=== PATIENT | female | born 1965 | race Caucasian/White ===

== ENCOUNTER 2017-05-31 20:49 | Emergency (ER) | payer MEDICARE, MEDICAID ==
[~2017-05-31] VITALS: Ht 167.6 cm; Wt 99.8 kg
[~2017-05-31 20:49] MED LIST: PNT40TEC PO
[2017-05-31] MEDS ORDERED: DIAZ10TA PO (21:03)
[2017-05-31] MEDS ORDERED: OXYC-202 PO (21:03)
[2017-05-31] MEDS ORDERED: LISI10TA2 PO (21:03)
--- NOTE | 2017-05-31 21:14 | ED Upper Extremity ---
General Chief Complaint: Upper Extremity Stated Complaint: R HAND FINGERS LAC Nursing Triage Note: ABRASION TO RIGHT 5TH FINGER Nursing Sepsis Screen: No Definite Risk Source: patient Exam Limitations: no limitations History of Present Illness Time seen by provider: 21:14 Initial Comments 51-year-old female patient presents to the emergency department complaints and abrasion to the right fifth finger. Patient states she had a dog chain wrapped around her hand. States the dog lunged causing the injury. States she does not know when her last tetanus shot was. Onset: just prior to arrival Pain/Injury Location: right 5th finger Method of Injury: other (see history of present illness) Modifying Factors: Worse With Other (worse with palpation) Allergies and Home Medications Allergies Coded Allergies: adhesive (Unverified Allergy, 10/28/13) ibuprofen (Verified Allergy, 10/28/13) Home Medications Diazepam 10 Mg Tablet, 10 MG PO, (Reported) Lisinopril 10 Mg Tablet, 10 MG PO DAILY, (Reported) Oxycodone HCl/Acetaminophen 1 Each Tablet, 1 EACH PO, (Reported) Pantoprazole Sodium 40 Mg Tablet.dr, 40 MG PO DAILY, #30 Prescribed by: MAGALI STANTON on 10/29/13 1336 Constitutional: no symptoms reported Musculoskeletal: see HPI, joint pain (mild right fifth finger pain with movement), joint swelling (right fifth finger) Skin: see HPI, change in color (bruising right fifth finger) Psychiatric/Neurological: Denies Numbness, Denies Paresthesia, Denies Tingling , Denies Weakness All Other Systems Reviewed Negative Unless Noted: Yes (Negative excepted noted.) Past Djhdbhs-Bxpivc-Wjudqs Hx Patient Social History Alcohol Use: Denies Use Recreational Drug Use: No Smoking Status: Never a Smoker 2nd Hand Smoke Exposure: No Recent Foreign Travel: No Contact w/Someone Who Travel: No Recent Infectious Disease Expo: No Recent Hopitalizations: No Immunizations Up To Date Tetanus Booster (TDap): More than 5yrs Date of Pneumonia Vaccine: Oct 17, 2011 Seasonal Allergies Seasonal Allergies: No Surgeries HX Surgeries: Yes (breast lumpectomy) Surgeries: Gallbladder, Hysterectomy, Lumpectomy, Tubal Ligation Respiratory Hx Respiratory Disorders: Yes Respiratory Disorders: COPD Cardiovascular Hx Cardiac Disorders: Yes Cardiac Disorders: Hypertension Neurological Hx Neurological Disorders: No Reproductive System : No Hx Reproductive Disorders: Yes (CERVICAL/UTERINE CANCER-HYSTERECTOMY, BREAST CANCER-LUMPECTOMY) Sexually Transmitted Disease: No CONCRETE FINISHER APPRENTICE History: Hysterectomy, Tubal Ligation Genitourinary Hx Genitourinary Disorders: No Gastrointestinal Hx Gastrointestinal Disorders: No Musculoskeletal Hx Musculoskeletal Disorders: No Endocrine Hx Endocrine Disorders: Yes ("PRE DIABETIC") Endocrine Disorders: Diabetes, Non-Insulin dep HEENT HX ENT Disorders: No Cancer Hx Cancer: Yes Cancer: Breast, Cervical, Uterine Psychosocial Hx Psychiatric Problems: Yes Behavioral Health Disorders: Anxiety, PTSD, Bipolar, Depression Integumentary HX Skin/Integumentary Disorder: No Blood Transfusions Hx Blood Disorders: No Reviewed Nursing Assessment Reviewed/Agree w Nursing PMH: Yes Family Medical History Significant Family History: Heart Disease, Hypertension, Stroke, Vascular Disease Family Medial History: Cancer Chest pain Congenital heart disease Congestive heart failure Family history: Arthritis Family history: Cardiovascular disease Family history: Diabetes mellitus Family history: Gastrointestinal disease Family history: Hypertension Heart disease History of - anemia History of - respiratory disease Myocardial infarction Stroke Visual impairment No Family History of: Abdominal aortic aneurysm Pima's disease Alcoholism Aphasia Cancer of colon Cataract Cystic fibrosis Dementia Dysphagia Family history: Allergy Family history: Alzheimer's disease Family history: Asthma Family history: Breast disease Family history: Coronary thrombosis Family history: Glaucoma Family history: Osteoporosis Family history: Thyroid disorder Headache Hearing loss Hereditary disease History of drug abuse Human immunodeficiency virus (HIV) seropositivity Hypercholesterolemia Infertile Kidney disease Malignant neoplasm of lung Parkinson's disease Prostate cancer Psychotic disorder Seizure disorder Tuberculosis Physical Exam Vital Signs Vital Sign - Last 12Hours 05/31/17 21:03 Temp 97.1 Pulse 113 Resp 18 B/P (MAP) 136/86 Pulse Ox 99 O2 Delivery Room Air Capillary Refill : Less Than 3 Seconds General Appearance: WD/WN, no apparent distress Cardiovascular: normal peripheral pulses Elbow/Forearm: normal inspection, non-tender, no evidence of injury, normal ROM , Right Wrist: Yes normal inspection, Yes non-tender, Yes no evidence of injury, Yes normal ROM Hand: Right, abrasions (abrasion of the right fifth finger overlying the posterior PIP joint.), ecchymosis (right fifth finger), limited ROM (a slight reduction in range of motion of the fifth finger secondary to swelling), soft tissue tenderness, swelling (mild swelling of the right fifth finger) Neurologic/Tendon: normal sensation, normal motor functions, normal tendon functions, responds to pain, no evidence tendon injury Neurologic/Psychiatric: no motor/sensory deficits, alert, normal mood/affect, oriented x 3 Skin: normal color, warm/dry, other (abrasion of the right fifth finger overlying the posterior PIP joint.) Progress/Results/Core Measures Results/Orders My Orders Orders - ANNABELLE MCCALLUM Tdap (Boostrix) Im (05/31/17 21:19) Vital Signs/I&O Vital Sign - Last 12Hours 05/31/17 21:03 Temp 97.1 Pulse 113 Resp 18 B/P (MAP) 136/86 Pulse Ox 99 O2 Delivery Room Air Blood Pressure Mean: 103 Departure Impression Impression: Primary Impression: Abrasion of finger, right Qualified Codes: S60.419A - Abrasion of unspecified finger, initial encounter Disposition: HOME, SELF-CARE Condition: Improved Departure-Patient Inst. Decision time for Depature: 21:24 Referrals: NO,LOCAL PHYSICIAN (PCP/Family) Primary Care Physician Patient Instructions: Skin Abrasions (DC) Add. Discharge Instructions: All discharge instructions reviewed with patient and/or family. Voiced understanding. Continue usual home medications. Elevate the right hand on pillows. Ice pack as needed. Follow-up with your family practitioner for recheck if needed. Return to the emergency department for worsened symptoms or any other concerns. ANNABELLE MCCALLUM May 31, 2017 21:14
[2017-05-31] MEDS ORDERED: TETANUS,DIPTH,PERTUSS P/F (BOOSTRIX) 0.5 ML VIAL IM STA (21:19)
[2017-05-31 21:53] VITALS: BP 132/81
== END 2017-05-31 21:53 | disposition home or self-care (01) ==
LOC: EDUNIT# 20:49 → ER 20:51
DX: Z04.3 Encounter for examination and observation following other accident (principal)
CPT/HCPCS: 90471; 90715; 99284

== ENCOUNTER 2019-01-30 13:09 | Emergency (ER) | payer MEDICARE, MEDICAID ==
[~2019-01-30] VITALS: Ht 165.1 cm; Wt 107.0 kg
[~2019-01-30 13:09] MED LIST changes: +DIAZ10TA PO; +LISI10TA2 PO; +OXYC1TAB12 PO
[2019-01-30] MEDS ORDERED: AMOX-358 PO (13:32)
--- NOTE | 2019-01-30 13:32 | ED EENT ---
History of Present Illness General Chief Complaint: Ear Problems Stated Complaint: RIGHT EAR PAIN Nursing Triage Note: Pt c/o bad cold for 4 days. Pt reports severe R sided ear pain began this morning. Pt reports blowing nose and then felt a pop in ear. 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 Pt afebrile. Source: patient Exam Limitations: no limitations History of Present Illness Date Seen by Provider: Jan 30, 2019 Time Seen by Provider: 13:31 Allergies and Home Medications Allergies Coded Allergies: adhesive (Unverified Allergy, 10/28/13) ibuprofen (Verified Allergy, 10/28/13) Home Medications Lisinopril 10 Mg Tablet, 10 MG PO DAILY, (Reported) Pantoprazole Sodium 40 Mg Tablet.dr, 40 MG PO DAILY Prescribed by: MAGALI STANTON on 10/29/13 1336 Past Fuspgkw-Kgdaon-Mpumwe Hx Patient Social History Alcohol Use: Occasionally Uses Recreational Drug Use: No 2nd Hand Smoke Exposure: No Recent Foreign Travel: No Contact w/Someone Who Travel: No Recent Infectious Disease Expo: No Recent Hopitalizations: No Physical Abuse: No Sexual Abuse: No Mistreated: No Immunizations Up To Date Tetanus Booster (TDap): More than 5yrs Date of Pneumonia Vaccine: Oct 17, 2011 Seasonal Allergies Seasonal Allergies: No Past Medical History Surgeries: Yes (PDA,) Gallbladder, Hysterectomy, Lumpectomy, Tubal Ligation Respiratory: Yes COPD Cardiac: Yes Hypertension Neurological: No Reproductive Disorders: Yes (CERVICAL/UTERINE CANCER-HYSTERECTOMY, BREAST CANCER-LUMPECTOMY) SUPERVISOR SPECIAL EDUCATION History: Hysterectomy, Tubal Ligation Sexually Transmitted Disease: No Genitourinary: No Gastrointestinal: No Musculoskeletal: No Endocrine: Yes Diabetes, Non-Insulin dep HEENT: No Cancer: Yes Breast, Cervical, Uterine Psychosocial: Yes Anxiety, PTSD, Bipolar, Depression Integumentary: No Blood Disorders: No Family Medical History Cancer Chest pain Congenital heart disease Congestive heart failure Family history: Arthritis Family history: Cardiovascular disease Family history: Diabetes mellitus Family history: Gastrointestinal disease Family history: Hypertension Heart disease History of - anemia History of - respiratory disease Myocardial infarction Stroke Visual impairment No Family History of: Abdominal aortic aneurysm Wirt's disease Alcoholism Aphasia Cancer of colon Cataract Cystic fibrosis Dementia Dysphagia Family history: Allergy Family history: Alzheimer's disease Family history: Asthma Family history: Breast disease Family history: Coronary thrombosis Family history: Glaucoma Family history: Osteoporosis Family history: Thyroid disorder Headache Hearing loss Hereditary disease History of drug abuse Human immunodeficiency virus (HIV) seropositivity Hypercholesterolemia Infertile Kidney disease Malignant neoplasm of lung Parkinson's disease Prostate cancer Psychotic disorder Seizure disorder Tuberculosis Heart Disease, Hypertension, Stroke, Vascular Disease Physical Exam Vital Signs Vital Signs - First Documented 01/30/19 13:13 Temp 97.4 Pulse 107 Resp 22 B/P (MAP) 171/99 (123) Pulse Ox 96 O2 Delivery Room Air Height, Weight, BMI Height: 5'5.00" Weight: 236lbs. 0.0oz. 107.988958uq; 35.51 BMI Method:Stated Progress/Results/Core Measures Results/Orders Vital Signs/I&O 01/30/19 13:13 Temp 97.4 Pulse 107 Resp 22 B/P (MAP) 171/99 (123) Pulse Ox 96 O2 Delivery Room Air Blood Pressure Mean: 123 Departure Impression Primary Impression: Otitis media Qualified Codes: H66.001 - Acute suppurative otitis media without spontaneous rupture of ear drum, right ear Disposition: 01 HOME, SELF-CARE Condition: Stable/Unchanged Departure-Patient Inst. Decision time for Depature: 13:31 Referrals: NO,LOCAL PHYSICIAN (PCP/Family) Primary Care Physician Patient Instructions: Ear Infections (Otitis Media) (DC) Add. Discharge Instructions: Take medications as directed. You may use ibuprofen and Tylenol as directed by the bottle for pain relief. Follow-up with her primary care provider within 1 week for recheck. Return back to the emergency room for worsening symptoms or concerns as needed. All discharge instructions reviewed with patient and/or family. Voiced understanding. Scripts Amoxicillin/Potassium Clav (Augmentin 875-125 Tablet) 1 Each Tablet 1 EACH PO BID for 10 Days, #20 TAB Prov: DARCI BANDA 01/30/19 DARCI BANAD Jan 30, 2019 13:32
[2019-01-30 13:42] VITALS: BP 171/99
--- OUTSIDE RECORDS SUMMARY | 2019-01-30 13:54 | XMS REPORT | Clinical Summary ---
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 Active famotidine (PEPCID) 20 MG Take 20 mg by 0 tablet mouth 2 (two) times daily. Active albuterol (PROAIR Inhale 2 1 each 3 RESPICLICK) 108 (90 Base) puffs into 8 MCG/ACT the lungs inhalerIndications: COPD every 6 (six) with asthma (HCC) hours as needed for Shortness of Breath. Active diazePAM (VALIUM) 10 MG Take 1 tablet 60 tablet 0 tabletIndications: Neck (10 mg total) 8 pain of over 3 months by mouth duration, Chronic pain of every 6 (six) both shoulders, Anxiety hours as needed for Anxiety. Do not exceed a daily dose of 40 mg Active QUEtiapine (SEROQUEL) 50 Take 1 tablet 30 tablet 0 MG tablet (50 mg total) 8 by mouth at bedtime. Active esomeprazole (NEXIUM) 40 Take 1 30 capsule 0 MG capsule capsule (40 8 mg total) by mouth every morning before breakfast. Active Problems Problem Noted Date COPD with asthma 02/10/2018 Anxiety 02/10/2018 Chronic pain of both shoulders 02/10/2018 Family History Medical History Relation Name Comments No Known Problems Brother Hypertension Brother PTSD Brother Stroke Brother No Known Problems Daughter Heart attack Father Heart disease Father Stroke Father Cancer Maternal Aunt Jocelin Cervical cancer Maternal Aunt Jocelin Cancer Maternal Aunt Katharine Cancer Maternal Aunt Savannah Stroke Maternal Aunt Savannah Uterine cancer Maternal Aunt Savannah Cancer Maternal Grandfather Aneurysm Maternal Grandmother Cancer Maternal Grandmother Stomach cancer Maternal Grandmother Aneurysm Maternal Uncle Aneurysm Maternal Uncle Diabetes Mother Emphysema Mother Heart failure Mother Kidney disease Mother Obesity Mother Diabetes Paternal Grandfather Heart attack Paternal Grandmother Drug abuse Sister 1/2 Arthritis Sister full Diabetes Sister full No Known Problems Son Relation Name Status Comments Brother Alive Brother Alive Daughter Alive Father Alive Maternal Aunt Jocelin Maternal Aunt Katharine Maternal Aunt Savannah Maternal Grandfather Maternal Grandmother Maternal Uncle Maternal Uncle Mother (Age 68) Paternal Grandfather Paternal Grandmother Sister 1/2 Alive Sister full Alive Son Alive Social History Date Tobacco Use Types Packs/Day Years Used Quit: 02/10/2009 Former Smoker Cigarettes 3 25 Smokeless Tobacco: Never Used Alcohol Use Drinks/Week oz/Week Comments No Sex Assigned at Date Recorded Not on file Industry Job Start Date Occupation Not on file Not on file Not on file Travel End Travel History Travel Start No recent travel history available. Last Filed Vital Signs Time Taken Vital Sign Reading 02/10/2018 1:44 PM CDT Blood Pressure 128/84 02/10/2018 1:44 PM CDT Pulse 108 02/10/2018 1:44 PM CDT Temperature 36.2 C (97.1 F) 02/10/2018 1:44 PM CDT Respiratory Rate 22 - Oxygen Saturation - - Inhaled Oxygen - Concentration 02/10/2018 1:44 PM CDT Weight 95.3 kg (210 lb) 02/10/2018 1:44 PM CDT Height 166.4 cm (5' 5.5") 02/10/2018 1:44 PM CDT Body Mass Index 34.41 Plan of Treatment Health Maintenance Due Date Last Done Comments Annual Wellness Visit 1965 Hepatitis C Screening 1964 DTaP,Tdap,and Td Vaccines 1983 (1 - Tdap) CERVICAL CANCER SCREENING 1985 Breast Cancer 2014 Screening-Mammogram Colon Cancer Screening 2014 Zoster Recombinant 2014 Vaccine (RZV,Shingrix) (1 of 2 - [facility] 2 Dose Standard) Influenza Vaccine (Season 06/17/2019 10/29/2013 Ended) Results Not on filefrom Last 3 Months Insurance Type Payer Benefit Subscriber ID Effective Phone Address Plan / Dates Group Medicare MEDICARE MEDICARE xxxxxxxxxx 2017-P [phone] [address] [place] [address] MEDICAID MEDICAID xxxxxxxx 2018- [phone] [id number] [place] [employer] [place] [address] Advance Directives Patient has advance care planning documents on file. For more information, please contact: [facility] [address] [address]
--- OUTSIDE RECORDS SUMMARY | 2019-01-30 13:54 | XMS REPORT | Continuity of Care Document ---
Author Organization Unknown Address Unknown Allergies Active Description Code Type Severity Reaction Onset Reported/Identified Relationship to Patient Clinical Status Yes NO NAME AVAILABLE 39159 DRUG N/ A N/A Yes adhesive [id number] Drug Allergy Unknown N/A 10/28/2013 Yes ibuprofen [id number] Drug Allergy Unknown N/A 10/28/2013 Yes adhesive Drug Allergy N/A N/A 02/21/2014 Yes ibuprofen Drug Allergy N/A N/A 02/21/2014 Yes IBUPROFEN 82922 DRUG INGREDI Low Rash 02/08/2018 02/08/2018 Yes BUPRENORPHINE 86788 DRUG INGREDI Low Rash 02/10/2018 02/10/2018 Medications There is no data. Problems Date Dx Coded Attending Type Code Diagnosis Diagnosed By 10/29/2013 BRYCE BEARDEN MD Ot 300.00 ANXIETY STATE NOS 10/29/2013 BRYCE BEARDEN MD Ot 401.9 HYPERTENSION NOS 10/29/2013 BRYCE BEARDEN MD Ot 786.50 CHEST PAIN NOS 10/29/2013 BRYCE BEARDEN MD Ot V17.3 FAM HX-ISCHEM HEART DIS 10/29/2013 BRYCE BEARDEN MD Ot V58.69 OTH MED,LT,CURRENT USE 02/21/2014 RASHI BELLO APRN 296.62 MO BIPOLAR I MIXED MODERATE 02/21/2014 RASHI BELLO APRN 300.23 AN SOCIAL PHOBIA 02/21/2014 RASHI BELLO APRN 309.81 AN PTSD 02/21/2014 RASHI BELLO APRN 296.62 MO BIPOLAR I MIXED MODERATE 02/21/2014 RASHI BELLO APRN 300.23 AN SOCIAL PHOBIA 02/21/2014 RASHI BELLO APRN 309.81 AN PTSD 02/21/2014 RASHI BELLO APRN 296.62 MO BIPOLAR I MIXED MODERATE 02/21/2014 RASHI BELLO APRN 300.23 AN SOCIAL PHOBIA 02/21/2014 RASHI BELLO APRN 309.81 AN PTSD 02/21/2014 RASHI BELLO APRN 296.62 MO BIPOLAR I MIXED MODERATE 02/21/2014 RASHI BELLO APRN 300.23 AN SOCIAL PHOBIA 02/21/2014 RASHI BELLO APRN 309.81 AN PTSD 05/02/2014 RASHI BELLO APRN V58.69 MEDICATION HIGH RISK 05/02/2014 RASHI BELLO APRN V58.69 MEDICATION HIGH RISK 05/31/2017 ANNABELLE MATIAS Ot E11.9 TYPE 2 DIABETES MELLITUS WITHOUT COMPLIC 05/31/2017 ANNABELLE MATIAS Ot F31.9 BIPOLAR DISORDER, UNSPECIFIED 05/31/2017 ANNABELLE MATIAS Ot F41.9 ANXIETY DISORDER, UNSPECIFIED 05/31/2017 ANNABELLE MATIAS Ot F43.10 POST-TRAUMATIC STRESS DISORDER, UNSPECIF 05/31/2017 ANNABELLE MATIAS Ot I10 ESSENTIAL (PRIMARY) HYPERTENSION 05/31/2017 ANNABELLE MATIAS Ot J44.9 CHRONIC OBSTRUCTIVE PULMONARY DISEASE, U 05/31/2017 ANNABELLE MATIAS Ot S60.416A ABRASION OF RIGHT LITTLE FINGER, INITIAL 05/31/2017 ANNABELLE MATIAS Ot W18.31XA FALL ON SAME LEVEL DUE TO STEPPING ON AN 05/31/2017 ANNABELLE MATIAS Ot Z82.49 FAMILY HX OF ISCHEM HEART DIS AND OTH DI 05/31/2017 ANNABELLE MATIAS Ot Z85.3 PERSONAL HISTORY OF MALIGNANT NEOPLASM O 05/31/2017 ANNABELLE MATIAS Ot Z85.42 PERSONAL HISTORY OF MALIGNANT NEOPLASM O 05/31/2017 ANNABELLE MATIAS Ot Z90.710 ACQUIRED ABSENCE OF BOTH CERVIX AND UTER 05/31/2017 ANNABELLE MATIAS Ot Z98.51 TUBAL LIGATION STATUS Procedures Code Description [place] [address] ROUTINE VENIPUNCTURE 05/02/2014 82956 LIVER PANEL (LFT) 05/02/2014 70633 CBC 05/02/20143578070 GFR CALC (RESULT ONLY) 05/02/2014 54266 CMP 05/02/2014 02829 LITHIUM 05/02/2014 70909 T4 FREE 05/02/2014 85114 NO CHARGE 05/22/2014 Results There is no data. Encounters ACCT No. Visit Date/Time Discharge Status Pt. Type Provider Facility Loc./Unit Complaint [id number] 05/07/2014 13:35:00 05/07/2014 23:59:59 CLS Outpatient RASHI BELLO APRN [id number] 05/02/2014 08:57:00 05/02/2014 23:59:59 CLS Outpatient RASHI BELLO APRN [id number] 02/21/2014 10:05:00 02/21/2014 23:59:59 CLS Outpatient RASHI BELLO APRN [id number] 02/21/2014 10:05:00 02/21/2014 23:59:59 CLS Outpatient RASHI BELLO APRN [id number] 01/30/2019 13:10:00 01/30/2019 13:40:00 DIS Emergency DARCI BANDA [facility] ER RIGHT EAR PAIN [id number] 05/31/2017 20:51:00 05/31/2017 21:53:00 DIS Emergency ANNABELLE MATIAS [facility] ER R HAND FINGERS LAC [id number] 10/28/2013 18:25:00 10/29/2013 14:00:00 DIS Outpatient BRYCE BEARDEN MD [facility] CATH CHEST PAIN [id number] 02/10/2018 13:37:26 02/10/2018 23:59:59 CLS Outpatient JEROMY ROMO [facility] OSKAL [id number] 02/08/2018 16:18:30 02/08/2018 23:59:59 CLS Outpatient [facility] [id number]
== END 2019-01-30 13:40 | disposition home or self-care (01) ==
LOC: EDUNIT# 13:09 → ER 13:10
DX: H66.91 Otitis media, unspecified, right ear (principal); J44.9 Chronic obstructive pulmonary disease, unspecified; I10 Essential (primary) hypertension; E11.9 Type 2 diabetes mellitus without complications; F41.9 Anxiety disorder, unspecified; F31.9 Bipolar disorder, unspecified; F43.10 Post-traumatic stress disorder, unspecified; Z85.42 Personal history of malignant neoplasm of other parts of uterus; Z85.41 Personal history of malignant neoplasm of cervix uteri; Z85.3 Personal history of malignant neoplasm of breast; Z82.49 Family history of ischemic heart disease and other diseases of the circulatory system; Z91.048 Other nonmedicinal substance allergy status; Z88.6 Allergy status to analgesic agent; Z98.51 Tubal ligation status; Z90.710 Acquired absence of both cervix and uterus
CPT/HCPCS: 99282

== ENCOUNTER 2019-07-04 17:51 | Emergency (ER) | payer MEDICAID, MEDICARE ==
[~2019-07-04] VITALS: Ht 167 cm; Wt 100.0 kg
[~2019-07-04 17:51] MED LIST changes: +AMOX-358 PO
[2019-07-04] MEDS ORDERED: fentaNYL INJECTION 100 MCG/2 ML AMP IVP ONE (18:15)
--- NOTE | 2019-07-04 18:23 | ED Dyspnea ---
General Chief Complaint: Respiratory Problems Stated Complaint: PAIN IN BACK OF RIBS Nursing Triage Note: ARRIVED VIA AMB TO TRIAGE WITH COMPLAINTS OF INCREASED SOA AND PAIN IN LEFT LOWER LUNG. THINKS SHE HAS PNEUMONIA. Source of Information: Patient Exam Limitations: No Limitations History of Present Illness Date Seen by Provider: Jul 04, 2019 Time Seen by Provider: 18:18 Initial Comments Patient comes in with chief complaint of shortness of breath. Onset of 5 days ago. Reports left sided posterior chest pain. Denies cough or fever. Reports chills. Denies recent previous injury. Aggravated by activity. Severity: Moderate Activities at Onset: Activity Allergies and Home Medications Allergies Coded Allergies: adhesive (Unverified Allergy, 10/28/13) ibuprofen (Verified Allergy, 10/28/13) Home Medications Amoxicillin/Potassium Clav 1 Each Tablet, 1 EACH PO BID Prescribed by: DARCI BANDA on 01/30/19 133 Hydrocodone Bit/Acetaminophen 1 Tab Tab, 1 EACH PO Q4-6HR PRN for PAIN-MODERATE Prescribed by: NATALIO CARO on 07/04/191952 Lisinopril 10 Mg Tablet, 10 MG PO DAILY, (Reported) Pantoprazole Sodium 40 Mg Tablet.dr, 40 MG PO DAILY Prescribed by: MAGALI STANTON on 10/29/13 1336 Patient Home Medication List Home Medication List Reviewed: Yes Review of Systems Review of Systems Constitutional: chills EENTM: no symptoms reported Respiratory: No cough; short of breath Cardiovascular: no symptoms reported Gastrointestinal: no symptoms reported Genitourinary: no symptoms reported Musculoskeletal: no symptoms reported Skin: no symptoms reported Psychiatric/Neurological: No Symptoms Reported Endocrine: No Symptoms Reported Hematologic/Lymphatic: No Symptoms Reported Past Mypgctt-Hoywbi-Xdmtio Hx Patient Social History Alcohol Use: Denies Use Recreational Drug Use: No Smoking Status: Former Smoker Former Smoker, Quit: Oct 17, 2008 2nd Hand Smoke Exposure: No Recent Foreign Travel: No Contact w/Someone Who Travel: No Recent Infectious Disease Expo: No Recent Hopitalizations: No Immunizations Up To Date Tetanus Booster (TDap): More than 5yrs Date of Pneumonia Vaccine: Oct 17, 2011 Seasonal Allergies Seasonal Allergies: No Past Medical History Surgeries: Yes (PDA,) Gallbladder, Hysterectomy, Lumpectomy, Tubal Ligation Respiratory: Yes COPD, Emphysema Cardiac: Yes Hypertension Neurological: No Reproductive Disorders: Yes (CERVICAL/UTERINE CANCER-HYSTERECTOMY, BREAST CANCER-LUMPECTOMY) QUANTITATIVE EQUITY HEAD History: Hysterectomy, Tubal Ligation Sexually Transmitted Disease: No Genitourinary: No Gastrointestinal: No Musculoskeletal: No Endocrine: Yes Diabetes, Non-Insulin dep HEENT: No Cancer: Yes Breast, Cervical, Uterine Psychosocial: Yes Anxiety, PTSD, Bipolar, Depression Integumentary: No Blood Disorders: No Family Medical History Cancer Chest pain Congenital heart disease Congestive heart failure Family history: Arthritis Family history: Cardiovascular disease Family history: Diabetes mellitus Family history: Gastrointestinal disease Family history: Hypertension Heart disease History of - anemia History of - respiratory disease Myocardial infarction Stroke Visual impairment No Family History of: Abdominal aortic aneurysm [place]'s disease Alcoholism Aphasia Cancer of colon Cataract Cystic fibrosis Dementia Dysphagia Family history: Allergy Family history: Alzheimer's disease Family history: Asthma Family history: Breast disease Family history: Coronary thrombosis Family history: Glaucoma Family history: Osteoporosis Family history: Thyroid disorder Headache Hearing loss Hereditary disease History of drug abuse Human immunodeficiency virus (HIV) seropositivity Hypercholesterolemia Infertile Kidney disease Malignant neoplasm of lung Parkinson's disease Prostate cancer Psychotic disorder Seizure disorder Tuberculosis Heart Disease, Hypertension, Stroke, Vascular Disease Physical Exam Vital Signs Vital Signs - First Documented 07/04/19 17:55 Temp 37.0 Pulse 101 Resp 20 B/P (MAP) 166/108 (127) Pulse Ox 98 O2 Delivery Room Air Capillary Refill : Less Than 3 Seconds Height, Weight, BMI Height: 5'5.00" Weight: 236lbs. 0.0oz. 107.182416mj; 35.00 BMI Method:Stated General Appearance: No Apparent Distress HEENT: PERRL/EOMI Neck: Normal Inspection Respiratory: No Accessory Muscle Use, Decreased Breath Sounds Cardiovascular: Regular Rate, Rhythm, No Edema, Normal Peripheral Pulses Extremity: Normal Capillary Refill, Normal Inspection Neurologic/Psychiatric: Alert, Oriented x3, Normal Mood/Affect Skin: Normal Color, Warm/Dry Progress/Results/Core Measures Results/Orders Lab Results Laboratory Tests Test 07/04/19 18:51 Range/Units White Blood Count 6.0 4.3-11.0 10^3/uL Red Blood Count 4.81 4.35-5.85 10^6/uL Hemoglobin 14.9 11.5-16.0 G/DL Hematocrit 44 35-52 % Mean Corpuscular Volume 92 80-99 FL Mean Corpuscular Hemoglobin 31 25-34 PG Mean Corpuscular Hemoglobin Concent 34 32-36 G/DL Red Cell Distribution Width 12.4 10.0-14.5 % Platelet Count 209 130-400 10^3/uL Mean Platelet Volume 10.0 7.4-10.4 FL Neutrophils (%) (Auto) 59 42-75 % Lymphocytes (%) (Auto) 26 12-44 % Monocytes (%) (Auto) 11 0-12 % Eosinophils (%) (Auto) 4 0-10 % Basophils (%) (Auto) 1 0-10 % Neutrophils # (Auto) 3.6 1.8-7.8 X 10^3 Lymphocytes # (Auto) 1.6 1.0-4.0 X 10^3 Monocytes # (Auto) 0.6 0.0-1.0 X 10^3 Eosinophils # (Auto) 0.2 0.0-0.3 10^3/uL Basophils # (Auto) 0.1 0.0-0.1 10^3/uL Neutrophils % (Manual) 59 % Lymphocytes % (Manual) 32 % Monocytes % (Manual) 8 % Eosinophils % (Manual) 1 % Blood Morphology Comment NORMAL D-Dimer 0.41 0.00-0.49 UG/ML Sodium Level 139 135-145 MMOL/L Potassium Level 3.8 3.6-5.0 MMOL/L Chloride Level 106 98-107 MMOL/L Carbon Dioxide Level 26 21-32 MMOL/L Anion Gap 7 5-14 MMOL/L Blood Urea Nitrogen 12 7-18 MG/DL Creatinine 0.75 0.60-1.30 MG/DL Estimat Glomerular Filtration Rate > 60 BUN/Creatinine Ratio 16 Glucose Level 130 H 70-105 MG/DL Calcium Level 9.7 8.5-10.1 MG/DL Troponin I < 0.028 <0.028 NG/ML B-Type Natriuretic Peptide < 10.0 <100.0 PG/ML My Orders Orders - NATALIO CARO APRN Fibrin Degradation Products (07/04/19 18:12) Cbc And Manual Diff (07/04/19 18:12) Basic Metabolic Panel (07/04/19 18:12) Troponin I (07/04/19 18:12) Ekg Tracing (07/04/19 18:12) BNP (07/04/19 18:12) Fentanyl Injection (Sublimaze Injection (9/18/19 18:15) Iv Heplock-Insert (Order) (07/04/19 18:16) Chest Pa/Lat (2 View) (07/04/19 19:28) Medications Given in ED Current Medications Medications Dose Ordered Sig/Diane Route Start Time Stop Time Status Last Admin Dose Admin Fentanyl Citrate 50 mcg ONCE ONCE IVP 07/04/19 18:15 07/04/19 18:17 DC 07/04/19 19:06 50 MCG Vital Signs/I&O 07/04/19 17:55 Temp 37.0 Pulse 101 Resp 20 B/P (MAP) 166/108 (127) Pulse Ox 98 O2 Delivery Room Air Blood Pressure Mean: 127 Departure Impression Primary Impression: Chest wall pain Disposition: HOME, SELF-CARE Condition: Stable Departure-Patient Inst. Decision time for Depature: 19:52 Referrals: NO,LOCAL PHYSICIAN (PCP/Family) Primary Care Physician Patient Instructions: NO INSTRUCTIONS GIVEN Add. Discharge Instructions: 1. Follow-up with your doctor next week 2. Return to ER for any concerns 3. All discharge instructions reviewed with patient and/or family. Voiced understanding. Scripts Prednisone (Prednisone) 20 Mg Tab 40 MG PO DAILY, #8 TAB 0 Refills Prov: NATALIO CARO APRN 07/04/19 Hydrocodone Bit/Acetaminophen (Hydrocodone/Acetaminophen 5/325mg Tablet) 1 Tab Tab 1 EACH PO Q4-6HR PRN for PAIN-MODERATE MDD 10 for 3 Days, #10 TAB Prov: NATALIO CARO APRN 07/04/19 NATALIO CARO APRN Jul 04, 2019 18:23
[2019-07-04 18:57] LABS: BASOPHILS # (AUTO) 0.1 10^3/uL (0.0-0.1); BASOPHILS % (AUTO) 1 % (0-10); EOSINOPHILS # (AUTO) 0.2 10^3/uL (0.0-0.3); EOSINOPHILS % (AUTO) 4 % (0-10); HEMATOCRIT 44 % (35-52); HEMOGLOBIN 14.9 G/DL (11.5-16.0); LYMPHOCYTES # (AUTO) 1.6 X 10^3 (1.0-4.0); LYMPHOCYTES % (AUTO) 26 % (12-44); MEAN CORPUSCULAR HEMOGLOBIN 31 PG (25-34); MEAN CORPUSCULAR HGB CONC 34 G/DL (32-36); MEAN CORPUSCULAR VOLUME 92 FL (80-99); MONOCYTES # (AUTO) 0.6 X 10^3 (0.0-1.0); MONOCYTES % (AUTO) 11 % (0-12); NEUTROPHILS # (AUTO) 3.6 X 10^3 (1.8-7.8); NEUTROPHILS % (AUTO) 59 % (42-75); PLATELET COUNT 209 10^3/uL (130-400); RED CELL DISTRIBUTION WIDTH 12.4 % (10.0-14.5)
[2019-07-04 19:10] LABS: BUN/CREATININE RATIO 16; CALCIUM 9.7 MG/DL (8.5-10.1); CARBON DIOXIDE 26 MMOL/L (21-32); CHLORIDE 106 MMOL/L (98-107); CREATININE SERUM 0.75 MG/DL (0.60-1.30); GFR ESTIMATED > 60; GLUCOSE 130 MG/DL (70-105); POTASSIUM 3.8 MMOL/L (3.6-5.0); SODIUM 139 MMOL/L (135-145)
[2019-07-04 19:32] LABS: EOSINOPHILS % (MANUAL) 1 %; LYMPHOCYTES % (MANUAL) 32 %; MONOCYTES % (MANUAL) 8 %; NEUTROPHILS % (MANUAL) 59 %
[2019-07-04 19:33] LABS: RBC MORPH NORMAL
--- NOTE | 2019-07-04 19:50 | Diagnostic Imaging Report ---
INDICATION: Chest pain and dyspnea PA and lateral views of the chest are obtained with comparison made to the study of 10/28/2013. There is air trapping, bilaterally. Prominent interstitial markings are seen bilaterally. There is no evidence of pneumothorax or consolidation. There is no evidence of pleural fluid. IMPRESSION: Findings are compatible with emphysema and probable COPD. Otherwise, there is no acute abnormality in the chest detected. Dictated by: Dictated on workstation # [id number]
[2019-07-04] MEDS ORDERED: ACHD5005 PO (19:53)
[2019-07-04] MEDS ORDERED: PRD20T PO (19:54)
[2019-07-04] MEDS ORDERED: RX-HYDROCODONE/APAP 5/325 MG #4 TAB PK PO PRN (20:00)
[2019-07-04] MEDS ORDERED: DEXAMETHASONE 10 MG/ML (DECADRON) 1 ML VIAL IV ONE (20:00)
[2019-07-04 20:18] VITALS: BP 141/66
== END 2019-07-04 20:18 | disposition home or self-care (01) ==
LOC: EDUNIT# 17:51 → ER 17:53
DX: R07.89 Other chest pain (principal); J43.9 Emphysema, unspecified; I10 Essential (primary) hypertension; E11.9 Type 2 diabetes mellitus without complications; F41.9 Anxiety disorder, unspecified; F43.10 Post-traumatic stress disorder, unspecified; F31.9 Bipolar disorder, unspecified; Z85.42 Personal history of malignant neoplasm of other parts of uterus; Z85.3 Personal history of malignant neoplasm of breast; Z88.8 Allergy status to other drugs, medicaments and biological substances; Z88.6 Allergy status to analgesic agent; Z87.891 Personal history of nicotine dependence; Z90.710 Acquired absence of both cervix and uterus; Z98.51 Tubal ligation status; Z82.49 Family history of ischemic heart disease and other diseases of the circulatory system
CPT/HCPCS: 36415; 71046; 80048; 83880; 84484; 85007; 85027; 85379; 93005; 96374; 96375

== ENCOUNTER → 2019-10-31 | Outpatient (CLI) | payer MEDICARE ==
[~2019-10-31] VITALS: Ht 170 cm; Wt 103.0 kg
[~2019-10-31] MED LIST changes: +ACHD5005 PO; +CATHETER FLUSH 10 ML SYR IV PRN; +PRD20T PO; +REGADENOSON 0.4 MG/5 ML SYR (LEXISCAN) IV ONE
[2019-10-31 13:08] VITALS: BP 129/70
[2019-10-31 13:18] VITALS: BP 198/73
--- NOTE | 2019-10-31 19:52 | STRESS TEST ---
DATE OF SERVICE: 10/31/2019 EXERCISE MYOVIEW STRESS TEST REPORT REFERRING PHYSICIAN: No local physician. Baseline heart rate is 80, baseline blood pressure 129/70. Baseline EKG is sinus rhythm with no ischemic changes. In summary, the patient was injected with 10.59 mCi of technetium-99 Myoview and the resting images were obtained. Then, the patient started exercising with a baseline heart rate, blood pressure and EKG mentioned above. The patient was able to exercise for 3 minutes on standard Zay protocol. With peak exercise level, the patient was injected with 30.9 mCi of technetium-99 Myoview. Blood pressure was 198/73. During recovery, heart rate and blood pressure returned to baseline. EKG returned to baseline. The resting and stress images were reviewed and compared in the short axis, horizontal long axis, and vertical long axis views. Review of the images showed breast attenuation affecting the quality of the images with no significant ischemia or infarction on SPECT images. SSS is 1, SDS 1, TID value 1.07. On the gated images, the left ventricle appeared to be in normal size with normal contractility. Calculated ejection fraction 76%. CONCLUSION: 1. Poor exercise tolerance for a total of 3 minutes on standard Zay protocol, total of 4.6 METS achieving 89% of maximum expected heart rate. 2. Hypertensive response to exercise, returned to baseline during recovery with peak blood pressure 198/77. 3. Minimal nondiagnostic EKG changes with exercise returned to baseline during recovery. 4. Breast attenuation with no significant ischemia or infarction on SPECT images. 5. Normal left ventricular size with normal contractility. Calculated ejection fraction 76%. Job ID: [id number] DocumentID: [id number] Dictated Date: 10/31/2019 15:59:32 Instrument Tech Date: 10/31/2019 19:51:09 Dictated By: BRYCE BEARDEN MD
== END ==
LOC: CARD 10:36
PROVIDERS: ATTEND Internal Medicine Cardiovascular Disease
DX: I25.10 Atherosclerotic heart disease of native coronary artery without angina pectoris (principal); I10 Essential (primary) hypertension
CPT/HCPCS: 78452; 93017; 93306

== ENCOUNTER → 2021-02-24 | Outpatient (CLI) | payer BC, MEDICAID ==
[~2021-02-24] VITALS: Ht 167.6 cm; Wt 93.8 kg
[~2021-02-24] MED LIST changes: +ASPI-999 PO; +ATOR40TA70 PO; -CATHETER FLUSH 10 ML SYR IV PRN; +FLUT1BLS3 IH; +GBPN600T PO; +HYDR-700 PO; +INSU100I10 SQ; +INSU100I23 SQ; -LISI10TA2 PO; +LISI10TA25 PO; +LURA80TA3 PO; +METF-397 PO; +MIRT30TA6 PO; +MTP25TSR PO; +OMEP40CA27 PO; -REGADENOSON 0.4 MG/5 ML SYR (LEXISCAN) IV ONE
== END | disposition home or self-care (01) ==
LOC: PREOP 06:14
PROVIDERS: ATTEND Surgery
DX: Z01.818 Encounter for other preprocedural examination (principal)

== ENCOUNTER 2021-03-03 13:12 | Day surgery (SDC) | payer MEDICARE ==
[~2021-03-03] VITALS: Ht 167.6 cm; Wt 93.8 kg
[2021-03-03] MEDS ORDERED: LACTATED RINGERS 1,000 ML IV ONE (13:16)
[2021-03-03] MEDS ORDERED: LACTATED RINGERS 1,000 ML IV STA (13:20)
[2021-03-03 13:38] VITALS: BP 125/85
--- NOTE | 2021-03-03 13:59 | Progress Note-Pre Operative ---
Pre-Operative Progress Note H&P Reviewed The H&P was reviewed, patient examined and no changes noted. Date Seen by Provider: March 03, 2021 Time Seen by Provider: 13:59 Date H&P Reviewed: March 03, 2021 Time H&P Reviewed: 13:59 Pre-Operative Diagnosis: rectal bleeding SURENDRA ZHANG DO March 03, 2021 13:59
[2021-03-03] MEDS ORDERED: PROPOFOL INJECTION 50 ML IV ONE ×2 (15:28→16:01)
[2021-03-03] MEDS ORDERED: MIDAZOLAM 2 MG/2 ML (VERSED) VIAL ONE (15:28)
[2021-03-03 16:25] VITALS: BP 104/55
--- NOTE | 2021-03-03 16:31 | Anesthesia-General Post-Op ---
MAC Patient Condition Mental Status/LOC: Same as Preop Cardiovascular: Satisfactory Nausea/Vomiting: Absent Respiratory: Satisfactory Pain: Controlled Complications: Absent Post Op Complications Complications None Follow Up Care/Instructions Patient Instructions None needed. Anesthesiology Discharge Order Discharge Order Patient is doing well, no complaints, stable vital signs, no apparent adverse anesthesia problems. No complications reported per nursing. NELLIE ADRIAN CRNA March 03, 2021 16:31
[2021-03-03] MEDS ORDERED: ALBE200T14 PO (16:32)
--- NOTE | 2021-03-03 16:34 | Discharge Inst-Simple/Standard ---
Discharge Inst-Standard Discharge Medications New, Converted or Re-Newed RX: Transmitted to Pharmacy Patient Instructions/Follow Up Plan of Care/Instructions/FU: Follow up Dr. Mckay 2 weeks. You have a prescription called in to [facility] for Diltiazem cream to be placed inside anus 3 times per day for two weeks. You have a prescription for parasite worms called into your preferred pharmacy ( [facility] ). Activity as Tolerated: Yes Discharge Diet: Regular Diet SURENDRA MCKAY DO March 03, 2021 16:34
--- NOTE | 2021-03-03 16:38 | Progress Note-Post Operative ---
Post-Operative Progess Note Surgeon (s)/Rail Car Painter/Sandblaster (s) Surgeon SURENDRA ZHANG DO Rail Car Painter/Sandblaster: na Pre-Operative Diagnosis rectal bleeding Post-Operative Diagnosis anal fissure, pinworms Procedure & Operative Findings Date of Procedure 03/03/21 Procedure Performed/Findings colonoscopy Anesthesia Type per elastic yarn twister helper Estimated Blood Loss Estimated blood loss (mL): none Specimens/Packing Specimens Removed stool for ova and parasites SURENDRA ZHANG DO March 03, 2021 16:38
[2021-03-03 16:40] VITALS: BP 120/62
[2021-03-03 17:01] VITALS: BP 120/62
--- NOTE | 2021-03-03 21:57 | OPERATIVE REPORT ---
DATE OF SERVICE: 03/03/2021 PREOPERATIVE DIAGNOSIS: Rectal bleeding. POSTOPERATIVE DIAGNOSES: 1. Anal fissure. 2. Pinworms. PROCEDURE: Colonoscopy. SURGEON: Surendra Mckay DO ANESTHESIA: Per RATE INSERTER. ESTIMATED BLOOD LOSS: None. COMPLICATIONS: None. SPECIMENS: Stool for ova and parasites. INDICATIONS: The patient is a 55-year-old female with rectal bleeding. She understands risks and benefits of procedure and wished to proceed with procedure. Consent was signed in the chart. DESCRIPTION OF PROCEDURE: The patient was taken to the endoscopy suite, placed in left lateral recumbent position. Timeout was performed. Digital rectal exam was performed noting a posterior anal fissure. No palpable polyps, masses or ulcerations. Scope was inserted in the rectum, advanced all the way to cecum with minimal difficulty. Prep was adequate with irrigation and suction. In the cecum, multiple small worms that appeared to be pinworms present. This was suctioned for specimen for ova and parasite. Scope was then slowly retracted back. No polyps, masses or ulcerations within the cecum, ascending, transverse, descending and sigmoid colon. Once in the rectum, scope was attempted to be retroflexed, but was unable to. Therefore, multiple insertions and retractions made noting no other pathology. Scope was then slowly retracted until completely removed. The patient tolerated procedure well without any complications. She was taken to recovery room in stable condition. RECOMMENDATIONS: The patient will be given albendazole 400 mg once and repeat 14 days later, take on empty stomach. The patient also prescribed diltiazem cream to be placed into the anus three times per day. The patient will follow up in the office to see how she is doing and will need repeat colonoscopy in 10 years unless family history of colon cancer, which would then be 5 years, any issues before that be seen at that time. Job ID: [id number] DocumentID: [id number] Dictated Date: 03/03/2021 16:40:39 Senior Statistical Programmer Date: 03/03/2021 21:56:29 Dictated By: SURENDRA MCKAY DO [facility] HOSPITALMagdy
== END 2021-03-03 17:04 | disposition home or self-care (01) ==
LOC: ENDO 13:12
PROVIDERS: ATTEND Surgery
DX: K60.2 Anal fissure, unspecified (principal); B80 Enterobiasis; K92.1 Melena; K62.89 Other specified diseases of anus and rectum; I10 Essential (primary) hypertension; J43.9 Emphysema, unspecified; E11.9 Type 2 diabetes mellitus without complications; Z90.49 Acquired absence of other specified parts of digestive tract; Z98.51 Tubal ligation status; Z87.891 Personal history of nicotine dependence; Z79.4 Long term (current) use of insulin; Z79.82 Long term (current) use of aspirin; Z79.899 Other long term (current) drug therapy
CPT/HCPCS: 82947; 87328; 87329

== ENCOUNTER 2021-04-10 20:39 | Emergency (ER) | payer MEDICARE, MEDICAID ==
[~2021-04-10] VITALS: Ht 167.7 cm; Wt 86.2 kg
[~2021-04-10 20:39] MED LIST changes: +ALBE200T14 PO; +MIRT-69 PO; -MIRT30TA6 PO; -OMEP40CA27 PO; +OMEP40CA6 PO
[2021-04-10] MEDS ORDERED: cefTRIAXone 1,000 MG VIAL IM ONE (21:00)
[2021-04-10] MEDS ORDERED: LIDOCAINE 1% INJ 20 ML 20 ML VIAL INJ ONE (21:00)
--- NOTE | 2021-04-10 21:33 | ED Upper Extremity ---
General Chief Complaint: Laceration Stated Complaint: L HAND LAC Source: patient Exam Limitations: no limitations History of Present Illness Date Seen by Provider: Apr 10, 2021 Time Seen by Provider: 21:29 Initial Comments stabbed self unintentionally in palm of left hand with steak knife while trying to scrape brownies out of a jimenez. Tetanus not up to date. Onset: just prior to arrival Severity: moderate Pain/Injury Location: left hand Method of Injury: fell Modifying Factors: Worse With Movement Allergies and Home Medications Allergies Coded Allergies: adhesive (Unverified Allergy, Unknown, 10/31/19) ibuprofen (Verified Allergy, Unknown, 10/31/19) Home Medications Albendazole 200 Mg Tablet, 400 MG PO WEEK Take 400 mg on empty stomach and then repeat 14 days later. Prescribed by: SURENDRA ZHANG on 03/03/21 1632 Aspirin 81 Mg Tab.chew, 81 MG PO DAILY, (Reported) Atorvastatin Calcium 40 Mg Tablet, 40 MG PO HS, (Reported) Fluticasone/Umeclidin/Vilanter 1 Each Blst.w.dev, 1 EACH IH DAILY, (Reported) Gabapentin 600 Mg Tablet, 600 MG PO UD, (Reported) Hydroxyzine HCl 25 Mg Tablet, 25 MG PO BID, (Reported) Insulin Glargine,Hum.rec.anlog 100 Unit/1 Ml Insuln.pen, 20 UNIT SQ DAILY, (Reported) Insulin Lispro 100 Unit/1 Ml Insuln.pen, 10 UNIT SQ TID, (Reported) Lisinopril 10 Mg Tablet, 10 MG PO DAILY, (Reported) Lurasidone HCl 80 Mg Tablet, 80 MG PO HS, (Reported) Metformin HCl 500 Mg Tablet, 500 MG PO DAILY, (Reported) Metoprolol Succinate 25 Mg Tab.er.24h, 25 MG PO DAILY, (Reported) Mirtazapine 30 Mg Tablet, 30 MG PO HS, (Reported) Omeprazole 40 Mg Capsule.dr, 40 MG PO DAILY, (Reported) Patient Home Medication List Home Medication List Reviewed: Yes Review of Systems Constitutional: see HPI EENTM: see HPI Respiratory: no symptoms reported Cardiovascular: no symptoms reported Genitourinary: no symptoms reported Musculoskeletal: see HPI Skin: no symptoms reported Psychiatric/Neurological: No Symptoms Reported Past Ssrsvnm-Edhhzk-Mkopei Hx Patient Social History Alcohol Beverage of Choice: Wine Former Smoker, Quit: February 26, 2009 2nd Hand Smoke Exposure: No Recent Hopitalizations: No Immunizations Up To Date Tetanus Booster (TDap): More than 5yrs Date of Pneumonia Vaccine: Oct 17, 2011 Seasonal Allergies Seasonal Allergies: No Past Medical History Surgeries: Yes Gallbladder, Hysterectomy, Lumpectomy, Tubal Ligation Respiratory: Yes COPD, Emphysema Cardiac: Yes Hypertension Neurological: No Reproductive Disorders: Yes (CERVICAL/UTERINE CANCER-HYSTERECTOMY, BREAST CANCER-LUMPECTOMY) RECREATION WORKER History: Hysterectomy, Tubal Ligation Sexually Transmitted Disease: No Genitourinary: No Gastrointestinal: No Musculoskeletal: No Endocrine: Yes Diabetes, Non-Insulin dep HEENT: No Cancer: Yes Breast, Cervical, Uterine Psychosocial: Yes Anxiety, PTSD, Bipolar, Depression Integumentary: No Blood Disorders: No Family Medical History Cancer Chest pain Congenital heart disease Congestive heart failure Family history: Arthritis Family history: Cardiovascular disease Family history: Diabetes mellitus Family history: Gastrointestinal disease Family history: Hypertension Heart disease History of - anemia History of - respiratory disease Myocardial infarction Stroke Visual impairment No Family History of: Abdominal aortic aneurysm [place]'s disease Alcoholism Aphasia Cancer of colon Cataract Cystic fibrosis Dementia Dysphagia Family history: Allergy Family history: Alzheimer's disease Family history: Asthma Family history: Breast disease Family history: Coronary thrombosis Family history: Glaucoma Family history: Osteoporosis Family history: Thyroid disorder Headache Hearing loss Hereditary disease History of drug abuse Human immunodeficiency virus (HIV) seropositivity Hypercholesterolemia Infertile Kidney disease Malignant neoplasm of lung Parkinson's disease Prostate cancer Psychotic disorder Seizure disorder Tuberculosis Heart Disease, Hypertension, Stroke, Vascular Disease Physical Exam Vital Signs Vital Signs - First Documented 04/10/21 20:40 Temp 36.2 Pulse 107 Resp 20 Pulse Ox 100 O2 Delivery Room Air Capillary Refill : Height, Weight, BMI Height: 5'5.00" Weight: 236lbs. 0.0oz. 107.510473ea; 33.39 BMI Method:Stated General Appearance: WD/WN, no apparent distress, other (Very anxious) Neck: non-tender, full range of motion Respiratory: no respiratory distress, no accessory muscle use Shoulder: normal inspection, non-tender Elbow/Forearm: normal inspection, non-tender Wrist: Yes normal inspection, Yes non-tender Hand: laceration (there are subcutaneous tissues bulging from within the laceration which is 2cm long and gaping by 1cm. The thenar eminence is taught. ) Neurologic/Tendon: other (reduced sensation and movement over the palmar surface of the thumb. brisk capillary refill. Normal sensation to pad of tips of all other fingers. ) Neurologic/Psychiatric: alert, normal mood/affect, oriented x 3 Skin: normal color, warm/dry Procedures/Interventions Wound Location: Upper Extremities Wound Length (cm): 2 Wound's Depth, Shape: into muscle, linear Wound Explored: clean Irrigated w/ Saline (ccs): 200 (200ml saline+chlorhexidine) Anesthesia: 1% Lidocaine Volume Anesthetic (ccs): 5 Suture: Ethlion Suture Size: 4-0 Number of Sutures: 5 Layer Closure?: 1 Number Deep Layer Sutures: 0 Progress/Results/Core Measures Results/Orders Lab Results Laboratory Tests Test 04/10/21 21:03 Range/Units Glucometer 292 H 70-110 MG/DL My Orders Orders - NATALIO CARO APRN Rx-Hydrocodone/Apap 5-325 Mg (Rx-Vicodin (04/10/21 21:00) Ceftriaxone (Rocephin) (04/10/21 21:00) Lidocaine 1% Inj 20 Ml (Xylocaine 1% Inj (04/10/21 21:00) Medications Given in ED Current Medications Medications Dose Ordered Sig/Diane Route Start Time Stop Time Status Last Admin Dose Admin Acetaminophen/ Hydrocodone Bitart 1 ea Q4H PRN PO 04/10/21 21:00 04/10/21 21:17 1 EA Ceftriaxone Sodium 1,000 mg ONCE ONCE IM 04/10/21 21:00 04/10/21 21:01 DC 04/10/21 21:17 1,000 MG Lidocaine HCl 2.1 ml ONCE ONCE INJ 04/10/21 21:00 04/10/21 21:01 DC 04/10/21 21:17 2.1 ML Vital Signs/I&O 04/10/21 20:40 Temp 36.2 Pulse 107 Resp 20 B/P (MAP) Pulse Ox 100 O2 Delivery Room Air Departure Impression Primary Impression: Puncture wound of hand Disposition: HOME, SELF-CARE Condition: Stable Departure-Patient Inst. Decision time for Depature: 21:51 Referrals: AMANDA LY MD (PCP/Family) Primary Care Physician Patient Instructions: Laceration Repair With Stitches (DC), Wound Care Add. Discharge Instructions: 1. Change the dressing daily. Return to ER for any redness, cold fingers, increasing pain or other concerns. Keep the hand elevated as much as possible. Take the antibiotics as directed. Return to Er on Tuesday for wound check if possible. Return to ER other grissom in 10 days for stitch removal. You can shower letting water run over this but do not soak it in water until stitches are out. All discharge instructions reviewed with patient and/or family. Voiced understanding. Scripts Cephalexin (Cephalexin) 500 Mg Tablet 500 MG PO TID, #15 TAB Prov: NATALIO CARO APRN 04/10/21 Hydrocodone/Acetaminophen (Hydrocodone-Acetamin 5-325 mg) 1 Each Tablet 1 TAB PO Q4H PRN for PAIN-MODERATE (5-7), #10 TAB Prov: NATALIO CARO APRN 04/10/21 NATALIO CARO APRN Apr 10, 2021 21:33
[2021-04-10] MEDS ORDERED: CEPH500T PO (21:54)
[2021-04-10] MEDS ORDERED: ACHD5005 PO (21:54)
[2021-04-10 22:05] VITALS: BP 159/87
== END 2021-04-10 22:05 | disposition home or self-care (01) ==
LOC: EDUNIT# 20:39 → ER 20:40
DX: S61.432A Puncture wound without foreign body of left hand, initial encounter (principal); F32.9 Major depressive disorder, single episode, unspecified; E11.9 Type 2 diabetes mellitus without complications; I10 Essential (primary) hypertension; F41.9 Anxiety disorder, unspecified; J44.9 Chronic obstructive pulmonary disease, unspecified; Z87.891 Personal history of nicotine dependence; Z79.82 Long term (current) use of aspirin; Z79.84 Long term (current) use of oral hypoglycemic drugs; Z79.899 Other long term (current) drug therapy; W26.0XXA Contact with knife, initial encounter
CPT/HCPCS: 12031; 82947

== ENCOUNTER 2021-05-28 17:11 | Inpatient (IN) | payer MEDICARE, MEDICAID ==
[~2021-05-28] VITALS: Ht 167 cm; Wt 130.4 kg
[~2021-05-28 17:11] MED LIST changes: -ALBE200T14 PO; +ALBE200T2 PO; +CEPH500T PO
[2021-05-28] MEDS ORDERED: RT-ALBUTEROL/IPRATROPIUM 3 ML (DUONEB) VIAL INH ONE (17:30)
[2021-05-28] MEDS ORDERED: predniSONE 20 MG TAB PO ONE (17:30)
[2021-05-28] MEDS ORDERED: AZITHROMYCIN 250 MG TAB (ZITHROMAX) PO ONE (17:30)
[2021-05-28] MEDS ORDERED: guaiFENesin (MUCINEX) 600 MG TAB PO ONE (17:30)
[2021-05-28] MEDS ORDERED: ALBUTEROL/IPRATROP (COMBIVENT RESPIMAT) 4 GM INHALER IH STA (17:47)
--- NOTE | 2021-05-28 17:52 | Diagnostic Imaging Report ---
INDICATION: Cough. COMPARISON: 07/04/2019. EXAMINATION: Single view chest. FINDINGS: Air trapping and COPD are present. There is chronic scarring in the left upper lobe. There are, however, new mid to lower lung infiltrates, bilaterally, reflecting a change from prior consistent with nonspecific infiltrates. IMPRESSION: New mid to lower lung bilateral infiltrates superimposed upon chronic COPD and left upper lobe scarring. No failure pattern or pleural fluid evident. Dictated by: Dictated on workstation # [id number]
--- NOTE | 2021-05-28 18:02 | ED Cough/URI ---
General Chief Complaint: Respiratory Problems Stated Complaint: COUGH Source: patient, EMS Exam Limitations: no limitations (LES HUIZAR MD) History of Present Illness Date Seen by Provider: May 28, 2021 Time Seen by Provider: 18:15 Initial Comments 55-year-old female with past medical history of diabetes and per her COPD coming in due to 1 week of nonproductive cough. She states she is unable to stop coughing. Mild shortness of breath associated with this but no chest pain. She states she is not vaccinated for Covid, multiple family members are sick at this time, nobody has been tested. She has associated fever and body aches. No nausea, vomiting, diarrhea, local weakness or numbness, or any other concerns. (LES HUIZAR MD) Allergies and Home Medications Allergies Coded Allergies: adhesive (Unverified Allergy, Unknown, 10/31/19) ibuprofen (Verified Allergy, Unknown, 10/31/19) Home Medications Albendazole 200 Mg Tablet, 400 MG PO WEEK Take 400 mg on empty stomach and then repeat 14 days later. Prescribed by: SURENDRA ZHANG on 03/03/21 1632 Aspirin 81 Mg Tab.chew, 81 MG PO DAILY, (Reported) Atorvastatin Calcium 40 Mg Tablet, 40 MG PO HS, (Reported) Azithromycin 250 Mg Tablet, 250 MG PO DAILY Prescribed by: LES HUIZAR on 05/28/21 180 Cephalexin 500 Mg Tablet, 500 MG PO TID Prescribed by: NATALIO CARO on 04/10/212153 Fluticasone/Umeclidin/Vilanter 1 Each Blst.w.dev, 1 EACH IH DAILY, (Reported) Gabapentin 600 Mg Tablet, 600 MG PO UD, (Reported) Hydrocodone/Acetaminophen 1 Each Tablet, 1 TAB PO Q4H PRN for PAIN-MODERATE (5- 7) Prescribed by: NATALIO CARO on 04/10/212153 Hydroxyzine HCl 25 Mg Tablet, 25 MG PO BID, (Reported) Insulin Glargine,Hum.rec.anlog 100 Unit/1 Ml Insuln.pen, 20 UNIT SQ DAILY, (Reported) Insulin Lispro 100 Unit/1 Ml Insuln.pen, 10 UNIT SQ TID, (Reported) Lisinopril 10 Mg Tablet, 10 MG PO DAILY, (Reported) Lurasidone HCl 80 Mg Tablet, 80 MG PO HS, (Reported) Last Action: Converted Metformin HCl 500 Mg Tablet, 500 MG PO DAILY, (Reported) Metoprolol Succinate 25 Mg Tab.er.24h, 25 MG PO DAILY, (Reported) Mirtazapine 30 Mg Tablet, 30 MG PO HS, (Reported) Omeprazole 40 Mg Capsule.dr, 40 MG PO DAILY, (Reported) Prednisone 20 Mg Tab, 40 MG PO DAILY Prescribed by: LES HUIZAR on 05/28/21 5323 Patient Home Medication List Home Medication List Reviewed: Yes (LES HUIZAR MD) Review of Systems Review of Systems Constitutional: chills, fever EENTM: No blurred vision Respiratory: cough, short of breath Cardiovascular: No chest pain Gastrointestinal: No abdominal pain, No diarrhea, No nausea, No vomiting Genitourinary: No dysuria Musculoskeletal: No back pain Skin: No rash Psychiatric/Neurological: Denies Anxiety Hematologic/Lymphatic: No Symptoms Reported Immunological/Allergic: no symptoms reported (LES HUIZAR MD) All Other Systems Reviewed Negative Unless Noted: Yes (LES HUIZAR MD) Past Dsxfsaa-Yggkev-Pbabyo Hx Patient Social History Tobacco Use?: No (LES HUIZAR MD) Immunizations Up To Date Tetanus Booster (TDap): More than 5yrs (LES HUIZAR MD) Seasonal Allergies Seasonal Allergies: No (LES HUIZAR MD) Past Medical History Surgeries: Yes Gallbladder, Hysterectomy, Lumpectomy, Tubal Ligation Respiratory: Yes COPD, Emphysema Cardiac: Yes Hypertension Neurological: No Reproductive Disorders: Yes (CERVICAL/UTERINE CANCER-HYSTERECTOMY, BREAST CANCER-LUMPECTOMY) DRAFTER ASSISTANT History: Hysterectomy, Tubal Ligation Sexually Transmitted Disease: No Genitourinary: No Gastrointestinal: No Musculoskeletal: No Endocrine: Yes Diabetes, Non-Insulin dep HEENT: No Cancer: Yes Breast, Cervical, Uterine Psychosocial: Yes Anxiety, PTSD, Bipolar, Depression Integumentary: No Blood Disorders: No (LES HUIZAR MD) Family Medical History Cancer Chest pain Congenital heart disease Congestive heart failure Family history: Arthritis Family history: Cardiovascular disease Family history: Diabetes mellitus Family history: Gastrointestinal disease Family history: Hypertension Heart disease History of - anemia History of - respiratory disease Myocardial infarction Stroke Visual impairment No Family History of: Abdominal aortic aneurysm Baraga's disease Alcoholism Aphasia Cancer of colon Cataract Cystic fibrosis Dementia Dysphagia Family history: Allergy Family history: Alzheimer's disease Family history: Asthma Family history: Breast disease Family history: Coronary thrombosis Family history: Glaucoma Family history: Osteoporosis Family history: Thyroid disorder Headache Hearing loss Hereditary disease History of drug abuse Human immunodeficiency virus (HIV) seropositivity Hypercholesterolemia Infertile Kidney disease Malignant neoplasm of lung Parkinson's disease Prostate cancer Psychotic disorder Seizure disorder Tuberculosis Heart Disease, Hypertension, Stroke, Vascular Disease (LES HUIZAR MD) Physical Exam Vital Signs - First Documented 05/28/21 17:30 Temp 37.9 Pulse 102 Resp 22 B/P (MAP) 122/69 (86) Pulse Ox 88 O2 Delivery Room Air (LEXIS ORO DO) Capillary Refill : (LES HUIZAR MD) Height: 5'5.00" Weight: 236lbs. 0.0oz. 107.655772lv; 30.00 BMI Method:Stated General Appearance: WD/WN, no apparent distress HEENT: PERRL/EOMI, normal ENT inspection, pharynx normal Neck: non-tender, full range of motion, supple, normal inspection Respiratory: chest non-tender, no respiratory distress, no accessory muscle use, crackles, other (Constant dry cough) Cardiovascular: regular rate, rhythm, no edema, no murmur Gastrointestinal: normal bowel sounds, non tender, soft; No distended, No guarding, No rebound Extremities: normal range of motion, non-tender, normal inspection, no pedal edema, no calf tenderness Neurologic/Psychiatric: no motor/sensory deficits, alert, normal mood/affect Skin: normal color, warm/dry Lymphatic: no adenopathy (LES HUIZAR MD) Focused Exam Lactate Level 05/28/21 19:22: Lactic Acid Level 1.29 (LEXIS ORO DO) Lactic Acid Level Laboratory Tests Test 05/28/21 19:22 Lactic Acid Level 1.29 MMOL/L (0.50-2.00) (LEXIS ORO DO) Procedures/Interventions Suture Size: 4-0 (LES HUIZAR MD) Progress/Results/Core Measures Suspected Sepsis SIRS Temperature: Pulse: Respiratory Rate: Laboratory Tests 05/28/21 17:55: White Blood Count 3.0L Blood Pressure / Mean: 05/28/21 19:22: Lactic Acid Level 1.29 Laboratory Tests 05/28/21 17:55: Creatinine 0.95, Platelet Count 130, Total Bilirubin 0.5 (LES HUIZAR MD) Results/Orders Lab Results Laboratory Tests Test 05/28/21 17:55 05/28/21 19:22 05/28/21 20:00 Range/Units White Blood Count 3.0 L 4.3-11.0 10^3/uL Red Blood Count 4.67 3.80-5.11 10^6/uL Hemoglobin 14.1 11.5-16.0 g/dL Hematocrit 42 35-52 % Mean Corpuscular Volume 90 80-99 fL Mean Corpuscular Hemoglobin 30 25-34 pg Mean Corpuscular Hemoglobin Concent 34 32-36 g/dL Red Cell Distribution Width 12.0 10.0-14.5 % Platelet Count 130 130-400 10^3/uL Mean Platelet Volume 10.4 9.0-12.2 fL Immature Granulocyte % (Auto) 0 % Neutrophils (%) (Auto) 73 42-75 % Lymphocytes (%) (Auto) 21 12-44 % Monocytes (%) (Auto) 5 0-12 % Eosinophils (%) (Auto) 0 0-10 % Basophils (%) (Auto) 0 0-10 % Neutrophils # (Auto) 2.2 1.8-7.8 10^3/uL Lymphocytes # (Auto) 0.6 L 1.0-4.0 10^3/uL Monocytes # (Auto) 0.2 0.0-1.0 10^3/uL Eosinophils # (Auto) 0.0 0.0-0.3 10^3/uL Basophils # (Auto) 0.0 0.0-0.1 10^3/uL Immature Granulocyte # (Auto) 0.0 0.0-0.1 10^3/uL Sodium Level 136 135-145 MMOL/L Potassium Level 4.1 3.6-5.0 MMOL/L Chloride Level 96 L 98-107 MMOL/L Carbon Dioxide Level 27 21-32 MMOL/L Anion Gap 13 5-14 MMOL/L Blood Urea Nitrogen 12 7-18 MG/DL Creatinine 0.95 0.60-1.30 MG/DL Estimat Glomerular Filtration Rate 61 BUN/Creatinine Ratio 13 Glucose Level 277 H 70-105 MG/DL Calcium Level 8.6 8.5-10.1 MG/DL Corrected Calcium 8.9 8.5-10.1 MG/DL Total Bilirubin 0.5 0.1-1.0 MG/DL Aspartate Amino Transf (AST/SGOT) 120 H 5-34 U/L Alanine Aminotransferase (ALT/SGPT) 79 H 0-55 U/L Alkaline Phosphatase 100 40-136 U/L Total Protein 6.8 6.4-8.2 GM/DL Albumin 3.6 3.2-4.5 GM/DL Procalcitonin 0.13 H <0.10 NG/ML Influenza Type A (RT-PCR) Not Detected Not Detecte Influenza Type B (RT-PCR) Not Detected Not Detecte SARS-CoV-2 RNA (RT-PCR) Detected H Not Detecte Lactic Acid Level 1.29 0.50-2.00 MMOL/L Blood Gas Puncture Site LEFT RAD Blood Gas Patient Temperature 100.8 Arterial Blood pH 7.40 7.37-7.43 Arterial Blood Partial Pressure CO2 42 35-45 MMHG Arterial Blood Partial Pressure O2 74 L 79-93 MMHG Arterial Blood HCO3 25 23-27 MMOL/L Arterial Blood Total CO2 26.3 21.0-31.0 MMOL/L Arterial Blood Oxygen Saturation 95 94-100 % Arterial Blood Base Excess 1.0 -2.5-2.5 MMOL/L Tom Test YES-POS Blood Gas Ventilator Setting NO Blood Gas Inspired Oxygen 4L (LEXIS ORO DO) My Orders Orders - PREETHILEXIS Stephania CONTRERAS Ct Angio Chest W (05/28/21 19:00) Lactic Acid Analyzer (05/28/21 19:00) Blood Culture (05/28/21 19:00) Fibrin Degradation Products (05/28/21 19:21) Protime With Inr (05/28/21 19:21) Partial Thromboplastin Time (05/28/21 19:21) Iohexol Injection (Omnipaque 350 Mg/Ml 1 (05/28/21 20:15) Received Contrast (Hold Metformin- Contr (05/28/21 20:15) Ns (Ivpb) (Sodium Chloride 0.9% Ivpb Bag (05/28/21 20:15) (LEXIS ORO DO) Medications Given in ED Current Medications Medications Dose Ordered Sig/Diane Route Start Time Stop Time Status Last Admin Dose Admin Albuterol Sulfate 2 PUFFS Q6H PRN IH 05/28/21 18:30 05/28/21 19:28 8.5 GM Azithromycin 500 mg ONCE ONCE PO 05/28/21 17:30 05/28/21 17:31 DC 05/28/21 18:02 500 MG Guaifenesin 600 mg ONCE ONCE PO 05/28/21 17:30 05/28/21 17:31 DC 05/28/21 19:26 600 MG Iohexol 100 ml ONCE ONCE IV 05/28/21 20:15 05/28/21 20:16 DC 05/28/21 20:09 82 ML Prednisone 40 mg ONCE ONCE PO 05/28/21 17:30 05/28/21 17:31 DC 05/28/21 18:02 40 MG Sodium Chloride 100 ml ONCE ONCE IV 05/28/21 20:15 05/28/21 20:16 DC 05/28/21 20:09 80 ML (LEXIS ORO DO) Vital Signs/I&O 05/28/21 17:30 Temp 37.9 Pulse 102 Resp 22 B/P (MAP) 122/69 (86) Pulse Ox 88 O2 Delivery Room Air (LEXIS ORO DO) Vital Signs/I&O Capillary Refill : (LES HUIZAR MD) Progress Note : Progress Note 55-year-old female with above history coming in due to new cough of the past week. ABCs were intact and vitals were stable on presentation. Physical exam significant for constant coughing and some crackles at the bases of her lungs. Given her history of COPD with the new cough, she was given azithromycin and prednisone for potential COPD exacerbation. She was also given a Combivent inhaler as she states she is out of her inhaler. Basic labs including Covid ordered chest x-ray ordered. Her oxygen saturation goes between 92% to 94% and never has been dipped below that. If she has COPD then this would actually be a good range. (LES HUIZAR MD) Progress Note : Progress Note 1899--ASSUMED CARE FROM DR. HUIZAR, PT IS ON O2 AT 4L/NC AND O2 SATS 94-96%. RESPIRATIONS EVEN AND UNLABORED. ADDITIONAL LAB AND CT CHEST ANGIOGRAM ORDERED. NO DETERIORATION IN PT'S CONDITION DURING ER STAY (LEXIS ORO DO) Diagnostic Imaging Comments CXR--PER RADIOLOGIST REPORT AT 1900 IMPRESSION: New mid to lower lung bilateral infiltrates superimposed upon chronic COPD and left upper lobe scarring. No failure pattern or pleural fluid evident. CT CHEST ANGIOGRAM--PER RADIOLOGIST REPORT AT 2014 IMPRESSION: Patchy infiltrates are present suspicious for atypical pneumonia, Covid is a likely consideration. There is no evidence of pulmonary emboli or aortic dissection or aneurysm. There are underlying emphysematous changes. There is fatty infiltration of the liver. Reviewed: Reviewed by Me (LEXIS ORO DO) Departure Communication (Admissions) 2014--SPOKE WITH DR. AVILA, HOSPITALIST FOR [facility], ACCEPTS PT FOR ADMIT. ORDERS NOTED. (LEXIS OOR DO) Impression Primary Impression: Pneumonia due to COVID-19 virus Additional Impressions: COPD (chronic obstructive pulmonary disease) Qualified Codes: J44.9 - Chronic obstructive pulmonary disease, unspecified Acute respiratory failure due to COVID-19 Disposition: ADMITTED INPATIENT Condition: Stable Admissions Decision to Admit Reason: Admit from ER (General) Decision to Admit/Date: May 28, 2021 Time/Decision to Admit Time: 20:15 (LEXIS ORO DO) Departure-Patient Inst. Referrals: AMANDA LY MD (PCP/Family) Primary Care Physician LES HUIZAR MD May 28, 2021 18:02 LEXIS ORO DO May 28, 2021 19:21
[2021-05-28 18:05] LABS: BASOPHILS % (AUTO) 0 % (0-10); EOSINOPHILS % (AUTO) 0 % (0-10); HEMATOCRIT 42 % (35-52); HEMOGLOBIN 14.1 g/dL (11.5-16.0); LYMPHOCYTES # (AUTO) 0.6 10^3/uL (1.0-4.0); LYMPHOCYTES % (AUTO) 21 % (12-44); MEAN CORPUSCULAR HEMOGLOBIN 30 pg (25-34); MEAN CORPUSCULAR HGB CONC 34 g/dL (32-36); MEAN CORPUSCULAR VOLUME 90 fL (80-99); MEAN PLATELET VOLUME 10.4 fL (9.0-12.2); MONOCYTES # (AUTO) 0.2 10^3/uL (0.0-1.0); MONOCYTES % (AUTO) 5 % (0-12); NEUTROPHILS # (AUTO) 2.2 10^3/uL (1.8-7.8); NEUTROPHILS % (AUTO) 73 % (42-75); PLATELET COUNT 130 10^3/uL (130-400)
[2021-05-28] MEDS ORDERED: AZIT250T12 PO (18:09)
[2021-05-28] MEDS ORDERED: PRD20T PO (18:09)
[2021-05-28 18:20] LABS: ALBUMIN 3.6 GM/DL (3.2-4.5); POTASSIUM 4.1 MMOL/L (3.6-5.0)
[2021-05-28 18:21] LABS: CALCIUM 8.6 MG/DL (8.5-10.1)
[2021-05-28 18:22] LABS: TOTAL PROTEIN 6.8 GM/DL (6.4-8.2)
[2021-05-28 18:24] LABS: BILIRUBIN,TOTAL 0.5 MG/DL (0.1-1.0)
[2021-05-28 18:26] LABS: CREATININE SERUM 0.95 MG/DL (0.60-1.30)
[2021-05-28] MEDS ORDERED: RT-ALBUTEROL HFA 8.5 GM INHALER IH PRN (18:30)
[2021-05-28] MEDS ORDERED: UMECLIDINIUM BROMIDE (INCRUSE ELLIPTA) 7'S IH SCH ×2 (18:30)
--- NOTE | 2021-05-28 20:14 | Diagnostic Imaging Report ---
INDICATION: Cough and congestion and fever. TECHNIQUE: Multiple contiguous axial images were obtained through the chest after uneventful bolus administration of intravenous contrast. 3D reconstructed CTA MIP acquisitions were also performed. Auto Exposure Controls were utilized during the CT exam to meet ALARA standards for radiation dose reduction. COMPARISON: There is no prior CTA for comparison. FINDINGS: The thoracic aorta shows no evidence of aneurysm or dissection. Great vessel origins are patent with normal variant with the left vertebral arising directly from the arch. The pulmonary parenchymal vessels show no filling defects to suggest pulmonary emboli. There is no pleural or pericardial fluid. Visualized portions of the upper abdomen show fatty infiltration of the liver. The patient has had prior cholecystectomy. Lung parenchymal windows demonstrate patchy groundglass infiltrates in the lung bases and mid lung davis, suspicious for atypical pneumonia, Covid pneumonia is a strong consideration. There are underlying emphysematous changes. IMPRESSION: Patchy infiltrates are present suspicious for atypical pneumonia, Covid is a likely consideration. There is no evidence of pulmonary emboli or aortic dissection or aneurysm. There are underlying emphysematous changes. There is fatty infiltration of the liver. Dictated by: Dictated on workstation # [id number]
[2021-05-28] MEDS ORDERED: NS 100 ML (IVPB) BAG IV ONE (20:15)
[2021-05-28] MEDS ORDERED: IOHEXOL 350 MG/ML 100 ML (OMNIPAQUE 350) VIAL IV ONE (20:15)
[2021-05-28] MEDS ORDERED: HOLD METFORMIN - RECEIVED CONTRAST 20 ML VIAL IV SCH (20:15)
[2021-05-28] MEDS ORDERED: CEFEPIME INJECTION 1,000 MG in WATER (STERILE) FOR INJECTION 10 ML IV ONE (20:30)
[2021-05-28 20:44] LABS: ABG OXYGEN SATURATION 95 % (94-100); ABG PCO2 42 MMHG (35-45); ABG PO2 74 MMHG (79-93); ABG TCO2 26.3 MMOL/L (21.0-31.0); ALLENS TEST YES-POS; INSPIRED O2 4L; PATIENT TEMP 100.8; VENTILATOR NO
[2021-05-28] MEDS ORDERED: ACETAMINOPHEN 500 MG TAB (TYLENOL) PO ONE (20:45)
[2021-05-28 20:50] LABS: FIBRIN DEGRADATION PRODUCTS 0.7 UG/ML (0.00-0.49)
[2021-05-28] MEDS ORDERED: ONDANSETRON 4 MG/2 ML (SDV) Z0FRAN IVP PRN (21:15)
[2021-05-28] MEDS ORDERED: diphenhydrAMINE 25 MG TAB (BENADRYL) PO PRN (21:15)
[2021-05-28] MEDS ORDERED: MELATONIN 3 MG TABLET PO PRN (21:15)
[2021-05-28] MEDS ORDERED: CALCIUM CARBONATE 500 MG (TUMS) TAB.CHEW PO PRN (21:15)
[2021-05-28] MEDS ORDERED: DOCUSATE SODIUM 100 MG (COLACE) CAP PO PRN (21:15)
[2021-05-28] MEDS ORDERED: 1/2 NS IV SOLUTION 1,000 ML IV ONE (21:41)
[2021-05-28] MEDS: ENOXAPARIN 40 MG/0.4 ML (LOVENOX) SYR SC SCH (23:13)
[2021-05-28] MEDS: ALPRAZolam 0.25 MG (XANAX) TAB PO PRN (23:13)
[2021-05-28] MEDS: 1/2 NS IV SOLUTION 1,000 ML IV SCH (23:15)
[2021-05-28 23:20] VITALS: BP 122/69
[2021-05-28 23:30] VITALS: BP 95/65
[2021-05-29] MEDS ORDERED: RT-ALBUTEROL HFA 8.5 GM INHALER IH PRN
[2021-05-29] MEDS: CEFEPIME 1,000 MG/SWFI 10 ML IV PUSH IV SCH ×8 (02:07→20:31)
[2021-05-29] MEDS: RT-ALBUTEROL HFA 8.5 GM INHALER IH SCH ×6 (03:12→23:19)
[2021-05-29 03:36] VITALS: BP 102/67
[2021-05-29] MEDS: 1/2 NS IV SOLUTION 1,000 ML IV SCH (05:57)
[2021-05-29] MEDS ORDERED: inSUlin ASPART (NovoLOG) 1 UNIT/0.01 ML (CHARGE PER UNIT) SC SCH (06:00)
[2021-05-29 07:27] LABS: EOSINOPHILS % (AUTO) 0 % (0-10); MONOCYTES # (AUTO) 0.2 10^3/uL (0.0-1.0)
[2021-05-29 07:29] LABS: BASOPHILS % (AUTO) 0 % (0-10); HEMATOCRIT 39 % (35-52); HEMOGLOBIN 12.9 g/dL (11.5-16.0); LYMPHOCYTES # (AUTO) 0.5 10^3/uL (1.0-4.0); LYMPHOCYTES % (AUTO) 17 % (12-44); MEAN CORPUSCULAR HEMOGLOBIN 30 pg (25-34); MEAN CORPUSCULAR HGB CONC 33 g/dL (32-36); MEAN CORPUSCULAR VOLUME 92 fL (80-99); MEAN PLATELET VOLUME 10.3 fL (9.0-12.2); MONOCYTES % (AUTO) 9 % (0-12); NEUTROPHILS # (AUTO) 1.9 10^3/uL (1.8-7.8); NEUTROPHILS % (AUTO) 73 % (42-75); PLATELET COUNT 117 10^3/uL (130-400); WHITE BLOOD COUNT 2.6 10^3/uL (4.3-11.0)
[2021-05-29 07:41] LABS: ALBUMIN 3.3 GM/DL (3.2-4.5); POTASSIUM 4.4 MMOL/L (3.6-5.0)
[2021-05-29 07:42] LABS: CALCIUM 8.7 MG/DL (8.5-10.1)
[2021-05-29 07:43] LABS: TOTAL PROTEIN 6.3 GM/DL (6.4-8.2)
[2021-05-29 07:45] LABS: BILIRUBIN,TOTAL 0.5 MG/DL (0.1-1.0)
[2021-05-29 07:47] LABS: CREATININE SERUM 0.84 MG/DL (0.60-1.30)
[2021-05-29 08:00] VITALS: BP 113/58
[2021-05-29] MEDS: guaiFENesin/CODEINE (ROBITUSSIN AC) 10ML UDC PO PRN ×2 (09:43→22:25)
[2021-05-29] MEDS: ALPRAZolam 0.25 MG (XANAX) TAB PO PRN ×2 (09:43→20:31)
[2021-05-29] MEDS: SENNA W/DOCUSATE (SENOKOT S) TABLET PO SCH ×2 (09:43→20:30)
[2021-05-29] MEDS: UMECLIDINIUM BROMIDE (INCRUSE ELLIPTA) 7'S IH SCH (11:03)
[2021-05-29] MEDS ORDERED: PHARMACY TO DOSE PO SCH ×2 (11:30→21:00)
[2021-05-29 12:00] VITALS: BP 120/62
[2021-05-29] MEDS ORDERED: inSUlin (REGULAR) HUMAN 1 UNIT/0.01 ML (CHARGE PER UNIT) SC ONE ×2 (12:00→21:00)
--- NOTE | 2021-05-29 12:16 | History & Physical-Hospitalist ---
History of Present Illness HPI/Chief Complaint CC: Covid-19 Hypoxia HPI: This is a 55yoWF who presented to the ER with SOB found to have Covid-19 and significant pneumonia on CXR. Xanax of 1mg PO Q4Hrs PRN will be initiated due to increased anxiety. Lyn catheter will be placed due to significant hypoxia upon movement. She is currently sleeping and has no complaints. Source: patient Exam Limitations: clinical condition Date Seen 05/29/21 Time Seen by a Provider: 11:30 Attending Physician Marielena Wu DO PCP Den Headley MD Referring Physician Date of Admission May 28, 2021 at 20:15 Home Medications & Allergies Home Medications Reviewed patient Home Medication Reconciliation performed by pharmacy medication reconciliations milieu technician and/or nursing. Patients Allergies have been reviewed. Allergies Allergies Coded Allergies adhesive (Unverified Allergy, Unknown, 10/31/19) ibuprofen (Verified Allergy, Unknown, 10/31/19) Past Oldsptl-Csrudq-Ccfyav Hx Patient Social History Marrital Status: single Employed/Student: unemployed Tobacco Use?: No Smoking Status: Former Smoker Smokeless Tobacco Frequency: Never a User Use of E-Cig and/or Vaping dev: No Use of E-Cig and/or Vaping Mckay: Former User Substance use?: No Alcohol Use?: No Pt feels they are or have been: No Immunizations Up To Date Tetanus Booster (TDap): Unknown Hepatitis A: No Hepatitis B: No Date of Pneumonia Vaccine: Oct 17, 2011 Seasonal Allergies Seasonal Allergies: No Current Status status: No status: No Advance Directives: No Communicates: Verbally Primary Language: Trinidadian Preferred Spoken Language: Trinidadian Is interpretation needed?: No Past Medical History Surgeries: Gallbladder, Hysterectomy, Lumpectomy, Tubal Ligation COPD, Emphysema Hypertension REHABILITATION MANAGER History: Hysterectomy, Tubal Ligation Sexually Transmitted Disease: No Diabetes, Non-Insulin dep Breast, Cervical, Uterine Anxiety, PTSD, Bipolar, Depression Blood Disorders: No Family Medical History Cancer Chest pain Congenital heart disease Congestive heart failure Family history: Arthritis Family history: Cardiovascular disease Family history: Diabetes mellitus Family history: Gastrointestinal disease Family history: Hypertension Heart disease History of - anemia History of - respiratory disease Myocardial infarction Stroke Visual impairment No Family History of: Abdominal aortic aneurysm [place]'s disease Alcoholism Aphasia Cancer of colon Cataract Cystic fibrosis Dementia Dysphagia Family history: Allergy Family history: Alzheimer's disease Family history: Asthma Family history: Breast disease Family history: Coronary thrombosis Family history: Glaucoma Family history: Osteoporosis Family history: Thyroid disorder Headache Hearing loss Hereditary disease History of drug abuse Human immunodeficiency virus (HIV) seropositivity Hypercholesterolemia Infertile Kidney disease Malignant neoplasm of lung Parkinson's disease Prostate cancer Psychotic disorder Seizure disorder Tuberculosis Heart Disease, Hypertension, Stroke, Vascular Disease Review of Systems Constitutional: see HPI Respiratory: cough, dyspnea on exertion Physical Exam Physical Exam Vital Signs Vital Signs - First Documented 05/28/21 05/28/21 05/28/21 17:30 21:06 23:20 Temp 37.9 Pulse 102 Resp 22 B/P (MAP) 122/69 (86) Pulse Ox 88 O2 Delivery Room Air O2 Flow Rate 4.00 FiO2 21 Capillary Refill : Less Than 3 Seconds Height, Weight, BMI Height: 5'5.00" Weight: 236lbs. 0.0oz. 107.580880ib; 35.85 BMI Method:Stated General Appearance: No Apparent Distress, Chronically ill Respiratory: No Accessory Muscle Use, Accessory Muscle Use, Decreased Breath Sounds Cardiovascular: Regular Rate, Rhythm Neurologic/Psychiatric: Alert, Oriented x3 Results Results/Procedures Labs Laboratory Tests 05/28/21 17:55 05/29/21 07:20 05/29/21 16:53 Patient resulted labs reviewed. Assessment/Plan Admission Diagnosis Assessment: COVID-19 pneumonia Severe anxiety Bipolar disorder Diabetes with zry-db-cqrsubn sugars due to steroids Plan: Vapotherm BiPAP Steroids Insulin Admission Status: Inpatient Order (span 2 midnights) Reason for Inpatient Admission: COVID-19 MARIELENA WU DO May 29, 2021 12:16
[2021-05-29 16:10] VITALS: BP 100/59
[2021-05-29] MEDS: inSUlin ASPART (NovoLOG) 1 UNIT/0.01 ML (CHARGE PER UNIT) SC SCH ×4 (16:29→22:24)
[2021-05-29] MEDS: inSUlin (REGULAR) HUMAN 1 UNIT/0.01 ML (CHARGE PER UNIT) SC PRN (16:45)
[2021-05-29 17:11] LABS: POTASSIUM 4.5 MMOL/L (3.6-5.0)
[2021-05-29 17:12] LABS: CALCIUM 8.6 MG/DL (8.5-10.1)
[2021-05-29 17:16] LABS: CREATININE SERUM 0.84 MG/DL (0.60-1.30)
[2021-05-29 20:23] VITALS: BP 116/73
[2021-05-29] MEDS: ENOXAPARIN 40 MG/0.4 ML (LOVENOX) SYR SC SCH (20:31)
[2021-05-29] MEDS ORDERED: VANCOMYCIN INJECTION 1,000 MG in NS (IVPB) 250 ML IV SCH (21:00)
[2021-05-29] MEDS: MIRTAZAPINE 15 MG (REMERON) TAB PO SCH (22:25)
[2021-05-29] MEDS: VANCOMYCIN 1 GM/NS 250 ML IVPB IV SCH ×4 (22:26→23:10)
[2021-05-29 23:25] VITALS: BP 103/62
[2021-05-30] VITALS (10 sets, daily range): BP systolic 98–158; BP diastolic 67–97
[2021-05-30] MEDS: RT-ALBUTEROL HFA 8.5 GM INHALER IH SCH ×6 (02:44→23:33)
[2021-05-30] MEDS: CEFEPIME 1,000 MG/SWFI 10 ML IV PUSH IV SCH ×8 (02:47→21:27)
[2021-05-30] MEDS: ALPRAZolam 0.25 MG (XANAX) TAB PO PRN ×2 (04:12→12:05)
[2021-05-30] MEDS: guaiFENesin/CODEINE (ROBITUSSIN AC) 10ML UDC PO PRN ×2 (04:12→13:35)
[2021-05-30] MEDS: inSUlin ASPART (NovoLOG) 1 UNIT/0.01 ML (CHARGE PER UNIT) SC SCH ×4 (05:53→21:27)
[2021-05-30] MEDS: UMECLIDINIUM BROMIDE (INCRUSE ELLIPTA) 7'S IH SCH (07:53)
--- NOTE | 2021-05-30 08:45 | Diagnostic Imaging Report ---
EXAMINATION: Chest 1 view HISTORY: Pneumonia COMPARISON: 05/28/2021 FINDINGS: Heart size and pulmonary vasculature are stable. Increased patchy interstitial and airspace opacities throughout both lungs. Decreased lung volumes. No pleural effusion or pneumothorax. Degenerative changes of the thoracic spine. Osseous structures are otherwise intact. IMPRESSION: 1. Decreased lung volumes with increasing patchy interstitial and airspace opacities throughout both lungs. Dictated by: Dictated on workstation # [id number]
[2021-05-30] MEDS ORDERED: TROUGH ORDER-PHARMACY XX NR (09:00)
[2021-05-30] MEDS: SENNA W/DOCUSATE (SENOKOT S) TABLET PO SCH ×2 (09:24→21:03)
[2021-05-30 10:16] LABS: BASOPHILS % (AUTO) 0 % (0-10); EOSINOPHILS % (AUTO) 0 % (0-10); HEMATOCRIT 37 % (35-52); HEMOGLOBIN 12.2 g/dL (11.5-16.0); LYMPHOCYTES # (AUTO) 0.5 10^3/uL (1.0-4.0); LYMPHOCYTES % (AUTO) 7 % (12-44); MEAN CORPUSCULAR HEMOGLOBIN 31 pg (25-34); MEAN CORPUSCULAR HGB CONC 33 g/dL (32-36); MEAN CORPUSCULAR VOLUME 93 fL (80-99); MEAN PLATELET VOLUME 9.8 fL (9.0-12.2); MONOCYTES # (AUTO) 0.4 10^3/uL (0.0-1.0); MONOCYTES % (AUTO) 5 % (0-12); NEUTROPHILS # (AUTO) 6.5 10^3/uL (1.8-7.8); NEUTROPHILS % (AUTO) 88 % (42-75); PLATELET COUNT 142 10^3/uL (130-400); WHITE BLOOD COUNT 7.5 10^3/uL (4.3-11.0)
[2021-05-30 10:24] LABS: ALBUMIN 3.1 GM/DL (3.2-4.5); POTASSIUM 3.7 MMOL/L (3.6-5.0)
[2021-05-30 10:25] LABS: CALCIUM 8.9 MG/DL (8.5-10.1)
[2021-05-30 10:29] LABS: BILIRUBIN,TOTAL 0.4 MG/DL (0.1-1.0)
[2021-05-30 10:30] LABS: CREATININE SERUM 0.76 MG/DL (0.60-1.30)
[2021-05-30 10:33] LABS: BAND NEUTROPHILS 3 %; LYMPHOCYTES % (MANUAL) 4 %; MONOCYTES % (MANUAL) 2 %; NEUTROPHILS % (MANUAL) 91 %; RBC MORPH NORMAL
[2021-05-30] MEDS: VANCOMYCIN 1500 MG/NS 500 ML IVPB IV SCH ×4 (12:00→21:28)
[2021-05-30] MEDS: inSUlin (REGULAR) HUMAN 1 UNIT/0.01 ML (CHARGE PER UNIT) SC PRN ×2 (12:01→16:18)
[2021-05-30] MEDS: HYDROcodone/APAP 5 MG/325 MG (LORTAB) TAB PO PRN (12:05)
--- NOTE | 2021-05-30 12:30 | Progress Note - Hospitalist ---
Subjective HPI/CC On Admission Date Seen by Provider: May 30, 2021 Time Seen by Provider: 12:00 CC: Covid-19 Hypoxia HPI: This is a 55yoWF who presented to the ER with SOB found to have Covid-19 and significant pneumonia on CXR. Xanax of 1mg PO Q4Hrs PRN will be initiated due to increased anxiety. Lyn catheter will be placed due to significant hypoxia upon movement. She is currently sleeping and has no complaints. Subjective/Events-last exam Patient about the same On Vapotherm of 40 L and 85% Sats 91% Bipolar disorder complicating attitude Senna twice a day will be given Olumiant appears to be an option due to rapid progression noted Review of Systems General: Fatigue, Malaise Focused Exam Lactate Level 05/28/21 19:22: Lactic Acid Level 1.29 Objective Exam Vital Signs Vital Signs Date Time Temp Pulse Resp B/P (MAP) Pulse Ox O2 Delivery O2 Flow Rate FiO2 05/30/21 13:00 84 05/30/21 12:00 36.0 20 98/67 (77) 90 Vapotherm 40.00 85.00 05/30/21 10:47 80 Capillary Refill : Less Than 3 Seconds General Appearance: Anxious, Chronically ill, Mild Distress Respiratory: No Accessory Muscle Use, No Respiratory Distress, Decreased Breath Sounds Cardiovascular: Regular Rate, Rhythm Neurologic/Psychiatric: Alert, Oriented x3, Depressed Affect Results/Procedures Lab Laboratory Tests 05/29/21 16:53 05/30/21 10:05 Patient resulted labs reviewed. Assessment/Plan Assessment and Plan Assess & Plan/Chief Complaint Assessment: COVID-19 pneumonia Severe anxiety Bipolar disorder Diabetes with hka-qh-jtjaplu sugars due to steroids Plan: Vapotherm BiPAP Steroids Insulin 05/30/2021: Initiate Olumiant due to no more supply of Actemra High risk of ventilator progression Xanax IV steroids SIM AVILA DO May 30, 2021 12:30
[2021-05-30] MEDS ORDERED: NON-FORMULARY MEDICATION 1 EA EA PO SCH (14:15)
[2021-05-30] MEDS: BARICITINIB 2 MG (OLUMIANT)TABLET PO SCH (16:17)
[2021-05-30 17:07] LABS: ABG BASE EXCESS -0.6 MMOL/L (-2.5-2.5); ABG OXYGEN SATURATION 94 % (94-100); ABG PCO2 43 MMHG (35-45); ABG PH 7.37 (7.37-7.43); ABG PO2 69 MMHG (79-93); ABG TCO2 25.6 MMOL/L (21.0-31.0)
[2021-05-30 17:11] LABS: ALLENS TEST POSITIVE; INSPIRED O2 85%; PATIENT TEMP 36.4; VENTILATOR NO
[2021-05-30] MEDS ORDERED: DexMEDEtomidine 250 ML DRIP 250 ML IV ONE (17:34)
[2021-05-30] MEDS: DexMEDEtomidine 250 ML DRIP 250 ML IV SCH (17:41)
--- NOTE | 2021-05-30 17:43 | Tele-ICU Consult ---
Progress Note 55 y/o female admitted with COVID PNA and now transferred to ICU for worsening hypoxemia Started on BIPAP at 15/8 with 100% AB.37/43/69 WBC 7.5 hgb: 12.2 also started empirically on Cefipime and vancomycin due to patch infiltrate on cxr CoVID PCR positive. Decadron started and Glu now 407, insulnin therapy initiated. On lovenox for DVT prophylaaxis Became aggitated on Bipap, started precedex for sedation IMP: COVID PNA with hypoxemia watch for resp failure and need for intubation Focused Exam Sepsis Stage: Sepsis Possible Source: Pulmonary Lactate Level 05/28/21 19:22: Lactic Acid Level 1.29 Height, Weight, BMI Height: 5'5.00" Weight: 236lbs. 0.0oz. 107.996250ij; 35.85 BMI Method:Stated Respiratory: Chest Non Tender, Lungs Clear, Normal Breath Sounds, No Accessory Muscle Use, No Respiratory Distress, Accessory Muscle Use, Crackles, Decreased Breath Sounds, Expiration, Inspiration, Pleural Rub, Rales, Respiratory Di stress, Rhonci, Stridor, Wheezing, Other Laboratory Tests 05/30/21 10:05 CHAPARRO HULL MD May 30, 2021 17:43
[2021-05-30] MEDS: MIRTAZAPINE 15 MG (REMERON) TAB PO SCH (21:27)
[2021-05-30] MEDS: ENOXAPARIN 40 MG/0.4 ML (LOVENOX) SYR SC SCH (21:28)
[2021-05-31] VITALS (31 sets, daily range): BP systolic 87–167; BP diastolic 67–115
[2021-05-31] MEDS: RT-ALBUTEROL HFA 8.5 GM INHALER IH SCH ×7 (02:15→22:54)
[2021-05-31 03:44] LABS: BASOPHILS % (AUTO) 0 % (0-10); EOSINOPHILS % (AUTO) 0 % (0-10); HEMATOCRIT 41 % (35-52); HEMOGLOBIN 13.4 g/dL (11.5-16.0); LYMPHOCYTES # (AUTO) 0.6 10^3/uL (1.0-4.0); LYMPHOCYTES % (AUTO) 7 % (12-44); MEAN CORPUSCULAR HEMOGLOBIN 31 pg (25-34); MEAN CORPUSCULAR HGB CONC 33 g/dL (32-36); MEAN CORPUSCULAR VOLUME 94 fL (80-99); MEAN PLATELET VOLUME 10.6 fL (9.0-12.2); MONOCYTES # (AUTO) 0.5 10^3/uL (0.0-1.0); MONOCYTES % (AUTO) 6 % (0-12); NEUTROPHILS # (AUTO) 7.2 10^3/uL (1.8-7.8); NEUTROPHILS % (AUTO) 86 % (42-75); PLATELET COUNT 150 10^3/uL (130-400); WHITE BLOOD COUNT 8.4 10^3/uL (4.3-11.0)
[2021-05-31 03:58] LABS: POTASSIUM 4.3 MMOL/L (3.6-5.0)
[2021-05-31 03:59] LABS: CALCIUM 9.3 MG/DL (8.5-10.1)
[2021-05-31 04:04] LABS: CREATININE SERUM 0.74 MG/DL (0.60-1.30); PHOSPHORUS 3.7 MG/DL (2.3-4.7)
[2021-05-31] MEDS ORDERED: proPOfol 200 MG/20 ML (DIPRIVAN) VIAL IV ONE (04:10)
[2021-05-31] MEDS ORDERED: PROPOFOL DRIP (ICU) 100 ML IV ONE (04:10)
[2021-05-31] MEDS ORDERED: proPOfol 500 MG/50 ML (DIPRIVAN) VIAL IV ONE (04:45)
--- NOTE | 2021-05-31 05:13 | Anesthesia-Procedure Note ---
Procedures/Interventions Procedure Start/Stop/Diagnosis Date of Procedure: May 31, 2021 Start Time: 04:45 Stop Time: 04:50 Intubation RSI: Yes 100% pre-Ox, [id number]: Yes Intubation Method: orotracheal Videoscope used: Yes Grade View: 1 Medications: Etomidate (20), Succinylcholine (100) Mask Ventilation: positive Positive End Tide CO2: Yes Breath Sounds after Intubation: bilateral-equal ETT Securred @ (cm): 23 Intubated with ease: Yes Intubation Complications: no complications Post Intubation Xray-done: Yes (in progress) Care turned over to: NETWORK OPERATIONS CENTER ENGINEERLALIT BENNETT CRNA May 31, 2021 05:13
[2021-05-31 05:45] LABS: ABG OXYGEN SATURATION 100 % (94-100); ABG PCO2 42 MMHG (35-45); ABG PH 7.49 (7.37-7.43); ABG PO2 300 MMHG (79-93); ABG TCO2 34.8 MMOL/L (21.0-31.0)
[2021-05-31 05:46] LABS: ALLENS TEST YES-POS; INSPIRED O2 100%; PATIENT TEMP 34.2; VENTILATOR YES
[2021-05-31] MEDS: MAGNESIUM 1 GM/100 ML IVPB 100 ML IV SCH (06:33)
[2021-05-31] MEDS: KCL 20 MEQ TAB (K-DUR) PO SCH (06:33)
[2021-05-31] MEDS: inSUlin ASPART (NovoLOG) 1 UNIT/0.01 ML (CHARGE PER UNIT) SC SCH (06:33)
[2021-05-31] MEDS: POTASSIUM CL 10MEQ/50ML IVPB 50 ML IV SCH (06:33)
[2021-05-31] MEDS: PROPOFOL DRIP (ICU) 100 ML IV SCH ×5 (06:34→22:51)
[2021-05-31] MEDS: NOREPINEPHRINE 8 MG/250 ML 250 ML IV SCH ×2 (06:35→19:59)
--- NOTE | 2021-05-31 06:35 | Progress Note - Hospitalist ---
Subjective HPI/CC On Admission Date Seen by Provider: May 31, 2021 Time Seen by Provider: 12:00 CC: Covid-19 Hypoxia HPI: This is a 55yoWF who presented to the ER with SOB found to have Covid-19 and significant pneumonia on CXR. Xanax of 1mg PO Q4Hrs PRN will be initiated due to increased anxiety. Lyn catheter will be placed due to significant hypoxia upon movement. She is currently sleeping and has no complaints. Subjective/Events-last exam Patient required ICU transfer yesterday Was on BiPAP and Precedex Decompensated so she required intubation at 5:00 in the morning today Went into cardiac arrest and asystole and was resuscitated for 10 minutes before ROSC obtained Focused Exam Lactate Level Objective Exam Vital Signs Vital Signs Date Time Temp Pulse Resp B/P (MAP) Pulse Ox O2 Delivery O2 Flow Rate FiO2 05/31/21 19:45 37.4 54 18 133/78 (96) 96 Mechanical Ventilator 90.00 05/31/21 18:38 100 Capillary Refill : Less Than 3 Seconds General Appearance: No Apparent Distress, WD/WN, Other (Sedated and intubated) Respiratory: Decreased Breath Sounds Cardiovascular: Regular Rate, Rhythm Results/Procedures Lab Laboratory Tests 05/31/21 03:15 Patient resulted labs reviewed. Assessment/Plan Assessment and Plan Assess & Plan/Chief Complaint Assessment: COVID-19 pneumonia Severe anxiety Bipolar disorder Diabetes with jzz-gl-loofcjp sugars due to steroids Plan: Vapotherm BiPAP Steroids Insulin 05/30/2021: Initiate Olumiant due to no more supply of Actemra High risk of ventilator progression Xanax IV steroids 05/31/2021: Intubation Status post cardiac arrest after intubation with return of ROSC SIM AVILA DO May 31, 2021 06:35
[2021-05-31] MEDS: CEFEPIME 1,000 MG/SWFI 10 ML IV PUSH IV SCH ×8 (06:56→20:00)
--- NOTE | 2021-05-31 08:31 | Diagnostic Imaging Report ---
EXAMINATION: Chest 1 view HISTORY: Intubated COMPARISON: 05/30/2021 FINDINGS: Endotracheal tube tip terminates 4 cm above the kaylee. There is stable moderate bilateral airspace opacities. There are small bilateral pleural effusions. No pneumothorax. Heart is mildly enlarged. IMPRESSION: 1. Stable moderate bilateral airspace opacities concerning for pneumonia. Dictated by: Dictated on workstation # [id number]
[2021-05-31] MEDS ORDERED: TROUGH ORDER-PHARMACY XX NR (09:00)
[2021-05-31] MEDS: fentaNYL DRIP PRE-MIX 250 ML IV SCH (09:00)
[2021-05-31] MEDS: BARICITINIB 2 MG (OLUMIANT)TABLET PO SCH (09:01)
[2021-05-31] MEDS: SENNA W/DOCUSATE (SENOKOT S) TABLET PO SCH ×2 (09:31→20:00)
--- NOTE | 2021-05-31 09:32 | Tele-ICU Progress Note ---
Progress Note video rounds completed 55 y/o female admitted with COVID PNA Transferred to ICU yesterday for worsening hypoxemia Apparently had a cardiopulmonary arrest this morning around 0500. Had CPR and intubated. Hypothermia was not started. Sedation held this am and she was neurologically intact trying to pull out her ET tube. Vent : 18/500/100%/ PE: comfortable on vent, sedated Pulse: 80 NSR BP: 82/59 O2 sat": 97% labs: AB.40/42/74/25 WBC: 8.4 Na 134 K: 4.3 Cl: 110 BUN: 15 creat: 0.74 Glu: 144 Trigly: 128 Meds: decadron 6 cefipime Vanc precedex fentanyl propofol changing lovnox to 1.5mg/kg in divided dose 75mg q 12 due to elevated D dimer and Covid Peak airway pressures high at 43 will lower TV to ARDS net 6ml based on ht. Focused Exam Lactate Level 05/28/21 19:22: Lactic Acid Level 1.29 Height, Weight, BMI Height: 5'5.00" Weight: 236lbs. 0.0oz. 107.133819ly; 35.85 BMI Method:Stated CHAPARRO HULL MD May 31, 2021 09:32
[2021-05-31] MEDS: VANCOMYCIN 1 GM/NS 250 ML IVPB IV SCH ×4 (10:35→22:46)
[2021-05-31] MEDS: UMECLIDINIUM BROMIDE (INCRUSE ELLIPTA) 7'S IH SCH (10:39)
[2021-05-31] MEDS: inSUlin ASPART (NovoLOG) 1 UNIT/0.01 ML (CHARGE PER UNIT) SQ SCH ×2 (11:39→17:26)
[2021-05-31] MEDS ORDERED: SUCCINYLCHOLINE INJ 100 MG/5 ML SYR/VIAL INJ ONE (11:47)
[2021-05-31] MEDS ORDERED: ETOMIDATE IV SOLN 20 MG/10 ML VIAL IV ONE (11:47)
[2021-05-31] MEDS ORDERED: SODIUM BICARB 8.4% 50 MEQ/50 ML (ABBOTT) SYR INJ ONE (11:47)
[2021-05-31] MEDS ORDERED: EPINEPHrine 0.1 MG/ML 10 ML (HOSPIRA) SYR IJ ONE (11:47)
[2021-05-31] MEDS ORDERED: ATROPINE INJECTION 1 MG/10 ML SYR (ABBOTT) INJ ONE (11:47)
[2021-05-31] MEDS: MIRTAZAPINE 15 MG (REMERON) TAB PO SCH (20:00)
[2021-05-31] MEDS: ENOXAPARIN 80 MG/0.8 ML (LOVENOX) SYR SC SCH (20:00)
[2021-05-31] MEDS ORDERED: ENOXAPARIN 40 MG/0.4 ML (LOVENOX) SYR SC SCH (21:00)
[2021-06-01] VITALS (30 sets, daily range): BP systolic 11–118; BP diastolic 54–76
[2021-06-01] MEDS: fentaNYL DRIP PRE-MIX 250 ML IV SCH ×3 (01:10→18:54)
[2021-06-01] MEDS: RT-ALBUTEROL HFA 8.5 GM INHALER IH SCH ×6 (02:04→21:56)
[2021-06-01] MEDS: CEFEPIME 1,000 MG/SWFI 10 ML IV PUSH IV SCH ×8 (03:49→20:12)
[2021-06-01] MEDS: PROPOFOL DRIP (ICU) 100 ML IV SCH ×5 (03:50→21:37)
[2021-06-01 03:51] LABS: ABG BASE EXCESS 1.1 MMOL/L (-2.5-2.5); ABG OXYGEN SATURATION 91 % (94-100); ABG PCO2 46 MMHG (35-45); ABG PH 7.37 (7.37-7.43); ABG PO2 62 MMHG (79-93); ABG TCO2 27.2 MMOL/L (21.0-31.0)
[2021-06-01 03:54] LABS: BASOPHILS % (AUTO) 0 % (0-10); EOSINOPHILS % (AUTO) 0 % (0-10); HEMATOCRIT 39 % (35-52); HEMOGLOBIN 12.8 g/dL (11.5-16.0); LYMPHOCYTES # (AUTO) 0.9 10^3/uL (1.0-4.0); LYMPHOCYTES % (AUTO) 10 % (12-44); MEAN CORPUSCULAR HEMOGLOBIN 31 pg (25-34); MEAN CORPUSCULAR HGB CONC 33 g/dL (32-36); MEAN CORPUSCULAR VOLUME 95 fL (80-99); MONOCYTES % (AUTO) 11 % (0-12); NEUTROPHILS # (AUTO) 7.1 10^3/uL (1.8-7.8); NEUTROPHILS % (AUTO) 78 % (42-75); PLATELET COUNT 296 10^3/uL (130-400); WHITE BLOOD COUNT 9.1 10^3/uL (4.3-11.0)
[2021-06-01 03:57] LABS: ALLENS TEST YES-POS; INSPIRED O2 80%; PATIENT TEMP 37; VENTILATOR YES
[2021-06-01 04:03] LABS: POTASSIUM 4.4 MMOL/L (3.6-5.0)
[2021-06-01 04:04] LABS: CALCIUM 8.6 MG/DL (8.5-10.1)
[2021-06-01 04:08] LABS: CREATININE SERUM 0.87 MG/DL (0.60-1.30); PHOSPHORUS 4.2 MG/DL (2.3-4.7)
[2021-06-01 04:11] LABS: MAGNESIUM 2.1 MG/DL (1.6-2.4)
[2021-06-01] MEDS: MAGNESIUM 1 GM/100 ML IVPB 100 ML IV SCH (04:56)
[2021-06-01] MEDS: POTASSIUM CL 10MEQ/50ML IVPB 50 ML IV SCH (04:56)
[2021-06-01] MEDS: KCL 20 MEQ TAB (K-DUR) PO SCH (04:57)
[2021-06-01] MEDS: inSUlin ASPART (NovoLOG) 1 UNIT/0.01 ML (CHARGE PER UNIT) SQ SCH ×5 (05:30→23:40)
[2021-06-01] MEDS: SENNA W/DOCUSATE (SENOKOT S) TABLET PO SCH ×2 (08:22→20:12)
[2021-06-01] MEDS: ENOXAPARIN 80 MG/0.8 ML (LOVENOX) SYR SC SCH ×2 (08:22→20:12)
[2021-06-01] MEDS: BARICITINIB 2 MG (OLUMIANT)TABLET PO SCH (08:22)
[2021-06-01] MEDS: PANTOPRAZOLE 40 MG (PROTONIX) VIAL IV SCH (08:22)
[2021-06-01] MEDS: NOREPINEPHRINE 8 MG/250 ML 250 ML IV SCH ×2 (08:49→22:15)
[2021-06-01] MEDS ORDERED: TROUGH ORDER-PHARMACY XX NR (09:00)
[2021-06-01] MEDS: UMECLIDINIUM BROMIDE (INCRUSE ELLIPTA) 7'S IH SCH (10:31)
--- NOTE | 2021-06-01 12:22 | Tele-ICU Progress Note ---
Subjective Date Seen by a Provider: Jun 01, 2021 Time Seen by a Provider: 12:21 Sepsis Event Evaluation Height, Weight, BMI Height: 5'5.00" Weight: 236lbs. 0.0oz. 107.856332sk; 35.85 BMI Method:Stated Exam Exam Patient acknowledged, consented, and participated in this virtual visit which was conducted using real time audio/video Vital Signs Date Time Temp Pulse Resp B/P (MAP) Pulse Ox O2 Delivery O2 Flow Rate FiO2 06/01/21 11:00 36.8 86 22 109/68 (82) 88 Mechanical Ventilator 70.00 06/01/21 10:32 87 22 91 70 06/01/21 10:00 36.9 118 72 104/62 (76) 92 Mechanical Ventilator 70.00 06/01/21 09:00 36.8 105 24 105/76 (86) 95 Mechanical Ventilator 70.00 06/01/21 08:52 70.00 06/01/21 08:40 109 65/27 06/01/21 08:00 37.1 54 18 109/62 (78) 98 Mechanical Ventilator 80.00 06/01/21 07:16 53 18 96 80 06/01/21 07:11 56 06/01/21 07:00 37.0 57 36 110/58 (75) 92 Mechanical Ventilator 80.00 06/01/21 06:00 37.0 52 18 110/60 (77) 96 Mechanical Ventilator 80.00 06/01/21 05:00 37.0 56 23 106/61 (76) 93 Mechanical Ventilator 80.00 06/01/21 04:00 93 Mechanical Ventilator 80 06/01/21 04:00 37.0 55 18 106/67 (80) 94 Mechanical Ventilator 80.00 06/01/21 03:50 60 102/60 06/01/21 03:00 37.1 63 18 11/63 (46) 93 Mechanical Ventilator 80.00 06/01/21 02:04 60 18 93 80 06/01/21 02:00 37.0 59 18 102/60 (74) 93 Mechanical Ventilator 80.00 06/01/21 01:00 37.0 59 18 100/55 (70) 96 Mechanical Ventilator 80.00 06/01/21 01:00 59 06/01/21 00:09 Mechanical Ventilator 80.00 06/01/21 00:00 93 Mechanical Ventilator 80 06/01/21 00:00 37.0 65 18 94/59 (71) 95 Mechanical Ventilator 75.00 05/31/21 23:00 37.1 72 18 106/67 (80) 95 Mechanical Ventilator 75.00 05/31/21 22:54 71 18 97 75 05/31/21 22:51 Mechanical Ventilator 75.00 05/31/21 22:51 75 99/72 05/31/21 22:00 37.1 75 18 99/72 (81) 93 Mechanical Ventilator 80.00 05/31/21 21:00 37.1 75 18 104/69 (81) 93 Mechanical Ventilator 80.00 05/31/21 20:54 Mechanical Ventilator 80.00 05/31/21 20:00 96 Mechanical Ventilator 90 05/31/21 20:00 37.3 67 18 121/79 (93) 96 Mechanical Ventilator 90.00 05/31/21 19:45 37.4 54 18 133/78 (96) 96 Mechanical Ventilator 90.00 05/31/21 19:00 63 05/31/21 19:00 37.4 63 18 134/87 (103) 98 Mechanical Ventilator 100.00 05/31/21 18:49 63 134/89 05/31/21 18:38 59 18 98 100 05/31/21 18:00 37.4 59 18 138/88 (105) 97 Mechanical Ventilator 100.00 05/31/21 17:00 76 18 128/85 (99) 99 Mechanical Ventilator 100.00 05/31/21 16:08 94 Mechanical Ventilator 100 05/31/21 16:04 55 18 94 100 05/31/21 16:00 57 18 125/78 (94) 93 Mechanical Ventilator 100.00 05/31/21 15:00 60 19 120/77 (91) 95 Mechanical Ventilator 100.00 05/31/21 14:00 60 19 111/73 (86) 95 Mechanical Ventilator 100.00 05/31/21 13:47 61 115/71 05/31/21 13:00 65 18 110/74 (86) 94 Mechanical Ventilator 100.00 05/31/21 13:00 65 I & O 06/01/21 07:00 Intake Total 560 ml Output Total 925 ml Balance -365 ml Height & Weight Height: 5'5.00" Weight: 236lbs. 0.0oz. 107.356111pq; 35.85 BMI Method:Stated General Appearance: No Apparent Distress, WD/WN, Other (Sedated and intubated) Respiratory: Decreased Breath Sounds Cardiovascular: Regular Rate, Rhythm Capillary Refill: Less Than 3 Seconds Gastrointestinal: normal bowel sounds, non tender, soft; No distended, No guarding, No rebound Neurologic/Psychiatric: Alert, Oriented x3, Depressed Affect Results Lab Laboratory Tests 05/31/21 03:15 06/01/21 03:40 Assessment/Plan Assessment/Plan (Tele-ICU Physician , Progress Note ) Available chart/ vitals / labs / Images reviewed Video assessment done using teleICU camera, rest of exam as per RN Discussed with RN Events overnight : FEBRILE 37.1 I/O = neg 300 Drips: Pressors: , hemodynamically stable Sedation gtt: ( RASS ) VENT SETTINGS. AC 18 500 =18 8-% PAP 30 ABG reviewed Not candidate for SBT today Contraindications: Cardiovascular Stability / Sedation Score / FI02/PEEP / ABG / CXR EXAM PER RN Consultants: Hospital course: (05/28) 55/F Admitted from ED w/ COVID PNA. CTA 05/28 - NO PE (05/30) Tx to ICU on BIPAP. (05/31) INTUBATED. Cardiac arrest (unclear if during or after intubation). CPR 10mins. Post code, sedation stopped and patient had purposeful movment so no TTM Acute resp failure- intubated 05/31 ( covid PNA , CTA 05/28 - NO PE - full vent support , adjust vent to TV 7 cc/IBV - AC 22 420 +18 80% PAP 30 Cardiac arrest (unclear if during or after intubation). CPR 10mins. - no TTM with follow commands COVID PNA - steroids IV - lovenox 75 bid ( CTA 05/28 - NO PE m ddimer 0.7 on 05/28 possible PNA - will sent sputum cx 06/01 cefepime/ vanco blood cx - stap epider 05/28 - ? contaminant DM - hyperglycemia on steroids - increase ISS , consider to start on long actin insulin Severe anxiety Bipolar disorder Lines : PICC 06/01 (Central Line Necessity Reviewed) Lyn: 05/30 OG: + Nutrition: start TF - 06/01 Analgesia: Anxiety/ delirium VTE Prophylaxis: lovenox full dose Stress Ulcer Prophylaxis: PPI Plans in collaboration with bedside consultants and IM MDs. Discussed with RN to reach out if any questions or concerns A total of 36 minutes of critical care time was devoted to this patient today, required to treat and/or prevent further deterioration of critical care c ondition ( as above) PEBBLES SANTANA MD Jun 01, 2021 12:22
--- NOTE | 2021-06-01 16:53 | Progress Note ---
Subjective Subjective/Events-last exam Afebrile, remains ventilated. Objective Exam Last Set of Vital Signs Vital Signs Date Time Temp Pulse Resp B/P (MAP) Pulse Ox O2 Delivery O2 Flow Rate FiO2 06/01/21 16:00 36.7 79 20 106/54 (71) 86 Mechanical Ventilator 70.00 06/01/21 14:26 70 Capillary Refill : Less Than 3 Seconds I&O Intake and Output 06/01/21 00:00 Intake Total 560 ml Output Total 1150 ml Balance -590 ml Intake Oral 60 ml IV Total 500 ml Output Urine Total 1150 ml General: Other (sedated, ventilated) Lungs: Other (ronchi) Heart: Regular Rate Extremities: No Edema Results/Procedures Lab Laboratory Tests 05/31/21 17:14: Glucometer 346H 05/31/21 23:30: Glucometer 262H 06/01/21 03:40: White Blood Count 9.1, Red Blood Count 4.12, Hemoglobin 12.8, Hematocrit 39, Mean Corpuscular Volume 95, Mean Corpuscular Hemoglobin 31, Mean Corpuscular Hem oglobin Concent 33, Red Cell Distribution Width 12.9, Platelet Count 296, Mean Platelet Volume 10.0, Immature Granulocyte % (Auto) 1, Neutrophils (%) (Auto) 78H, Lymphocytes (%) (Auto) 10L, Monocytes (%) (Auto) 11, Eosinophils (%) (Auto) 0, Basophils (%) (Auto) 0, Neutrophils # (Auto) 7.1, Lymphocytes # (Auto) 0.9L, Monocytes # (Auto) 1.0, Eosinophils # (Auto) 0.0, Basophils # (Auto) 0.0, Immature Granulocyte # (Auto) 0.1, Blood Gas Puncture Site R RADIAL, Blood Gas Patient Temperature 37, Arterial Blood pH 7.37, Arterial Blood Partial Pressure CO2 46H, Arterial Blood Partial Pressure O2 62L, Arterial Blood HCO3 26, Arterial Blood Total CO2 27.2, Arterial Blood Oxygen Saturation 91L, Arterial Blood Base Excess 1.1, Tom Test YES-POS, Blood Gas Ventilator Setting YES, Blood Gas Inspired Oxygen 80%, Sodium Level 141, Potassium Level 4.4, Chloride Level 108H, Carbon Dioxide Level 22, Anion Gap 11, Blood Urea Nitrogen 22H, Creatinine 0.87, Estimat Glomerular Filtration Rate 67, BUN/Creatinine Ratio 25, Glucose Level 254H, Calcium Level 8.6, Phosphorus Level 4.2, Magnesium Level 2.1 06/01/21 08:35: Vancomycin Level Trough 22.3H 06/01/21 11:18: Glucometer 221H Microbiology 05/28/21 Blood Culture - Final, Complete Staphylococcus epidermidis Assessment/Plan Assessment/Plan (1) Pneumonia due to COVID-19 virus Status: Acute Assessment & Plan: Suspect pneumonia is COVID only, but has elevated procalcitonin and possible bacterial component, on cefepime and vanc, sputum culture pending. On dexamethasone and baricitinib for COVID. (2) Acute respiratory failure due to COVID-19 Status: Acute Assessment & Plan: Requiring mechanical ventilation, appreciate eICU management. (3) Cardiac arrest Status: Resolved Assessment & Plan: s/p cardiac arrest on 05/31 with 10 minutes CPR (4) COPD (chronic obstructive pulmonary disease) Status: Chronic Qualifiers: Qualified Codes: J44.9 - Chronic obstructive pulmonary disease, unspecified (5) Diabetes Status: Chronic Assessment & Plan: Sliding scale insulin, glucose 200 and above, will start low dose long-acting insulin Qualifiers: Qualified Codes: E11.65 - Type 2 diabetes mellitus with hyperglycemia; Z79.4 - termite exterminator helper (current) use of insulin (6) Bipolar disorder Status: Chronic (7) DVT prophylaxis Status: Acute Assessment & Plan: On enoxaparin 75 mg BID. CTA without PE. (8) Goals of care, counseling/discussion Status: Acute Assessment & Plan: Called family to update, but was unable to reach, will reach out again tomorrow. ZIA RICCI MD Jun 01, 2021 16:53
[2021-06-01] MEDS: VANCOMYCIN 1250 MG/NS 250 ML IVPB IV SCH ×2 (18:48)
[2021-06-01] MEDS: MIRTAZAPINE 15 MG (REMERON) TAB PO SCH (20:13)
[2021-06-02] VITALS (29 sets, daily range): BP systolic 94–162; BP diastolic 55–82
[2021-06-02] MEDS: fentaNYL DRIP PRE-MIX 250 ML IV SCH ×6 (00:19→23:55)
[2021-06-02] MEDS: RT-ALBUTEROL HFA 8.5 GM INHALER IH SCH ×6 (02:22→22:00)
[2021-06-02 03:20] LABS: ABG OXYGEN SATURATION 94 % (94-100); ABG PCO2 51 MMHG (35-45); ABG PO2 73 MMHG (79-93); ABG TCO2 26.9 MMOL/L (21.0-31.0)
[2021-06-02 03:21] LABS: ABG PH 7.32 (7.37-7.43); ALLENS TEST YES-POS; INSPIRED O2 80%; PATIENT TEMP 37.1; VENTILATOR YES
[2021-06-02 03:22] LABS: BASOPHILS % (AUTO) 0 % (0-10); EOSINOPHILS % (AUTO) 0 % (0-10); HEMATOCRIT 35 % (35-52); HEMOGLOBIN 10.9 g/dL (11.5-16.0); LYMPHOCYTES # (AUTO) 0.7 10^3/uL (1.0-4.0); LYMPHOCYTES % (AUTO) 9 % (12-44); MEAN CORPUSCULAR HEMOGLOBIN 31 pg (25-34); MEAN CORPUSCULAR HGB CONC 31 g/dL (32-36); MEAN CORPUSCULAR VOLUME 98 fL (80-99); MEAN PLATELET VOLUME 10.3 fL (9.0-12.2); MONOCYTES # (AUTO) 0.8 10^3/uL (0.0-1.0); MONOCYTES % (AUTO) 9 % (0-12); NEUTROPHILS # (AUTO) 7.1 10^3/uL (1.8-7.8); NEUTROPHILS % (AUTO) 81 % (42-75); PLATELET COUNT 232 10^3/uL (130-400); WHITE BLOOD COUNT 8.7 10^3/uL (4.3-11.0)
[2021-06-02 03:30] LABS: POTASSIUM 4.3 MMOL/L (3.6-5.0)
[2021-06-02 03:32] LABS: CALCIUM 8.4 MG/DL (8.5-10.1)
[2021-06-02 03:36] LABS: CREATININE SERUM 0.94 MG/DL (0.60-1.30); PHOSPHORUS 4.1 MG/DL (2.3-4.7)
[2021-06-02 03:38] LABS: MAGNESIUM 2.3 MG/DL (1.6-2.4)
[2021-06-02] MEDS: inSUlin ASPART (NovoLOG) 1 UNIT/0.01 ML (CHARGE PER UNIT) SQ SCH ×4 (05:54→23:53)
[2021-06-02] MEDS: PROPOFOL DRIP (ICU) 100 ML IV SCH ×5 (05:54→23:54)
[2021-06-02] MEDS: POTASSIUM CL 10MEQ/50ML IVPB 50 ML IV SCH (06:12)
[2021-06-02] MEDS: MAGNESIUM 1 GM/100 ML IVPB 100 ML IV SCH (06:12)
[2021-06-02] MEDS: KCL 20 MEQ TAB (K-DUR) PO SCH (06:12)
[2021-06-02] MEDS: UMECLIDINIUM BROMIDE (INCRUSE ELLIPTA) 7'S IH SCH (06:58)
--- NOTE | 2021-06-02 08:21 | Diagnostic Imaging Report ---
EXAMINATION: Chest 1 view HISTORY: COVID pneumonia. Intubated. COMPARISON: 05/31/2021. FINDINGS: Stable configuration of the endotracheal tube, enteric tube, and left PICC. Interval improved aeration in the mid and lower lungs bilaterally. No large pleural effusion or pneumothorax. Stable cardiac silhouette. IMPRESSION: 1. Interval improved aeration in the mid and lower lungs bilaterally, suggestive of improving pneumonia. 2. Stable support devices. Dictated by: Dictated on workstation # [id number]
[2021-06-02] MEDS: ENOXAPARIN 80 MG/0.8 ML (LOVENOX) SYR SC SCH ×2 (08:59→20:13)
[2021-06-02] MEDS: BARICITINIB 2 MG (OLUMIANT)TABLET PO SCH (08:59)
[2021-06-02] MEDS: SENNA W/DOCUSATE (SENOKOT S) TABLET PO SCH ×2 (08:59→20:13)
[2021-06-02] MEDS: PANTOPRAZOLE 40 MG (PROTONIX) VIAL IV SCH (08:59)
--- NOTE | 2021-06-02 10:43 | Tele-ICU Progress Note ---
Subjective Date Seen by a Provider: Jun 02, 2021 Time Seen by a Provider: 10:43 Sepsis Event Evaluation Height, Weight, BMI Height: 5'5.00" Weight: 236lbs. 0.0oz. 107.818056tl; 35.85 BMI Method:Stated Exam Exam Patient acknowledged, consented, and participated in this virtual visit which was conducted using real time audio/video Vital Signs Date Time Temp Pulse Resp B/P (MAP) Pulse Ox O2 Delivery O2 Flow Rate FiO2 06/02/21 10:22 78 24 92 75 06/02/21 09:00 37.2 84 22 112/65 (81) 91 Mechanical Ventilator 80.00 06/02/21 08:00 37.1 86 22 108/62 (77) 92 Mechanical Ventilator 80.00 06/02/21 08:00 Mechanical Ventilator 80 06/02/21 07:00 85 06/02/21 07:00 37.1 85 22 107/62 (77) 90 Mechanical Ventilator 80.00 06/02/21 06:58 89 24 93 80 06/02/21 06:00 37.1 84 22 103/61 (75) 89 Mechanical Ventilator 80.00 06/02/21 05:00 37 85 25 108/57 (74) 90 Mechanical Ventilator 80.00 06/02/21 04:00 37 80 20 102/56 (68) 93 Mechanical Ventilator 80.00 06/02/21 04:00 Mechanical Ventilator 80 06/02/21 03:00 37.1 85 22 103/66 (79) 91 Mechanical Ventilator 80.00 06/02/21 02:22 86 24 93 80 06/02/21 02:00 37 89 26 110/59 (72) 92 Mechanical Ventilator 80.00 06/02/21 01:00 36.9 93 24 110/61 (75) 92 Mechanical Ventilator 80.00 06/02/21 01:00 88 06/02/21 00:18 85 90/56 06/02/21 00:00 36.9 73 21 94/55 (68) 93 Mechanical Ventilator 80.00 06/02/21 00:00 Mechanical Ventilator 80 06/01/21 23:00 37.0 80 8 91/55 (67) 95 Mechanical Ventilator 80.00 06/01/21 22:00 36.8 79 103/58 (73) 96 Mechanical Ventilator 80.00 06/01/21 21:56 75 24 93 80 8/16/21 21:40 96 Mechanical Ventilator 80.00 06/01/21 21:37 84 119/56 06/01/21 21:00 36.7 89 19 110/58 (75) 93 Mechanical Ventilator 85.00 06/01/21 20:35 Mechanical Ventilator 85.00 06/01/21 20:10 Mechanical Ventilator 90.00 06/01/21 20:00 Mechanical Ventilator 80 06/01/21 20:00 36.6 70 22 101/58 (72) 89 Mechanical Ventilator 80.00 06/01/21 19:00 36.8 73 22 97/55 (69) 94 Mechanical Ventilator 80.00 06/01/21 19:00 Mechanical Ventilator 80.00 06/01/21 19:00 73 06/01/21 18:25 72 22 90 80 06/01/21 18:00 36.8 75 22 104/59 (74) 87 Mechanical Ventilator 70.00 06/01/21 17:00 36.7 76 22 100/55 (70) 85 Mechanical Ventilator 70.00 06/01/21 16:00 36.7 79 20 106/54 (71) 86 Mechanical Ventilator 70.00 06/01/21 16:00 93 Mechanical Ventilator 70 06/01/21 15:00 36.8 77 22 100/56 (71) 87 Mechanical Ventilator 70.00 06/01/21 14:26 82 23 90 70 06/01/21 14:23 80 90/54 06/01/21 14:23 84 90/54 06/01/21 14:00 36.8 84 18 107/54 (71) 91 Mechanical Ventilator 70.00 06/01/21 13:00 36.8 80 22 104/62 (76) 89 Mechanical Ventilator 70.00 06/01/21 12:08 83 06/01/21 12:00 93 Mechanical Ventilator 70 06/01/21 12:00 36.9 84 19 109/63 (78) 90 Mechanical Ventilator 70.00 06/01/21 11:00 36.8 86 22 109/68 (82) 88 Mechanical Ventilator 70.00 I & O 06/02/21 07:00 Intake Total 1487.5 ml Output Total 825 ml Balance 662.5 ml Height & Weight Height: 5'5.00" Weight: 236lbs. 0.0oz. 107.144444jq; 35.85 BMI Method:Stated General Appearance: No Apparent Distress, WD/WN, Other (Sedated and intubated) Respiratory: Decreased Breath Sounds Cardiovascular: Regular Rate, Rhythm Capillary Refill: Less Than 3 Seconds Gastrointestinal: normal bowel sounds, non tender, soft; No distended, No guarding, No rebound Neurologic/Psychiatric: Alert, Oriented x3, Depressed Affect Results Lab Laboratory Tests 06/01/21 03:40 06/02/21 03:10 Assessment/Plan Assessment/Plan (Tele-ICU Physician , Progress Note ) Available chart/ vitals / labs / Images reviewed Video assessment done using teleICU camera, rest of exam as per RN Discussed with RN Events overnight : FEBRILE 37 I/O = even Drips: Pressors:levo Sedation gtt: ( RASS ) propofol fentanyl VENT SETTINGS. AC 18 500 =18 80% PAP 32 ABG reviewed Not candidate for SBT today Contraindications: Cardiovascular Stability / Sedation Score / FI02/PEEP / ABG / CXR EXAM PER RN Consultants: Hospital course: (05/28) 55/F Admitted from ED w/ COVID PNA. CTA 05/28 - NO PE (05/30) Tx to ICU on BIPAP. (05/31) INTUBATED. Cardiac arrest (unclear if during or after intubation). CPR 10mins. Post code, sedation stopped and patient had purposeful movment so no TTM Acute resp failure- intubated 05/31 ( covid PNA , CTA 05/28 - NO PE - full vent support , adjust vent to TV 7 cc/IBV - AC 22 420 +18 80% PAP 30 -proning to try - secretions minimal Cardiac arrest (unclear if during or after intubation). CPR 10mins. - no TTM with follow commands as per report - not follows commands 06/02 ( on minimal sedation ) COVID PNA - steroids IV - lovenox 75 bid ( CTA 05/28 - NO PE m ddimer 0.7 on 05/28 possible PNA - will sent sputum cx 06/01 cefepime/ vanco blood cx - staph epider 05/28 - ? contaminant -06/02 - fever - reculture blood and sputum blood DM - hyperglycemia on steroids - increase ISS , on long actin insulin Severe anxiety Bipolar disorder Lines : PICC 06/01 (Central Line Necessity Reviewed) Lyn: 05/30 OG: + Nutrition: started TF - 16 - 35 ml/h Analgesia: Anxiety/ delirium VTE Prophylaxis: lovenox full dose Stress Ulcer Prophylaxis: PPI Plans in collaboration with bedside consultants and IM MDs. Discussed with RN to reach out if any questions or concerns A total of 36 minutes of critical care time was devoted to this patient today, required to treat and/or prevent further deterioration of critical care condition ( as above) PEBBLES SANTANA MD Jun 02, 2021 10:43
[2021-06-02] MEDS: NOREPINEPHRINE 8 MG/250 ML 250 ML IV SCH (11:43)
--- NOTE | 2021-06-02 15:27 | Progress Note ---
Subjective Subjective/Events-last exam Remains ventilated, on 80% FiO2 and PEEP 18 this am. Objective Exam Last Set of Vital Signs Vital Signs Date Time Temp Pulse Resp B/P (MAP) Pulse Ox O2 Delivery O2 Flow Rate FiO2 06/02/21 14:20 70 22 95 60 06/02/21 12:00 37.2 138/70 (92) Mechanical Ventilator 80.00 Capillary Refill : Less Than 3 Seconds I&O Intake and Output 06/02/21 00:00 Intake Total 972.5 ml Output Total 850 ml Balance 122.5 ml Intake Oral 100 ml IV Total 822.5 ml Other 50 ml Output Urine Total 850 ml General: Other (intubated, sedated) Lungs: Other (ronchi) Heart: Regular Rate Abdomen: Normal Bowel Sounds, Other (mildly distended) Extremities: No Edema, Other (2+ bilateral pedal pulses, 2+ left radial pulse, right hand cold and pulse difficult to palpate, doppler per nurse demonstrated pulse) Results/Procedures Lab Laboratory Tests 06/01/21 17:29: Glucometer 287H 06/01/21 23:35: Glucometer 254H 06/02/21 03:10: White Blood Count 8.7, Red Blood Count 3.55L, Hemoglobin 10.9L, Hematocrit 35, Mean Corpuscular Volume 98, Mean Corpuscular Hemoglobin 31, Mean Corpuscular Hemoglobin Concent 31L, Red Cell Distribution Width 12.7, Platelet Count 232, Mean Platelet Volume 10.3, Immature Granulocyte % (Auto) 1, Neutrophils (%) (Auto) 81H, Lymphocytes (%) (Auto) 9L, Monocytes (%) (Auto) 9, Eosinophils (%) (Auto) 0, Basophils (%) (Auto) 0, Neutrophils # (Auto) 7.1, Lymphocytes # (Auto) 0.7L, Monocytes # (Auto) 0.8, Eosinophils # (Auto) 0.0, Basophils # (Auto) 0.0, Immature Granulocyte # (Auto) 0.1, Blood Gas Puncture Site RIGHT RADIAL, Blood Gas Patient Temperature 37.1, Arterial Blood pH 7.32*L, Arterial Blood Partial Pressure CO2 51H, Arterial Blood Partial Pressure O2 73L, Arterial Blood HCO3 25, Arterial Blood Total CO2 26.9, Arterial Blood Oxygen Saturation 94, Arterial Blood Base Excess 0.0, Otm Test YES-POS, Blood Gas Ventilator Setting YES, Blood Gas Inspired Oxygen 80%, Sodium Level 143, Potassium Level 4.3, Chloride Level 109H, Carbon Dioxide Level 21, Anion Gap 13, Blood Urea Nitrogen 25H, Creatinine 0.94, Estimat Glomerular Filtration Rate 62, BUN/Creatinine Ratio 27, Glucose Level 197H, Calcium Level 8.4L, Phosphorus Level 4.1, Magnesium Level 2.3, Triglycerides Level 280H 06/02/21 11:52: Glucometer 178H Microbiology 05/28/21 Blood Culture - Final, Complete Staphylococcus epidermidis Assessment/Plan Assessment/Plan (1) Pneumonia due to COVID-19 virus Status: Acute Assessment & Plan: Suspect pneumonia is COVID only, but has elevated procalcitonin and possible bacterial component, completed 5 days of cefepime, remains on vanc day 4, sputum culture pending. On dexamethasone and baricitinib for COVID. (2) Acute respiratory failure due to COVID-19 Status: Acute Assessment & Plan: Requiring mechanical ventilation, appreciate eICU management. (3) Cardiac arrest Status: Resolved Assessment & Plan: s/p cardiac arrest on 05/31 with 10 minutes CPR (4) COPD (chronic obstructive pulmonary disease) Status: Chronic Qualifiers: Qualified Codes: J44.9 - Chronic obstructive pulmonary disease, unspecified (5) Diabetes Status: Chronic Assessment & Plan: Sliding scale insulin 06/01- glucose 200 and above, will start low dose long-acting insulin Qualifiers: Qualified Codes: E11.65 - Type 2 diabetes mellitus with hyperglycemia; Z79.4 - [employer] (current) use of insulin (6) Bipolar disorder Status: Chronic (7) DVT prophylaxis Status: Acute Assessment & Plan: On enoxaparin 75 mg BID. CTA without PE. (8) Goals of care, counseling/discussion Status: Acute Assessment & Plan: 06/01 Called family to update, but was unable to reach, will reach out again tomorrow. 06/02 spoke with son Faizan and updated on status. ZIA RICCI MD Jun 02, 2021 15:27
[2021-06-02] MEDS: VANCOMYCIN 1250 MG/NS 250 ML IVPB IV SCH ×2 (18:17)
[2021-06-02] MEDS: MIRTAZAPINE 15 MG (REMERON) TAB PO SCH (20:12)
[2021-06-02] MEDS: MICONAZOLE 2% POWDER (DESENEX AF) 90 GM TOP SCH (21:29)
[2021-06-03] VITALS (30 sets, daily range): BP systolic 107–151; BP diastolic 50–79
[2021-06-03] MEDS: NOREPINEPHRINE 8 MG/250 ML 250 ML IV SCH ×2 (00:46→15:44)
[2021-06-03] MEDS: RT-ALBUTEROL HFA 8.5 GM INHALER IH SCH ×6 (01:53→22:35)
[2021-06-03] MEDS: fentaNYL DRIP PRE-MIX 250 ML IV SCH ×6 (04:09→23:43)
[2021-06-03] MEDS: PROPOFOL DRIP (ICU) 100 ML IV SCH ×6 (04:09→17:58)
[2021-06-03 04:16] LABS: BASOPHILS % (AUTO) 0 % (0-10); EOSINOPHILS % (AUTO) 0 % (0-10); HEMATOCRIT 32 % (35-52); HEMOGLOBIN 10.3 g/dL (11.5-16.0); LYMPHOCYTES # (AUTO) 0.7 10^3/uL (1.0-4.0); LYMPHOCYTES % (AUTO) 11 % (12-44); MEAN CORPUSCULAR HEMOGLOBIN 31 pg (25-34); MEAN CORPUSCULAR HGB CONC 32 g/dL (32-36); MEAN CORPUSCULAR VOLUME 97 fL (80-99); MEAN PLATELET VOLUME 10.3 fL (9.0-12.2); MONOCYTES # (AUTO) 0.4 10^3/uL (0.0-1.0); MONOCYTES % (AUTO) 7 % (0-12); NEUTROPHILS # (AUTO) 4.8 10^3/uL (1.8-7.8); NEUTROPHILS % (AUTO) 79 % (42-75); PLATELET COUNT 248 10^3/uL (130-400); WHITE BLOOD COUNT 6.1 10^3/uL (4.3-11.0)
[2021-06-03 04:30] LABS: POTASSIUM 3.9 MMOL/L (3.6-5.0)
[2021-06-03 04:31] LABS: CALCIUM 8.2 MG/DL (8.5-10.1)
[2021-06-03 04:35] LABS: CREATININE SERUM 0.7 MG/DL (0.60-1.30); PHOSPHORUS 2.3 MG/DL (2.3-4.7)
[2021-06-03 04:38] LABS: MAGNESIUM 2.4 MG/DL (1.6-2.4)
[2021-06-03 04:50] LABS: ABG OXYGEN SATURATION 91 % (94-100); ABG PCO2 51 MMHG (35-45); ABG PH 7.36 (7.37-7.43); ABG PO2 62 MMHG (79-93); ABG TCO2 29.6 MMOL/L (21.0-31.0)
[2021-06-03 04:52] LABS: ALLENS TEST YES-POS; INSPIRED O2 80%; PATIENT TEMP 36.9; VENTILATOR YES
[2021-06-03] MEDS: KCL 20 MEQ TAB (K-DUR) PO SCH (05:33)
[2021-06-03] MEDS: MAGNESIUM 1 GM/100 ML IVPB 100 ML IV SCH (05:33)
[2021-06-03] MEDS: POTASSIUM CL 10MEQ/50ML IVPB 50 ML IV SCH (05:33)
[2021-06-03] MEDS: inSUlin ASPART (NovoLOG) 1 UNIT/0.01 ML (CHARGE PER UNIT) SQ SCH ×4 (06:15→23:42)
--- NOTE | 2021-06-03 06:53 | Diagnostic Imaging Report ---
INDICATION: Intubated, infiltrates COMPARISON: 06/02/2021 FINDINGS: Single view of the chest demonstrates worsening bilateral pulmonary infiltrates. The heart is stable. No pneumothorax or effusion is seen. Support devices are stable. IMPRESSION: Slightly worsening bilateral pulmonary infiltrates. Dictated by: Dictated on workstation # [id number]
[2021-06-03] MEDS: UMECLIDINIUM BROMIDE (INCRUSE ELLIPTA) 7'S IH SCH (07:12)
[2021-06-03] MEDS: SENNA W/DOCUSATE (SENOKOT S) TABLET PO SCH ×2 (08:22→19:50)
[2021-06-03] MEDS: ENOXAPARIN 80 MG/0.8 ML (LOVENOX) SYR SC SCH ×2 (08:22→19:50)
[2021-06-03] MEDS: PANTOPRAZOLE 40 MG (PROTONIX) VIAL IV SCH (08:22)
[2021-06-03] MEDS: BARICITINIB 2 MG (OLUMIANT)TABLET PO SCH (08:22)
[2021-06-03] MEDS: MICONAZOLE 2% POWDER (DESENEX AF) 90 GM TOP SCH ×2 (08:23→19:51)
--- NOTE | 2021-06-03 09:25 | Tele-ICU Progress Note ---
Subjective Date Seen by a Provider: Jun 03, 2021 Time Seen by a Provider: 09:24 Sepsis Event Evaluation Height, Weight, BMI Height: 5'5.00" Weight: 236lbs. 0.0oz. 107.568485hs; 35.85 BMI Method:Stated Exam Exam Patient acknowledged, consented, and participated in this virtual visit which was conducted using real time audio/video Vital Signs Date Time Temp Pulse Resp B/P (MAP) Pulse Ox O2 Delivery O2 Flow Rate FiO2 06/03/21 09:00 37.0 80 22 107/54 (71) 93 Mechanical Ventilator 80.00 06/03/21 08:10 84 112/51 06/03/21 08:00 36.7 81 22 112/55 (74) 90 Mechanical Ventilator 80.00 06/03/21 07:27 82 06/03/21 07:12 70 22 93 80 06/03/21 07:00 36.7 68 22 117/50 (72) 94 Mechanical Ventilator 80.00 06/03/21 06:00 36.8 64 22 114/58 (76) 98 Mechanical Ventilator 80.00 06/03/21 05:00 36.9 65 22 112/57 (75) 91 Mechanical Ventilator 80.00 06/03/21 04:26 Mechanical Ventilator 80 06/03/21 04:09 68 121/70 06/03/21 04:00 36.9 71 22 121/70 (104) 93 Mechanical Ventilator 80.00 06/03/21 03:00 36.6 61 22 147/76 (104) 96 Mechanical Ventilator 80.00 06/03/21 02:00 36.5 62 22 151/76 (107) 97 Mechanical Ventilator 80.00 06/03/21 01:53 60 22 97 60 06/03/21 01:00 36.6 59 22 143/74 (97) 97 Mechanical Ventilator 80.00 06/03/21 01:00 60 06/03/21 00:00 Mechanical Ventilator 60 06/03/21 00:00 36.6 62 14 149/72 (97) 97 Mechanical Ventilator 80.00 06/02/21 23:54 60 147/73 06/02/21 23:00 36.6 63 22 147/74 (98) 96 Mechanical Ventilator 80.00 06/02/21 22:00 60 22 97 60 06/02/21 22:00 36.6 62 22 151/74 (99) 96 Mechanical Ventilator 80.00 06/02/21 21:00 36.7 63 22 158/78 (104) 97 Mechanical Ventilator 80.00 06/02/21 20:13 64 162/76 06/02/21 20:00 36.6 62 22 162/76 (104) 96 Mechanical Ventilator 80.00 06/02/21 20:00 Mechanical Ventilator 60 06/02/21 19:00 36.6 60 22 160/78 (105) 96 Mechanical Ventilator 80.00 06/02/21 19:00 60 06/02/21 18:43 59 22 96 60 06/02/21 18:00 36.7 62 22 160/77 (104) 96 Mechanical Ventilator 80.00 06/02/21 17:00 36.8 64 22 158/82 (107) 96 Mechanical Ventilator 80.00 06/02/21 16:11 64 157/80 06/02/21 16:00 36.9 67 22 156/78 (104) 95 Mechanical Ventilator 80.00 06/02/21 16:00 Mechanical Ventilator 60 06/02/21 15:00 37.1 69 22 157/75 (102) 96 Mechanical Ventilator 80.00 06/02/21 14:20 70 22 95 60 06/02/21 14:00 37.1 68 22 159/79 (105) 95 Mechanical Ventilator 80.00 06/02/21 13:00 37.2 72 22 157/80 (105) 95 Mechanical Ventilator 80.00 06/02/21 13:00 73 06/02/21 12:00 Mechanical Ventilator 60 06/02/21 12:00 37.2 76 22 138/70 (92) 94 Mechanical Ventilator 80.00 06/02/21 11:43 80 06/02/21 11:10 96 134/71 06/02/21 11:00 37.4 80 22 134/71 (92) 95 Mechanical Ventilator 80.00 06/02/21 10:22 78 24 92 75 06/02/21 10:00 37.3 79 22 115/66 (82) 92 Mechanical Ventilator 80.00 I & O 06/03/21 07:00 Intake Total 1180 ml Output Total 1325 ml Balance -145 ml Height & Weight Height: 5'5.00" Weight: 236lbs. 0.0oz. 107.527709kz; 35.85 BMI Method:Stated General Appearance: No Apparent Distress, WD/WN, Other (Sedated and intubated) Respiratory: Decreased Breath Sounds Cardiovascular: Regular Rate, Rhythm Capillary Refill: Less Than 3 Seconds Gastrointestinal: normal bowel sounds, non tender, soft; No distended, No guarding, No rebound Neurologic/Psychiatric: Alert, Oriented x3, Depressed Affect Results Lab Laboratory Tests 06/02/21 03:10 06/03/21 04:00 Assessment/Plan Assessment/Plan (Tele-ICU Physician , Progress Note ) Available chart/ vitals / labs / Images reviewed Video assessment done using teleICU camera, rest of exam as per RN Discussed with RN Events overnight : AFEBRILE I/O = even Drips: Pressors:levo OFF Sedation gtt: ( RASS ) propofol fentanyl VENT SETTINGS. AC 22 420 +15 80% PAP 30 ABG reviewed Not candidate for SBT today Contraindications: Cardiovascular Stability / Sedation Score / FI02/PEEP / ABG / CXR EXAM PER RN Consultants: Hospital course: (05/28) 55/F Admitted from ED w/ COVID PNA. CTA 05/28 - NO PE (05/30) Tx to ICU on BIPAP. (05/31) INTUBATED. Cardiac arrest (unclear if during or after intubation). CPR 10mins. Post code, sedation stopped and patient had purposeful movment so no TTM Acute resp failure- intubated 05/31 ( covid PNA , CTA 05/28 - NO PE - full vent support , adjust vent to TV 7 cc/IBV - AC 22 420 +18 80% PAP 30 -proning started 06/02 - secretions minimal Cardiac arrest (unclear if during or after intubation). CPR 10mins. - no TTM with follow commands as per report - not follows commands 06/02 ( on minimal sedation ) COVID PNA - steroids IV - lovenox 75 bid ( CTA 05/28 - NO PE m ddimer 0.7 on 05/28 possible PNA - will sent sputum cx 06/01 cefepime/ vanco to stop 06/03 blood cx - staph epider 05/28 - ? contaminant -06/02 - fever - reculture blood and sputum blood DM - hyperglycemia on steroids - increase ISS , on long actin insulin Severe anxiety Bipolar disorder Lines : PICC 06/01 (Central Line Necessity Reviewed) Lyn: 05/30 OG: + Nutrition: started TF - 06/01 - 35 ml/h Analgesia: Anxiety/ delirium VTE Prophylaxis: lovenox full dose Stress Ulcer Prophylaxis: PPI Plans in collaboration with bedside consultants and IM MDs. Discussed with RN to reach out if any questions or concerns A total of 36 minutes of critical care time was devoted to this patient today, required to treat and/or prevent further deterioration of critical care condition ( as above) PEBBLES SANTANA MD Jun 03, 2021 09:24
--- NOTE | 2021-06-03 15:37 | Progress Note ---
Subjective Subjective/Events-last exam Afebrile, remains ventilated, no significant changes. Objective Exam Last Set of Vital Signs Vital Signs Date Time Temp Pulse Resp B/P (MAP) Pulse Ox O2 Delivery O2 Flow Rate FiO2 06/03/21 15:07 Mechanical Ventilator 45.00 06/03/21 14:50 70 22 96 45 06/03/21 14:00 37.2 Capillary Refill : Less Than 3 Seconds I&O Intake and Output 06/03/21 00:00 Intake Total 1275 ml Output Total 1225 ml Balance 50 ml Intake Oral 0 ml IV Total 950 ml Tube Feeding 250 ml Other 75 ml Output Urine Total 1225 ml General: Other (sedated, intubated, prone at time of exam) Lungs: Other (ronchi) Heart: Regular Rate Extremities: No Edema Results/Procedures Lab Laboratory Tests 06/02/21 18:15: Glucometer 270H 06/02/21 23:11: Glucometer 231H 06/03/21 04:00: White Blood Count 6.1, Red Blood Count 3.34L, Hemoglobin 10.3L, Hematocrit 32L, Mean Corpuscular Volume 97, Mean Corpuscular Hemoglobin 31, Mean Corpuscular Hemoglobin Concent 32, Red Cell Distribution Width 12.4, Platelet Count 248, Mean Platelet Volume 10.3, Immature Granulocyte % (Auto) 3, Neutrophils (%) (Auto) 79H, Lymphocytes (%) (Auto) 11L, Monocytes (%) (Auto) 7, Eosinophils (%) (Auto) 0, Basophils (%) (Auto) 0, Neutrophils # (Auto) 4.8, Lymphocytes # (Auto) 0.7L, Monocytes # (Auto) 0.4, Eosinophils # (Auto) 0.0, Basophils # (Auto) 0.0, Immature Granulocyte # (Auto) 0.2H, Sodium Level 141, Potassium Level 3.9, Chloride Level 108H, Carbon Dioxide Level 24, Anion Gap 9, Blood Urea Nitrogen 17, Creatinine 0.70, Estimat Glomerular Filtration Rate 87, BUN/Creatinine Ratio 24, Glucose Level 189H, Calcium Level 8.2L, Phosphorus Level 2.3, Magnesium Level 2.4 06/03/21 04:44: Blood Gas Puncture Site RT RAD, Blood Gas Patient Temperature 36.9, Arterial Blood pH 7.36L, Arterial Blood Partial Pressure CO2 51H, Arterial Blood Partial Pressure O2 62L, Arterial Blood HCO3 28H, Arterial Blood Total CO2 29.6, Arterial Blood Oxygen Saturation 91L, Arterial Blood Base Excess 3.0H, Tom Test YES-POS, Blood Gas Ventilator Setting YES, Blood Gas Inspired Oxygen 80% 06/03/21 11:30: Glucometer 153H Microbiology 05/28/21 Blood Culture - Final, Complete Staphylococcus epidermidis Assessment/Plan Assessment/Plan (1) Pneumonia due to COVID-19 virus Status: Acute Assessment & Plan: Suspect pneumonia is COVID only, but has elevated procalcitonin and possible bacterial component, completed 5 days of cefepime, remains on vanc day 4, sputum culture pending. On dexamethasone and baricitinib for COVID. (2) Acute respiratory failure due to COVID-19 Status: Acute Assessment & Plan: Requiring mechanical ventilation, appreciate eICU management. (3) Cardiac arrest Status: Resolved Assessment & Plan: s/p cardiac arrest on 05/31 with 10 minutes CPR (4) COPD (chronic obstructive pulmonary disease) Status: Chronic Qualifiers: Qualified Codes: J44.9 - Chronic obstructive pulmonary disease, unspecified (5) Diabetes Status: Chronic Assessment & Plan: Sliding scale insulin 06/01- glucose 200 and above, will start low dose long-acting insulin Qualifiers: Qualified Codes: E11.65 - Type 2 diabetes mellitus with hyperglycemia; Z79.4 - residential (current) use of insulin (6) Bipolar disorder Status: Chronic (7) DVT prophylaxis Status: Acute Assessment & Plan: On enoxaparin 75 mg BID. CTA without PE. (8) Goals of care, counseling/discussion Status: Acute Assessment & Plan: 06/01 Called family to update, but was unable to reach, will reach out again tomorrow. 06/02 spoke with son Faizan and updated on status. ZIA RICCI MD Jun 03, 2021 15:37
[2021-06-03] MEDS: VANCOMYCIN 1250 MG/NS 250 ML IVPB IV SCH ×2 (17:40)
[2021-06-03] MEDS: MIRTAZAPINE 15 MG (REMERON) TAB PO SCH (19:50)
[2021-06-04] VITALS (30 sets, daily range): BP systolic 91–125; BP diastolic 43–70
[2021-06-04] MEDS: PROPOFOL DRIP (ICU) 100 ML IV SCH ×5 (01:54→16:33)
[2021-06-04] MEDS: RT-ALBUTEROL HFA 8.5 GM INHALER IH SCH ×6 (02:29→22:06)
[2021-06-04] MEDS: NOREPINEPHRINE 8 MG/250 ML 250 ML IV SCH ×2 (03:51→16:30)
[2021-06-04 04:06] LABS: ABG BASE EXCESS 3.4 MMOL/L (-2.5-2.5); ABG OXYGEN SATURATION 88 % (94-100); ABG PCO2 49 MMHG (35-45); ABG PH 7.38 (7.37-7.43); ABG PO2 56 MMHG (79-93); ABG TCO2 29.7 MMOL/L (21.0-31.0)
[2021-06-04 04:07] LABS: ALLENS TEST POSITIVE; BASOPHILS % (AUTO) 0 % (0-10); EOSINOPHILS % (AUTO) 0 % (0-10); HEMATOCRIT 32 % (35-52); HEMOGLOBIN 10.1 g/dL (11.5-16.0); INSPIRED O2 35%; LYMPHOCYTES # (AUTO) 0.8 10^3/uL (1.0-4.0); LYMPHOCYTES % (AUTO) 12 % (12-44); MEAN CORPUSCULAR HEMOGLOBIN 31 pg (25-34); MEAN CORPUSCULAR HGB CONC 32 g/dL (32-36); MEAN CORPUSCULAR VOLUME 98 fL (80-99); MONOCYTES # (AUTO) 0.4 10^3/uL (0.0-1.0); MONOCYTES % (AUTO) 6 % (0-12); NEUTROPHILS # (AUTO) 5.2 10^3/uL (1.8-7.8); NEUTROPHILS % (AUTO) 77 % (42-75); PATIENT TEMP 37.2; PLATELET COUNT 242 10^3/uL (130-400); VENTILATOR YES; WHITE BLOOD COUNT 6.8 10^3/uL (4.3-11.0)
[2021-06-04] MEDS: fentaNYL DRIP PRE-MIX 250 ML IV SCH ×5 (04:13→21:04)
[2021-06-04 04:18] LABS: POTASSIUM 4.2 MMOL/L (3.6-5.0)
[2021-06-04 04:20] LABS: CALCIUM 8.3 MG/DL (8.5-10.1)
[2021-06-04 04:24] LABS: CREATININE SERUM 0.63 MG/DL (0.60-1.30)
[2021-06-04 04:27] LABS: MAGNESIUM 2.6 MG/DL (1.6-2.4)
[2021-06-04] MEDS: MAGNESIUM 1 GM/100 ML IVPB 100 ML IV SCH (05:39)
[2021-06-04] MEDS: KCL 20 MEQ TAB (K-DUR) PO SCH (05:39)
[2021-06-04] MEDS: POTASSIUM CL 10MEQ/50ML IVPB 50 ML IV SCH (05:39)
[2021-06-04] MEDS: inSUlin ASPART (NovoLOG) 1 UNIT/0.01 ML (CHARGE PER UNIT) SQ SCH ×3 (05:39→18:14)
[2021-06-04] MEDS: BARICITINIB 2 MG (OLUMIANT)TABLET PO SCH (08:44)
[2021-06-04] MEDS: ENOXAPARIN 80 MG/0.8 ML (LOVENOX) SYR SC SCH ×2 (08:45→21:02)
[2021-06-04] MEDS: PANTOPRAZOLE 40 MG (PROTONIX) VIAL IV SCH (08:45)
[2021-06-04] MEDS: SENNA W/DOCUSATE (SENOKOT S) TABLET PO SCH ×2 (08:45→21:02)
[2021-06-04] MEDS: MICONAZOLE 2% POWDER (DESENEX AF) 90 GM TOP SCH ×2 (08:46→21:02)
[2021-06-04] MEDS: UMECLIDINIUM BROMIDE (INCRUSE ELLIPTA) 7'S IH SCH (10:25)
--- NOTE | 2021-06-04 12:26 | Progress Note ---
Subjective Subjective/Events-last exam Remains ventilated and on similar vent settings. Objective Exam Last Set of Vital Signs Vital Signs Date Time Temp Pulse Resp B/P (MAP) Pulse Ox O2 Delivery O2 Flow Rate FiO2 06/04/21 10:26 82 22 96 45 06/04/21 10:00 37.7 123/70 (87) Mechanical Ventilator 80.00 Capillary Refill : Less Than 3 Seconds I&O Intake and Output 06/04/21 00:00 Intake Total 2400 ml Output Total 900 ml Balance 1500 ml Intake Oral 150 ml IV Total 1800 ml Tube Feeding 250 ml Other 200 ml Output Urine Total 900 ml General: Other (sedated, intubated, prone at time of exam) Lungs: Other (decreased air movement throughout) Heart: Regular Rate, No Murmurs Extremities: No Edema Results/Procedures Lab Laboratory Tests 06/03/21 17:35: Glucometer 213H 06/03/21 23:37: Glucometer 152H 06/04/21 03:45: White Blood Count 6.8, Red Blood Count 3.26L, Hemoglobin 10.1L, Hematocrit 32L, Mean Corpuscular Volume 98, Mean Corpuscular Hemoglobin 31, Mean Corpuscular Hemoglobin Concent 32, Red Cell Distribution Width 12.4, Platelet Count 242, Mean Platelet Volume 10.0, Immature Granulocyte % (Auto) 4, Neutrophils (%) (Auto) 77H, Lymphocytes (%) (Auto) 12, Monocytes (%) (Auto) 6, Eosinophils (%) (Auto) 0, Basophils (%) (Auto) 0, Neutrophils # (Auto) 5.2, Lymphocytes # (Auto) 0.8L, Monocytes # (Auto) 0.4, Eosinophils # (Auto) 0.0, Basophils # (Auto) 0.0, Immature Granulocyte # (Auto) 0.3H, Blood Gas Puncture Site RIGHT RADIAL, Blood Gas Patient Temperature 37.2, Arterial Blood pH 7.38, Arterial Blood Partial Pressure CO2 49H, Arterial Blood Partial Pressure O2 56L, Arterial Blood HCO3 28H, Arterial Blood Total CO2 29.7, Arterial Blood Oxygen Saturation 88L, Arterial Blood Base Excess 3.4H, Tom Test POSITIVE, Blood Gas Ventilator Setting YES, Blood Gas Inspired Oxygen 35%, Sodium Level 142, Potassium Level 4.2, Chloride Level 108H, Carbon Dioxide Level 25, Anion Gap 9, Blood Urea Nitrogen 16, Creatinine 0.63, Estimat Glomerular Filtration Rate 98, BUN/Creatinine Ratio 25, Glucose Level 120H, Calcium Level 8.3L, Phosphorus Level 2.0L, Magnesium Level 2.6H, Triglycerides Level 267H 06/04/21 11:29: Glucometer 112H Microbiology 06/02/21 Blood Culture, Received Pending Assessment/Plan Assessment/Plan (1) Pneumonia due to COVID-19 virus Status: Acute Assessment & Plan: Suspect pneumonia is COVID only, but has elevated procalcitonin and possible bacterial component, completed 5 days of cefepime, and 5 days vancomycin, blood cultures from 05/28 wtih staph epi sensitive to vanc, repeat culture from 06/02 no growth to date. On dexamethasone and baricitinib for COVID. (2) Acute respiratory failure due to COVID-19 Status: Acute Assessment & Plan: Requiring mechanical ventilation, appreciate eICU management. (3) Cardiac arrest Status: Resolved Assessment & Plan: s/p cardiac arrest on 05/31 with 10 minutes CPR (4) COPD (chronic obstructive pulmonary disease) Status: Chronic Qualifiers: Qualified Codes: J44.9 - Chronic obstructive pulmonary disease, unspecified (5) Diabetes Status: Chronic Assessment & Plan: Sliding scale insulin 06/01- glucose 200 and above, will start low dose long-acting insulin 06/04 glucose 112-213 last 24 hours Qualifiers: Qualified Codes: E11.65 - Type 2 diabetes mellitus with hyperglycemia; Z79.4 - [facility] (current) use of insulin (6) Bipolar disorder Status: Chronic (7) DVT prophylaxis Status: Acute Assessment & Plan: On enoxaparin 75 mg BID. CTA without PE. (8) Goals of care, counseling/discussion Status: Acute Assessment & Plan: 06/01 Called family to update, but was unable to reach, will reach out again tomorrow. 06/02 spoke with son Faizan and updated on status. 06/04 called Faizan, left message. ZIA RICCI MD Jun 04, 2021 12:26
[2021-06-04] MEDS: MIRTAZAPINE 15 MG (REMERON) TAB PO SCH (21:02)
[2021-06-05] VITALS (30 sets, daily range): BP systolic 89–189; BP diastolic 43–89
[2021-06-05] MEDS: inSUlin ASPART (NovoLOG) 1 UNIT/0.01 ML (CHARGE PER UNIT) SQ SCH ×5 (00:36→23:06)
[2021-06-05] MEDS: PROPOFOL DRIP (ICU) 100 ML IV SCH ×7 (00:37→23:07)
[2021-06-05] MEDS: fentaNYL DRIP PRE-MIX 250 ML IV SCH ×6 (01:23→20:41)
[2021-06-05] MEDS: RT-ALBUTEROL HFA 8.5 GM INHALER IH SCH ×6 (03:15→21:59)
[2021-06-05 04:51] LABS: ABG BASE EXCESS 2.9 MMOL/L (-2.5-2.5); ABG OXYGEN SATURATION 89 % (94-100); ABG PCO2 50 MMHG (35-45); ABG PH 7.37 (7.37-7.43); ABG PO2 59 MMHG (79-93); ABG TCO2 29.3 MMOL/L (21.0-31.0)
[2021-06-05 04:52] LABS: BASOPHILS % (AUTO) 0 % (0-10); EOSINOPHILS % (AUTO) 1 % (0-10); HEMATOCRIT 30 % (35-52); HEMOGLOBIN 9.4 g/dL (11.5-16.0); LYMPHOCYTES # (AUTO) 0.6 10^3/uL (1.0-4.0); LYMPHOCYTES % (AUTO) 9 % (12-44); MEAN CORPUSCULAR HEMOGLOBIN 31 pg (25-34); MEAN CORPUSCULAR HGB CONC 31 g/dL (32-36); MEAN CORPUSCULAR VOLUME 98 fL (80-99); MEAN PLATELET VOLUME 10.4 fL (9.0-12.2); MONOCYTES # (AUTO) 0.2 10^3/uL (0.0-1.0); MONOCYTES % (AUTO) 3 % (0-12); NEUTROPHILS # (AUTO) 6.2 10^3/uL (1.8-7.8); NEUTROPHILS % (AUTO) 86 % (42-75); PLATELET COUNT 248 10^3/uL (130-400); WHITE BLOOD COUNT 7.3 10^3/uL (4.3-11.0)
[2021-06-05 04:54] LABS: ALLENS TEST YES-POS; INSPIRED O2 80%; PATIENT TEMP 37.3; VENTILATOR YES
[2021-06-05 05:11] LABS: POTASSIUM 4.1 MMOL/L (3.6-5.0)
[2021-06-05 05:12] LABS: CALCIUM 8.3 MG/DL (8.5-10.1)
[2021-06-05 05:16] LABS: CREATININE SERUM 0.61 MG/DL (0.60-1.30); PHOSPHORUS 2.4 MG/DL (2.3-4.7)
[2021-06-05 05:19] LABS: MAGNESIUM 2.5 MG/DL (1.6-2.4)
[2021-06-05] MEDS: KCL 20 MEQ TAB (K-DUR) PO SCH (05:23)
[2021-06-05] MEDS: MAGNESIUM 1 GM/100 ML IVPB 100 ML IV SCH (05:23)
[2021-06-05] MEDS: NOREPINEPHRINE 8 MG/250 ML 250 ML IV SCH ×2 (05:23→19:40)
[2021-06-05] MEDS: POTASSIUM CL 10MEQ/50ML IVPB 50 ML IV SCH (05:23)
[2021-06-05] MEDS: UMECLIDINIUM BROMIDE (INCRUSE ELLIPTA) 7'S IH SCH (07:21)
[2021-06-05] MEDS: ENOXAPARIN 80 MG/0.8 ML (LOVENOX) SYR SC SCH ×2 (09:20→20:39)
[2021-06-05] MEDS: BARICITINIB 2 MG (OLUMIANT)TABLET PO SCH (09:21)
[2021-06-05] MEDS: PANTOPRAZOLE 40 MG (PROTONIX) VIAL IV SCH (09:21)
[2021-06-05] MEDS: ACETAMINOPHEN 500 MG TAB (TYLENOL) PO PRN (09:21)
[2021-06-05] MEDS: MICONAZOLE 2% POWDER (DESENEX AF) 90 GM TOP SCH ×2 (09:22→20:41)
[2021-06-05] MEDS: SENNA W/DOCUSATE (SENOKOT S) TABLET PO SCH ×2 (09:22→20:40)
[2021-06-05] MEDS ORDERED: ROCURONIUM 10 MG/ML 5 ML SYRINGE IV ONE ×2 (10:00→10:27)
[2021-06-05] MEDS ORDERED: ADENOSINE 6 MG/2 ML (ADENOCARD) VIAL IV ONE ×2 (11:04→11:05)
[2021-06-05] MEDS ORDERED: meTOprolol 5 MG/5 ML (LOPRESSOR) VIAL ONE (11:05)
--- NOTE | 2021-06-05 11:23 | Progress Note ---
Subjective Subjective/Events-last exam Afebrile, remains intubated. Objective Exam Last Set of Vital Signs Vital Signs Date Time Temp Pulse Resp B/P (MAP) Pulse Ox O2 Delivery O2 Flow Rate FiO2 06/05/21 11:18 Mechanical Ventilator 100 06/05/21 11:00 37.8 160 22 189/89 (122) 98 100.00 Capillary Refill : Less Than 3 Seconds I&O Intake and Output 06/05/21 00:00 Intake Total 1530 ml Output Total 910 ml Balance 620 ml IV Total 700 ml Tube Feeding 230 ml Other 600 ml Output Urine Total 910 ml General: Other (sedated, intubated) Lungs: Other (decreased air movement throughout with some ronchi) Heart: Regular Rate Results/Procedures Lab Laboratory Tests 06/04/21 11:29: Glucometer 112H 06/04/21 16:00: D-Dimer 0.91H 06/04/21 17:40: Glucometer 238H 06/04/21 23:33: Glucometer 161H 06/05/21 04:25: White Blood Count 7.3, Red Blood Count 3.06L, Hemoglobin 9.4L, Hematocrit 30L, Mean Corpuscular Volume 98, Mean Corpuscular Hemoglobin 31, Mean Corpuscular Hemoglobin Concent 31L, Red Cell Distribution Width 12.7, Platelet Count 248, Mean Platelet Volume 10.4, Immature Granulocyte % (Auto) 3, Neutrophils (%) (Auto) 86H, Lymphocytes (%) (Auto) 9L, Monocytes (%) (Auto) 3, Eosinophils (%) (Auto) 1, Basophils (%) (Auto) 0, Neutrophils # (Auto) 6.2, Lymphocytes # (Auto) 0.6L, Monocytes # (Auto) 0.2, Eosinophils # (Auto) 0.0, Basophils # (Auto) 0.0, Immature Granulocyte # (Auto) 0.2H, Blood Gas Puncture Site RIGHT RADIAL, Blood Gas Patient Temperature 37.3, Arterial Blood pH 7.37, Arterial Blood Partial Pressure CO2 50H, Arterial Blood Partial Pressure O2 59L, Arterial Blood HCO3 28H, Arterial Blood Total CO2 29.3, Arterial Blood Oxygen Saturation 89L, Arterial Blood Base Excess 2.9H, Tom Test YES-POS, Blood Gas Ventilator Setting YES, Blood Gas Inspired Oxygen 80%, Sodium Level 140, Potassium Level 4.1, Chloride Level 107, Carbon Dioxide Level 22, Anion Gap 11, Blood Urea N itrogen 17, Creatinine 0.61, Estimat Glomerular Filtration Rate 101, BUN/Creatinine Ratio 28, Glucose Level 110H, Calcium Level 8.3L, Phosphorus Level 2.4, Magnesium Level 2.5H 06/05/21 10:28: Glucometer 98 Microbiology 06/02/21 Blood Culture - Preliminary, Resulted Gram Positive Cocci Assessment/Plan Assessment/Plan (1) Pneumonia due to COVID-19 virus Status: Acute Assessment & Plan: Suspect pneumonia is COVID only, but has elevated procalcitonin and possible bacterial component, completed 5 days of cefepime, and 5 days vancomycin, blood cultures from 05/28 wtih staph epi sensitive to vanc, repeat culture from 06/02 no growth to date. On dexamethasone and baricitinib for COVID. 06/05 had episode of tachycardia and hypotension with proning today, eICU ordered beta monserrat and it has resolved, monitor closely. (2) Acute respiratory failure due to COVID-19 Status: Acute Assessment & Plan: Requiring mechanical ventilation, appreciate eICU management. (3) Cardiac arrest Status: Resolved Assessment & Plan: s/p cardiac arrest on 05/31 with 10 minutes CPR (4) COPD (chronic obstructive pulmonary disease) Status: Chronic Qualifiers: Qualified Codes: J44.9 - Chronic obstructive pulmonary disease, unspecified (5) Diabetes Status: Chronic Assessment & Plan: Sliding scale insulin 06/01- glucose 200 and above, will start low dose long-acting insulin 06/05 glucose 98-238 last 24 hours Qualifiers: Qualified Codes: E11.65 - Type 2 diabetes mellitus with hyperglycemia; Z79.4 - detention (current) use of insulin (6) Bipolar disorder Status: Chronic (7) DVT prophylaxis Status: Acute Assessment & Plan: On enoxaparin 75 mg BID. CTA without PE. (8) Goals of care, counseling/discussion Status: Acute Assessment & Plan: 06/01 Called family to update, but was unable to reach, will reach out again tomorrow. 06/02 spoke with son Faizan and updated on status. 06/04 called Faizan, left message. ZIA RICCI MD Jun 05, 2021 11:23
[2021-06-05] MEDS ORDERED: meTOprolol 5 MG/5 ML (LOPRESSOR) VIAL IV PRN (11:30)
--- NOTE | 2021-06-05 11:30 | Tele-ICU Progress Note ---
Subjective Date Seen by a Provider: Jun 05, 2021 Time Seen by a Provider: 11:25 Subjective/Events-last exam This patient with Covid pneumonia and status post cardiac arrest has been on mechanical ventilation since 05/31/2021. Today she required 100% FiO2 due to hypoxia and a PEEP of 15. As patient having a thoracoabdominal dyssynchrony I have ordered rocuronium 50 mg x 1. After some time she developed a supraventricular tachycardia with a heart rate of 160. Immediately I was called to see see the patient and I have video visited and ordered Lopressor 5 mg IV. After that her heart rate came down to 95/min slowly. at this time her oxygen saturation is 97-98%. Blood pressure is slightly high initially and came down with Lopressor. we will consider giving b as needed Lopressor for the next 24 hours if the heart rate is over 130. Sepsis Event Evaluation Height, Weight, BMI Height: 5'5.00" Weight: 236lbs. 0.0oz. 107.477122hf; 35.85 BMI Method:Stated Exam Exam Patient acknowledged, consented, and participated in this virtual visit which was conducted using real time audio/video Vital Signs Date Time Temp Pulse Resp B/P (MAP) Pulse Ox O2 Delivery O2 Flow Rate FiO2 06/05/21 11:18 Mechanical Ventilator 100 06/05/21 11:00 37.8 160 22 189/89 (122) 98 Mechanical Ventilator 100.00 06/05/21 10:52 133 22 95 80 06/05/21 10:00 37.9 84 23 101/47 (65) 94 Mechanical Ventilator 100.00 06/05/21 09:51 38.0 06/05/21 09:21 37.8 06/05/21 09:00 37.8 75 22 101/48 (65) 94 Mechanical Ventilator 100.00 06/05/21 08:31 Mechanical Ventilator 100.00 06/05/21 08:28 37.7 Mechanical Ventilator 90.00 06/05/21 08:00 37.6 74 22 92/43 (62) 86 Mechanical Ventilator 80.00 06/05/21 08:00 Mechanical Ventilator 100 06/05/21 07:21 73 24 89 80 06/05/21 07:00 76 06/05/21 07:00 37.5 71 22 91/48 (66) 90 Mechanical Ventilator 80.00 06/05/21 06:25 70 95/47 06/05/21 06:24 70 95/47 06/05/21 06:00 37.4 70 22 95/47 (63) 90 Mechanical Ventilator 80.00 06/05/21 05:00 37.3 66 22 92/47 (62) 89 Mechanical Ventilator 80.00 06/05/21 04:05 115 30 94 100 06/05/21 04:05 Mechanical Ventilator 80.00 06/05/21 04:00 Mechanical Ventilator 80 06/05/21 04:00 37.2 79 22 99/49 (66) 94 Mechanical Ventilator 100.00 06/05/21 03:35 Mechanical Ventilator 100.00 06/05/21 03:00 37.1 68 22 120/63 (82) 89 Mechanical Ventilator 50.00 06/05/21 02:00 36.9 72 20 147/86 (106) 91 Mechanical Ventilator 50.00 06/05/21 01:31 Mechanical Ventilator 50.00 06/05/21 01:00 36.9 68 22 118/64 (82) 90 Mechanical Ventilator 45.00 06/05/21 01:00 68 06/05/21 00:37 70 121/68 06/05/21 00:37 70 121/68 06/05/21 00:00 36.8 67 22 118/66 (83) 90 Mechanical Ventilator 45.00 06/05/21 00:00 Mechanical Ventilator 45 06/04/21 23:00 36.9 68 22 117/60 (79) 89 Mechanical Ventilator 45.00 06/04/21 22:06 67 22 92 45 06/04/21 22:00 36.9 65 22 123/61 (81) 93 Mechanical Ventilator 45.00 06/04/21 21:00 37.0 67 22 121/63 (82) 92 Mechanical Ventilator 45.00 06/04/21 20:00 Mechanical Ventilator 45 06/04/21 20:00 36.9 68 22 123/59 (80) 91 Mechanical Ventilator 45.00 06/04/21 19:34 37.1 71 22 123/62 (82) 91 Mechanical Ventilator 45.00 06/04/21 19:08 69 22 99 45 06/04/21 19:00 70 06/04/21 19:00 Mechanical Ventilator 40.00 06/04/21 18:00 37.1 65 22 123/62 (82) 95 Mechanical Ventilator 80.00 06/04/21 17:00 37.1 69 22 117/62 (80) 94 Mechanical Ventilator 80.00 06/04/21 16:33 118/60 06/04/21 16:33 118/60 06/04/21 16:00 Mechanical Ventilator 45 06/04/21 16:00 37.1 68 22 115/59 (77) 92 Mechanical Ventilator 80.00 06/04/21 15:00 37.3 71 22 109/55 (73) 93 Mechanical Ventilator 80.00 06/04/21 14:50 65 22 96 45 06/04/21 14:00 37.4 68 22 117/62 (80) 97 Mechanical Ventilator 80.00 06/04/21 13:00 60 06/04/21 13:00 37.5 73 22 121/65 (83) 95 Mechanical Ventilator 80.00 06/04/21 12:00 Mechanical Ventilator 55 06/04/21 12:00 37.6 74 22 125/67 (86) 93 Mechanical Ventilator 80.00 I & O 06/05/21 07:00 Intake Total 1910 ml Output Total 960 ml Balance 950 ml Height & Weight Height: 5'5.00" Weight: 236lbs. 0.0oz. 107.840112br; 35.85 BMI Method:Stated General Appearance: No Apparent Distress, WD/WN, Other Respiratory: Decreased Breath Sounds Cardiovascular: Regular Rate, Rhythm Capillary Refill: Less Than 3 Seconds Gastrointestinal: normal bowel sounds, non tender, soft Neurologic/Psychiatric: Alert, Oriented x3, Depressed Affect Results Lab Laboratory Tests 06/04/21 03:45 06/05/21 04:25 Meds reviewed Radiology reviewed Assessment/Plan Assessment/Plan 1. Acute hypoxic respiratory failure secondary to Covid pneumonia. 2. Covid19 pneumonia with ARDS 3. Cardiac arrest of undetermined etiology around the time of intubation. 4. Possible superadded bacterial pneumonia. 5. Diabetes mellitus patient currently on steroids as well as sliding scale coverage we will continue to monitor. 6. Supraventricular tachycardia developed today. Resolved with 1 dose of Lopressor. Recommendations continue mechanical ventilation with PEEP of 15 and FiO2 of 500% and wean FiO2 as tolerated. 2. Covidpneumonia. We will continue steroids. 3. Monitor for any further arrhythmias. 4. Suggest cardiology consultation. 5. Monitor blood gases and chest x-rays. 6. Overall prognosis is poor. 7. Continue Lovenox full dose due to hypercoagulable state. Time spent with patient (mins): 45 MORALES GERARDO MD Jun 05, 2021 11:30
[2021-06-05] MEDS: MIRTAZAPINE 15 MG (REMERON) TAB PO SCH (20:40)
[2021-06-06] VITALS (30 sets, daily range): BP systolic 88–143; BP diastolic 48–86
[2021-06-06] MEDS: RT-ALBUTEROL HFA 8.5 GM INHALER IH SCH ×6 (02:57→22:40)
[2021-06-06] MEDS: fentaNYL DRIP PRE-MIX 250 ML IV SCH ×6 (04:19→21:30)
[2021-06-06 04:48] LABS: BASOPHILS % (AUTO) 0 % (0-10); EOSINOPHILS % (AUTO) 1 % (0-10); HEMATOCRIT 31 % (35-52); HEMOGLOBIN 9.3 g/dL (11.5-16.0); LYMPHOCYTES # (AUTO) 0.5 10^3/uL (1.0-4.0); LYMPHOCYTES % (AUTO) 7 % (12-44); MEAN CORPUSCULAR HEMOGLOBIN 30 pg (25-34); MEAN CORPUSCULAR HGB CONC 30 g/dL (32-36); MEAN CORPUSCULAR VOLUME 99 fL (80-99); MEAN PLATELET VOLUME 10.4 fL (9.0-12.2); MONOCYTES # (AUTO) 0.2 10^3/uL (0.0-1.0); MONOCYTES % (AUTO) 3 % (0-12); NEUTROPHILS # (AUTO) 5.9 10^3/uL (1.8-7.8); NEUTROPHILS % (AUTO) 88 % (42-75); PLATELET COUNT 250 10^3/uL (130-400); WHITE BLOOD COUNT 6.8 10^3/uL (4.3-11.0)
[2021-06-06 04:58] LABS: POTASSIUM 4.1 MMOL/L (3.6-5.0)
[2021-06-06 05:00] LABS: CALCIUM 8.3 MG/DL (8.5-10.1)
[2021-06-06] MEDS: KCL 20 MEQ TAB (K-DUR) PO SCH (05:03)
[2021-06-06] MEDS: inSUlin ASPART (NovoLOG) 1 UNIT/0.01 ML (CHARGE PER UNIT) SQ SCH ×3 (05:03→19:06)
[2021-06-06] MEDS: POTASSIUM CL 10MEQ/50ML IVPB 50 ML IV SCH (05:03)
[2021-06-06 05:04] LABS: CREATININE SERUM 0.56 MG/DL (0.60-1.30); PHOSPHORUS 2.2 MG/DL (2.3-4.7)
[2021-06-06 05:06] LABS: MAGNESIUM 2.6 MG/DL (1.6-2.4)
[2021-06-06] MEDS: MAGNESIUM 1 GM/100 ML IVPB 100 ML IV SCH (05:13)
[2021-06-06 05:16] LABS: ABG BASE EXCESS 1.5 MMOL/L (-2.5-2.5); ABG OXYGEN SATURATION 91 % (94-100); ABG PCO2 50 MMHG (35-45); ABG PO2 65 MMHG (79-93); ABG TCO2 28.2 MMOL/L (21.0-31.0)
[2021-06-06 05:19] LABS: ABG PH 7.35 (7.37-7.43); ALLENS TEST YES-POS; INSPIRED O2 60%; PATIENT TEMP 37.1; VENTILATOR YES
[2021-06-06] MEDS: PROPOFOL DRIP (ICU) 100 ML IV SCH ×5 (05:25→18:12)
[2021-06-06] MEDS: UMECLIDINIUM BROMIDE (INCRUSE ELLIPTA) 7'S IH SCH (06:38)
[2021-06-06] MEDS: PANTOPRAZOLE 40 MG (PROTONIX) VIAL IV SCH (08:24)
[2021-06-06] MEDS: SENNA W/DOCUSATE (SENOKOT S) TABLET PO SCH ×2 (08:25→20:55)
[2021-06-06] MEDS: MICONAZOLE 2% POWDER (DESENEX AF) 90 GM TOP SCH ×2 (08:26→21:03)
[2021-06-06] MEDS: ENOXAPARIN 80 MG/0.8 ML (LOVENOX) SYR SC SCH ×2 (08:26→20:55)
[2021-06-06] MEDS: BARICITINIB 2 MG (OLUMIANT)TABLET PO SCH (09:00)
--- NOTE | 2021-06-06 09:41 | Tele-ICU Progress Note ---
Subjective Date Seen by a Provider: Jun 06, 2021 Time Seen by a Provider: 08:35 Subjective/Events-last exam This virtual visit was conducted using real time audio/video. Thank you for asking us to see this patient for respiratory insufficiency and distress due to Covid pna with respiratory failure, s/p cardiac arrest and with now superimposed bacterial pna. HPC: Recent events: SVT now in NSR. PE: VSS O2 sat 94 % on 100%/+14. HEENT: No obvious masses, adenopathy or JVD. Chest: Decr BS. CV: RRR S1 S2 No murmur or added sounds. Abd: Non-tender. Bowel sounds Y. : Unremarkable. Lyn Y. TOP CAGER/psychiatric: No obvious focal findings. Extremities: 1+ edema. Capillary refill < 3 seconds. Skin: unremarkable. Results: Decreased Hb 9.3. CXR 06/03 w increased B infilts. A/P: Respiratory Failure due to Covid. Available chart/ vitals / labs /images reviewed. Video assessment done using teleICU camera, rest of exam as per RN. Respiratory: Continue present management with vent. Wean FiO2 as yue. Repeat CXR. Avoid proning if possible. Critical Care: critically ill patient. Cont Albut., Dex., Baricitinib. Discussed with RN Mary Alice. Asked RN to reach out to eICU if any questions or concerns later. Time spent with patient/coordination of care with other health professionals (mins): 25 Sepsis Event Evaluation Height, Weight, BMI Height: 5'5.00" Weight: 236lbs. 0.0oz. 107.433222qb; 35.85 BMI Method:Stated Exam Exam Patient acknowledged, consented, and participated in this virtual visit which was conducted using real time audio/video Vital Signs Date Time Temp Pulse Resp B/P (MAP) Pulse Ox O2 Delivery O2 Flow Rate FiO2 06/06/21 08:00 36.9 58 22 90/55 (71) 96 Mechanical Ventilator 90.00 06/06/21 07:00 53 06/06/21 07:00 55 22 89/50 (66) 96 Mechanical Ventilator 90.00 06/06/21 06:38 53 22 97 100 06/06/21 06:00 37.1 55 22 92/48 (63) 97 Mechanical Ventilator 90.00 06/06/21 05:25 58 107/52 06/06/21 05:25 58 107/52 06/06/21 05:24 90.00 06/06/21 05:00 37.2 63 22 107/52 (70) 92 Mechanical Ventilator 80.00 06/06/21 04:10 80.00 06/06/21 04:00 36.9 72 16 129/70 (89) 90 Mechanical Ventilator 70.00 06/06/21 03:50 70.00 06/06/21 03:50 Mechanical Ventilator 60 06/06/21 03:20 Mechanical Ventilator 60.00 06/06/21 03:00 36.7 51 22 130/71 (90) 97 Mechanical Ventilator 50.00 06/06/21 02:57 56 22 97 50 06/06/21 02:00 36.9 53 22 113/65 (81) 96 Mechanical Ventilator 50.00 06/06/21 01:00 57 06/06/21 01:00 36.9 55 22 114/67 (83) 96 Mechanical Ventilator 50.00 06/06/21 00:00 Mechanical Ventilator 50 06/06/21 00:00 37.0 56 22 111/65 (80) 96 Mechanical Ventilator 50.00 06/05/21 23:07 56 108/64 06/05/21 23:06 56 108/41 06/05/21 23:00 37.0 58 22 110/64 (79) 95 Mechanical Ventilator 50.00 06/05/21 22:00 36.9 53 22 113/64 (80) 99 Mechanical Ventilator 50.00 06/05/21 21:59 54 22 96 50 06/05/21 21:00 37.0 58 22 106/62 (77) 95 Mechanical Ventilator 50.00 06/05/21 20:00 37.0 60 22 110/61 (77) 95 Mechanical Ventilator 50.00 06/05/21 20:00 Mechanical Ventilator 50 06/05/21 19:26 61 22 94 50 06/05/21 19:02 50.00 06/05/21 19:00 64 06/05/21 19:00 37.1 60 22 108/62 (77) 96 Mechanical Ventilator 70.00 06/05/21 18:00 37.1 64 22 113/63 (83) 97 Mechanical Ventilator 70.00 06/05/21 17:00 37.3 63 22 108/64 (84) 97 Mechanical Ventilator 70.00 06/05/21 16:00 Mechanical Ventilator 70 06/05/21 16:00 37.3 66 22 104/57 (73) 95 Mechanical Ventilator 70.00 06/05/21 15:15 70.00 06/05/21 15:00 37.6 71 22 118/63 (81) 97 Mechanical Ventilator 90.00 06/05/21 14:43 73 06/05/21 14:42 75 06/05/21 14:21 73 23 99 90 06/05/21 14:00 37.5 71 19 124/67 (86) 99 Mechanical Ventilator 90.00 06/05/21 13:00 89 06/05/21 13:00 37.5 75 22 125/71 (96) 98 Mechanical Ventilator 90.00 06/05/21 12:00 37.6 80 20 134/74 (102) 98 Mechanical Ventilator 90.00 06/05/21 11:29 Mechanical Ventilator 90.00 06/05/21 11:18 Mechanical Ventilator 100 06/05/21 11:00 37.8 160 22 189/89 (122) 98 Mechanical Ventilator 100.00 06/05/21 10:52 133 22 95 80 06/05/21 10:00 37.9 84 23 101/47 (65) 94 Mechanical Ventilator 100.00 06/05/21 09:51 38.0 I & O 06/06/21 07:00 Intake Total 2018 ml Output Total 1805 ml Balance 213 ml Height & Weight Height: 5'5.00" Weight: 236lbs. 0.0oz. 107.883200ck; 35.85 BMI Method:Stated General Appearance: No Apparent Distress, WD/WN, Other Respiratory: Decreased Breath Sounds Cardiovascular: Regular Rate, Rhythm Capillary Refill: Less Than 3 Seconds Gastrointestinal: normal bowel sounds, non tender, soft Neurologic/Psychiatric: Alert, Oriented x3, Depressed Affect Results Lab Laboratory Tests 06/05/21 04:25 06/06/21 04:26 Assessment/Plan Assessment/Plan See free text. Critical Care: Ventilator Management Time spent on discussion(mins): 0 AFSANEH RUSH MD Jun 06, 2021 09:41
--- NOTE | 2021-06-06 13:41 | Progress Note - Hospitalist ---
Subjective HPI/CC On Admission Date Seen by Provider: Jun 06, 2021 Time Seen by Provider: 13:38 CC: Covid-19 Hypoxia HPI: This is a 55yoWF who presented to the ER with SOB found to have Covid-19 and significant pneumonia on CXR. Xanax of 1mg PO Q4Hrs PRN will be initiated due to increased anxiety. Lyn catheter will be placed due to significant hypoxia upon movement. She is currently sleeping and has no complaints. Subjective/Events-last exam Patient sedated on mechanical ventilation appears to be in no acute distress but chronically ill in appearance. Objective Exam Vital Signs Vital Signs Date Time Temp Pulse Resp B/P (MAP) Pulse Ox O2 Delivery O2 Flow Rate FiO2 06/06/21 13:00 72 06/06/21 12:00 37.6 20 105/48 (67) 93 Mechanical Ventilator 90.00 06/06/21 10:14 100 Capillary Refill : Less Than 3 Seconds General Appearance: No Apparent Distress Respiratory: Other (Chest surprisingly clear normal breath sounds anteriorly few fine rales posteriorly no wheezing noted.) Cardiovascular: Regular Rate, Rhythm, No Edema, No Gallop, No JVD, No Murmur, Normal Peripheral Pulses Extremity: Other (Diffuse libido reticularis pattern extremities warm 2+ upper and lower extremity edema) Results/Procedures Lab Laboratory Tests 06/06/21 04:26 Patient resulted labs reviewed. Assessment/Plan Assessment and Plan Assess & Plan/Chief Complaint (1) Pneumonia due to COVID-19 virus Status: Acute Assessment & Plan: Suspect pneumonia is COVID only, but has elevated procalcitonin and possible bacterial component, completed 5 days of cefepime, and 5 days vancomycin, blood cultures from 05/28 wt staph epi sensitive to vanc, repeat culture from 06/02 no growth to date. On dexamethasone and baricitinib for COVID. 06/05 had episode of tachycardia and hypotension with proning today, eICU ordered beta monserrat and it has resolved, monitor closely. 06/06 no further tachycardia reported respiratory status and oxygenation requirements unchanged from yesterday continue mechanical ventilation defer vent management to eICU. (2) Acute respiratory failure due to COVID-19 Status: Acute Assessment & Plan: Requiring mechanical ventilation, appreciate eICU management. (3) Cardiac arrest Status: Resolved Assessment & Plan: s/p cardiac arrest on 05/31 with 10 minutes CPR (4) COPD (chronic obstructive pulmonary disease) Status: Chronic Qualifiers: Qualified Codes: J44.9 - Chronic obstructive pulmonary disease, unspecified (5) Diabetes Status: Chronic Assessment & Plan: Sliding scale insulin 06/01- glucose 200 and above, will start low dose long-acting insulin 06/05 glucose 98-238 last 24 hours Qualifiers: Qualified Codes: E11.65 - Type 2 diabetes mellitus with hyperglycemia; Z79.4 - ad terminal makeup operator (current) use of insulin (6) Bipolar disorder Status: Chronic (7) DVT prophylaxis Status: Acute Assessment & Plan: On enoxaparin 75 mg BID. CTA without PE. (8) Goals of care, counseling/discussion Status: Acute Assessment & Plan: 06/01 Called family to update, but was unable to reach, will reach out again tomorrow. 06/02 spoke with son Faizan and updated on status. 06/04 called Faizan, left message. Critical Care Ventilator Management RAO ROSADO MD Jun 06, 2021 13:41
[2021-06-06] MEDS: MIRTAZAPINE 15 MG (REMERON) TAB PO SCH (20:54)
[2021-06-06] MEDS: NOREPINEPHRINE 8 MG/250 ML 250 ML IV SCH (20:54)
[2021-06-07] VITALS (31 sets, daily range): BP systolic 99–167; BP diastolic 49–104
[2021-06-07] MEDS: NOREPINEPHRINE 8 MG/250 ML 250 ML IV SCH ×2 (00:04→12:57)
[2021-06-07] MEDS: inSUlin ASPART (NovoLOG) 1 UNIT/0.01 ML (CHARGE PER UNIT) SQ SCH ×5 (00:46→23:17)
[2021-06-07] MEDS: PROPOFOL DRIP (ICU) 100 ML IV SCH ×9 (00:47→23:46)
[2021-06-07] MEDS: RT-ALBUTEROL HFA 8.5 GM INHALER IH SCH ×6 (02:56→22:29)
[2021-06-07] MEDS: fentaNYL DRIP PRE-MIX 250 ML IV SCH ×5 (03:43→22:40)
[2021-06-07 04:33] LABS: ABG BASE EXCESS 0.1 MMOL/L (-2.5-2.5); ABG OXYGEN SATURATION 98 % (94-100); ABG PCO2 49 MMHG (35-45); ABG PH 7.35 (7.37-7.43); ABG PO2 96 MMHG (79-93); ABG TCO2 27.2 MMOL/L (21.0-31.0); ALLENS TEST YES-POS; INSPIRED O2 80%; PATIENT TEMP 35.8; VENTILATOR YES
[2021-06-07 04:43] LABS: POTASSIUM 4.3 MMOL/L (3.6-5.0)
[2021-06-07 04:44] LABS: CALCIUM 7.5 MG/DL (8.5-10.1)
[2021-06-07 04:48] LABS: PHOSPHORUS 2.5 MG/DL (2.3-4.7)
[2021-06-07 04:49] LABS: CREATININE SERUM 0.55 MG/DL (0.60-1.30)
[2021-06-07 04:51] LABS: MAGNESIUM 2.3 MG/DL (1.6-2.4)
[2021-06-07 04:56] LABS: BASOPHILS % (AUTO) 0 % (0-10); EOSINOPHILS % (AUTO) 0 % (0-10); HEMATOCRIT 26 % (35-52); HEMOGLOBIN 8.1 g/dL (11.5-16.0); LYMPHOCYTES # (AUTO) 0.4 10^3/uL (1.0-4.0); LYMPHOCYTES % (AUTO) 6 % (12-44); MEAN CORPUSCULAR HEMOGLOBIN 32 pg (25-34); MEAN CORPUSCULAR HGB CONC 31 g/dL (32-36); MEAN CORPUSCULAR VOLUME 101 fL (80-99); MEAN PLATELET VOLUME 11.4 fL (9.0-12.2); MONOCYTES # (AUTO) 0.2 10^3/uL (0.0-1.0); MONOCYTES % (AUTO) 3 % (0-12); NEUTROPHILS # (AUTO) 5.8 10^3/uL (1.8-7.8); NEUTROPHILS % (AUTO) 89 % (42-75); PLATELET COUNT 236 10^3/uL (130-400); WHITE BLOOD COUNT 6.5 10^3/uL (4.3-11.0)
[2021-06-07] MEDS: POTASSIUM CL 10MEQ/50ML IVPB 50 ML IV SCH (04:56)
[2021-06-07] MEDS: MAGNESIUM 1 GM/100 ML IVPB 100 ML IV SCH (04:56)
[2021-06-07] MEDS: KCL 20 MEQ TAB (K-DUR) PO SCH (04:56)
--- NOTE | 2021-06-07 07:52 | Diagnostic Imaging Report ---
Portable semierect AP chest at 3:35 Indication: Pneumonia, respiratory distress The heart is stable in size when compared to the prior exam of 06/03/2021. However in the interval since the prior exam there has been an increase in the pneumonia/atelectasis and fluid involving both lung bases. There are now also vague patchy areas of increased density in both upper lobes. The mediastinum is not widened. The osseous structures are intact. The supportive tubes and lines remain in good position. Impression: The appearance of the chest has worsened since the prior exam as there is greater involvement of both lungs by pneumonia/atelectasis. A followup study would be recommended for continued evaluation. Dictated by: Dictated on workstation # [id number]
[2021-06-07] MEDS: ENOXAPARIN 80 MG/0.8 ML (LOVENOX) SYR SC SCH ×2 (08:53→21:13)
[2021-06-07] MEDS: BARICITINIB 2 MG (OLUMIANT)TABLET PO SCH (08:53)
[2021-06-07] MEDS: PANTOPRAZOLE 40 MG (PROTONIX) VIAL IV SCH (08:54)
[2021-06-07] MEDS: SENNA W/DOCUSATE (SENOKOT S) TABLET PO SCH ×2 (08:54→21:14)
[2021-06-07] MEDS: MICONAZOLE 2% POWDER (DESENEX AF) 90 GM TOP SCH ×2 (10:00→21:13)
[2021-06-07] MEDS: UMECLIDINIUM BROMIDE (INCRUSE ELLIPTA) 7'S IH SCH (10:55)
[2021-06-07] MEDS: ALPRAZolam 0.25 MG (XANAX) TAB PO PRN (11:12)
[2021-06-07] MEDS: HYDROcodone/APAP 5 MG/325 MG (LORTAB) TAB PO PRN (11:13)
--- NOTE | 2021-06-07 11:26 | Tele-ICU Progress Note ---
Subjective Date Seen by a Provider: Jun 07, 2021 Time Seen by a Provider: 10:30 Subjective/Events-last exam This virtual visit was conducted using real time audio/video. Thank you for asking us to see this patient for respiratory insufficiency and distress due to Covid pna with respiratory failure, s/p cardiac arrest and with now superimposed bacterial pna. HPC: Recent events: FiO2 decreased to 70%, PEEP still 20. PE: Obese. VSS O2 sat 96 % on 70%/+20. HEENT: No obvious masses, adenopathy or JVD. Chest: Decr BS. CV: RRR S1 S2 No murmur or added sounds. Abd: Non-tender. Bowel sounds Y. : Unremarkable. Lyn Y. LEDGER POSTER/psychiatric: No obvious focal findings. Extremities: 1+ edema. Capillary refill < 3 seconds. Skin: Unremarkable. Results: Decreased Hb 8.1. BG 135. CXR 06/03 w increased B infilts. Worsening infiltrates this AM 06/07/2021. A/P: Respiratory Failure due to Covid pneumonia. Not fully sedated. Will add Versed infusion. Available chart/ vitals / labs /images reviewed. Video assessment done using teleICU camera, rest of exam as per RN. Respiratory: Continue present management with vent. Wean FiO2 as yue. Repeat CXR. Avoid proning if possible. Add Versed. Critical Care: critically ill patient. Cont Albut., Dex., Baricitinib, lovenox. Discussed with BECKY Rucker. Asked RN to reach out to eICU if any questions or concerns later. Time spent with patient/coordination of care with other health professionals (mins): 30 Sepsis Event Evaluation Height, Weight, BMI Height: 5'5.00" Weight: 236lbs. 0.0oz. 107.170886zy; 35.85 BMI Method:Stated Exam Exam Patient acknowledged, consented, and participated in this virtual visit which was conducted using real time audio/video Vital Signs Date Time Temp Pulse Resp B/P (MAP) Pulse Ox O2 Delivery O2 Flow Rate FiO2 06/07/21 11:00 110 14 154/84 (107) 93 Mechanical Ventilator 60.00 06/07/21 10:56 103 24 94 60 06/07/21 10:00 36.6 92 18 103/57 (72) 98 Mechanical Ventilator 70.00 06/07/21 09:00 36.6 60 22 103/57 (72) 99 Mechanical Ventilator 70.00 06/07/21 08:00 Mechanical Ventilator 100 06/07/21 08:00 36.8 59 22 102/49 (69) 98 Mechanical Ventilator 70.00 06/07/21 07:40 56 24 100 70 06/07/21 07:35 57 101/53 06/07/21 07:33 56 101/53 06/07/21 07:00 36.8 57 22 99/55 (67) 98 Mechanical Ventilator 70.00 06/07/21 07:00 58 06/07/21 06:14 Mechanical Ventilator 70.00 06/07/21 06:00 36.8 57 22 101/56 (71) 100 Mechanical Ventilator 80.00 06/07/21 05:00 36.7 57 26 102/55 (71) 100 Mechanical Ventilator 80.00 06/07/21 04:54 Mechanical Ventilator 80 06/07/21 04:10 35.8 Mechanical Ventilator 80.00 06/07/21 04:00 36.7 58 22 102/63 (76) 100 Mechanical Ventilator 90.00 06/07/21 03:00 36.7 60 22 106/70 (82) 100 Mechanical Ventilator 90.00 06/07/21 02:56 56 24 100 90 06/07/21 02:00 36.7 59 22 106/58 (74) 99 Mechanical Ventilator 90.00 06/07/21 01:00 36.7 59 26 112/58 (76) 99 Mechanical Ventilator 90.00 06/07/21 01:00 61 06/07/21 00:52 35.9 06/07/21 00:48 59 100/59 06/07/21 00:47 59 100/59 06/07/21 00:06 Mechanical Ventilator 100 06/07/21 00:00 36.7 65 22 103/63 (76) 100 Mechanical Ventilator 90.00 06/06/21 23:09 Mechanical Ventilator 90.00 06/06/21 23:00 36.7 63 22 118/64 (82) 99 Mechanical Ventilator 100.00 06/06/21 22:40 64 22 100 100 06/06/21 22:00 36.8 59 22 108/59 (75) 100 Mechanical Ventilator 100.00 06/06/21 21:00 36.7 61 22 106/58 (74) 98 Mechanical Ventilator 100.00 06/06/21 21:00 Mechanical Ventilator 100 06/06/21 20:00 36.8 61 22 107/58 (74) 100 Mechanical Ventilator 100.00 06/06/21 19:00 Mechanical Ventilator 100.00 06/06/21 19:00 64 06/06/21 19:00 36.8 64 22 110/59 (76) 99 Mechanical Ventilator 100.00 06/06/21 18:36 66 22 99 100 06/06/21 18:12 69 103/59 06/06/21 18:11 69 103/59 06/06/21 18:00 36.9 62 22 103/59 (74) 100 Mechanical Ventilator 90.00 06/06/21 17:00 37.1 62 22 105/56 (72) 97 Mechanical Ventilator 90.00 06/06/21 16:00 37.1 80 22 139/65 (89) 93 Mechanical Ventilator 90.00 06/06/21 16:00 Mechanical Ventilator 100 06/06/21 15:00 37.1 60 20 105/56 (72) 99 Mechanical Ventilator 90.00 06/06/21 14:45 67 22 99 100 06/06/21 14:00 37.1 70 22 100/60 (76) 100 Mechanical Ventilator 90.00 06/06/21 13:00 37.2 67 22 102/56 (71) 100 Mechanical Ventilator 90.00 06/06/21 13:00 72 06/06/21 12:00 Mechanical Ventilator 100 06/06/21 12:00 37.6 68 20 105/48 (67) 93 Mechanical Ventilator 90.00 I & O 06/07/21 07:00 Intake Total 4240.6 ml Output Total 925 ml Balance 3315.6 ml Height & Weight Height: 5'5.00" Weight: 236lbs. 0.0oz. 107.493889zs; 35.85 BMI Method:Stated General Appearance: No Apparent Distress Respiratory: Other (Chest surprisingly clear normal breath sounds anteriorly few fine rales posteriorly no wheezing noted.) Cardiovascular: Regular Rate, Rhythm, No Edema, No Gallop, No JVD, No Murmur, Normal Peripheral Pulses Capillary Refill: Less Than 3 Seconds Gastrointestinal: normal bowel sounds, non tender, soft Extremity: Other (Diffuse libido reticularis pattern extremities warm 2+ upper and lower extremity edema) Neurologic/Psychiatric: Alert, Oriented x3, Depressed Affect Results Lab Laboratory Tests 06/06/21 04:26 06/07/21 03:50 Assessment/Plan Assessment/Plan See free text Critical Care: Ventilator Management Time spent on discussion(mins): 0 AFSANEH RUSH MD Jun 07, 2021 11:26
[2021-06-07] MEDS: MIDAZOLAM DRIP PRE-MIX 100 ML IV SCH (12:57)
--- NOTE | 2021-06-07 16:49 | Progress Note - Hospitalist ---
Subjective HPI/CC On Admission Date Seen by Provider: Jun 07, 2021 Time Seen by Provider: 14:00 CC: Covid-19 Hypoxia HPI: This is a 55yoWF who presented to the ER with SOB found to have Covid-19 and significant pneumonia on CXR. Xanax of 1mg PO Q4Hrs PRN will be initiated due to increased anxiety. Lyn catheter will be placed due to significant hypoxia upon movement. She is currently sleeping and has no complaints. Subjective/Events-last exam Patient sedated on mechanical ventilation. Nursing staff reports she does not tolerate sedation vacation becomes agitated with hypertension and sinus t achycardia. Oxygen requirements have increased compatible with progressive respiratory failure. Objective Exam Vital Signs Vital Signs Date Time Temp Pulse Resp B/P (MAP) Pulse Ox O2 Delivery O2 Flow Rate FiO2 06/07/21 16:00 62 22 112/60 (77) 97 Mechanical Ventilator 60.00 06/07/21 16:00 100 06/07/21 10:00 36.6 Capillary Refill : Less Than 3 Seconds General Appearance: Chronically ill, Obese Respiratory: Other (Minimal congestion anteriorly some rales in the bases no wheezing noted) Cardiovascular: Regular Rate, Rhythm, No Edema, No Gallop, No JVD, No Murmur Gastrointestinal: Normal Bowel Sounds, No Organomegaly, No Pulsatile Mass, Non Tender, Soft Extremity: Other (3+ edema of all extremities and the face) Results/Procedures Lab Laboratory Tests 06/07/21 03:50 Patient resulted labs reviewed. Assessment/Plan Assessment and Plan Assess & Plan/Chief Complaint (1) Pneumonia due to COVID-19 virus Status: Acute Assessment & Plan: Suspect pneumonia is COVID only, but has elevated procalcitonin and possible bacterial component, completed 5 days of cefepime, and 5 days vancomycin, blood cultures from 05/28 wtih staph epi sensitive to vanc, repeat culture from 06/02 no growth to date. On dexamethasone and bariciti nib for COVID. 06/05 had episode of tachycardia and hypotension with proning today, eICU ordered beta monserrat and it has resolved, monitor closely. 06/06 no further tachycardia reported respiratory status and oxygenation requirements unchanged from yesterday continue mechanical ventilation defer vent management to eICU. 06/07 progressive respiratory failure worsening chest x-ray increasing oxygen req uirements indicative of grave prognosis. Family was made aware of this by the nursing staff prior to my arrival and I strongly concur with this survival doubtful. (2) Acute respiratory failure due to COVID-19 Status: Acute Assessment & Plan: Requiring mechanical ventilation, appreciate Corin ramirez. (3) Cardiac arrest Status: Resolved Assessment & Plan: s/p cardiac arrest on 05/31 with 10 minutes CPR (4) COPD (chronic obstructive pulmonary disease) Status: Chronic Qualifiers: Qualified Codes: J44.9 - Chronic obstructive pulmonary disease, unspecified (5) Diabetes Status: Chronic Assessment & Plan: Sliding scale insulin 06/01- glucose 200 and above, will start low dose long-acting insulin 06/05 glucose 98-238 last 24 hours Qualifiers: Qualified Codes: E11.65 - Type 2 diabetes mellitus with hyperglycemia; Z79.4 - marine oil terminal superintendent (current) use of insulin (6) Bipolar disorder Status: Chronic (7) DVT prophylaxis Status: Acute Assessment & Plan: On enoxaparin 75 mg BID. CTA without PE. (8) Goals of care, counseling/discussion Status: Acute Assessment & Plan: 06/01 Called family to update, but was unable to reach, will reach out again tomorrow. 06/02 spoke with son Faizan and updated on status. 06/04 called Faizan, left message. Critical Care Ventilator Management RAO ROSADO MD Jun 07, 2021 16:49
[2021-06-07] MEDS: MIRTAZAPINE 15 MG (REMERON) TAB PO SCH (21:13)
[2021-06-08] VITALS (30 sets, daily range): BP systolic 96–193; BP diastolic 46–92
[2021-06-08] MEDS: NOREPINEPHRINE 8 MG/250 ML 250 ML IV SCH ×2 (00:12→14:17)
[2021-06-08] MEDS: RT-ALBUTEROL HFA 8.5 GM INHALER IH SCH ×6 (02:57→21:20)
[2021-06-08 04:15] LABS: ABG BASE EXCESS 2.5 MMOL/L (-2.5-2.5); ABG OXYGEN SATURATION 94 % (94-100); ABG PCO2 43 MMHG (35-45); ABG PH 7.41 (7.37-7.43); ABG PO2 68 MMHG (79-93); ABG TCO2 28.2 MMOL/L (21.0-31.0)
[2021-06-08 04:16] LABS: ALLENS TEST YES-POS; INSPIRED O2 45%; PATIENT TEMP 36.3; VENTILATOR YES
[2021-06-08 04:16] LABS: BASOPHILS % (AUTO) 0 % (0-10); EOSINOPHILS % (AUTO) 1 % (0-10); HEMATOCRIT 27 % (35-52); HEMOGLOBIN 8.5 g/dL (11.5-16.0); LYMPHOCYTES # (AUTO) 0.6 10^3/uL (1.0-4.0); LYMPHOCYTES % (AUTO) 10 % (12-44); MEAN CORPUSCULAR HEMOGLOBIN 31 pg (25-34); MEAN CORPUSCULAR HGB CONC 31 g/dL (32-36); MEAN CORPUSCULAR VOLUME 99 fL (80-99); MEAN PLATELET VOLUME 10.9 fL (9.0-12.2); MONOCYTES # (AUTO) 0.3 10^3/uL (0.0-1.0); MONOCYTES % (AUTO) 5 % (0-12); NEUTROPHILS # (AUTO) 5.4 10^3/uL (1.8-7.8); NEUTROPHILS % (AUTO) 83 % (42-75); PLATELET COUNT 250 10^3/uL (130-400); WHITE BLOOD COUNT 6.5 10^3/uL (4.3-11.0)
[2021-06-08 04:26] LABS: POTASSIUM 4.3 MMOL/L (3.6-5.0)
[2021-06-08 04:27] LABS: CALCIUM 8.2 MG/DL (8.5-10.1)
[2021-06-08 04:32] LABS: CREATININE SERUM 0.56 MG/DL (0.60-1.30); PHOSPHORUS 2.3 MG/DL (2.3-4.7)
[2021-06-08 04:34] LABS: MAGNESIUM 2.3 MG/DL (1.6-2.4)
[2021-06-08] MEDS: fentaNYL DRIP PRE-MIX 250 ML IV SCH ×5 (05:11→19:00)
[2021-06-08] MEDS: MAGNESIUM 1 GM/100 ML IVPB 100 ML IV SCH (05:14)
[2021-06-08] MEDS: POTASSIUM CL 10MEQ/50ML IVPB 50 ML IV SCH (05:14)
[2021-06-08] MEDS: inSUlin ASPART (NovoLOG) 1 UNIT/0.01 ML (CHARGE PER UNIT) SQ SCH ×3 (05:14→18:58)
[2021-06-08] MEDS: KCL 20 MEQ TAB (K-DUR) PO SCH (05:14)
[2021-06-08] MEDS: PROPOFOL DRIP (ICU) 100 ML IV SCH ×4 (06:20→13:31)
[2021-06-08] MEDS: PANTOPRAZOLE 40 MG (PROTONIX) VIAL IV SCH (08:01)
[2021-06-08] MEDS: ENOXAPARIN 80 MG/0.8 ML (LOVENOX) SYR SC SCH ×2 (08:02→21:54)
[2021-06-08] MEDS: SENNA W/DOCUSATE (SENOKOT S) TABLET PO SCH ×2 (08:02→21:54)
[2021-06-08] MEDS: MICONAZOLE 2% POWDER (DESENEX AF) 90 GM TOP SCH ×2 (08:02→21:54)
[2021-06-08] MEDS: BARICITINIB 2 MG (OLUMIANT)TABLET PO SCH (08:04)
[2021-06-08] MEDS: UMECLIDINIUM BROMIDE (INCRUSE ELLIPTA) 7'S IH SCH (08:05)
--- NOTE | 2021-06-08 09:25 | Tele-ICU Progress Note ---
Subjective Date Seen by a Provider: Jun 08, 2021 Time Seen by a Provider: 09:25 Sepsis Event Evaluation Height, Weight, BMI Height: 5'5.00" Weight: 236lbs. 0.0oz. 107.047998by; 35.85 BMI Method:Stated Exam Exam Patient acknowledged, consented, and participated in this virtual visit which was conducted using real time audio/video Vital Signs Date Time Temp Pulse Resp B/P (MAP) Pulse Ox O2 Delivery O2 Flow Rate FiO2 06/08/21 08:00 Mechanical Ventilator 100 06/08/21 07:58 67 22 95 45 06/08/21 06:41 71 114/71 06/08/21 06:20 61 114/61 06/08/21 06:00 36.6 76 22 109/54 (72) 92 Mechanical Ventilator 45.00 06/08/21 05:00 36.4 69 19 114/57 (76) 94 Mechanical Ventilator 45.00 06/08/21 04:00 36.3 65 22 103/52 (69) 95 Mechanical Ventilator 45.00 06/08/21 04:00 Mechanical Ventilator 45 06/08/21 03:00 36.4 66 22 109/51 (70) 92 Mechanical Ventilator 45.00 06/08/21 02:57 64 22 94 65 06/08/21 02:00 36.4 58 22 109/58 (75) 97 Mechanical Ventilator 45.00 06/08/21 01:00 60 06/08/21 01:00 36.3 60 22 106/59 (75) 97 Mechanical Ventilator 55.00 06/08/21 00:00 36.3 59 22 109/55 (73) 97 Mechanical Ventilator 55.00 06/08/21 00:00 Mechanical Ventilator 55 06/07/21 23:46 57 110/55 06/07/21 23:46 57 110/55 06/07/21 23:00 36.4 64 22 107/56 (73) 96 Mechanical Ventilator 55.00 06/07/21 22:29 57 22 98 65 06/07/21 22:00 36.6 58 22 109/52 (71) 98 Mechanical Ventilator 55.00 06/07/21 21:00 58 22 111/57 (75) 97 Mechanical Ventilator 55.00 06/07/21 20:20 71 22 135/71 (92) 97 Mechanical Ventilator 55.00 06/07/21 20:00 Mechanical Ventilator 55 06/07/21 20:00 63 22 118/59 (78) 99 Mechanical Ventilator 60.00 06/07/21 19:00 69 06/07/21 19:00 71 27 127/63 (84) 98 Mechanical Ventilator 60.00 06/07/21 18:41 66 22 99 65 06/07/21 18:00 73 22 135/71 (92) 97 Mechanical Ventilator 60.00 06/07/21 17:32 56 06/07/21 17:32 57 121/66 06/07/21 17:00 69 22 101/53 (69) 98 Mechanical Ventilator 60.00 06/07/21 16:00 62 22 112/60 (77) 97 Mechanical Ventilator 60.00 06/07/21 16:00 Mechanical Ventilator 100 06/07/21 15:09 58 22 98 60 06/07/21 15:00 57 22 107/61 (76) 98 Mechanical Ventilator 60.00 06/07/21 14:00 59 22 108/60 (76) 99 Mechanical Ventilator 60.00 06/07/21 13:18 59 06/07/21 13:17 59 108/56 06/07/21 13:00 57 22 108/56 (73) 98 Mechanical Ventilator 60.00 06/07/21 13:00 62 06/07/21 12:57 58 22 06/07/21 12:57 58 107/57 06/07/21 12:00 Mechanical Ventilator 100 06/07/21 12:00 63 22 103/57 (72) 93 Mechanical Ventilator 60.00 06/07/21 11:00 110 14 154/84 (107) 93 Mechanical Ventilator 60.00 06/07/21 10:56 103 24 94 60 06/07/21 10:00 36.6 92 18 103/57 (72) 98 Mechanical Ventilator 70.00 I & O 06/08/21 07:00 Intake Total 5183 ml Output Total 3425 ml Balance 1758 ml Height & Weight Height: 5'5.00" Weight: 236lbs. 0.0oz. 107.135749st; 35.85 BMI Method:Stated General Appearance: Chronically ill, Obese Respiratory: Other (Minimal congestion anteriorly some rales in the bases no wheezing noted) Cardiovascular: Regular Rate, Rhythm, No Edema, No Gallop, No JVD, No Murmur Capillary Refill: Less Than 3 Seconds Gastrointestinal: normal bowel sounds, non tender, soft Extremity: Other (3+ edema of all extremities and the face) Neurologic/Psychiatric: Alert, Oriented x3, Depressed Affect Results Lab Laboratory Tests 06/07/21 03:50 06/08/21 03:25 Assessment/Plan Assessment/Plan (Tele-ICU Physician , Progress Note ) Available chart/ vitals / labs / Images reviewed Video assessment done using teleICU camera, rest of exam as per RN Discussed with RN Events overnight : AFEBRILE I/O = pos 2 l Drips: Pressors:levo OFF Sedation gtt: ( RASS ) propofol 25 fentanyl 200 versed VENT SETTINGS. AC 22 420 +16 45 % PAP 30 ABG reviewed Not candidate for SBT today Contraindications: Cardiovascular Stability / Sedation Score / FI02/PEEP / ABG / CXR EXAM PER RN Consultants: Hospital course: (05/28) 55/F Admitted from ED w/ COVID PNA. CTA 05/28 - NO PE (05/30) Tx to ICU on BIPAP. (05/31) INTUBATED. Cardiac arrest (unclear if during or after intubation). CPR 10mins. Post code, sedation stopped and patient had purposeful movment so no TTM A/P Acute resp failure- intubated 05/31 ( covid PNA , CTA 05/28 - NO PE - full vent support , adjust vent to TV 7 cc/IBV - AC 22 420 +16 45 % PAP 30 - not proning - went to SVT - secretions minimal Cardiac arrest (unclear if during or after intubation). CPR 10mins. - no TTM with follow commands as per report - not follows commands 06/02 ( on minimal sedation ) - agitated COVID PNA - steroids IV - lovenox 75 bid ( CTA 05/28 - NO PE m ddimer 0.7 on 05/28 = baricitinib 05/30 -> possible PNA - sputum cx 06/01- not reported cefepime/ vanco - stop 06/03 blood cx - staph epider 05/28 - ? contaminant -06/02 - fever - reculture blood - GPC from PICC , and sputum blood DM - hyperglycemia on steroids - increase ISS , on long actinginsulin Abd distention - tolerates TF - will check KUB am Severe anxiety Bipolar disorder Lines : PICC 8/16 (Central Line Necessity Reviewed) Lyn: 05/30 OG: + Nutrition: started TF - 06/01 - 35 ml/h Analgesia: Anxiety/ delirium VTE Prophylaxis: lovenox full dose Stress Ulcer Prophylaxis: PPI Plans in collaboration with bedside consultants and IM MDs. Discussed with RN to reach out if any questions or concerns A total of 36 minutes of critical care time was devoted to this patient today, required to treat and/or prevent further deterioration of critical care condition ( as above) PEBBLES SANTANA MD Jun 08, 2021 09:25
--- NOTE | 2021-06-08 12:04 | Progress Note - Hospitalist ---
Subjective HPI/CC On Admission Date Seen by Provider: Jun 08, 2021 Time Seen by Provider: 10:00 CC: Covid-19 Hypoxia HPI: This is a 55yoWF who presented to the ER with SOB found to have Covid-19 and significant pneumonia on CXR. Xanax of 1mg PO Q4Hrs PRN will be initiated due to increased anxiety. Lyn catheter will be placed due to significant hypoxia upon movement. She is currently sleeping and has no complaints. Subjective/Events-last exam Pt tolerating tube feedings but no BM for one week so will initiate a Dulcolax suppository Pt is on PEEP of 16 Overall very difficult to ween Remains critically ill Review of Systems Gastrointestinal: Constipation Objective Exam Vital Signs Vital Signs Date Time Temp Pulse Resp B/P (MAP) Pulse Ox O2 Delivery O2 Flow Rate FiO2 06/09/21 04:59 92 177/80 06/09/21 03:00 37.3 24 95 Mechanical Ventilator 80.00 06/09/21 02:07 70 Capillary Refill : Less Than 3 Seconds General Appearance: No Apparent Distress, WD/WN, Chronically ill, Other (Intubated and sedated) Respiratory: Decreased Breath Sounds Cardiovascular: Regular Rate, Rhythm Results/Procedures Lab Laboratory Tests 06/09/21 04:20 Patient resulted labs reviewed. Assessment/Plan Assessment and Plan Assess & Plan/Chief Complaint Assessment: COVID-19 pneumonia Severe anxiety Bipolar disorder Diabetes with jhk-ds-vzafpbk sugars due to steroids Plan: Vapotherm BiPAP Steroids Insulin 05/30/2021: Initiate Olumiant due to no more supply of Actemra High risk of ventilator progression Xanax IV steroids 05/31/2021: Intubation Status post cardiac arrest after intubation with return of ROSC 06/08/2021: Ventilator management appreciated Dulcolax suppository Tube feedings Supportive care Critical Care Ventilator Management SIM AVILA DO Jun 08, 2021 12:03
[2021-06-08] MEDS: MIDAZOLAM DRIP PRE-MIX 100 ML IV SCH (13:34)
[2021-06-08] MEDS ORDERED: BISACODYL 10 MG SUPP (DULCOLAX) PR NR (19:30)
[2021-06-08] MEDS: MIRTAZAPINE 15 MG (REMERON) TAB PO SCH (21:54)
[2021-06-08] MEDS: ACETAMINOPHEN 500 MG TAB (TYLENOL) PO PRN (21:54)
[2021-06-09] VITALS (30 sets, daily range): BP systolic 84–138; BP diastolic 41–68
[2021-06-09] MEDS: inSUlin ASPART (NovoLOG) 1 UNIT/0.01 ML (CHARGE PER UNIT) SQ SCH ×4 (00:49→18:39)
[2021-06-09] MEDS: fentaNYL DRIP PRE-MIX 250 ML IV SCH ×5 (00:57→21:44)
[2021-06-09] MEDS: RT-ALBUTEROL HFA 8.5 GM INHALER IH SCH ×6 (02:07→21:29)
[2021-06-09] MEDS: NOREPINEPHRINE 8 MG/250 ML 250 ML IV SCH ×2 (04:26→16:48)
[2021-06-09 04:34] LABS: BASOPHILS % (AUTO) 0 % (0-10); EOSINOPHILS # (AUTO) 0.1 10^3/uL (0.0-0.3); EOSINOPHILS % (AUTO) 1 % (0-10); HEMATOCRIT 30 % (35-52); HEMOGLOBIN 9.2 g/dL (11.5-16.0); LYMPHOCYTES # (AUTO) 0.8 10^3/uL (1.0-4.0); LYMPHOCYTES % (AUTO) 7 % (12-44); MEAN CORPUSCULAR HEMOGLOBIN 31 pg (25-34); MEAN CORPUSCULAR HGB CONC 31 g/dL (32-36); MEAN CORPUSCULAR VOLUME 98 fL (80-99); MEAN PLATELET VOLUME 10.5 fL (9.0-12.2); MONOCYTES # (AUTO) 0.6 10^3/uL (0.0-1.0); MONOCYTES % (AUTO) 5 % (0-12); NEUTROPHILS # (AUTO) 10.3 10^3/uL (1.8-7.8); NEUTROPHILS % (AUTO) 86 % (42-75); PLATELET COUNT 314 10^3/uL (130-400)
[2021-06-09 04:35] LABS: ABG BASE EXCESS 2.9 MMOL/L (-2.5-2.5); ABG OXYGEN SATURATION 91 % (94-100); ABG PCO2 45 MMHG (35-45); ABG PO2 65 MMHG (79-93); ABG TCO2 28.5 MMOL/L (21.0-31.0)
[2021-06-09 04:42] LABS: ALLENS TEST YES-POS; INSPIRED O2 90%; PATIENT TEMP 37.4; VENTILATOR YES
[2021-06-09 04:48] LABS: POTASSIUM 4.1 MMOL/L (3.6-5.0)
[2021-06-09 04:49] LABS: CALCIUM 8.5 MG/DL (8.5-10.1)
[2021-06-09 04:54] LABS: CREATININE SERUM 0.57 MG/DL (0.60-1.30)
[2021-06-09 04:56] LABS: MAGNESIUM 2.1 MG/DL (1.6-2.4)
[2021-06-09] MEDS: PROPOFOL DRIP (ICU) 100 ML IV SCH ×7 (04:58→20:23)
[2021-06-09] MEDS ORDERED: ROCURONIUM 10 MG/ML 5 ML SYRINGE IV ONE ×4 (06:01→12:15)
[2021-06-09] MEDS: POTASSIUM CL 10MEQ/50ML IVPB 50 ML IV SCH (06:05)
[2021-06-09] MEDS: KCL 20 MEQ TAB (K-DUR) PO SCH (06:06)
[2021-06-09] MEDS: MAGNESIUM 1 GM/100 ML IVPB 100 ML IV SCH (06:06)
--- NOTE | 2021-06-09 07:54 | Diagnostic Imaging Report ---
INDICATION: Abdominal distention Supine image of the abdomen reveals nasogastric tube in the left upper quadrant likely extending to the distal stomach. Overall bowel gas pattern is unremarkable. There is no evidence of pathologic abdominal calcification. No free intraperitoneal gas is seen. IMPRESSION: No definite acute abnormality is identified. Dictated by: Dictated on workstation # [id number]
[2021-06-09] MEDS: PANTOPRAZOLE 40 MG (PROTONIX) VIAL IV SCH (08:51)
[2021-06-09] MEDS: MICONAZOLE 2% POWDER (DESENEX AF) 90 GM TOP SCH ×2 (08:52→21:44)
[2021-06-09] MEDS: SENNA W/DOCUSATE (SENOKOT S) TABLET PO SCH ×2 (08:52→21:43)
[2021-06-09] MEDS: BARICITINIB 2 MG (OLUMIANT)TABLET PO SCH (08:52)
[2021-06-09] MEDS: ENOXAPARIN 80 MG/0.8 ML (LOVENOX) SYR SC SCH ×2 (08:52→21:43)
--- NOTE | 2021-06-09 09:12 | Diagnostic Imaging Report ---
Indication: Respiratory failure Portable AP view of chest is obtained. Since 06/07/2021 endotracheal tube remains in place with tip at the level of thoracic inlet and nasogastric tube passes below the diaphragm. Coarse mixed interstitial and alveolar densities are seen throughout the lungs without significant change. IMPRESSION: Stable appearance of the chest with bilateral infiltrates which could be due to edema or pneumonitis. Dictated by: Dictated on workstation # [id number]
[2021-06-09] MEDS: MIDAZOLAM DRIP PRE-MIX 100 ML IV SCH (10:12)
[2021-06-09] MEDS: UMECLIDINIUM BROMIDE (INCRUSE ELLIPTA) 7'S IH SCH (10:13)
--- NOTE | 2021-06-09 10:55 | Progress Note - Hospitalist ---
Subjective HPI/CC On Admission Date Seen by Provider: Jun 09, 2021 Time Seen by Provider: 10:00 CC: Covid-19 Hypoxia HPI: This is a 55yoWF who presented to the ER with SOB found to have Covid-19 and significant pneumonia on CXR. Xanax of 1mg PO Q4Hrs PRN will be initiated due to increased anxiety. Lyn catheter will be placed due to significant hypoxia upon movement. She is currently sleeping and has no complaints. Subjective/Events-last exam Pt having a little bit of stooling but will remove rectal tube and see if that helps Lyn catheter maintained On high PEEP of ventilator Pt has a very poor prognosis, will begin talking to family Objective Exam Vital Signs Vital Signs Date Time Temp Pulse Resp B/P (MAP) Pulse Ox O2 Delivery O2 Flow Rate FiO2 06/10/21 03:12 58 110/58 06/10/21 03:00 36.2 22 99 Mechanical Ventilator 100.00 06/10/21 02:18 100 Capillary Refill : Less Than 3 Seconds General Appearance: No Apparent Distress, Other (Intubated and sedated) Respiratory: Decreased Breath Sounds Cardiovascular: Regular Rate, Rhythm Results/Procedures Lab Laboratory Tests 06/10/21 02:35 Patient resulted labs reviewed. Assessment/Plan Assessment and Plan Assess & Plan/Chief Complaint Assessment: COVID-19 pneumonia Severe anxiety Bipolar disorder Diabetes with uuu-yq-xbkjjhu sugars due to steroids Plan: Vapotherm BiPAP Steroids Insulin 05/30/2021: Initiate Olumiant due to no more supply of Actemra High risk of ventilator progression Xanax IV steroids 05/31/2021: Intubation Status post cardiac arrest after intubation with return of ROSC 06/08/2021: Ventilator management appreciated Dulcolax suppository Tube feedings Supportive care 06/09/2021: Supportive care Vent management Poor prognosis Critical Care Ventilator Management SIM AVILA DO Jun 09, 2021 10:55
--- NOTE | 2021-06-09 11:09 | Tele-ICU Progress Note ---
Subjective Date Seen by a Provider: Jun 09, 2021 Time Seen by a Provider: 11:06 Sepsis Event Evaluation Height, Weight, BMI Height: 5'5.00" Weight: 236lbs. 0.0oz. 107.041185qh; 35.85 BMI Method:Stated Exam Exam Patient acknowledged, consented, and participated in this virtual visit which was conducted using real time audio/video Vital Signs Date Time Temp Pulse Resp B/P (MAP) Pulse Ox O2 Delivery O2 Flow Rate FiO2 06/09/21 10:26 77 26 88 100 06/09/21 10:13 78 109/41 06/09/21 10:13 79 109/41 06/09/21 10:12 79 25 109/41 06/09/21 10:00 80 22 109/41 (63) 90 Mechanical Ventilator 100.00 06/09/21 09:00 37.7 90 21 110/62 (78) 93 Mechanical Ventilator 100.00 06/09/21 08:00 37.5 79 19 108/51 (70) 94 Mechanical Ventilator 100.00 06/09/21 07:00 37.4 88 17 103/56 (72) 97 Mechanical Ventilator 100.00 06/09/21 06:10 37.7 97 22 113/55 (72) 90 Mechanical Ventilator 100.00 06/09/21 05:45 81 31 90 100 06/09/21 05:00 Mechanical Ventilator 100.00 06/09/21 05:00 37.6 93 138/67 (86) 90 Mechanical Ventilator 90.00 06/09/21 04:59 92 177/80 06/09/21 04:58 92 177/80 06/09/21 04:00 Mechanical Ventilator 90 06/09/21 04:00 Mechanical Ventilator 90.00 06/09/21 04:00 37.3 83 26 124/68 (95) 94 Mechanical Ventilator 90.00 06/09/21 03:00 37.3 70 24 104/48 (66) 95 Mechanical Ventilator 80.00 06/09/21 02:07 69 22 94 70 06/09/21 02:00 37.3 68 22 110/51 (70) 95 Mechanical Ventilator 80.00 06/09/21 01:00 73 06/09/21 01:00 37.4 73 22 99/49 (66) 93 Mechanical Ventilator 80.00 06/09/21 00:00 Mechanical Ventilator 50 06/09/21 00:00 37.5 74 24 111/54 (73) 95 Mechanical Ventilator 80.00 06/08/21 23:20 37.5 06/08/21 23:19 Mechanical Ventilator 80.00 06/08/21 23:00 37.6 73 25 104/46 (65) 95 Mechanical Ventilator 45.00 06/08/21 22:00 38.0 74 20 126/59 (81) 92 Mechanical Ventilator 45.00 06/08/21 21:54 38.1 06/08/21 21:20 82 25 93 70 06/08/21 21:00 38.0 89 24 167/85 (112) 92 Mechanical Ventilator 45.00 06/08/21 20:00 Mechanical Ventilator 50 06/08/21 20:00 37.7 84 20 179/89 (119) 91 Mechanical Ventilator 45.00 06/08/21 19:21 99 28 88 45 06/08/21 19:00 37.1 109 24 189/92 (124) 91 Mechanical Ventilator 45.00 06/08/21 19:00 109 06/08/21 18:00 36.9 62 22 108/54 (72) 93 Mechanical Ventilator 45.00 06/08/21 17:00 36.9 58 22 110/54 (72) 94 Mechanical Ventilator 45.00 06/08/21 16:00 Mechanical Ventilator 100 06/08/21 16:00 36.9 58 22 115/56 (75) 94 Mechanical Ventilator 45.00 06/08/21 15:00 36.9 57 22 116/55 (75) 94 Mechanical Ventilator 45.00 06/08/21 14:38 62 22 94 45 06/08/21 14:00 36.9 59 22 117/55 (75) 94 Mechanical Ventilator 45.00 06/08/21 13:34 61 22 06/08/21 13:31 58 06/08/21 13:30 59 06/08/21 13:00 37.2 62 22 106/53 (70) 95 Mechanical Ventilator 45.00 06/08/21 12:38 62 06/08/21 12:03 Mechanical Ventilator 100 06/08/21 12:00 37.3 65 22 131/63 (85) 92 Mechanical Ventilator 45.00 I & O0 06/09/21 07:00 Intake Total 2865 ml Output Total 2375 ml Balance 490 ml Height & Weight Height: 5'5.00" Weight: 236lbs. 0.0oz. 107.407015wv; 35.85 BMI Method:Stated General Appearance: No Apparent Distress, WD/WN, Chronically ill, Other (Intubated and sedated) Respiratory: Decreased Breath Sounds Cardiovascular: Regular Rate, Rhythm Capillary Refill: Less Than 3 Seconds Gastrointestinal: normal bowel sounds, non tender, soft Extremity: Other (3+ edema of all extremities and the face) Neurologic/Psychiatric: Alert, Oriented x3, Depressed Affect Results Lab Laboratory Tests 06/08/21 03:25 06/09/21 04:20 Assessment/Plan Assessment/Plan (Tele-ICU Physician , Progress Note ) Available chart/ vitals / labs / Images reviewed Video assessment done using teleICU camera, rest of exam as per RN Discussed with RN Events overnight : AFEBRILE I/O = pos 2 l Drips: Pressors:levo OFF Sedation gtt: ( RASS ) propofol 25 fentanyl 200 versed VENT SETTINGS. AC 22 420 +14 100 % PAP 30 ABG reviewed Not candidate for SBT today Contraindications: Cardiovascular Stability / Sedation Score / FI02/PEEP / ABG / CXR EXAM PER RN Consultants: Hospital course: (05/28) 55/F Admitted from ED w/ COVID PNA. CTA 05/28 - NO PE (05/30) Tx to ICU on BIPAP. (05/31) INTUBATED. Cardiac arrest (unclear if during or after intubation). CPR 10mins. Post code, sedation stopped and patient had purposeful movment so no TTM A/P Acute resp failure- intubated 05/31 ( covid PNA , CTA 05/28 - NO PE - full vent support , adjust vent to TV 7 cc/IBV - AC 22 420 +16 100% % PAP 40 - not proning -( went to SVT with proning prior ) - secretions minimal , but thick WITH INCREASING FIO2 WILL TRY LASIX X1 , RECHECK PCT AND CX Cardiac arrest (unclear if during or after intubation). CPR 10mins. - no TTM with follow commands as per report - not follows commands 06/02 ( on minimal sedation ) - agitated COVID PNA - steroids IV - lovenox 75 bid ( CTA 05/28 - NO PE m ddimer 0.7 on 05/28 = baricitinib 05/30 -> possible PNA - sputum cx 06/01- not reported cefepime/ vanco - stop 06/03 blood cx - staph epider 05/28 - ? contaminant -06/02 - fever - reculture blood - GPC from PICC , and sputum blood DM - hyperglycemia on steroids - increase ISS , on long actinginsulin Abd distention - tolerates TF - KUB WNL . + BM H/O Severe anxiety Bipolar disorder Lines : PICC 06/01 (Central Line Necessity Reviewed) Lyn: 05/30 OG: + Nutrition: started TF - 06/01 - 35 ml/h Analgesia: Anxiety/ delirium VTE Prophylaxis: lovenox full dose Stress Ulcer Prophylaxis: PPI Plans in collaboration with bedside consultants and IM MDs. Discussed with RN to reach out if any questions or concerns A total of 37 minutes of critical care time was devoted to this patient today, required to treat and/or prevent further deterioration of critical care condition ( as above) PEBBLES SANTANA MD Jun 09, 2021 11:09
[2021-06-09] MEDS ORDERED: FUROSEMIDE 40 MG/4 ML INJ (LASIX) ONE (11:34)
[2021-06-09] MEDS ORDERED: FUROSEMIDE 40 MG/4 ML INJ (LASIX) IVP ONE (11:45)
[2021-06-09] MEDS ORDERED: LORazepam INJ 2 MG/ML (ATIVAN) VIAL ONE (12:06)
[2021-06-09] MEDS ORDERED: LORazepam INJ 2 MG/ML (ATIVAN) VIAL IVP ONE (12:15)
[2021-06-09] MEDS ORDERED: PIPERACILLIN/TAZO 4.5 GM/NS 100 ML IV NR ×2 (19:30)
[2021-06-09] MEDS: MIRTAZAPINE 15 MG (REMERON) TAB PO SCH (21:43)
[2021-06-10] VITALS (29 sets, daily range): BP systolic 100–145; BP diastolic 41–66
[2021-06-10] MEDS: inSUlin ASPART (NovoLOG) 1 UNIT/0.01 ML (CHARGE PER UNIT) SQ SCH ×4 (00:11→17:48)
[2021-06-10] MEDS: RT-ALBUTEROL HFA 8.5 GM INHALER IH SCH ×6 (02:18→22:21)
[2021-06-10] MEDS: MIDAZOLAM DRIP PRE-MIX 100 ML IV SCH ×2 (02:25→17:49)
[2021-06-10] MEDS: PIPERACILLIN/TAZOBACTAM (BULK) 4.5 GM in NS (IVPB) 100 ML IV SCH ×3 (02:26→17:49)
[2021-06-10 02:46] LABS: BASOPHILS % (AUTO) 0 % (0-10); EOSINOPHILS % (AUTO) 0 % (0-10); HEMATOCRIT 26 % (35-52); HEMOGLOBIN 7.8 g/dL (11.5-16.0); LYMPHOCYTES # (AUTO) 0.6 10^3/uL (1.0-4.0); LYMPHOCYTES % (AUTO) 7 % (12-44); MEAN CORPUSCULAR HEMOGLOBIN 30 pg (25-34); MEAN CORPUSCULAR HGB CONC 31 g/dL (32-36); MEAN CORPUSCULAR VOLUME 99 fL (80-99); MEAN PLATELET VOLUME 10.7 fL (9.0-12.2); MONOCYTES # (AUTO) 0.4 10^3/uL (0.0-1.0); MONOCYTES % (AUTO) 4 % (0-12); NEUTROPHILS # (AUTO) 7.1 10^3/uL (1.8-7.8); NEUTROPHILS % (AUTO) 87 % (42-75); PLATELET COUNT 262 10^3/uL (130-400); WHITE BLOOD COUNT 8.1 10^3/uL (4.3-11.0)
[2021-06-10 02:55] LABS: POTASSIUM 4.2 MMOL/L (3.6-5.0)
[2021-06-10 02:57] LABS: CALCIUM 8.2 MG/DL (8.5-10.1)
[2021-06-10 03:01] LABS: CREATININE SERUM 0.55 MG/DL (0.60-1.30); PHOSPHORUS 3.4 MG/DL (2.3-4.7)
[2021-06-10 03:03] LABS: MAGNESIUM 1.9 MG/DL (1.6-2.4)
[2021-06-10] MEDS: PROPOFOL DRIP (ICU) 100 ML IV SCH ×7 (03:12→22:18)
[2021-06-10 03:27] LABS: ABG BASE EXCESS 2.6 MMOL/L (-2.5-2.5); ABG OXYGEN SATURATION 96 % (94-100); ABG PCO2 49 MMHG (35-45); ABG PH 7.37 (7.37-7.43); ABG PO2 79 MMHG (79-93); ABG TCO2 29.2 MMOL/L (21.0-31.0)
[2021-06-10 03:28] LABS: ALLENS TEST YES-POS; INSPIRED O2 100%; PATIENT TEMP 36.3; VENTILATOR YES
[2021-06-10] MEDS: fentaNYL DRIP PRE-MIX 250 ML IV SCH ×6 (04:23→23:01)
[2021-06-10] MEDS: POTASSIUM CL 10MEQ/50ML IVPB 50 ML IV SCH (05:10)
[2021-06-10] MEDS: MAGNESIUM 1 GM/100 ML IVPB 100 ML IV SCH (05:10)
[2021-06-10] MEDS: KCL 20 MEQ TAB (K-DUR) PO SCH (05:10)
[2021-06-10] MEDS: NOREPINEPHRINE 8 MG/250 ML 250 ML IV SCH ×2 (05:11→20:50)
[2021-06-10] MEDS: BARICITINIB 2 MG (OLUMIANT)TABLET PO SCH (08:10)
[2021-06-10] MEDS: PANTOPRAZOLE 40 MG (PROTONIX) VIAL IV SCH (08:10)
[2021-06-10] MEDS: SENNA W/DOCUSATE (SENOKOT S) TABLET PO SCH ×2 (08:10→20:50)
[2021-06-10] MEDS: MICONAZOLE 2% POWDER (DESENEX AF) 90 GM TOP SCH ×2 (08:11→20:51)
[2021-06-10] MEDS: FUROSEMIDE 40 MG/4 ML INJ (LASIX) IVP SCH ×2 (09:37→20:50)
[2021-06-10] MEDS: UMECLIDINIUM BROMIDE (INCRUSE ELLIPTA) 7'S IH SCH (10:22)
--- NOTE | 2021-06-10 11:07 | Tele-ICU Progress Note ---
Subjective Date Seen by a Provider: Jun 10, 2021 Time Seen by a Provider: 11:06 Sepsis Event Evaluation Height, Weight, BMI Height: 5'5.00" Weight: 236lbs. 0.0oz. 107.517362vo; 35.85 BMI Method:Stated Exam Exam Patient acknowledged, consented, and participated in this virtual visit which was conducted using real time audio/video Vital Signs Date Time Temp Pulse Resp B/P (MAP) Pulse Ox O2 Delivery O2 Flow Rate FiO2 06/10/21 10:22 63 22 93 100 06/10/21 10:00 36.4 65 22 114/61 (78) 95 Mechanical Ventilator 100.00 06/10/21 09:00 36.3 68 22 113/52 (72) 97 Mechanical Ventilator 100.00 06/10/21 08:45 66 107/58 06/10/21 08:44 65 107/58 06/10/21 08:00 36.3 62 22 101/50 (67) 97 Mechanical Ventilator 100.00 06/10/21 07:00 36.2 63 22 109/53 (71) 97 Mechanical Ventilator 100.00 06/10/21 07:00 63 22 98 100 06/10/21 06:50 65 06/10/21 06:00 36.1 60 22 107/58 (74) 98 Mechanical Ventilator 100.00 06/10/21 05:00 36.1 63 22 113/62 (79) 95 Mechanical Ventilator 100.00 06/10/21 04:00 36.2 60 22 117/59 (78) 99 Mechanical Ventilator 100.00 06/10/21 04:00 Mechanical Ventilator 100 06/10/21 03:12 58 110/58 06/10/21 03:12 55 110/58 06/10/21 03:00 36.2 55 22 110/58 (78) 99 Mechanical Ventilator 100.00 06/10/21 02:25 57 22 107/57 06/10/21 02:18 57 22 98 100 06/10/21 02:00 36.3 56 22 110/56 (78) 98 Mechanical Ventilator 100.00 06/10/21 01:00 36.4 58 22 109/56 (74) 98 Mechanical Ventilator 100.00 06/10/21 01:00 60 06/10/21 00:00 36.6 60 22 101/55 (70) 96 Mechanical Ventilator 100.00 06/10/21 00:00 Mechanical Ventilator 100 06/09/21 23:00 36.7 61 22 106/56 (73) 99 Mechanical Ventilator 100.00 06/09/21 22:00 36.9 62 22 106/54 (71) 92 Mechanical Ventilator 100.00 06/09/21 21:29 62 22 91 100 06/09/21 21:00 36.8 62 22 107/55 (72) 96 Mechanical Ventilator 100.00 06/09/21 20:23 63 110/62 06/09/21 20:22 62 110/56 06/09/21 20:00 36.8 66 22 104/56 (72) 93 Mechanical Ventilator 100.00 06/09/21 20:00 Mechanical Ventilator 100 06/09/21 20:00 36.1 06/09/21 19:00 65 06/09/21 19:00 36.7 65 22 108/57 (74) 96 Mechanical Ventilator 100.00 06/09/21 18:30 66 22 90 100 06/09/21 18:00 36.7 67 22 95/48 (64) 90 Mechanical Ventilator 100.00 06/09/21 17:00 64 22 103/51 (68) 96 Mechanical Ventilator 100.00 06/09/21 16:10 Mechanical Ventilator 100 06/09/21 16:00 66 22 101/48 (65) 97 Mechanical Ventilator 100.00 06/09/21 15:55 36.4 06/09/21 15:28 06/09/21 15:00 68 22 86/43 (57) 94 Mechanical Ventilator 100.00 06/09/21 14:33 68 22 92 100 06/09/21 14:00 76 26 104/60 (75) 92 Mechanical Ventilator 100.00 06/09/21 13:55 77 113/63 06/09/21 13:54 79 113/63 06/09/21 13:00 80 24 118/66 (83) 95 Mechanical Ventilator 100.00 06/09/21 12:57 81 06/09/21 12:00 71 22 109/57 (74) 84 Mechanical Ventilator 100.00 06/09/21 12:00 36.8 06/09/21 11:11 Mechanical Ventilator 100 I & O 06/10/21 07:00 Intake Total 4732 ml Output Total 2700 ml Balance 2032 ml Height & Weight Height: 5'5.00" Weight: 236lbs. 0.0oz. 107.200700jv; 35.85 BMI Method:Stated General Appearance: No Apparent Distress, Other (Intubated and sedated) Respiratory: Decreased Breath Sounds Cardiovascular: Regular Rate, Rhythm Capillary Refill: Less Than 3 Seconds Gastrointestinal: normal bowel sounds, non tender, soft Extremity: Other (3+ edema of all extremities and the face) Neurologic/Psychiatric: Alert, Oriented x3, Depressed Affect Results Lab Laboratory Tests 06/09/21 04:20 06/10/21 02:35 Assessment/Plan Assessment/Plan (Tele-ICU Physician , Progress Note ) Available chart/ vitals / labs / Images reviewed Video assessment done using teleICU camera, rest of exam as per RN Discussed with RN Events overnight : AFEBRILE I/O = pos 2 l Drips: Pressors:levo OFF Sedation gtt: ( RASS ) propofol 25 fentanyl 200 versed VENT SETTINGS. AC 22 420 +14 100 % PAP 30 ABG reviewed Not candidate for SBT today Contraindications: Cardiovascular Stability / Sedation Score / FI02/PEEP / ABG / CXR EXAM PER RN Consultants: Hospital course: (05/28) 55/F Admitted from ED w/ COVID PNA. CTA 05/28 - NO PE (05/30) Tx to ICU on BIPAP. (05/31) INTUBATED. Cardiac arrest (unclear if during or after intubation). CPR 10mins. Post code, sedation stopped and patient had purposeful movment so no TTM 06/09- +16 100% A/P Acute resp failure- intubated 05/31 ( covid PNA , CTA 05/28 - NO PE - full vent support , adjust vent to TV 7 cc/IBV - AC 22 420 +16 100% % PAP 40 - not proning -( went to SVT with proning prior ) - secretions minimal , but thick WITH INCREASING FIO2 WILL TRY LASIX - bloody secretion in ETT - will hold on lovenox today Cardiac arrest (unclear if during or after intubation). CPR 10mins. - no TTM with follow commands as per report SEDATED NOW , NOT TOLERTED SEDATION VACATION COVID PNA - steroids IV - lovenox 75 bid ( CTA 05/28 - NO PE m ddimer 0.7 on 05/28 , BLOODY SECRETION IN ETT 06/09-25 - ON HOLD = baricitinib 05/30 -> possible PNA - sputum cx 06/01- not reported cefepime/ vanco - stop 06/03 blood cx - staph epider 05/28 - ? contaminant -06/02 - fever - reculture blood - GPC from PICC , and sputum blood 06/09 - WORSENIG FIO2 - PCT UP - ZOSYN ADDED , RECULTURED DM - hyperglycemia on steroids - increase ISS , on long actinginsulin Abd distention - tolerates TF - KUB WNL . + BM H/O Severe anxiety Bipolar disorder Lines : PICC 06/01 (Central Line Necessity Reviewed) Lyn: 05/30 OG: + Nutrition: started TF - 06/01 - 35 ml/h Analgesia: Anxiety/ delirium VTE Prophylaxis: lovenox full dose Stress Ulcer Prophylaxis: PPI Plans in collaboration with bedside consultants and IM MDs. Discussed with RN to reach out if any questions or concerns A total of 37 minutes of critical care time was devoted to this patient today, required to treat and/or prevent further deterioration of critical care condition ( as above) PEBBLES SANTANA MD Jun 10, 2021 11:06
--- NOTE | 2021-06-10 12:22 | Progress Note - Hospitalist ---
Subjective HPI/CC On Admission Date Seen by Provider: Jun 10, 2021 Time Seen by Provider: 11:00 CC: Covid-19 Hypoxia HPI: This is a 55yoWF who presented to the ER with SOB found to have Covid-19 and significant pneumonia on CXR. Xanax of 1mg PO Q4Hrs PRN will be initiated due to increased anxiety. Lyn catheter will be placed due to significant hypoxia upon movement. She is currently sleeping and has no complaints. Subjective/Events-last exam No major changes Poor prognosis overall Will begin talking about DNR and palliative care Objective Exam Vital Signs Vital Signs Date Time Temp Pulse Resp B/P (MAP) Pulse Ox O2 Delivery O2 Flow Rate FiO2 06/10/21 21:06 Mechanical Ventilator 80.00 06/10/21 20:00 80 06/10/21 19:00 63 06/10/21 18:30 22 99 06/10/21 18:00 37.2 109/47 (67) Capillary Refill : Less Than 3 Seconds General Appearance: No Apparent Distress, WD/WN, Chronically ill, Other (Intubated and sedated) Respiratory: No Accessory Muscle Use, No Respiratory Distress, Decreased Breath Sounds Cardiovascular: Regular Rate, Rhythm Results/Procedures Lab Laboratory Tests 06/10/21 02:35 Patient resulted labs reviewed. Assessment/Plan Assessment and Plan Assess & Plan/Chief Complaint Assessment: COVID-19 pneumonia Severe anxiety Bipolar disorder Diabetes with wfh-af-caoaplk sugars due to steroids Plan: Vapotherm BiPAP Steroids Insulin 05/30/2021: Initiate Olumiant due to no more supply of Actemra High risk of ventilator progression Xanax IV steroids 05/31/2021: Intubation Status post cardiac arrest after intubation with return of ROSC 06/08/2021: Ventilator management appreciated Dulcolax suppository Tube feedings Supportive care 06/09/2021: Supportive care Vent management Poor prognosis 06/10/2021: Maintain intubation Monitor closely Critical Care Ventilator Management SIM AVILA DO Jun 10, 2021 12:22
[2021-06-10] MEDS: MIRTAZAPINE 15 MG (REMERON) TAB PO SCH (20:50)
[2021-06-11] VITALS (31 sets, daily range): BP systolic 99–145; BP diastolic 42–68
[2021-06-11] MEDS: inSUlin ASPART (NovoLOG) 1 UNIT/0.01 ML (CHARGE PER UNIT) SQ SCH ×5 (00:51→23:50)
[2021-06-11] MEDS: RT-ALBUTEROL HFA 8.5 GM INHALER IH SCH ×5 (02:38→21:40)
[2021-06-11] MEDS: PIPERACILLIN/TAZOBACTAM (BULK) 4.5 GM in NS (IVPB) 100 ML IV SCH ×3 (02:57→16:53)
[2021-06-11 03:03] LABS: BASOPHILS % (AUTO) 0 % (0-10); EOSINOPHILS % (AUTO) 0 % (0-10); HEMATOCRIT 24 % (35-52); HEMOGLOBIN 7.7 g/dL (11.5-16.0); LYMPHOCYTES # (AUTO) 0.7 10^3/uL (1.0-4.0); LYMPHOCYTES % (AUTO) 9 % (12-44); MEAN CORPUSCULAR HEMOGLOBIN 32 pg (25-34); MEAN CORPUSCULAR HGB CONC 33 g/dL (32-36); MEAN CORPUSCULAR VOLUME 99 fL (80-99); MEAN PLATELET VOLUME 10.8 fL (9.0-12.2); MONOCYTES # (AUTO) 0.5 10^3/uL (0.0-1.0); MONOCYTES % (AUTO) 6 % (0-12); NEUTROPHILS # (AUTO) 6.9 10^3/uL (1.8-7.8); NEUTROPHILS % (AUTO) 84 % (42-75); PLATELET COUNT 256 10^3/uL (130-400); WHITE BLOOD COUNT 8.2 10^3/uL (4.3-11.0)
[2021-06-11 03:08] LABS: ABG BASE EXCESS 4.7 MMOL/L (-2.5-2.5); ABG OXYGEN SATURATION 97 % (94-100); ABG PCO2 50 MMHG (35-45); ABG PH 7.39 (7.37-7.43); ABG PO2 90 MMHG (79-93)
[2021-06-11 03:09] LABS: ALLENS TEST NEGATIVE; INSPIRED O2 22; PATIENT TEMP 36.7; VENTILATOR YES
[2021-06-11 03:22] LABS: ALBUMIN 2.5 GM/DL (3.2-4.5); POTASSIUM 3.5 MMOL/L (3.6-5.0)
[2021-06-11 03:24] LABS: CALCIUM 7.7 MG/DL (8.5-10.1)
[2021-06-11 03:25] LABS: TOTAL PROTEIN 5.3 GM/DL (6.4-8.2)
[2021-06-11 03:27] LABS: BILIRUBIN,TOTAL 0.3 MG/DL (0.1-1.0)
[2021-06-11 03:29] LABS: CREATININE SERUM 0.56 MG/DL (0.60-1.30)
[2021-06-11] MEDS: PROPOFOL DRIP (ICU) 100 ML IV SCH ×8 (03:47→23:08)
[2021-06-11] MEDS: POTASSIUM CL 10MEQ/50ML IVPB 50 ML IV SCH ×3 (03:53→06:24)
[2021-06-11] MEDS: KCL 20 MEQ TAB (K-DUR) PO SCH (03:53)
[2021-06-11] MEDS: MAGNESIUM 1 GM/100 ML IVPB 100 ML IV SCH ×3 (04:35→06:23)
[2021-06-11] MEDS: fentaNYL DRIP PRE-MIX 250 ML IV SCH ×7 (05:02→23:08)
[2021-06-11] MEDS: UMECLIDINIUM BROMIDE (INCRUSE ELLIPTA) 7'S IH SCH (07:37)
--- NOTE | 2021-06-11 08:08 | Diagnostic Imaging Report ---
INDICATION: Respiratory failure. COMPARISON: 06/09/2021 FINDINGS: Single frontal radiographic view of the chest was obtained and demonstrates indwelling endotracheal tube with tip at the clavicular heads. Gastric tube is noted and extends inferiorly beyond the [id number]-bs-xppu. Lungs continue to show diffuse mixed interstitial and alveolar infiltrate with more prominent areas of confluence in both lung bases. Overall, aeration is stable. Small bibasilar effusions cannot be excluded. There is no pneumothorax. Cardiac silhouette is partially obscured, but appears stable as well. Osseous structures show no acute adverse interval change. IMPRESSION: 1. Stable bilateral infiltrate as described above. 2. Small bibasilar effusions cannot be excluded. Dictated by: Dictated on workstation # [id number]
[2021-06-11] MEDS: FUROSEMIDE 40 MG/4 ML INJ (LASIX) IVP SCH ×2 (08:31→20:00)
[2021-06-11] MEDS: PANTOPRAZOLE 40 MG (PROTONIX) VIAL IV SCH (08:31)
[2021-06-11] MEDS: BARICITINIB 2 MG (OLUMIANT)TABLET PO SCH (08:32)
[2021-06-11] MEDS: SENNA W/DOCUSATE (SENOKOT S) TABLET PO SCH ×2 (08:33→20:00)
[2021-06-11] MEDS: MICONAZOLE 2% POWDER (DESENEX AF) 90 GM TOP SCH ×2 (08:33→20:01)
[2021-06-11] MEDS: MIDAZOLAM DRIP PRE-MIX 100 ML IV SCH ×2 (08:35→23:07)
--- NOTE | 2021-06-11 12:02 | Progress Note - Hospitalist ---
Subjective HPI/CC On Admission Date Seen by Provider: Jun 11, 2021 Time Seen by Provider: 10:00 CC: Covid-19 Hypoxia HPI: This is a 55yoWF who presented to the ER with SOB found to have Covid-19 and significant pneumonia on CXR. Xanax of 1mg PO Q4Hrs PRN will be initiated due to increased anxiety. Lyn catheter will be placed due to significant hypoxia upon movement. She is currently sleeping and has no complaints. Subjective/Events-last exam Pt about the same Family came up to visit to try to be more in line with DNR but son wants to talk about it and think about it tonight Overall very poor prognosis Objective Exam Vital Signs Vital Signs Date Time Temp Pulse Resp B/P (MAP) Pulse Ox O2 Delivery O2 Flow Rate FiO2 06/12/21 04:27 58 06/12/21 04:27 105/46 06/12/21 03:52 Mechanical Ventilator 65 06/12/21 02:30 65.00 06/12/21 01:52 26 96 06/12/21 01:00 36.3 Capillary Refill : Less Than 3 Seconds General Appearance: No Apparent Distress, WD/WN, Chronically ill, Other (Sedated and intubated) Respiratory: Decreased Breath Sounds Cardiovascular: Regular Rate, Rhythm Results/Procedures Lab Laboratory Tests 06/11/21 16:48 06/12/21 02:35 Patient resulted labs reviewed. Assessment/Plan Assessment and Plan Assess & Plan/Chief Complaint Assessment: COVID-19 pneumonia Severe anxiety Bipolar disorder Diabetes with run-bn-uwtpphk sugars due to steroids Plan: Vapotherm BiPAP Steroids Insulin 05/30/2021: Initiate Olumiant due to no more supply of Actemra High risk of ventilator progression Xanax IV steroids 05/31/2021: Intubation Status post cardiac arrest after intubation with return of ROSC 06/08/2021: Ventilator management appreciated Dulcolax suppository Tube feedings Supportive care 06/09/2021: Supportive care Vent management Poor prognosis 06/10/2021: Maintain intubation Monitor closely 06/11/2021: Poor prognosis Needs DNR Needs terminal extubation Critical Care Ventilator Management SIM AVILA DO Jun 11, 2021 12:02
--- NOTE | 2021-06-11 15:35 | Tele-ICU Progress Note ---
Subjective Date Seen by a Provider: Jun 11, 2021 Time Seen by a Provider: 08:28 Sepsis Event Evaluation Height, Weight, BMI Height: 5'5.00" Weight: 236lbs. 0.0oz. 107.707002bm; 35.85 BMI Method:Stated Exam Exam Patient acknowledged, consented, and participated in this virtual visit which was conducted using real time audio/video Vital Signs Date Time Temp Pulse Resp B/P (MAP) Pulse Ox O2 Delivery O2 Flow Rate FiO2 06/11/21 13:00 56 06/11/21 12:00 36.7 54 22 121/62 (81) 93 Mechanical Ventilator 70.00 06/11/21 12:00 Mechanical Ventilator 70 06/11/21 11:39 56 22 95 70 06/11/21 11:00 36.5 61 22 111/56 (74) 89 Mechanical Ventilator 70.00 06/11/21 10:00 36.4 59 22 108/57 (74) 91 Mechanical Ventilator 70.00 06/11/21 09:00 36.4 64 23 121/68 (85) 93 Mechanical Ventilator 70.00 06/11/21 08:36 63 106/50 06/11/21 08:35 63 22 106/50 06/11/21 08:34 61 106/50 06/11/21 08:00 Mechanical Ventilator 70 06/11/21 08:00 36.5 64 22 107/49 (68) 93 Mechanical Ventilator 70.00 06/11/21 07:25 67 22 95 70 06/11/21 07:00 36.6 59 22 106/51 (69) 95 Mechanical Ventilator 70.00 06/11/21 07:00 60 06/11/21 06:00 36.7 60 22 116/57 (76) 95 Mechanical Ventilator 70.00 06/11/21 05:00 36.7 61 22 122/63 (82) 94 Mechanical Ventilator 70.00 06/11/21 04:05 Mechanical Ventilator 70.00 06/11/21 04:00 Mechanical Ventilator 70 06/11/21 04:00 36.7 62 22 129/64 (85) 97 Mechanical Ventilator 80.00 06/11/21 03:48 61 121/54 06/11/21 03:47 61 121/54 06/11/21 03:00 36.7 68 22 121/52 (75) 96 Mechanical Ventilator 80.00 06/11/21 02:38 66 22 97 80 06/11/21 02:00 36.8 58 22 124/61 (82) 97 Mechanical Ventilator 80.00 06/11/21 01:00 36.9 60 22 113/50 (71) 97 Mechanical Ventilator 80.00 06/11/21 01:00 60 06/11/21 00:00 37.0 63 22 109/47 (67) 96 Mechanical Ventilator 80.00 06/11/21 00:00 Mechanical Ventilator 80 06/10/21 23:00 37.1 64 22 108/46 (66) 95 Mechanical Ventilator 80.00 06/10/21 22:21 70 22 95 80 06/10/21 22:18 67 145/66 06/10/21 22:18 67 145/66 06/10/21 22:00 37.1 70 22 145/66 (92) 95 Mechanical Ventilator 80.00 06/10/21 21:06 Mechanical Ventilator 80.00 06/10/21 21:00 37.2 62 22 117/51 (73) 100 Mechanical Ventilator 90.00 06/10/21 20:00 37.2 62 22 106/45 (65) 99 Mechanical Ventilator 90.00 06/10/21 20:00 Mechanical Ventilator 80 06/10/21 20:00 Mechanical Ventilator 90.00 06/10/21 19:00 63 06/10/21 19:00 37.2 63 22 105/45 (65) 98 Mechanical Ventilator 90.00 06/10/21 18:30 63 22 99 100 06/10/21 18:00 37.2 65 22 109/47 (67) 99 Mechanical Ventilator 100.00 06/10/21 17:49 62 22 104/43 06/10/21 17:00 37.1 65 22 106/41 (62) 99 Mechanical Ventilator 100.00 06/10/21 16:00 Mechanical Ventilator 100 06/10/21 16:00 37.1 60 22 104/46 (65) 98 Mechanical Ventilator 100.00 I & O 06/11/21 07:00 Intake Total 5210.6 ml Output Total 3860 ml Balance 1350.6 ml Height & Weight Height: 5'5.00" Weight: 236lbs. 0.0oz. 107.295950er; 35.85 BMI Method:Stated General Appearance: No Apparent Distress, WD/WN, Chronically ill, Other (Intubated and sedated) Respiratory: No Accessory Muscle Use, No Respiratory Distress, Decreased Breath Sounds Cardiovascular: Regular Rate, Rhythm Capillary Refill: Less Than 3 Seconds Gastrointestinal: normal bowel sounds, non tender, soft Extremity: Other (3+ edema of all extremities and the face) Neurologic/Psychiatric: Alert, Oriented x3, Depressed Affect Results Lab Laboratory Tests 06/10/21 02:35 06/11/21 02:45 Assessment/Plan Assessment/Plan (Tele-ICU Physician , Progress Note ) Available chart/ vitals / labs / Images reviewed Video assessment done using teleICU camera, rest of exam as per RN Discussed with RN Events overnight : AFEBRILE I/O = pos 2 l Drips: Pressors:levo OFF Sedation gtt: ( RASS ) propofol 25 fentanyl 200 versed VENT SETTINGS. AC 22 420 +16 70 % PAP 41 ABG reviewed Not candidate for SBT today Contraindications: Cardiovascular Stability / Sedation Score / FI02/PEEP / ABG / CXR EXAM PER RN Consultants: Hospital course: (05/28) 55/F Admitted from ED w/ COVID PNA. CTA 05/28 - NO PE (05/30) Tx to ICU on BIPAP. (05/31) INTUBATED. Cardiac arrest (unclear if during or after intubation). CPR 10mins. Post code, sedation stopped and patient had purposeful movment so no TTM 06/09- +16 100%, attempt to diuresuis, bloody secretion ETT - lovenox on hold 06/11 AC 22 420 +16 70 % increasing PAP 41, resumed lovenox proph dose A/P Acute resp failure- intubated 05/31 ( covid PNA , CTA 05/28 - NO PE - full vent support , adjust vent to TV 7 cc/IBV - AC 22 420 +16 100% % PAP 40 - not proning -( went to SVT with proning prior ) - secretions minimal , but thick CONT LASIX - bloody secretion in ETT 06/11 - hold on lovenox today Cardiac arrest (unclear if during or after intubation). CPR 10mins. - no TTM with follow commands as per report SEDATED NOW , NOT TOLERTED SEDATION VACATION COVID PNA - steroids IV - lovenox 75 bid ( CTA 05/28 - NO PE m ddimer 0.7 on 05/28 , BLOODY SECRETION IN ETT 06/09- - LOVENOX CHANGED TO PROPH DOSE - TO FOLLOW DDIMER = baricitinib 05/30 -> possible PNA - sputum cx 06/01- not reported cefepime/ vanco - stop 06/03 blood cx - staph epider 05/28 - ? contaminant -06/02 - fever - reculture blood - GPC from PICC , and sputum blood 06/09 - WORSENIG FIO2 - PCT UP - ZOSYN ADDED , RECULTURED DM - hyperglycemia on steroids - increase ISS , on long acting insulin Abd distention - tolerates TF - KUB WNL . + BM H/O Severe anxiety Bipolar disorder Lines : PICC 06/01 (Central Line Necessity Reviewed) Lyn: 05/30 OG: + Nutrition: started TF - 06/01 - 35 ml/h Analgesia: Anxiety/ delirium VTE Prophylaxis: lovenox full dose Stress Ulcer Prophylaxis: PPI Plans in collaboration with bedside consultants and IM MDs. Discussed with RN to reach out if any questions or concerns A total of 37 minutes of critical care time was devoted to this patient today, required to treat and/or prevent further deterioration of critical care condition ( as above) PEBBLES SANTANA MD Jun 11, 2021 15:35
[2021-06-11] MEDS: ENOXAPARIN 40 MG/0.4 ML (LOVENOX) SYR SC SCH (16:52)
[2021-06-11] MEDS: NOREPINEPHRINE 8 MG/250 ML 250 ML IV SCH ×2 (19:58→21:47)
[2021-06-11] MEDS: MIRTAZAPINE 15 MG (REMERON) TAB PO SCH (20:00)
[2021-06-11 22:45] LABS: ABG BASE EXCESS 5.6 MMOL/L (-2.5-2.5); ABG OXYGEN SATURATION 95 % (94-100); ABG PCO2 52 MMHG (35-45); ABG PH 7.39 (7.37-7.43); ABG PO2 75 MMHG (79-93); ABG TCO2 32.1 MMOL/L (21.0-31.0)
[2021-06-11 22:47] LABS: INSPIRED O2 80%; PATIENT TEMP 37; VENTILATOR NO
[2021-06-12] VITALS (30 sets, daily range): BP systolic 100–156; BP diastolic 45–77
[2021-06-12] MEDS: RT-ALBUTEROL HFA 8.5 GM INHALER IH SCH ×6 (01:51→21:50)
[2021-06-12] MEDS: PIPERACILLIN/TAZOBACTAM (BULK) 4.5 GM in NS (IVPB) 100 ML IV SCH ×3 (02:33→18:00)
[2021-06-12 02:50] LABS: ABG BASE EXCESS 5.8 MMOL/L (-2.5-2.5); ABG OXYGEN SATURATION 75 % (94-100); ABG PCO2 70 MMHG (35-45); ABG PO2 47 MMHG (79-93); ABG TCO2 34.6 MMOL/L (21.0-31.0)
[2021-06-12 02:51] LABS: ALLENS TEST YES-POS
[2021-06-12 02:52] LABS: ABG PH 7.28 (7.37-7.43); INSPIRED O2 65%; PATIENT TEMP 36.2; VENTILATOR YES
[2021-06-12 03:41] LABS: BASOPHILS % (AUTO) 0 % (0-10); EOSINOPHILS % (AUTO) 0 % (0-10); HEMATOCRIT 25 % (35-52); LYMPHOCYTES # (AUTO) 0.8 10^3/uL (1.0-4.0); LYMPHOCYTES % (AUTO) 9 % (12-44); MEAN CORPUSCULAR HEMOGLOBIN 32 pg (25-34); MEAN CORPUSCULAR HGB CONC 32 g/dL (32-36); MEAN CORPUSCULAR VOLUME 99 fL (80-99); MEAN PLATELET VOLUME 10.8 fL (9.0-12.2); MONOCYTES # (AUTO) 0.6 10^3/uL (0.0-1.0); MONOCYTES % (AUTO) 7 % (0-12); NEUTROPHILS # (AUTO) 7.4 10^3/uL (1.8-7.8); NEUTROPHILS % (AUTO) 83 % (42-75); PLATELET COUNT 284 10^3/uL (130-400); WHITE BLOOD COUNT 8.9 10^3/uL (4.3-11.0)
[2021-06-12 03:44] LABS: POTASSIUM 3.9 MMOL/L (3.6-5.0)
[2021-06-12 03:45] LABS: CALCIUM 8.3 MG/DL (8.5-10.1)
[2021-06-12 03:50] LABS: CREATININE SERUM 0.61 MG/DL (0.60-1.30)
[2021-06-12] MEDS: KCL 20 MEQ TAB (K-DUR) PO SCH (03:54)
[2021-06-12] MEDS: MAGNESIUM 1 GM/100 ML IVPB 100 ML IV SCH (03:54)
[2021-06-12] MEDS: POTASSIUM CL 10MEQ/50ML IVPB 50 ML IV SCH (03:54)
[2021-06-12] MEDS: ENOXAPARIN 40 MG/0.4 ML (LOVENOX) SYR SC SCH ×2 (03:58→15:45)
[2021-06-12 04:08] LABS: ABG BASE EXCESS 5.8 MMOL/L (-2.5-2.5); ABG OXYGEN SATURATION 93 % (94-100); ABG PCO2 48 MMHG (35-45); ABG PH 7.42 (7.37-7.43); ABG PO2 64 MMHG (79-93); ABG TCO2 31.9 MMOL/L (21.0-31.0)
[2021-06-12 04:12] LABS: ALLENS TEST YES-POS; INSPIRED O2 65%; PATIENT TEMP 36.3; VENTILATOR YES
[2021-06-12] MEDS: PROPOFOL DRIP (ICU) 100 ML IV SCH ×7 (04:27→23:17)
[2021-06-12] MEDS: inSUlin ASPART (NovoLOG) 1 UNIT/0.01 ML (CHARGE PER UNIT) SQ SCH ×4 (05:05→23:14)
[2021-06-12] MEDS: fentaNYL DRIP PRE-MIX 250 ML IV SCH ×6 (05:07→23:36)
[2021-06-12] MEDS: UMECLIDINIUM BROMIDE (INCRUSE ELLIPTA) 7'S IH SCH (07:06)
[2021-06-12] MEDS: BARICITINIB 2 MG (OLUMIANT)TABLET PO SCH (08:09)
[2021-06-12] MEDS: FUROSEMIDE 40 MG/4 ML INJ (LASIX) IVP SCH ×2 (08:09→23:14)
[2021-06-12] MEDS: PANTOPRAZOLE 40 MG (PROTONIX) VIAL IV SCH (08:09)
[2021-06-12] MEDS: MICONAZOLE 2% POWDER (DESENEX AF) 90 GM TOP SCH ×2 (08:10→19:36)
[2021-06-12] MEDS: SENNA W/DOCUSATE (SENOKOT S) TABLET PO SCH ×2 (08:10→19:36)
[2021-06-12] MEDS: MIDAZOLAM DRIP PRE-MIX 100 ML IV SCH ×2 (08:11→15:55)
--- NOTE | 2021-06-12 11:32 | Progress Note - Hospitalist ---
Subjective HPI/CC On Admission Date Seen by Provider: Jun 12, 2021 Time Seen by Provider: 11:30 CC: Covid-19 Hypoxia HPI: This is a 55yoWF who presented to the ER with SOB found to have Covid-19 and significant pneumonia on CXR. Xanax of 1mg PO Q4Hrs PRN will be initiated due to increased anxiety. Lyn catheter will be placed due to significant hypoxia upon movement. She is currently sleeping and has no complaints. Subjective/Events-last exam Patient still intubated Family not willing to take off ventilator Overall doing about the same EICU care appreciated Poor prognosis Objective Exam Vital Signs Vital Signs Date Time Temp Pulse Resp B/P (MAP) Pulse Ox O2 Delivery O2 Flow Rate FiO2 06/13/21 06:00 37.1 79 26 116/50 (72) 95 Mechanical Ventilator 65.00 06/13/21 03:37 65 Capillary Refill : Less Than 3 Seconds General Appearance: No Apparent Distress, Chronically ill, Obese, Other (Intubated and sedated) Respiratory: Decreased Breath Sounds Cardiovascular: Regular Rate, Rhythm Results/Procedures Lab Laboratory Tests 06/13/21 03:15 Patient resulted labs reviewed. Assessment/Plan Assessment and Plan Assess & Plan/Chief Complaint Assessment: COVID-19 pneumonia Severe anxiety Bipolar disorder Diabetes with nkp-[id number]-[id number] sugars due to steroids Plan: Vapotherm BiPAP Steroids Insulin 05/30/2021: Initiate Olumiant due to no more supply of Actemra High risk of ventilator progression Xanax IV steroids 05/31/2021: Intubation Status post cardiac arrest after intubation with return of ROSC 06/08/2021: Ventilator management appreciated Dulcolax suppository Tube feedings Supportive care 06/09/2021: Supportive care Vent management Poor prognosis 06/10/2021: Maintain intubation Monitor closely 06/11/2021: Poor prognosis Needs DNR Needs terminal extubation 06/12/2021: Supportive care Poor prognosis Critical Care Ventilator Management SIM AVILA DO Jun 12, 2021 11:32
--- NOTE | 2021-06-12 12:10 | Tele-ICU Progress Note ---
Subjective Date Seen by a Provider: Jun 12, 2021 Time Seen by a Provider: 12:10 Sepsis Event Evaluation Height, Weight, BMI Height: 5'5.00" Weight: 236lbs. 0.0oz. 107.926020ng; 35.85 BMI Method:Stated Exam Exam Patient acknowledged, consented, and participated in this virtual visit which was conducted using real time audio/video Vital Signs Date Time Temp Pulse Resp B/P (MAP) Pulse Ox O2 Delivery O2 Flow Rate FiO2 06/12/21 11:17 64 28 93 65 06/12/21 11:00 36.5 69 28 134/72 (92) 89 Mechanical Ventilator 65.00 06/12/21 10:52 62 129/66 06/12/21 10:51 62 129/66 06/12/21 10:00 36.3 62 28 128/67 (87) 89 Mechanical Ventilator 65.00 06/12/21 09:00 36.3 75 28 106/56 (73) 92 Mechanical Ventilator 65.00 06/12/21 08:11 64 28 100/45 06/12/21 08:00 36.3 62 28 100/45 (67) 92 Mechanical Ventilator 65.00 06/12/21 07:08 64 28 93 65 06/12/21 07:00 59 06/12/21 07:00 36.3 65 28 116/52 (80) 93 Mechanical Ventilator 65.00 06/12/21 06:00 36.3 59 28 116/51 (72) 95 Mechanical Ventilator 65.00 06/12/21 05:00 36.3 65 28 106/52 (70) 94 Mechanical Ventilator 65.00 06/12/21 04:27 58 06/12/21 04:27 105/46 06/12/21 04:00 36.3 68 28 105/46 (65) 93 Mechanical Ventilator 65.00 06/12/21 03:52 Mechanical Ventilator 65 06/12/21 03:00 36.2 62 26 136/62 (86) 94 Mechanical Ventilator 65.00 06/12/21 02:30 Mechanical Ventilator 65.00 06/12/21 02:00 36.2 62 26 114/55 (74) 98 Mechanical Ventilator 80.00 06/12/21 01:52 73 26 96 80 06/12/21 01:00 62 06/12/21 01:00 36.3 62 26 110/53 (72) 98 Mechanical Ventilator 80.00 06/12/21 00:00 36.3 64 26 116/57 (76) 97 Mechanical Ventilator 80.00 06/11/21 23:49 Mechanical Ventilator 80 06/11/21 23:08 68 105/50 06/11/21 23:07 66 06/11/21 23:07 105/50 06/11/21 23:00 36.5 65 26 106/51 (69) 97 Mechanical Ventilator 80.00 06/11/21 22:00 36.6 67 26 112/54 (73) 97 Mechanical Ventilator 80.00 06/11/21 21:40 68 28 96 100 06/11/21 21:00 36.6 64 22 116/53 (74) 90 Mechanical Ventilator 80.00 06/11/21 20:37 Mechanical Ventilator 80 06/11/21 20:00 36.6 67 22 111/64 (80) 94 Mechanical Ventilator 80.00 06/11/21 19:54 36.6 70 22 107/48 (67) 97 Mechanical Ventilator 80.00 06/11/21 19:00 65 06/11/21 19:00 36.4 65 22 105/48 (67) 95 Mechanical Ventilator 80.00 06/11/21 18:15 64 24 95 100 06/11/21 18:00 36.5 77 20 116/47 (70) 94 Mechanical Ventilator 70.00 06/11/21 17:00 36.5 85 22 109/49 (69) 97 Mechanical Ventilator 70.00 06/11/21 16:57 80 109/50 06/11/21 16:56 81 109/50 06/11/21 16:00 Mechanical Ventilator 70 06/11/21 16:00 36.5 73 22 99/42 (61) 96 Mechanical Ventilator 70.00 06/11/21 15:56 75 22 96 70 06/11/21 15:00 36.5 52 22 121/55 (77) 96 Mechanical Ventilator 70.00 06/11/21 14:00 36.5 51 22 122/59 (80) 95 Mechanical Ventilator 70.00 06/11/21 13:00 36.6 54 22 125/59 (81) 95 Mechanical Ventilator 70.00 06/11/21 13:00 56 I & O 06/12/21 07:00 Intake Total 3370.6 ml Output Total 3850 ml Balance -479.4 ml Height & Weight Height: 5'5.00" Weight: 236lbs. 0.0oz. 107.060968hl; 35.85 BMI Method:Stated General Appearance: No Apparent Distress, WD/WN, Chronically ill, Other (Sedated and intubated) Respiratory: Decreased Breath Sounds Cardiovascular: Regular Rate, Rhythm Capillary Refill: Less Than 3 Seconds Gastrointestinal: normal bowel sounds, non tender, soft Extremity: Other (3+ edema of all extremities and the face) Neurologic/Psychiatric: Alert, Oriented x3, Depressed Affect Results Lab Laboratory Tests 06/11/21 02:45 06/11/21 16:48 06/12/21 02:35 Assessment/Plan Assessment/Plan (Tele-ICU Physician , Progress Note ) Available chart/ vitals / labs / Images reviewed Video assessment done using teleICU camera, rest of exam as per RN Discussed with RN Events overnight : AFEBRILE I/O = neg 800 Drips: Pressors:levo OFF Sedation gtt: ( RASS ) propofol 50 fentanyl 400 versed 10 VENT SETTINGS. AC 22 420 +16 70 % PAP 41 ABG reviewed Not candidate for SBT today Contraindications: Cardiovascular Stability / Sedation Score / FI02/PEEP / ABG / CXR EXAM PER RN Consultants: Hospital course: (05/28) 55/F Admitted from ED w/ COVID PNA. CTA 05/28 - NO PE (05/30) Tx to ICU on BIPAP. (05/31) INTUBATED. Cardiac arrest (unclear if during or after intubation). CPR 10mins. Post code, sedation stopped and patient had purposeful movment so no TTM 06/09- +16 100%, attempt to diuresuis, bloody secretion ETT - lovenox on hold 06/11 AC 22 420 +16 70 % increasing PAP 41, resumed lovenox proph dose 06/13 AC 28 360 +14 65% PAP 37 A/P Acute resp failure- intubated 05/31 ( covid PNA , CTA 05/28 - NO PE - full vent support ,- AC 28 360 +14 65% PAP 37 - DECREASE RR TO 22 - not proning -( went to SVT with proning prior ) - secretions minimal , but thick CONT LASIX = RESPONDING TO DIURESIS WELL- developing alcalosis - MIGHT NEED DIAMOX SOON - bloody secretion in ETT 06/11 - IMPROVED WITH CHANGING LOVENOX TO PROPH DOSE Cardiac arrest (unclear if during or after intubation). CPR 10mins. - no TTM with follow commands as per report SEDATED NOW , NOT TOLERTED SEDATION VACATION- will add precedex , ? chronic pain - resume neurontin , ? resume home po meds COVID PNA - steroids IV- titrate - lovenox 75 bid ( CTA 05/28 - NO PE m ddimer 0.7 on 05/28 , BLOODY SECRETION IN ETT 06/09- - LOVENOX CHANGED TO PROPH DOSE - TO FOLLOW DDIMER = baricitinib 05/30 -> possible PNA - sputum cx 06/01- not reported cefepime/ vanco - stop 06/03 blood cx - staph epider 05/28 - ? contaminant -06/02 - fever - reculture blood - GPC from PICC , and sputum blood 06/09 - WORSENIG FIO2 - PCT UP - ZOSYN - till 06/14 DM - hyperglycemia on steroids - increase ISS , on long acting insulin Abd distention - tolerates TF - KUB WNL 06/09 . + BM x1 06/10 - follow H/O Severe anxiety Bipolar disorder Lines : PICC 06/01 (Central Line Necessity Reviewed) Lyn: 05/30 OG: + Nutrition: started TF - 06/01 - 35 ml/h Analgesia: Anxiety/ delirium VTE Prophylaxis: lovenox proph dose Stress Ulcer Prophylaxis: PPI Plans in collaboration with bedside consultants and IM MDs. Discussed with RN to reach out if any questions or concerns A total of 40 minutes of critical care time was devoted to this patient today, required to treat and/or prevent further deterioration of critical care condition ( as above) PEBBLES SANTANA MD Jun 12, 2021 12:10
[2021-06-12] MEDS: DexMEDEtomidine 250 ML DRIP 250 ML IV SCH (15:46)
[2021-06-12] MEDS: NOREPINEPHRINE 8 MG/250 ML 250 ML IV SCH ×2 (19:03→22:53)
[2021-06-12] MEDS: MIRTAZAPINE 15 MG (REMERON) TAB PO SCH (19:36)
[2021-06-12] MEDS: GABAPENTIN 300 MG (NEURONTIN) CAP NG SCH (19:36)
[2021-06-13] VITALS (30 sets, daily range): BP systolic 116–183; BP diastolic 50–89
[2021-06-13] MEDS: PIPERACILLIN/TAZOBACTAM (BULK) 4.5 GM in NS (IVPB) 100 ML IV SCH ×3 (01:38→17:32)
[2021-06-13] MEDS: RT-ALBUTEROL HFA 8.5 GM INHALER IH SCH ×6 (01:54→22:13)
[2021-06-13] MEDS: ENOXAPARIN 40 MG/0.4 ML (LOVENOX) SYR SC SCH ×2 (03:11→15:40)
[2021-06-13 03:27] LABS: ALLENS TEST YES-POS; INSPIRED O2 65%; PATIENT TEMP 37.4; VENTILATOR YES
[2021-06-13 03:32] LABS: ABG BASE EXCESS 7.4 MMOL/L (-2.5-2.5); ABG OXYGEN SATURATION 97 % (94-100); ABG PCO2 53 MMHG (35-45); ABG PO2 86 MMHG (79-93); ABG TCO2 33.7 MMOL/L (21.0-31.0)
[2021-06-13 03:38] LABS: BASOPHILS % (AUTO) 0 % (0-10); EOSINOPHILS # (AUTO) 0.1 10^3/uL (0.0-0.3); EOSINOPHILS % (AUTO) 1 % (0-10); HEMATOCRIT 27 % (35-52); HEMOGLOBIN 8.3 g/dL (11.5-16.0); LYMPHOCYTES % (AUTO) 10 % (12-44); MEAN CORPUSCULAR HEMOGLOBIN 31 pg (25-34); MEAN CORPUSCULAR HGB CONC 31 g/dL (32-36); MEAN CORPUSCULAR VOLUME 99 fL (80-99); MEAN PLATELET VOLUME 10.5 fL (9.0-12.2); MONOCYTES # (AUTO) 0.6 10^3/uL (0.0-1.0); MONOCYTES % (AUTO) 7 % (0-12); NEUTROPHILS # (AUTO) 7.7 10^3/uL (1.8-7.8); NEUTROPHILS % (AUTO) 82 % (42-75); PLATELET COUNT 308 10^3/uL (130-400); WHITE BLOOD COUNT 9.4 10^3/uL (4.3-11.0)
[2021-06-13 03:49] LABS: POTASSIUM 3.9 MMOL/L (3.6-5.0)
[2021-06-13 03:50] LABS: CALCIUM 8.4 MG/DL (8.5-10.1)
[2021-06-13 03:54] LABS: PHOSPHORUS 3.2 MG/DL (2.3-4.7)
[2021-06-13 03:55] LABS: CREATININE SERUM 0.63 MG/DL (0.60-1.30)
[2021-06-13] MEDS: MAGNESIUM 1 GM/100 ML IVPB 100 ML IV SCH (04:01)
[2021-06-13] MEDS: KCL 20 MEQ TAB (K-DUR) PO SCH (04:01)
[2021-06-13] MEDS: POTASSIUM CL 10MEQ/50ML IVPB 50 ML IV SCH (04:01)
[2021-06-13] MEDS: PROPOFOL DRIP (ICU) 100 ML IV SCH ×7 (04:16→18:26)
[2021-06-13] MEDS: inSUlin ASPART (NovoLOG) 1 UNIT/0.01 ML (CHARGE PER UNIT) SQ SCH ×4 (05:10→23:56)
[2021-06-13] MEDS: MIDAZOLAM DRIP PRE-MIX 100 ML IV SCH (05:54)
--- NOTE | 2021-06-13 06:43 | Progress Note - Hospitalist ---
Subjective HPI/CC On Admission Date Seen by Provider: Jun 13, 2021 Time Seen by Provider: 12:00 CC: Covid-19 Hypoxia HPI: This is a 55yoWF who presented to the ER with SOB found to have Covid-19 and significant pneumonia on CXR. Xanax of 1mg PO Q4Hrs PRN will be initiated due to increased anxiety. Lyn catheter will be placed due to significant hypoxia upon movement. She is currently sleeping and has no complaints. Subjective/Events-last exam Patient the same Poor prognosis Nurse asked me to call the son and I had an in-depth conversation with him. He does not seem to grasp the end-stage nature of COVID-19 respiratory failure. He could not seem to understand my statement of her on recoverability from this disease. I was very concise in telling him that we are providing futile care and it would be best to perform a terminal extubation and comfort care. He asked for me to copy all of her medical records off including x-rays and go over every single item with him and explained exactly what she was having difficulties from. I explained medical records would be open on Tuesday he could obtain any and all records he needed but due to my restriction and time managing COVID-19 patients in a pandemic I could not devote that type of time commitment in going over every page of her medical management history. He seems to be very unreasonable and unrealistic and there will be no chance of terminal extubation and comfort care considering his lack of understanding of her grave prognosis. Objective Exam Vital Signs Vital Signs Date Time Temp Pulse Resp B/P (MAP) Pulse Ox O2 Delivery O2 Flow Rate FiO2 06/14/21 06:00 36.9 72 26 114/56 (75) 92 Mechanical Ventilator 55.00 06/14/21 04:20 55 Capillary Refill : Less Than 3 Seconds General Appearance: Chronically ill, Other (Sedated and intubated) Respiratory: Decreased Breath Sounds Cardiovascular: Regular Rate, Rhythm Results/Procedures Lab Laboratory Tests 06/14/21 04:00 Patient resulted labs reviewed. Assessment/Plan Assessment and Plan Assess & Plan/Chief Complaint Assessment: COVID-19 pneumonia Severe anxiety Bipolar disorder Diabetes with wpl-yf-rrkdayy sugars due to steroids Plan: Vapotherm BiPAP Steroids Insulin 05/30/2021: Initiate Olumiant due to no more supply of Actemra High risk of ventilator progression Xanax IV steroids 05/31/2021: Intubation Status post cardiac arrest after intubation with return of ROSC 06/08/2021: Ventilator management appreciated Dulcolax suppository Tube feedings Supportive care 06/09/2021: Supportive care Vent management Poor prognosis 06/10/2021: Maintain intubation Monitor closely 06/11/2021: Poor prognosis Needs DNR Needs terminal extubation 06/12/2021: Supportive care Poor prognosis 06/13/2021: Grave prognosis Son not willing to contemplate terminal extubation and comfort care protocol Critical Care Ventilator Management SIM AVILA DO Jun 13, 2021 06:43
[2021-06-13] MEDS: fentaNYL DRIP PRE-MIX 250 ML IV SCH ×3 (06:53→23:29)
[2021-06-13] MEDS: UMECLIDINIUM BROMIDE (INCRUSE ELLIPTA) 7'S IH SCH (07:16)
[2021-06-13] MEDS: PANTOPRAZOLE 40 MG (PROTONIX) VIAL IV SCH (08:06)
[2021-06-13] MEDS: GABAPENTIN 300 MG (NEURONTIN) CAP NG SCH ×2 (08:06→19:51)
[2021-06-13] MEDS: SENNA W/DOCUSATE (SENOKOT S) TABLET PO SCH ×2 (08:06→19:51)
[2021-06-13] MEDS: MICONAZOLE 2% POWDER (DESENEX AF) 90 GM TOP SCH ×2 (08:06→19:51)
--- NOTE | 2021-06-13 08:46 | Tele-ICU Progress Note ---
Subjective Date Seen by a Provider: Jun 13, 2021 Time Seen by a Provider: 08:46 Subjective/Events-last exam This patient admitted with a Covid19 pneumonia. Intubated. She is unresponsive with the sedation. Advised her to the RN to give a break with sedation vacation and see her mental status. Currently she is on assist control /380/14/60 5%. She is not ready to be weaned. Video visit made. Discussed with RN. Sepsis Event Evaluation Height, Weight, BMI Height: 5'5.00" Weight: 236lbs. 0.0oz. 107.308106gv; 35.85 BMI Method:Stated Exam Exam Patient acknowledged, consented, and participated in this virtual visit which was conducted using real time audio/video Vital Signs Date Time Temp Pulse Resp B/P (MAP) Pulse Ox O2 Delivery O2 Flow Rate FiO2 06/13/21 08:00 37.0 71 26 124/56 (78) 95 Mechanical Ventilator 65.00 06/13/21 07:16 72 25 93 65 06/13/21 07:00 37.0 67 25 122/52 (75) 92 Mechanical Ventilator 65.00 06/13/21 07:00 70 06/13/21 06:00 37.1 79 26 116/50 (72) 95 Mechanical Ventilator 65.00 06/13/21 05:54 77 06/13/21 05:00 37.2 71 22 121/54 (76) 93 Mechanical Ventilator 65.00 06/13/21 04:16 71 06/13/21 04:16 117/52 06/13/21 04:00 37.4 73 18 119/52 (74) 96 Mechanical Ventilator 65.00 06/13/21 03:37 Mechanical Ventilator 65 06/13/21 03:00 37.5 67 22 118/54 (75) 95 Mechanical Ventilator 65.00 06/13/21 02:00 37.3 72 20 124/59 (80) 99 Mechanical Ventilator 65.00 06/13/21 01:54 71 24 95 65 06/13/21 01:00 70 06/13/21 01:00 36.7 69 22 125/56 (79) 94 Mechanical Ventilator 65.00 06/13/21 00:00 36.3 70 22 128/56 (80) 94 Mechanical Ventilator 65.00 06/12/21 23:32 Mechanical Ventilator 65 06/12/21 23:17 67 06/12/21 23:16 136/62 06/12/21 23:00 36.1 65 25 135/60 (85) 95 Mechanical Ventilator 65.00 06/12/21 22:00 35.9 65 26 139/60 (86) 95 Mechanical Ventilator 65.00 06/12/21 21:50 66 25 94 65 06/12/21 21:00 35.6 63 25 136/62 (86) 95 Mechanical Ventilator 65.00 06/12/21 20:00 35.6 58 22 144/66 (92) 95 Mechanical Ventilator 65.00 06/12/21 19:44 Mechanical Ventilator 65 06/12/21 19:22 35.6 60 22 151/68 (95) 94 Mechanical Ventilator 65.00 06/12/21 19:00 60 06/12/21 18:09 60 28 96 65 06/12/21 18:00 35.8 58 28 156/74 (101) 96 Mechanical Ventilator 65.00 06/12/21 17:00 36.1 63 28 140/62 (83) 94 Mechanical Ventilator 65.00 06/12/21 16:02 35.2 06/12/21 16:00 Mechanical Ventilator 65 06/12/21 16:00 36.2 65 29 121/60 (82) 90 Mechanical Ventilator 65.00 06/12/21 15:55 60 28 131/60 06/12/21 15:53 62 131/60 06/12/21 15:52 62 131/60 06/12/21 15:46 63 131/60 06/12/21 15:27 56 28 98 65 06/12/21 15:00 36.3 57 28 148/77 (100) 99 Mechanical Ventilator 65.00 06/12/21 14:00 36.5 60 28 134/66 (91) 97 Mechanical Ventilator 65.00 06/12/21 13:00 63 06/12/21 13:00 36.6 60 28 130/64 (90) 95 Mechanical Ventilator 65.00 06/12/21 12:00 36.7 95 28 123/60 (81) 93 Mechanical Ventilator 65.00 06/12/21 12:00 Mechanical Ventilator 65 06/12/21 11:17 68 28 93 65 06/12/21 11:00 36.5 69 28 134/72 (92) 89 Mechanical Ventilator 65.00 06/12/21 10:52 62 129/66 06/12/21 10:51 62 129/66 06/12/21 10:00 36.3 62 28 128/67 (87) 89 Mechanical Ventilator 65.00 06/12/21 09:00 36.3 75 28 106/56 (73) 92 Mechanical Ventilator 65.00 I & O 06/13/21 07:00 Intake Total 1800 ml Output Total 5200 ml Balance -3400 ml Height & Weight Height: 5'5.00" Weight: 236lbs. 0.0oz. 107.651416mt; 35.85 BMI Method:Stated General Appearance: No Apparent Distress, Chronically ill, Obese, Other (Intubated and sedated) Respiratory: Decreased Breath Sounds Cardiovascular: Regular Rate, Rhythm Capillary Refill: Less Than 3 Seconds Gastrointestinal: normal bowel sounds, non tender, soft Extremity: Other (3+ edema of all extremities and the face) Neurologic/Psychiatric: Alert, Oriented x3, Depressed Affect Other comments PE per RN Results Lab Laboratory Tests 06/11/21 16:48 06/12/21 02:35 06/13/21 03:15 Meds reviewed Radiology cxr reviewed Assessment/Plan Assessment/Plan 1. Acute hypoxic respiratory failure due to Covid pneumonia Intubated on 05/31/2021 currently on mechanical ventilation with assist control 22/65%/380/14.. Currently sedated. Urine output and blood pressure are stable. Video visit made and discussed with RN. 2. Covidpneumonia patient on steroids and Lovenox. 3. Possible superadded bacterial pneumonia Continue cefepime and vancomycin 3. Type 2 diabetes mellitus on steroids. Continue insulin with sliding scale coverage and also long-acting insulin. 5. History of bipolar disorder. Currently sedated. 6. VTE prophylaxis with Lovenox Stress ulcer prophylaxis with PPI. Time spent with patient (mins): 25 MORALES GERARDO MD Jun 13, 2021 08:46
[2021-06-13] MEDS: NOREPINEPHRINE 8 MG/250 ML 250 ML IV SCH ×2 (13:10→23:57)
[2021-06-13] MEDS: DexMEDEtomidine 250 ML DRIP 250 ML IV SCH (15:40)
[2021-06-13] MEDS: MIRTAZAPINE 15 MG (REMERON) TAB PO SCH (19:51)
[2021-06-13] MEDS: FUROSEMIDE 40 MG/4 ML INJ (LASIX) IVP SCH (23:28)
[2021-06-14] VITALS (30 sets, daily range): BP systolic 90–147; BP diastolic 40–78
[2021-06-14] MEDS: PROPOFOL DRIP (ICU) 100 ML IV SCH ×6 (00:36→23:39)
[2021-06-14] MEDS: MIDAZOLAM DRIP PRE-MIX 100 ML IV SCH ×2 (00:38→16:19)
[2021-06-14] MEDS: RT-ALBUTEROL HFA 8.5 GM INHALER IH SCH ×6 (01:41→23:09)
[2021-06-14] MEDS: ENOXAPARIN 40 MG/0.4 ML (LOVENOX) SYR SC SCH ×2 (03:51→15:44)
[2021-06-14 04:06] LABS: BASOPHILS % (AUTO) 0 % (0-10); EOSINOPHILS # (AUTO) 0.1 10^3/uL (0.0-0.3); EOSINOPHILS % (AUTO) 1 % (0-10); HEMATOCRIT 26 % (35-52); HEMOGLOBIN 8.2 g/dL (11.5-16.0); LYMPHOCYTES # (AUTO) 0.9 10^3/uL (1.0-4.0); LYMPHOCYTES % (AUTO) 12 % (12-44); MEAN CORPUSCULAR HEMOGLOBIN 31 pg (25-34); MEAN CORPUSCULAR HGB CONC 31 g/dL (32-36); MEAN CORPUSCULAR VOLUME 99 fL (80-99); MEAN PLATELET VOLUME 10.3 fL (9.0-12.2); MONOCYTES # (AUTO) 0.5 10^3/uL (0.0-1.0); MONOCYTES % (AUTO) 7 % (0-12); NEUTROPHILS # (AUTO) 5.7 10^3/uL (1.8-7.8); NEUTROPHILS % (AUTO) 79 % (42-75); PLATELET COUNT 275 10^3/uL (130-400); WHITE BLOOD COUNT 7.3 10^3/uL (4.3-11.0)
[2021-06-14 04:29] LABS: POTASSIUM 3.5 MMOL/L (3.6-5.0)
[2021-06-14 04:31] LABS: CALCIUM 8.4 MG/DL (8.5-10.1)
[2021-06-14 04:35] LABS: CREATININE SERUM 0.55 MG/DL (0.60-1.30); PHOSPHORUS 2.7 MG/DL (2.3-4.7)
[2021-06-14 04:39] LABS: ABG BASE EXCESS 8.6 MMOL/L (-2.5-2.5); ABG OXYGEN SATURATION 92 % (94-100); ABG PCO2 53 MMHG (35-45); ABG PH 7.41 (7.37-7.43); ABG PO2 65 MMHG (79-93); ABG TCO2 34.9 MMOL/L (21.0-31.0)
[2021-06-14 04:40] LABS: ALLENS TEST YES-POS; PATIENT TEMP 36.3; VENTILATOR YES
[2021-06-14] MEDS: inSUlin ASPART (NovoLOG) 1 UNIT/0.01 ML (CHARGE PER UNIT) SQ SCH ×4 (05:01→23:37)
[2021-06-14] MEDS: MAGNESIUM 1 GM/100 ML IVPB 100 ML IV SCH (05:01)
[2021-06-14] MEDS: POTASSIUM CL 10MEQ/50ML IVPB 50 ML IV SCH ×2 (05:01→05:51)
[2021-06-14] MEDS: KCL 20 MEQ TAB (K-DUR) PO SCH (05:01)
[2021-06-14] MEDS: fentaNYL DRIP PRE-MIX 250 ML IV SCH ×3 (05:59→12:32)
--- NOTE | 2021-06-14 07:33 | Diagnostic Imaging Report ---
INDICATION: Pneumonia. Comparison is made with prior examination from 06/11/2021. FINDINGS: The heart size is normal. There are diffuse bilateral pulmonary infiltrates. There may be a small right pleural effusion. There is no pneumothorax. ET and NG tubes are in satisfactory position. IMPRESSION: Diffuse bilateral pulmonary infiltrates with a right pleural effusion. Some underlying central pulmonary venous congestion cannot be excluded. Dictated by: Dictated on workstation # [id number]
[2021-06-14] MEDS: UMECLIDINIUM BROMIDE (INCRUSE ELLIPTA) 7'S IH SCH (07:49)
--- NOTE | 2021-06-14 08:10 | Tele-ICU Progress Note ---
Subjective Date Seen by a Provider: Jun 14, 2021 Time Seen by a Provider: 08:05 Subjective/Events-last exam 55 yo with severe ARDS from Covid, morbid obesity, on full vent support AC 22, Vt 380, FiO2 60% PEEP 14, CXR still shows severe bilateral infiltrates Remains on IV decadron, IV Fentanyl / IV propofol Has DM2 on Levimer insuliln 10 U bid and remains on sliding scale with last glu 144 On lovenox 40 bid, also on IV PPI for GIB prophylaxsis Sepsis Event Evaluation Height, Weight, BMI Height: 5'5.00" Weight: 236lbs. 0.0oz. 107.856574nq; 35.85 BMI Method:Stated Exam Exam Patient acknowledged, consented, and participated in this virtual visit which was conducted using real time audio/video Vital Signs Date Time Temp Pulse Resp B/P (MAP) Pulse Ox O2 Delivery O2 Flow Rate FiO2 06/14/21 07:36 36.9 06/14/21 07:00 76 06/14/21 06:00 36.9 72 26 114/56 (75) 92 Mechanical Ventilator 55.00 06/14/21 05:59 114/56 06/14/21 05:59 74 06/14/21 05:00 36.6 86 18 131/68 (89) 93 Mechanical Ventilator 55.00 06/14/21 04:20 Mechanical Ventilator 55 06/14/21 04:00 36.3 71 25 123/59 (80) 93 Mechanical Ventilator 55.00 06/14/21 03:00 36.1 68 17 120/60 (80) 93 Mechanical Ventilator 55.00 06/14/21 02:00 36.2 73 25 121/54 (76) 94 Mechanical Ventilator 55.00 06/14/21 01:41 75 27 94 55 06/14/21 01:00 36.3 64 22 120/56 (77) 94 Mechanical Ventilator 55.00 06/14/21 01:00 66 06/14/21 00:38 68 25 129/61 06/14/21 00:36 114/72 06/14/21 00:36 68 06/14/21 00:00 36.3 67 29 123/60 (81) 93 Mechanical Ventilator 55.00 06/14/21 00:00 Mechanical Ventilator 55 06/13/21 23:00 36.3 68 25 129/61 (83) 94 Mechanical Ventilator 55.00 06/13/21 22:14 71 25 93 55 06/13/21 22:00 36.5 65 22 122/56 (78) 93 Mechanical Ventilator 55.00 06/13/21 21:00 36.7 70 25 127/57 (80) 93 Mechanical Ventilator 55.00 06/13/21 20:00 36.8 67 25 134/62 (86) 94 Mechanical Ventilator 55.00 06/13/21 19:56 Mechanical Ventilator 55 06/13/21 19:44 37.1 67 22 139/63 (88) 94 Mechanical Ventilator 55.00 06/13/21 19:00 70 06/13/21 18:35 68 27 95 55 06/13/21 18:30 94 Mechanical Ventilator 55.00 06/13/21 18:26 123/50 06/13/21 18:25 123/50 06/13/21 18:00 37.6 63 25 128/57 (80) 89 Mechanical Ventilator 50.00 06/13/21 17:00 37.7 76 18 152/74 (100) 93 Mechanical Ventilator 50.00 06/13/21 16:00 37.5 88 16 183/86 (118) 94 Mechanical Ventilator 50.00 06/13/21 15:45 94 Mechanical Ventilator 50 06/13/21 15:40 180/81 06/13/21 15:20 Mechanical Ventilator 50.00 06/13/21 15:02 81 31 94 50 06/13/21 15:00 37.1 86 19 177/89 (118) 97 Mechanical Ventilator 60.00 06/13/21 14:00 37.0 63 22 143/67 (92) 97 Mechanical Ventilator 60.00 06/13/21 13:09 Mechanical Ventilator 60.00 06/13/21 13:00 37.0 64 24 142/64 (90) 97 Mechanical Ventilator 65.00 06/13/21 12:43 65 06/13/21 12:00 37.0 67 25 141/67 (91) 95 Mechanical Ventilator 65.00 06/13/21 12:00 Mechanical Ventilator 65 06/13/21 11:57 145/67 06/13/21 11:56 145/67 06/13/21 11:41 64 24 96 60 06/13/21 11:00 36.9 69 21 141/58 (85) 93 Mechanical Ventilator 65.00 06/13/21 10:00 37.1 68 22 139/65 (89) 96 Mechanical Ventilator 65.00 06/13/21 09:00 37.0 96 16 131/58 (82) 96 Mechanical Ventilator 65.00 I & O 06/14/21 06:59 Intake Total 1760 ml Output Total 4480 ml Balance -2720 ml Height & Weight Height: 5'5.00" Weight: 236lbs. 0.0oz. 107.314056au; 35.85 BMI Method:Stated General Appearance: Chronically ill, Other (Sedated and intubated) Respiratory: Decreased Breath Sounds, Other (sounds clear according to RN) Capillary Refill: Less Than 3 Seconds Gastrointestinal: normal bowel sounds, non tender, soft Extremity: Other (3+ edema of all extremities and the face, triple lumen in left PICC, site looks ok) Neurologic/Psychiatric: Alert, Oriented x3, Depressed Affect Results Lab Laboratory Tests 06/13/21 03:15 06/14/21 04:00 Assessment/Plan Assessment/Plan Severe ARDS, keep on full vent support, not ready for SBT continue IV decadron, continue insulin and IV PPI Would talk to family about trach/PEG, has been intubated for 2 weeks. Critical Care: Critically Ill Patient Time spent with patient (mins): 30 CHAPARRO ANDREA MD Jun 14, 2021 08:10
[2021-06-14] MEDS: PANTOPRAZOLE 40 MG (PROTONIX) VIAL IV SCH (08:36)
[2021-06-14] MEDS: SENNA W/DOCUSATE (SENOKOT S) TABLET PO SCH ×2 (08:37→21:52)
[2021-06-14] MEDS: GABAPENTIN 300 MG (NEURONTIN) CAP NG SCH ×2 (08:37→21:52)
[2021-06-14] MEDS: MICONAZOLE 2% POWDER (DESENEX AF) 90 GM TOP SCH ×2 (08:37→21:53)
--- NOTE | 2021-06-14 11:22 | Progress Note - Hospitalist ---
Subjective HPI/CC On Admission Date Seen by Provider: Jun 14, 2021 Time Seen by Provider: 11:15 CC: Covid-19 Hypoxia HPI: This is a 55yoWF who presented to the ER with SOB found to have Covid-19 and significant pneumonia on CXR. Xanax of 1mg PO Q4Hrs PRN will be initiated due to increased anxiety. Lyn catheter will be placed due to significant hypoxia upon movement. She is currently sleeping and has no complaints. Subjective/Events-last exam Patient the same Spoke with eICU specialist Likely will need trach and PEG given will remain intubated long-term if survives Very poor prognosis Son will not allow any talk of terminal extubation and hospice Objective Exam Vital Signs Vital Signs Date Time Temp Pulse Resp B/P (MAP) Pulse Ox O2 Delivery O2 Flow Rate FiO2 06/14/21 15:47 Mechanical Ventilator 70.00 06/14/21 15:26 75 28 96 70 06/14/21 15:00 37.0 126/62 (83) Capillary Refill : Less Than 3 Seconds General Appearance: No Apparent Distress, WD/WN, Chronically ill, Other (Sedated and intubated) Respiratory: Decreased Breath Sounds Results/Procedures Lab Laboratory Tests 06/14/21 04:00 06/14/21 14:50 Patient resulted labs reviewed. Assessment/Plan Assessment and Plan Assess & Plan/Chief Complaint Assessment: COVID-19 pneumonia Severe anxiety Bipolar disorder Diabetes with [id number] sugars due to steroids Plan: Vapotherm BiPAP Steroids Insulin 05/30/2021: Initiate Olumiant due to no more supply of Actemra High risk of ventilator progression Xanax IV steroids 05/31/2021: Intubation Status post cardiac arrest after intubation with return of ROSC 06/08/2021: Ventilator management appreciated Dulcolax suppository Tube feedings Supportive care 06/09/2021: Supportive care Vent management Poor prognosis 06/10/2021: Maintain intubation Monitor closely 06/11/2021: Poor prognosis Needs DNR Needs terminal extubation 06/12/2021: Supportive care Poor prognosis 06/13/2021: Grave prognosis Son not willing to contemplate terminal extubation and comfort care protocol 06/14/2021: Poor prognosis Futile care Critical Care Critically Ill Patient SIM AVILA DO Jun 14, 2021 11:22
[2021-06-14] MEDS: DexMEDEtomidine 250 ML DRIP 250 ML IV SCH (14:07)
--- NOTE | 2021-06-14 14:33 | Progress Note ---
Standard Progress Note Progress Notes/Assess & Plan Date Seen by a Provider: Jun 14, 2021 Time Seen by a Provider: 14:32 Progress/Assessment & Plan Was being turned and developed a wide complex tachycardia, last15 secs sekou review EKG, check BMP and magnesium I reviwed EKG, PAC's? CHAPARRO ANDREA MD Jun 14, 2021 14:33
[2021-06-14 15:16] LABS: POTASSIUM 3.7 MMOL/L (3.6-5.0)
[2021-06-14 15:17] LABS: CALCIUM 7.5 MG/DL (8.5-10.1)
[2021-06-14 15:22] LABS: CREATININE SERUM 0.53 MG/DL (0.60-1.30)
[2021-06-14 15:24] LABS: MAGNESIUM 1.8 MG/DL (1.6-2.4)
[2021-06-14] MEDS: NOREPINEPHRINE 8 MG/250 ML 250 ML IV SCH (16:55)
[2021-06-14] MEDS ORDERED: LORazepam INJ 2 MG/ML (ATIVAN) VIAL ONE (17:35)
--- NOTE | 2021-06-14 17:37 | Progress Note ---
Standard Progress Note Progress Notes/Assess & Plan Date Seen by a Provider: Jun 14, 2021 Time Seen by a Provider: 17:36 Progress/Assessment & Plan Was being turned and developed a wide complex tachycardia, last15 secs sekou review EKG, check BMP and magnesium I reviwed EKG, PAC's? Final Diagnosis supine after being pronned, overbreathing vent for last hour, SpO2 mid 90's Peak Paw 36, has good BS on both lungs will give small dose of IV Ativan and if still high RR, do CXR MD ZULLY Aviles,CHAPARRO Cat MD Jun 14, 2021 17:37
[2021-06-14] MEDS ORDERED: LORazepam INJ 2 MG/ML (ATIVAN) VIAL IVP ONE ×2 (17:45)
--- NOTE | 2021-06-14 18:10 | Diagnostic Imaging Report ---
INDICATION: Pneumonia, hypoxia. COMPARISON: Imaging from same date. TECHNIQUE: Single radiograph of the chest dated June 14, 2021 at 1715 hours. FINDINGS: Endotracheal tube and enteric catheter are again identified. Left-sided PICC line is again seen. The cardiac silhouette is predominantly obscured though appearing stable. Extensive bilateral pulmonary infiltrates are again seen, slightly worsened since the prior examination. This is associated with small bilateral pleural effusions. No significant pneumothorax. Osseous structures appear stable. IMPRESSION: 1. Slightly worsening extensive bilateral pulmonary infiltrates with associated small bibasilar pleural effusions. 2. Lines and tubes appear unchanged. Dictated by: Dictated on workstation # [id number]
[2021-06-14] MEDS: MIRTAZAPINE 15 MG (REMERON) TAB PO SCH (21:52)
[2021-06-14] MEDS: FUROSEMIDE 40 MG/4 ML INJ (LASIX) IVP SCH (23:37)
[2021-06-15] VITALS (31 sets, daily range): BP systolic 90–126; BP diastolic 43–64
[2021-06-15] MEDS: fentaNYL DRIP PRE-MIX 250 ML IV SCH ×8 (00:40→23:53)
[2021-06-15] MEDS: RT-ALBUTEROL HFA 8.5 GM INHALER IH SCH ×6 (02:02→22:22)
[2021-06-15] MEDS: ENOXAPARIN 40 MG/0.4 ML (LOVENOX) SYR SC SCH ×2 (04:43→16:19)
[2021-06-15] MEDS: DexMEDEtomidine 250 ML DRIP 250 ML IV SCH ×2 (04:46→16:21)
[2021-06-15] MEDS: PROPOFOL DRIP (ICU) 100 ML IV SCH ×8 (04:52→22:39)
[2021-06-15 05:12] LABS: ABG BASE EXCESS 8.8 MMOL/L (-2.5-2.5); ABG OXYGEN SATURATION 92 % (94-100); ABG PCO2 56 MMHG (35-45); ABG PO2 62 MMHG (79-93); ABG TCO2 35.6 MMOL/L (21.0-31.0)
[2021-06-15 05:13] LABS: ALLENS TEST YES-POS; BASOPHILS % (AUTO) 0 % (0-10); EOSINOPHILS # (AUTO) 0.1 10^3/uL (0.0-0.3); EOSINOPHILS % (AUTO) 1 % (0-10); HEMATOCRIT 27 % (35-52); HEMOGLOBIN 8.1 g/dL (11.5-16.0); INSPIRED O2 70%; LYMPHOCYTES # (AUTO) 0.7 10^3/uL (1.0-4.0); LYMPHOCYTES % (AUTO) 12 % (12-44); MEAN CORPUSCULAR HEMOGLOBIN 31 pg (25-34); MEAN CORPUSCULAR HGB CONC 31 g/dL (32-36); MEAN CORPUSCULAR VOLUME 102 fL (80-99); MEAN PLATELET VOLUME 10.6 fL (9.0-12.2); MONOCYTES # (AUTO) 0.5 10^3/uL (0.0-1.0); MONOCYTES % (AUTO) 8 % (0-12); NEUTROPHILS # (AUTO) 4.6 10^3/uL (1.8-7.8); NEUTROPHILS % (AUTO) 79 % (42-75); PATIENT TEMP 36.6; PLATELET COUNT 243 10^3/uL (130-400); VENTILATOR YES; WHITE BLOOD COUNT 5.8 10^3/uL (4.3-11.0)
[2021-06-15 05:28] LABS: POTASSIUM 3.7 MMOL/L (3.6-5.0)
[2021-06-15 05:29] LABS: CALCIUM 8.5 MG/DL (8.5-10.1)
[2021-06-15 05:33] LABS: PHOSPHORUS 2.8 MG/DL (2.3-4.7)
[2021-06-15 05:34] LABS: CREATININE SERUM 0.52 MG/DL (0.60-1.30)
[2021-06-15] MEDS: POTASSIUM CL 10MEQ/50ML IVPB 50 ML IV SCH (05:55)
[2021-06-15] MEDS: KCL 20 MEQ TAB (K-DUR) PO SCH (05:56)
[2021-06-15] MEDS: NOREPINEPHRINE 8 MG/250 ML 250 ML IV SCH ×2 (05:56→19:38)
[2021-06-15] MEDS: MAGNESIUM 1 GM/100 ML IVPB 100 ML IV SCH (05:56)
[2021-06-15] MEDS: inSUlin ASPART (NovoLOG) 1 UNIT/0.01 ML (CHARGE PER UNIT) SQ SCH ×4 (05:56→23:45)
[2021-06-15] MEDS: MIDAZOLAM DRIP PRE-MIX 100 ML IV SCH ×2 (06:32→20:57)
[2021-06-15] MEDS ORDERED: ACETAMINOPHEN 325 MG TABLET PO PRN (08:15)
[2021-06-15] MEDS ORDERED: ALPRAZolam 1 MG (XANAX) TAB PO PRN (08:45)
[2021-06-15] MEDS: GABAPENTIN 300 MG (NEURONTIN) CAP NG SCH ×2 (09:24→20:07)
[2021-06-15] MEDS: SENNA W/DOCUSATE (SENOKOT S) TABLET PO SCH ×2 (09:24→20:07)
[2021-06-15] MEDS: MICONAZOLE 2% POWDER (DESENEX AF) 90 GM TOP SCH ×2 (09:25→20:07)
[2021-06-15] MEDS: PANTOPRAZOLE 40 MG (PROTONIX) VIAL IV SCH (09:25)
[2021-06-15] MEDS: UMECLIDINIUM BROMIDE (INCRUSE ELLIPTA) 7'S IH SCH (10:41)
--- NOTE | 2021-06-15 15:40 | Progress Note ---
Subjective Subjective/Events-last exam Patient intubated and Sedated. No ON events per nursing. Nurse speaking to family on the phone this AM and the son is going to talk to his sister regarding comfort care measures. Review of Systems Intubated and sedated, unable to get ROS Objective Exam Last Set of Vital Signs Vital Signs Date Time Temp Pulse Resp B/P (MAP) Pulse Ox O2 Delivery O2 Flow Rate FiO2 06/15/21 15:00 37.2 73 20 106/51 (69) 94 Mechanical Ventilator 70.00 06/15/21 14:19 70 Capillary Refill : Less Than 3 Seconds I&O Intake and Output 06/15/21 00:00 Intake Total 2550 ml Output Total 3560 ml Balance -1010 ml Intake Oral 600 ml IV Total 600 ml Tube Feeding 1200 ml Other 150 ml Output Urine Total 3560 ml # Bowel Movements 1 General: Other (Intubated and sedated) Lungs: Other (Diminished breath sounds) Heart: Regular Rate Abdomen: Soft Extremities: Other (1+ pitting edema equal bilaterally) Results/Procedures Lab Laboratory Tests 06/14/21 17:11: Glucometer 136H 06/14/21 23:35: Glucometer 138H 06/15/21 05:03: White Blood Count 5.8, Red Blood Count 2.61L, Hemoglobin 8.1L, Hematocrit 27L, Mean Corpuscular Volume 102H, Mean Corpuscular Hemoglobin 31, Mean Corpuscular Hemoglobin Concent 31L, Red Cell Distribution Width 13.2, Platelet Count 243, Mean Platelet Volume 10.6, Immature Granulocyte % (Auto) 1, Neutrophils (%) (Auto) 79H, Lymphocytes (%) (Auto) 12, Monocytes (%) (Auto) 8, Eosinophils (%) (Auto) 1, Basophils (%) (Auto) 0, Neutrophils # (Auto) 4.6, Lymphocytes # (Auto) 0.7L, Monocytes # (Auto) 0.5, Eosinophils # (Auto) 0.1, Basophils # (Auto) 0.0, Immature Granulocyte # (Auto) 0.0, Blood Gas Puncture Site LT RAD, Blood Gas Patient Temperature 36.6, Arterial Blood pH 7.40, Arterial Blood Partial Pressure CO2 56H, Arterial Blood Partial Pressure O2 62L, Arterial Blood HCO3 34H, Arterial Blood Total CO2 35.6H, Arterial Blood Oxygen Saturation 92L, Arterial Blood Base Excess 8.8H, Tom Test YES-POS, Blood Gas Ventilator Setting YES, Blood Gas Inspired Oxygen 70%, Sodium Level 145, Potassium Level 3.7, Chloride Level 104, Carbon Dioxide Level 34H, Anion Gap 7, Blood Urea Nitrogen 17, Creatinine 0.52L, Estimat Glomerular Filtration Rate 122, BUN/Creatinine Ratio 33, Glucose Level 152H, Calcium Level 8.5, Phosphorus Level 2.8, Magnesium Level 2.0 06/15/21 11:12: Glucometer 186H Microbiology 06/09/21 Blood Culture - Final, Complete No growth Assessment/Plan Assessment/Plan (1) Pneumonia due to COVID-19 virus Status: Acute Assessment & Plan: Suspect pneumonia is COVID only, but has elevated procalcitonin and possible bacterial component, completed 5 days of cefepime, and 5 days vancomycin, blood cultures from 05/28 wtih staph epi sensitive to vanc, repeat culture from 06/02 no growth to date. On dexamethasone and baricitinib for COVID. 06/05 had episode of tachycardia and hypotension with proning today, eICU ordered beta monserrat and it has resolved, monitor closely. 06/15: No improvement over the weekend, son to discuss comfort care with sister, Intubated and sedated at this time, eICU managing vent setting, appreciate recommendations. (2) Acute respiratory failure due to COVID-19 Status: Acute Assessment & Plan: Requiring mechanical ventilation, appreciate eICU management. (3) COPD (chronic obstructive pulmonary disease) Status: Chronic Qualifiers: Qualified Codes: J44.9 - Chronic obstructive pulmonary disease, unspecified (4) Diabetes Status: Chronic Assessment & Plan: Sliding scale insulin 06/01- glucose 200 and above, will start low dose long-acting insulin 06/05 glucose 98-238 last 24 hours 06/15: Blood sugars moderately controlled with SSI Qualifiers: Qualified Codes: E11.65 - Type 2 diabetes mellitus with hyperglycemia; Z79.4 - USP (current) use of insulin (5) Cardiac arrest Status: Resolved Assessment & Plan: s/p cardiac arrest on 05/31 with 10 minutes CPR (6) Bipolar disorder Status: Chronic (7) DVT prophylaxis Status: Acute Assessment & Plan: On enoxaparin 75 mg BID. CTA without PE. (8) Goals of care, counseling/discussion Status: Acute Assessment & Plan: 8/16 Called family to update, but was unable to reach, will reach out again tomorrow. 06/02 spoke with son Faizan and updated on status. 06/04 called Faizan, left message. 06/15: Son to reach out to his sister regarding comfort care and DNR status SHEREE MURPHY MD Jun 15, 2021 15:40
[2021-06-15] MEDS: MIRTAZAPINE 15 MG (REMERON) TAB PO SCH (20:07)
[2021-06-16] VITALS (31 sets, daily range): BP systolic 88–170; BP diastolic 42–92
[2021-06-16] MEDS: RT-ALBUTEROL HFA 8.5 GM INHALER IH SCH ×6 (02:19→21:43)
[2021-06-16] MEDS: ENOXAPARIN 40 MG/0.4 ML (LOVENOX) SYR SC SCH ×2 (03:03→15:32)
[2021-06-16] MEDS: PROPOFOL DRIP (ICU) 100 ML IV SCH ×9 (04:18→23:59)
[2021-06-16 04:25] LABS: ABG BASE EXCESS 7.5 MMOL/L (-2.5-2.5); ABG OXYGEN SATURATION 98 % (94-100); ABG PCO2 54 MMHG (35-45); ABG PH 7.39 (7.37-7.43); ABG PO2 86 MMHG (79-93); ABG TCO2 34.3 MMOL/L (21.0-31.0)
[2021-06-16 04:36] LABS: BASOPHILS % (AUTO) 0 % (0-10); EOSINOPHILS # (AUTO) 0.1 10^3/uL (0.0-0.3); EOSINOPHILS % (AUTO) 1 % (0-10); HEMATOCRIT 25 % (35-52); HEMOGLOBIN 7.6 g/dL (11.5-16.0); LYMPHOCYTES # (AUTO) 0.6 10^3/uL (1.0-4.0); LYMPHOCYTES % (AUTO) 13 % (12-44); MEAN CORPUSCULAR HEMOGLOBIN 31 pg (25-34); MEAN CORPUSCULAR HGB CONC 30 g/dL (32-36); MEAN CORPUSCULAR VOLUME 102 fL (80-99); MEAN PLATELET VOLUME 10.5 fL (9.0-12.2); MONOCYTES # (AUTO) 0.3 10^3/uL (0.0-1.0); MONOCYTES % (AUTO) 7 % (0-12); NEUTROPHILS # (AUTO) 3.8 10^3/uL (1.8-7.8); NEUTROPHILS % (AUTO) 79 % (42-75); PLATELET COUNT 223 10^3/uL (130-400); WHITE BLOOD COUNT 4.9 10^3/uL (4.3-11.0)
[2021-06-16 04:37] LABS: ALLENS TEST YES-POS; VENTILATOR YES
[2021-06-16 04:38] LABS: PATIENT TEMP 36.2
[2021-06-16 04:55] LABS: POTASSIUM 3.7 MMOL/L (3.6-5.0)
[2021-06-16 04:56] LABS: CALCIUM 8.3 MG/DL (8.5-10.1)
[2021-06-16 05:00] LABS: PHOSPHORUS 2.7 MG/DL (2.3-4.7)
[2021-06-16 05:01] LABS: CREATININE SERUM 0.52 MG/DL (0.60-1.30)
[2021-06-16] MEDS: KCL 20 MEQ TAB (K-DUR) PO SCH (05:18)
[2021-06-16] MEDS: POTASSIUM CL 10MEQ/50ML IVPB 50 ML IV SCH (05:18)
[2021-06-16] MEDS: inSUlin ASPART (NovoLOG) 1 UNIT/0.01 ML (CHARGE PER UNIT) SQ SCH ×4 (05:18→23:22)
[2021-06-16] MEDS: MAGNESIUM 1 GM/100 ML IVPB 100 ML IV SCH (05:18)
[2021-06-16] MEDS: UMECLIDINIUM BROMIDE (INCRUSE ELLIPTA) 7'S IH SCH (07:04)
[2021-06-16] MEDS: PANTOPRAZOLE 40 MG (PROTONIX) VIAL IV SCH (09:21)
[2021-06-16] MEDS: SENNA W/DOCUSATE (SENOKOT S) TABLET PO SCH ×2 (09:31→19:50)
[2021-06-16] MEDS: GABAPENTIN 300 MG (NEURONTIN) CAP NG SCH ×2 (09:31→19:50)
[2021-06-16] MEDS: MICONAZOLE 2% POWDER (DESENEX AF) 90 GM TOP SCH ×2 (09:32→19:51)
[2021-06-16] MEDS: HYDROcodone/APAP 5 MG/325 MG (LORTAB) TAB PO PRN (14:09)
[2021-06-16] MEDS ORDERED: HYDROmorphone 2 MG/ML VIAL (DILAUDID) ONE (14:26)
[2021-06-16] MEDS ORDERED: meTOprolol 5 MG/5 ML (LOPRESSOR) VIAL IV PRN (14:30)
[2021-06-16] MEDS ORDERED: HYDROmorphone 2 MG/ML VIAL (DILAUDID) IV ONE (14:30)
[2021-06-16] MEDS: fentaNYL DRIP PRE-MIX 250 ML IV SCH ×4 (14:46→21:31)
[2021-06-16] MEDS: MIDAZOLAM DRIP PRE-MIX 100 ML IV SCH (14:46)
--- NOTE | 2021-06-16 15:26 | Tele-ICU Progress Note ---
Subjective Date Seen by a Provider: Jun 16, 2021 Time Seen by a Provider: 08:33 Sepsis Event Evaluation Height, Weight, BMI Height: 5'5.00" Weight: 236lbs. 0.0oz. 107.706843od; 35.85 BMI Method:Stated Exam Exam Patient acknowledged, consented, and participated in this virtual visit which was conducted using real time audio/video Vital Signs Date Time Temp Pulse Resp B/P (MAP) Pulse Ox O2 Delivery O2 Flow Rate FiO2 06/16/21 14:47 118 169/91 06/16/21 14:46 118 22 169/91 06/16/21 14:45 118 169/91 06/16/21 14:37 123 30 92 70 06/16/21 14:00 37.4 117 12 170/92 (118) 93 Mechanical Ventilator 55.00 06/16/21 13:00 36.8 112 21 170/82 (111) 94 Mechanical Ventilator 55.00 06/16/21 12:37 106 06/16/21 12:00 Mechanical Ventilator 55 06/16/21 12:00 36.4 104 17 145/79 (101) 93 Mechanical Ventilator 55.00 06/16/21 11:01 70 06/16/21 11:00 36.1 99 12 129/66 (87) 87 Mechanical Ventilator 55.00 06/16/21 10:38 92 29 91 55 06/16/21 10:00 35.9 78 8 105/84 (91) 92 Mechanical Ventilator 55.00 06/16/21 09:33 74 94/45 06/16/21 09:32 72 94/45 06/16/21 09:00 35.9 71 19 94/45 (61) 95 Mechanical Ventilator 55.00 06/16/21 08:00 35.9 70 20 89/42 (58) 94 Mechanical Ventilator 55.00 06/16/21 08:00 Mechanical Ventilator 55 06/16/21 07:04 70 22 94 55 06/16/21 07:00 36.0 70 17 92/44 (60) 93 Mechanical Ventilator 55.00 06/16/21 06:37 68 06/16/21 06:00 36.0 67 22 96/48 (64) 94 Mechanical Ventilator 55.00 06/16/21 05:00 36.1 68 22 107/54 (71) 95 Mechanical Ventilator 55.00 06/16/21 04:35 Mechanical Ventilator 55 06/16/21 04:19 68 06/16/21 04:18 103/51 06/16/21 04:00 36.3 69 22 112/58 (76) 96 Mechanical Ventilator 55.00 06/16/21 03:00 36.4 70 24 113/57 (75) 95 Mechanical Ventilator 55.00 06/16/21 02:19 70 22 95 55 06/16/21 02:00 36.5 71 22 108/54 (72) 94 Mechanical Ventilator 55.00 06/16/21 01:00 36.6 72 17 107/51 (69) 94 Mechanical Ventilator 55.00 06/16/21 01:00 72 06/16/21 00:00 36.7 73 25 115/57 (76) 94 Mechanical Ventilator 55.00 06/15/21 23:13 Mechanical Ventilator 55 06/15/21 23:00 36.9 73 24 115/57 (76) 95 Mechanical Ventilator 55.00 06/15/21 22:39 75 06/15/21 22:38 112/54 06/15/21 22:23 73 22 94 55 06/15/21 22:00 37 74 24 111/55 (76) 95 Mechanical Ventilator 55.00 06/15/21 21:00 37.1 74 22 109/53 (73) 93 Mechanical Ventilator 55.00 06/15/21 20:57 74 06/15/21 20:04 37.1 78 22 120/57 (78) 97 Mechanical Ventilator 55.00 06/15/21 20:00 Mechanical Ventilator 55 06/15/21 20:00 37.2 78 20 120/57 (76) 98 Mechanical Ventilator 65.00 06/15/21 19:00 37.2 84 20 116/55 (75) 97 Mechanical Ventilator 65.00 06/15/21 19:00 Mechanical Ventilator 65.00 06/15/21 19:00 84 06/15/21 18:15 74 24 99 65 06/15/21 18:00 37.2 72 20 117/59 (78) 99 Mechanical Ventilator 70.00 06/15/21 17:00 37.3 84 19 121/62 (81) 96 Mechanical Ventilator 70.00 06/15/21 16:21 75 112/48 06/15/21 16:20 75 112/48 06/15/21 16:19 75 112/48 8/30/21 16:00 Mechanical Ventilator 70 06/15/21 16:00 37.2 72 27 104/50 (68) 93 Mechanical Ventilator 70.00 I & O 06/16/21 07:00 Intake Total 4860.5 ml Output Total 1875 ml Balance 2985.5 ml Height & Weight Height: 5'5.00" Weight: 236lbs. 0.0oz. 107.263377gy; 35.85 BMI Method:Stated General Appearance: No Apparent Distress, WD/WN, Chronically ill, Other (Sedated and intubated) Respiratory: Decreased Breath Sounds Capillary Refill: Less Than 3 Seconds Gastrointestinal: normal bowel sounds, non tender, soft Extremity: Other (3+ edema of all extremities and the face, triple lumen in left PICC, site looks ok) Neurologic/Psychiatric: Alert, Oriented x3, Depressed Affect Results Lab Laboratory Tests 06/15/21 05:03 06/16/21 04:15 Assessment/Plan Assessment/Plan (Tele-ICU Physician , Progress Note ) Available chart/ vitals / labs / Images reviewed Video assessment done using teleICU camera, rest of exam as per RN Discussed with RN Events overnight : AFEBRILE I/O = neg 800 Drips: Pressors:levo OFF Sedation gtt: ( RASS ) propofol 50 fentanyl 400 versed 10 VENT SETTINGS. AC 22 420 +16 70 % PAP 41 ABG reviewed Not candidate for SBT today Contraindications: Cardiovascular Stability / Sedation Score / FI02/PEEP / ABG / CXR EXAM PER RN Consultants: Hospital course: (05/28) 55/F Admitted from ED w/ COVID PNA. CTA 05/28 - NO PE (05/30) Tx to ICU on BIPAP. (05/31) INTUBATED. Cardiac arrest (unclear if during or after intubation). CPR 10mins. Post code, sedation stopped and patient had purposeful movment so no TTM 06/09- +16 100%, attempt to diuresuis, bloody secretion ETT - lovenox on hold 06/11 AC 22 420 +16 70 % increasing PAP 41, resumed lovenox proph dose 06/13 AC 28 360 +14 65% PAP 37 A/P Acute resp failure- intubated 05/31 ( covid PNA , CTA 05/28 - NO PE - full vent support ,- AC 22 360 +14 65% PAP 37 - not proning -( went to SVT with proning prior ) - secretions minimal , but thick DIAMOX IV - bloody secretion in ETT 06/11 - IMPROVED WITH CHANGING LOVENOX TO PROPH DOSE Cardiac arrest (unclear if during or after intubation). CPR 10mins. - no TTM with follow commands as per report SEDATED NOW , NOT TOLERTED SEDATION VACATION- ? chronic pain COVID PNA - steroids IV- titrate - lovenox 75 bid ( CTA 05/28 - NO PE m ddimer 0.7 on 05/28 , BLOODY SECRETION IN ETT 06/09- - LOVENOX CHANGED TO PROPH DOSE = baricitinib 05/30 ->06/12 possible PNA - sputum cx 06/01- not reported cefepime/ vanco - stop 06/03 blood cx - staph epider 05/28 - ? contaminant -06/02 - fever - reculture blood - GPC from PICC , and sputum blood 06/09 - WORSENIG FIO2 - PCT UP - ZOSYN - till 06/14 -still febrile - ? nosocomial infection - will follow cx DM - hyperglycemia on steroids - increase ISS , on long acting insulin Abd distention - tolerates TF - KUB WNL 06/09 . + BM x1 06/10 - follow H/O Severe anxiety Bipolar disorder Lines : PICC 06/01 (Central Line Necessity Reviewed) Lyn: 05/30 OG: + Nutrition: started TF - 06/01 - 35 ml/h Analgesia: Anxiety/ delirium VTE Prophylaxis: lovenox proph dose Stress Ulcer Prophylaxis: PPI Plans in collaboration with bedside consultants and IM MDs. Discussed with RN to reach out if any questions or concerns A total of 40 minutes of critical care time was devoted to this patient today, required to treat and/or prevent further deterioration of critical care condit ion ( as above) PEBBLES SANTANA MD Jun 16, 2021 15:26
[2021-06-16] MEDS: NOREPINEPHRINE 8 MG/250 ML 250 ML IV SCH ×2 (19:19→19:20)
[2021-06-16] MEDS: MIRTAZAPINE 15 MG (REMERON) TAB PO SCH (19:50)
[2021-06-16] MEDS: DexMEDEtomidine 250 ML DRIP 250 ML IV SCH (19:50)
[2021-06-16] MEDS: acetaZOLAMIDE INJECTION 250 MG in SYRINGE-IVPB 1 SYRINGE IV SCH (19:51)
--- NOTE | 2021-06-16 23:41 | Progress Note ---
Subjective Subjective/Events-last exam Patient intubated and sedated No ON events Review of Systems Intubated and sedated, unable to get ROS Objective Exam Last Set of Vital Signs Vital Signs Date Time Temp Pulse Resp B/P (MAP) Pulse Ox O2 Delivery O2 Flow Rate FiO2 06/16/21 23:18 92 Mechanical Ventilator 60 06/16/21 21:44 83 20 06/16/21 21:31 60.00 06/16/21 19:50 118/62 06/16/21 19:48 37.5 Capillary Refill : Less Than 3 Seconds I&O Intake and Output 06/16/21 00:00 Intake Total 6010.5 ml Output Total 3925 ml Balance 2085.5 ml IV Total 3710.5 ml Tube Feeding 1200 ml Other 1100 ml Output Urine Total 3925 ml General: Other (Intubated and sedated) Lungs: Other (Diminished breath sounds) Heart: Other (tachycardic rate) Abdomen: Soft Extremities: Other (1+ pitting edema) Results/Procedures Lab Laboratory Tests 06/16/21 04:15: White Blood Count 4.9, Red Blood Count 2.45L, Hemoglobin 7.6L, Hematocrit 25L, Mean Corpuscular Volume 102H, Mean Corpuscular Hemoglobin 31, Mean Corpuscular Hemoglobin Concent 30L, Red Cell Distribution Width 13.5, Platelet Count 223, Mean Platelet Volume 10.5, Immature Granulocyte % (Auto) 1, Neutrophils (%) (Auto) 79H, Lymphocytes (%) (Auto) 13, Monocytes (%) (Auto) 7, Eosinophils (%) (Auto) 1, Basophils (%) (Auto) 0, Neutrophils # (Auto) 3.8, Lymphocytes # (Auto) 0.6L, Monocytes # (Auto) 0.3, Eosinophils # (Auto) 0.1, Basophils # (Auto) 0.0, Immature Granulocyte # (Auto) 0.0, Blood Gas Puncture Site LR, Blood Gas Patient Temperature 36.2, Arterial Blood pH 7.39, Arterial Blood Partial Pressure CO2 54H, Arterial Blood Partial Pressure O2 86, Arterial Blood HCO3 33H, Arterial Blood Total CO2 34.3H, Arterial Blood Oxygen Saturation 98, Arterial Blood Base Excess 7.5H, Tom Test YES-POS, Blood Gas Ventilator Setting YES, Blood Gas Inspired Oxygen 55%, Sodium Level 141, Potassium Level 3.7, Chloride Level 105, Carbon Dioxide Level 31, Anion Gap 5, Blood Urea Nitrogen 16, Creatinine 0.52L, Estimat Glomerular Filtration Rate 122, BUN/Creatinine Ratio 31, Glucose Level 128H, Calcium Level 8.3L, Phosphorus Level 2.7, Magnesium Level 2.0, Triglycerides Level 103 06/16/21 11:48: Glucometer 142H 06/16/21 17:22: Glucometer 134H 06/16/21 23:04: Glucometer 140H Microbiology 06/09/21 Blood Culture - Final, Complete No growth Assessment/Plan Assessment/Plan (1) Pneumonia due to COVID-19 virus Status: Acute Assessment & Plan: Suspect pneumonia is COVID only, but has elevated procalcitonin and possible bacterial component, completed 5 days of cefepime, and 5 days vancomycin, blood cultures from 05/28 wtih staph epi sensitive to vanc, repeat culture from 06/02 no growth to date. On dexamethasone and robert citinib for COVID. 06/05 had episode of tachycardia and hypotension with proning today, eICU ordered beta monserrat and it has resolved, monitor closely. 06/15: No improvement over the weekend, son to discuss comfort care with sister, Intubated and sedated at this time, eICU managing vent setting, appreciate recommendations. 06/16: Unable to reach son today, Need to decide care plan, patient will need trach and peg if goal is to continue aggressive care at this time (2) Acute respiratory failure due to COVID-19 Status: Acute Assessment & Plan: Requiring mechanical ventilation, appreciate eICU management. (3) COPD (chronic obstructive pulmonary disease) Status: Chronic Qualifiers: Qualified Codes: J44.9 - Chronic obstructive pulmonary disease, unspecified (4) Diabetes Status: Chronic Assessment & Plan: Sliding scale insulin 06/01- glucose 200 and above, will start low dose long-acting insulin 06/05 glucose 98-238 last 24 hours 06/15: Blood sugars moderately controlled with SSI Qualifiers: Qualified Codes: E11.65 - Type 2 diabetes mellitus with hyperglycemia; Z79.4 - termite exterminator (current) use of insulin (5) Cardiac arrest Status: Resolved Assessment & Plan: s/p cardiac arrest on 05/31 with 10 minutes CPR (6) Bipolar disorder Status: Chronic (7) DVT prophylaxis Status: Acute Assessment & Plan: On enoxaparin 75 mg BID. CTA without PE. (8) Goals of care, counseling/discussion Status: Acute Assessment & Plan: 06/01 Called family to update, but was unable to reach, will reach out again tomorrow. 06/02 spoke with son Faizan and updated on status. 06/04 called Faizan, left message. 06/15: Son to reach out to his sister regarding comfort care and DNR status SHEREE MURPHY MD Jun 16, 2021 23:41
[2021-06-17] VITALS (29 sets, daily range): BP systolic 81–181; BP diastolic 42–87
[2021-06-17] MEDS: NOREPINEPHRINE 8 MG/250 ML 250 ML IV SCH ×3 (00:51→23:34)
[2021-06-17] MEDS: RT-ALBUTEROL HFA 8.5 GM INHALER IH SCH ×6 (02:38→22:09)
[2021-06-17] MEDS: ENOXAPARIN 40 MG/0.4 ML (LOVENOX) SYR SC SCH ×2 (03:51→16:35)
[2021-06-17 03:59] LABS: ABG BASE EXCESS 3.6 MMOL/L (-2.5-2.5); ABG OXYGEN SATURATION 92 % (94-100); ABG PCO2 63 MMHG (35-45); ABG PO2 70 MMHG (79-93); ABG TCO2 31.5 MMOL/L (21.0-31.0)
[2021-06-17 04:00] LABS: ALLENS TEST YES-POS; INSPIRED O2 65%; VENTILATOR YES
[2021-06-17 04:01] LABS: ABG PH 7.29 (7.37-7.43); PATIENT TEMP 36.9
[2021-06-17 04:01] LABS: BASOPHILS % (AUTO) 0 % (0-10); EOSINOPHILS # (AUTO) 0.1 10^3/uL (0.0-0.3); EOSINOPHILS % (AUTO) 1 % (0-10); HEMATOCRIT 26 % (35-52); HEMOGLOBIN 7.8 g/dL (11.5-16.0); LYMPHOCYTES # (AUTO) 0.6 10^3/uL (1.0-4.0); LYMPHOCYTES % (AUTO) 6 % (12-44); MEAN CORPUSCULAR HEMOGLOBIN 32 pg (25-34); MEAN CORPUSCULAR HGB CONC 31 g/dL (32-36); MEAN CORPUSCULAR VOLUME 103 fL (80-99); MEAN PLATELET VOLUME 10.5 fL (9.0-12.2); MONOCYTES # (AUTO) 0.4 10^3/uL (0.0-1.0); MONOCYTES % (AUTO) 4 % (0-12); NEUTROPHILS # (AUTO) 7.9 10^3/uL (1.8-7.8); NEUTROPHILS % (AUTO) 87 % (42-75); PLATELET COUNT 215 10^3/uL (130-400)
--- NOTE | 2021-06-17 04:17 | Progress Note ---
Standard Progress Note Progress Notes/Assess & Plan Date Seen by a Provider: Jun 17, 2021 Time Seen by a Provider: 04:16 Progress/Assessment & Plan called for ABG 7.29/63/70, will raise vent AC rate to 24 CHAPARRO ANDREA MD Jun 17, 2021 04:17
[2021-06-17 04:35] LABS: CALCIUM 8.4 MG/DL (8.5-10.1); CREATININE SERUM 0.59 MG/DL (0.60-1.30); PHOSPHORUS 3.3 MG/DL (2.3-4.7); POTASSIUM 3.9 MMOL/L (3.6-5.0)
[2021-06-17] MEDS: POTASSIUM CL 10MEQ/50ML IVPB 50 ML IV SCH (04:50)
[2021-06-17] MEDS: KCL 20 MEQ TAB (K-DUR) PO SCH (04:50)
[2021-06-17] MEDS: MAGNESIUM 1 GM/100 ML IVPB 100 ML IV SCH (04:50)
[2021-06-17] MEDS: inSUlin ASPART (NovoLOG) 1 UNIT/0.01 ML (CHARGE PER UNIT) SQ SCH ×4 (04:51→23:34)
[2021-06-17 04:57] LABS: BAND NEUTROPHILS 6 %; EOSINOPHILS % (MANUAL) 1 %; LYMPHOCYTES % (MANUAL) 6 %; MONOCYTES % (MANUAL) 4 %; NEUTROPHILS % (MANUAL) 83 %
[2021-06-17 04:58] LABS: HYPOCHROMASIA SLIGHT; MICROCYTOSIS SLIGHT
[2021-06-17] MEDS: fentaNYL DRIP PRE-MIX 250 ML IV SCH ×4 (06:09→18:05)
[2021-06-17] MEDS: PROPOFOL DRIP (ICU) 100 ML IV SCH ×6 (06:09→22:33)
[2021-06-17] MEDS: acetaZOLAMIDE INJECTION 250 MG in SYRINGE-IVPB 1 SYRINGE IV SCH ×2 (09:18→19:35)
[2021-06-17] MEDS: SENNA W/DOCUSATE (SENOKOT S) TABLET PO SCH ×2 (09:19→19:35)
[2021-06-17] MEDS: MICONAZOLE 2% POWDER (DESENEX AF) 90 GM TOP SCH ×2 (09:19→19:35)
[2021-06-17] MEDS: GABAPENTIN 300 MG (NEURONTIN) CAP NG SCH ×2 (09:19→19:35)
[2021-06-17] MEDS: PANTOPRAZOLE 40 MG (PROTONIX) VIAL IV SCH (09:19)
[2021-06-17] MEDS: HYDROcodone/APAP 5 MG/325 MG (LORTAB) TAB PO PRN (09:36)
[2021-06-17] MEDS: UMECLIDINIUM BROMIDE (INCRUSE ELLIPTA) 7'S IH SCH (10:36)
--- NOTE | 2021-06-17 11:35 | Tele-ICU Progress Note ---
Subjective Date Seen by a Provider: Jun 17, 2021 Time Seen by a Provider: 09:30 Subjective/Events-last exam This virtual visit was conducted using real time audio/video. Thank you for asking us to see this patient for respiratory insufficiency and distress due to Covid pna.. HPC: Recent events: Non responsive to sedation vacation. PE: VSS O2 sat 91-95% on 90%/+14 HEENT: No obvious masses, adenopathy or JVD. Chest: coarse, diminished BS. CV: RRR S1 S2 No murmur or added sounds. Abd: Non-tender. Bowel sounds Y. : Unremarkable. 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 No obvious focal findings. Extremities: 2+ edema. Capillary refill < 3 seconds. Skin: unremarkable. Results: Elevated BUN 20, BG 161 AB.29/63/70 A/P: Respiratory insufficiency/distress: Cont vent., albut., incruse Available chart/ vitals / labs /images reviewed. Video assessment done using teleICU camera, rest of exam as per RN. Monitor for increasing oxygenation needs. Consider tracheostomy if family decide not to go with comfort care. Critical Care: critically ill patient. Cont propofol, Dex., insulin. Discussed with BECKY Wheat. Asked RN to reach out to eICU if any questions or concerns later. Time spent with patient/coordination of care with other health professionals (mins): 23 Review of Systems General: Other Sepsis Event Evaluation Height, Weight, BMI Height: 5'5.00" Weight: 236lbs. 0.0oz. 107.061444me; 35.85 BMI Method:Stated Exam Exam Patient acknowledged, consented, and participated in this virtual visit which was conducted using real time audio/video Vital Signs Date Time Temp Pulse Resp B/P (MAP) Pulse Ox O2 Delivery O2 Flow Rate FiO2 06/17/21 11:00 37.0 107 22 97/46 (63) 96 Mechanical Ventilator 90.00 06/17/21 10:36 109 26 97 90 06/17/21 10:00 37.3 115 22 101/44 (63) 98 Mechanical Ventilator 90.00 06/17/21 09:00 37.3 123 18 121/59 (79) 96 Mechanical Ventilator 90.00 06/17/21 08:00 37.3 105 25 94/52 (66) 96 Mechanical Ventilator 90.00 06/17/21 07:14 97 28 93 90 06/17/21 07:00 37.3 92 28 82/49 (60) 93 Mechanical Ventilator 90.00 06/17/21 06:09 103/55 06/17/21 06:09 104 06/17/21 06:00 37.3 112 25 103/55 (71) 93 Mechanical Ventilator 90.00 06/17/21 05:22 131 35 91 06/17/21 05:07 Mechanical Ventilator 90.00 06/17/21 05:00 36.9 129 18 181/87 (118) 87 Mechanical Ventilator 70.00 06/17/21 04:23 Mechanical Ventilator 70.00 06/17/21 04:05 95 Mechanical Ventilator 80 06/17/21 04:00 36.9 116 31 146/67 (93) 96 Mechanical Ventilator 80.00 06/17/21 03:45 Mechanical Ventilator 80.00 06/17/21 03:00 37.0 110 19 121/56 (77) 90 Mechanical Ventilator 60.00 06/17/21 02:38 105 20 92 70 06/17/21 02:00 37.0 88 20 133/71 (91) 92 Mechanical Ventilator 60.00 06/17/21 01:00 36.9 75 26 121/60 (80) 93 Mechanical Ventilator 60.00 06/17/21 01:00 75 06/17/21 00:00 37.0 80 18 90/49 (63) 92 Mechanical Ventilator 60.00 06/16/21 23:59 80 06/16/21 23:59 87/48 06/16/21 23:30 37.0 80 20 90/50 (63) 92 Mechanical Ventilator 60.00 06/16/21 23:18 92 Mechanical Ventilator 60 06/16/21 22:00 37.1 82 20 89/48 (62) 94 Mechanical Ventilator 60.00 06/16/21 21:44 83 20 94 70 06/16/21 21:31 Mechanical Ventilator 60.00 06/16/21 21:00 37.3 87 20 90/46 (61) 98 Mechanical Ventilator 75.00 06/16/21 20:13 Mechanical Ventilator 75 06/16/21 20:00 37.5 112 20 114/57 (76) 92 Mechanical Ventilator 75.00 06/16/21 19:50 109 118/62 06/16/21 19:48 37.5 110 22 118/62 (80) 92 Mechanical Ventilator 75.00 06/16/21 19:00 37.5 112 20 114/57 (76) 92 Mechanical Ventilator 70.00 06/16/21 19:00 112 06/16/21 19:00 Mechanical Ventilator 70.00 06/16/21 18:35 105 20 91 70 06/16/21 18:00 37.5 109 20 114/60 (78) 93 Mechanical Ventilator 55.00 06/16/21 17:24 108 117/58 06/16/21 17:23 108 117/58 06/16/21 17:00 37.6 108 26 116/54 (74) 93 Mechanical Ventilator 55.00 06/16/21 16:00 37.7 111 23 112/57 (75) 94 Mechanical Ventilator 55.00 06/16/21 16:00 Mechanical Ventilator 55 06/16/21 15:00 37.8 114 21 135/74 (94) 92 Mechanical Ventilator 55.00 06/16/21 14:47 118 169/91 06/16/21 14:46 118 22 169/91 06/16/21 14:45 118 169/91 06/16/21 14:37 123 30 92 70 06/16/21 14:00 37.4 117 12 170/92 (118) 93 Mechanical Ventilator 55.00 06/16/21 13:00 36.8 112 21 170/82 (111) 94 Mechanical Ventilator 55.00 06/16/21 12:37 106 06/16/21 12:00 Mechanical Ventilator 55 06/16/21 12:00 36.4 104 17 145/79 (101) 93 Mechanical Ventilator 55.00 I & O 06/17/21 07:00 Intake Total 2700 ml Output Total 1220 ml Balance 1480 ml Height & Weight Height: 5'5.00" Weight: 236lbs. 0.0oz. 107.672686ia; 35.85 BMI Method:Stated General Appearance: No Apparent Distress, WD/WN, Chronically ill, Other (Sedated and intubated) Respiratory: Decreased Breath Sounds Capillary Refill: Less Than 3 Seconds Gastrointestinal: normal bowel sounds, non tender, soft Extremity: Other (3+ edema of all extremities and the face, triple lumen in left PICC, site looks ok) Neurologic/Psychiatric: Alert, Oriented x3, Depressed Affect Results Lab Laboratory Tests 06/16/21 04:15 06/17/21 03:50 Assessment/Plan Assessment/Plan See free text. Critical Care: Ventilator Management Time spent on discussion(mins): 0 AFSANEH RUSH MD Jun 17, 2021 11:34
[2021-06-17] MEDS: MIRTAZAPINE 15 MG (REMERON) TAB PO SCH (19:35)
--- NOTE | 2021-06-17 23:28 | Progress Note ---
Subjective Subjective/Events-last exam Patient intubated and sedated Unable to reach family Review of Systems Intubated and sedated, unable to get ROS Objective Exam Last Set of Vital Signs Vital Signs Date Time Temp Pulse Resp B/P (MAP) Pulse Ox O2 Delivery O2 Flow Rate FiO2 06/17/21 22:33 122 184/90 06/17/21 22:10 29 95 80 06/17/21 19:59 Mechanical Ventilator 06/17/21 19:31 36.5 80.00 Capillary Refill : Less Than 3 Seconds I&O Intake and Output 06/17/21 00:00 Intake Total 2700 ml Output Total 1445 ml Balance 1255 ml Tube Feeding 1200 ml Other 1500 ml Output Urine Total 1445 ml General: Other (Intubated and sedated) Lungs: Other (diminished breath sounds with little air movement) Heart: Regular Rate, No Murmurs Abdomen: Soft Extremities: Other (1+ pitting edema) Results/Procedures Lab Laboratory Tests 06/17/21 03:47: Blood Gas Puncture Site LR, Blood Gas Patient Temperature 36.9, Arterial Blood pH 7.29*L, Arterial Blood Partial Pressure CO2 63H, Arterial Blood Partial Pressure O2 70L, Arterial Blood HCO3 30H, Arterial Blood Total CO2 31.5H, Arteri al Blood Oxygen Saturation 92L, Arterial Blood Base Excess 3.6H, Tom Test YES- POS, Blood Gas Ventilator Setting YES, Blood Gas Inspired Oxygen 65% 06/17/21 03:50: White Blood Count 9.0, Red Blood Count 2.48L, Hemoglobin 7.8L, Hematocrit 26L, Mean Corpuscular Volume 103H, Mean Corpuscular Hemoglobin 32, Mean Corpuscular Hemoglobin Concent 31L, Red Cell Distribution Width 14.1, Platelet Count 215, Mean Platelet Volume 10.5, Immature Granulocyte % (Auto) 1, Neutrophils (%) (Auto) 87H, Lymphocytes (%) (Auto) 6L, Monocytes (%) (Auto) 4, Eosinophils (%) (Auto) 1, Basophils (%) (Auto) 0, Neutrophils # (Auto) 7.9H, Lymphocytes # (Auto) 0.6L, Monocytes # (Auto) 0.4, Eosinophils # (Auto) 0.1, Basophils # (Auto) 0.0, Immature Granulocyte # (Auto) 0.1, Neutrophils % (Manual) 83, Lymp hocytes % (Manual) 6, Monocytes % (Manual) 4, Eosinophils % (Manual) 1, Band Neutrophils 6, Hypochromasia SLIGHT, Basophilic Stippling SLIGHT, Microcytosis SLIGHT, Macrocytosis MODERATE, Sodium Level 140, Potassium Level 3.9, Chloride Level 106, Carbon Dioxide Level 28, Anion Gap 6, Blood Urea Nitrogen 20H, Creatinine 0.59L, Estimat Glomerular Filtration Rate 105, BUN/Creatinine Ratio 34, Glucose Level 161H, Calcium Level 8.4L, Phosphorus Level 3.3, Magnesium Level 2.0 06/17/21 11:36: Glucometer 140H 06/17/21 17:22: Glucometer 168H Microbiology 06/09/21 Blood Culture - Final, Complete No growth Assessment/Plan Assessment/Plan (1) Pneumonia due to COVID-19 virus Status: Acute Assessment & Plan: Suspect pneumonia is COVID only, but has elevated procalcitonin and possible bacterial component, completed 5 days of cefepime, and 5 days vancomycin, blood cultures from 05/28 wtih staph epi sensitive to vanc, repeat culture from 06/02 no growth to date. On dexamethasone and baricitinib for COVID. 06/05 had episode of tachycardia and hypotension with proning today, eICU ordered beta monserrat and it has resolved, monitor closely. 06/15: No improvement over the weekend, son to discuss comfort care with sister, Intubated and sedated at this time, eICU managing vent setting, appreciate recom mendations. 06/16: Unable to reach son today, Need to decide care plan, patient will need trach and peg if goal is to continue aggressive care at this time 06/17: Critically ill patient, unable to reach son (2) Acute respiratory failure due to COVID-19 Status: Acute Assessment & Plan: Requiring mechanical ventilation, appreciate eICU management. (3) COPD (chronic obstructive pulmonary disease) Status: Chronic Qualifiers: Qualified Codes: J44.9 - Chronic obstructive pulmonary disease, unspecified (4) Diabetes Status: Chronic Assessment & Plan: Sliding scale insulin 06/01- glucose 200 and above, will start low dose long-acting insulin 06/05 glucose 98-238 last 24 hours 06/15: Blood sugars moderately controlled with SSI Qualifiers: Qualified Codes: E11.65 - Type 2 diabetes mellitus with hyperglycemia; Z79.4 - terminal press operator (current) use of insulin (5) Cardiac arrest Status: Resolved Assessment & Plan: s/p cardiac arrest on 05/31 with 10 minutes CPR (6) Bipolar disorder Status: Chronic (7) DVT prophylaxis Status: Acute Assessment & Plan: On enoxaparin 75 mg BID. CTA without PE. (8) Goals of care, counseling/discussion Status: Acute Assessment & Plan: 06/01 Called family to update, but was unable to reach, will reach out again tomorrow. 06/02 spoke with son Faizan and updated on status. 06/04 called Faizan, left message. 06/15: Son to reach out to his sister regarding comfort care and DNR status 06/17: Called son several times and unable to reach SHEREE MURPHY MD Jun 17, 2021 23:28
[2021-06-18] VITALS (31 sets, daily range): BP systolic 76–159; BP diastolic 46–95
[2021-06-18] MEDS: fentaNYL DRIP PRE-MIX 250 ML IV SCH ×3 (01:40→17:07)
[2021-06-18] MEDS: RT-ALBUTEROL HFA 8.5 GM INHALER IH SCH ×6 (02:41→22:08)
[2021-06-18] MEDS: PROPOFOL DRIP (ICU) 100 ML IV SCH ×8 (03:22→23:47)
[2021-06-18] MEDS: ENOXAPARIN 40 MG/0.4 ML (LOVENOX) SYR SC SCH ×2 (04:09→17:10)
[2021-06-18 04:25] LABS: ABG BASE EXCESS 0.3 MMOL/L (-2.5-2.5); ABG OXYGEN SATURATION 94 % (94-100); ABG PO2 77 MMHG (79-93); ABG TCO2 29.9 MMOL/L (21.0-31.0)
[2021-06-18 04:34] LABS: BASOPHILS % (AUTO) 0 % (0-10); EOSINOPHILS # (AUTO) 0.1 10^3/uL (0.0-0.3); EOSINOPHILS % (AUTO) 1 % (0-10); HEMATOCRIT 27 % (35-52); HEMOGLOBIN 8.1 g/dL (11.5-16.0); LYMPHOCYTES # (AUTO) 0.5 10^3/uL (1.0-4.0); LYMPHOCYTES % (AUTO) 6 % (12-44); MEAN CORPUSCULAR HEMOGLOBIN 31 pg (25-34); MEAN CORPUSCULAR HGB CONC 30 g/dL (32-36); MEAN CORPUSCULAR VOLUME 105 fL (80-99); MEAN PLATELET VOLUME 10.6 fL (9.0-12.2); MONOCYTES # (AUTO) 0.6 10^3/uL (0.0-1.0); MONOCYTES % (AUTO) 6 % (0-12); NEUTROPHILS # (AUTO) 7.3 10^3/uL (1.8-7.8); NEUTROPHILS % (AUTO) 86 % (42-75); PLATELET COUNT 190 10^3/uL (130-400); WHITE BLOOD COUNT 8.5 10^3/uL (4.3-11.0)
[2021-06-18 04:35] LABS: ABG PCO2 75 MMHG (35-45)
[2021-06-18 04:36] LABS: ABG PH 7.19 (7.37-7.43); ALLENS TEST POSITIVE; INSPIRED O2 80; PATIENT TEMP 37.4; VENTILATOR YES
[2021-06-18 04:48] LABS: CALCIUM 7.4 MG/DL (8.5-10.1); CREATININE SERUM 0.58 MG/DL (0.60-1.30); MAGNESIUM 2.2 MG/DL (1.6-2.4); PHOSPHORUS 3.7 MG/DL (2.3-4.7); POTASSIUM 5.1 MMOL/L (3.6-5.0)
[2021-06-18] MEDS: MAGNESIUM 1 GM/100 ML IVPB 100 ML IV SCH (05:10)
[2021-06-18] MEDS: inSUlin ASPART (NovoLOG) 1 UNIT/0.01 ML (CHARGE PER UNIT) SQ SCH ×4 (05:10→23:34)
[2021-06-18] MEDS: POTASSIUM CL 10MEQ/50ML IVPB 50 ML IV SCH (05:10)
[2021-06-18] MEDS: KCL 20 MEQ TAB (K-DUR) PO SCH (05:10)
[2021-06-18] MEDS: DexMEDEtomidine 250 ML DRIP 250 ML IV SCH (05:46)
[2021-06-18] MEDS: UMECLIDINIUM BROMIDE (INCRUSE ELLIPTA) 7'S IH SCH (07:00)
[2021-06-18] MEDS: GABAPENTIN 300 MG (NEURONTIN) CAP NG SCH ×2 (08:23→19:40)
[2021-06-18] MEDS: SENNA W/DOCUSATE (SENOKOT S) TABLET PO SCH ×2 (08:23→19:40)
[2021-06-18] MEDS: PANTOPRAZOLE 40 MG (PROTONIX) VIAL IV SCH (08:23)
[2021-06-18] MEDS: acetaZOLAMIDE INJECTION 250 MG in SYRINGE-IVPB 1 SYRINGE IV SCH (08:24)
[2021-06-18] MEDS: MICONAZOLE 2% POWDER (DESENEX AF) 90 GM TOP SCH ×2 (08:30→19:40)
--- NOTE | 2021-06-18 09:41 | Tele-ICU Progress Note ---
Subjective Date Seen by a Provider: Jun 18, 2021 Time Seen by a Provider: 09:41 Sepsis Event Evaluation Height, Weight, BMI Height: 5'5.00" Weight: 236lbs. 0.0oz. 107.786445xm; 35.85 BMI Method:Stated Exam Exam Patient acknowledged, consented, and participated in this virtual visit which was conducted using real time audio/video Vital Signs Date Time Temp Pulse Resp B/P (MAP) Pulse Ox O2 Delivery O2 Flow Rate FiO2 06/18/21 08:26 98 116/62 06/18/21 08:25 98 116/62 06/18/21 07:01 98 32 90 90 06/18/21 07:00 92 06/18/21 06:00 37.7 110 30 102/49 (66) 94 Mechanical Ventilator 90.00 06/18/21 05:46 112 06/18/21 05:00 37.6 116 26 126/61 (82) 92 Mechanical Ventilator 90.00 06/18/21 04:57 Mechanical Ventilator 90.00 06/18/21 04:21 Mechanical Ventilator 80 06/18/21 04:00 37.3 107 29 159/70 (99) 92 Mechanical Ventilator 80.00 06/18/21 03:23 105 06/18/21 03:22 102/52 06/18/21 03:00 37.3 106 28 102/52 (69) 94 Mechanical Ventilator 80.00 06/18/21 02:42 101 29 97 80 06/18/21 02:00 37.2 105 28 110/51 (70) 94 Mechanical Ventilator 80.00 06/18/21 01:00 37.2 102 29 96/51 (66) 96 Mechanical Ventilator 80.00 06/18/21 01:00 102 06/18/21 00:14 Mechanical Ventilator 80 06/18/21 00:00 37.3 99 26 93/49 (64) 94 Mechanical Ventilator 80.00 06/17/21 23:00 37.0 112 30 131/63 (85) 93 Mechanical Ventilator 80.00 06/17/21 22:33 122 184/90 06/17/21 22:33 122 184/90 06/17/21 22:10 105 29 95 80 06/17/21 22:00 36.8 103 22 149/71 (97) 96 Mechanical Ventilator 80.00 06/17/21 21:00 36.9 106 20 113/54 (73) 96 Mechanical Ventilator 80.00 06/17/21 20:00 36.6 111 22 130/60 (83) 94 Mechanical Ventilator 80.00 06/17/21 19:59 94 Mechanical Ventilator 80 06/17/21 19:31 36.5 113 24 148/72 (97) 94 Mechanical Ventilator 80.00 06/17/21 19:13 107 29 97 90 06/17/21 19:00 36.4 107 22 138/64 (88) 98 Mechanical Ventilator 80.00 06/17/21 19:00 107 06/17/21 18:00 36.4 109 23 123/55 (77) 96 Mechanical Ventilator 90.00 06/17/21 17:00 36.5 106 22 114/49 (70) 96 Mechanical Ventilator 90.00 06/17/21 16:37 105 113/48 06/17/21 16:35 104 113/48 06/17/21 16:00 36.6 107 28 113/49 (70) 97 Mechanical Ventilator 90.00 06/17/21 16:00 95 Mechanical Ventilator 80 06/17/21 15:00 36.8 108 23 112/50 (70) 96 Mechanical Ventilator 90.00 06/17/21 14:44 107 29 95 90 06/17/21 14:00 36.8 108 22 117/52 (73) 95 Mechanical Ventilator 90.00 06/17/21 13:00 36.9 105 24 110/52 (71) 97 Mechanical Ventilator 90.00 06/17/21 12:50 107 06/17/21 12:00 36.9 106 20 107/49 (68) 95 Mechanical Ventilator 90.00 06/17/21 12:00 95 Mechanical Ventilator 80 06/17/21 11:39 105 104/47 06/17/21 11:38 106 104/47 06/17/21 11:00 37.0 107 22 97/46 (63) 96 Mechanical Ventilator 90.00 06/17/21 10:36 109 26 97 90 06/17/21 10:00 37.3 115 22 101/44 (63) 98 Mechanical Ventilator 90.00 I & O 06/18/21 07:00 Intake Total 3700 ml Output Total 1425 ml Balance 2275 ml Height & Weight Height: 5'5.00" Weight: 236lbs. 0.0oz. 107.352225ak; 35.85 BMI Method:Stated General Appearance: No Apparent Distress, WD/WN, Chronically ill, Other (Sedated and intubated) Respiratory: Decreased Breath Sounds Capillary Refill: Less Than 3 Seconds Gastrointestinal: normal bowel sounds, non tender, soft Extremity: Other (3+ edema of all extremities and the face, triple lumen in left PICC, site looks ok) Neurologic/Psychiatric: Alert, Oriented x3, Depressed Affect Results Lab Laboratory Tests 06/17/21 03:50 06/18/21 04:15 Assessment/Plan Assessment/Plan (Tele-ICU Physician , Progress Note ) Available chart/ vitals / labs / Images reviewed Video assessment done using teleICU camera, rest of exam as per RN Discussed with RN Events overnight : AFEBRILE I/O = neg 800 Drips: Pressors:levo OFF Sedation gtt: ( RASS ) propofol 50 fentanyl 400 versed 10 VENT SETTINGS. AC 22 420 +16 70 % PAP 41 ABG reviewed Not candidate for SBT today Contraindications: Cardiovascular Stability / Sedation Score / FI02/PEEP / ABG / CXR EXAM PER RN Consultants: Hospital course: (05/28) 55/F Admitted from ED w/ COVID PNA. CTA 05/28 - NO PE (05/30) Tx to ICU on BIPAP. (05/31) INTUBATED. Cardiac arrest (unclear if during or after intubation). CPR 10mins. Post code, sedation stopped and patient had purposeful movment so no TTM 06/09- +16 100%, attempt to diuresuis, bloody secretion ETT - lovenox on hold 06/11 AC 22 420 +16 70 % increasing PAP 41, resumed lovenox proph dose 06/13 AC 28 360 +14 65% PAP 37 06/18- 100% A/P Acute resp failure- intubated 05/31 ( covid PNA , CTA 05/28 - NO PE - full vent support ,- AC 22 360 +14 65% PAP 37 - not proning -( went to SVT with proning prior ) - secretions minimal , but thick CONT DIAMOX IV - bloody secretion in ETT 06/11 - IMPROVED WITH CHANGING LOVENOX TO PROPH DOSE Cardiac arrest (unclear if during or after intubation). CPR 10mins. - no TTM with follow commands as per report SEDATED NOW , NOT TOLERTED SEDATION VACATION- ? chronic pain COVID PNA - steroids IV- titrate - lovenox 75 bid ( CTA 05/28 - NO PE m ddimer 0.7 on 05/28 , BLOODY SECRETION IN ETT 06/09- - LOVENOX CHANGED TO PROPH DOSE = baricitinib 05/30 ->06/12 possible PNA - sputum cx 06/01- not reported cefepime/ vanco - stop 06/03 blood cx - staph epider 05/28 - ? contaminant -06/02 - fever - reculture blood - GPC from PICC , and sputum blood 06/09 - WORSENIG FIO2 - PCT UP - ZOSYN - till 06/14 -still febrile - ? nosocomial infection - will follow cx DM - hyperglycemia on steroids - increase ISS , on long acting insulin Abd distention - tolerates TF - KUB WNL 06/09 . + BM x1 06/10 - follow H/O Severe anxiety Bipolar disorder Lines : PICC 06/01 (Central Line Necessity Reviewed) Lyn: 05/30 OG: + Nutrition: started TF - 06/01 - 35 ml/h Analgesia: Anxiety/ delirium VTE Prophylaxis: lovenox proph dose Stress Ulcer Prophylaxis: PPI Plans in collaboration with bedside consultants and IM MDs. Discussed with RN to reach out if any questions or concerns A total of 40 minutes of critical care time was devoted to this patient today, required to treat and/or prevent further deterioration of critical care condition ( as above) PEBBLES SANTANA MD Jun 18, 2021 09:41
--- NOTE | 2021-06-18 10:00 | Diagnostic Imaging Report ---
Indication: ET tube placement Examination: Chest 06/18/2021 Comparison: 06/14/2021 FINDINGS: There are a few scattered airspace opacity seen throughout both lungs worsened since recent examination consistent with infiltrates with likely underlying pulmonary edema as well. There are no significant effusions. There is no pneumothorax. The heart is prominent. The pulmonary vasculature is congested. ET tube stable. There is a feeding tube poorly seen but coursing beneath the diaphragm. There is a left-sided PICC line with the tip poorly visualized but extending into the SVC. Impression: 1. Worsening bilateral infiltrates with likely underlying pulmonary edema. 2. Tubes and lines as described. Dictated by: Dictated on workstation # [id number]
[2021-06-18] MEDS: NOREPINEPHRINE 8 MG/250 ML 250 ML IV SCH (15:55)
[2021-06-18] MEDS: ACETAZOLAMIDE IV SCH (19:39)
[2021-06-18] MEDS: MIRTAZAPINE 15 MG (REMERON) TAB PO SCH (19:40)
[2021-06-18] MEDS ORDERED: acetaZOLAMIDE INJ 500 MG/5 ML (DIAMOX) VIAL IV SCH (21:00)
--- NOTE | 2021-06-18 23:41 | Progress Note ---
Subjective Subjective/Events-last exam Patient intubated and Sedated No ON events per nursing, FiO2 trending up the last 2 days Review of Systems Intubated and sedated, unable to get ROS Objective Exam Last Set of Vital Signs Vital Signs Date Time Temp Pulse Resp B/P (MAP) Pulse Ox O2 Delivery O2 Flow Rate FiO2 06/18/21 23:34 93 Mechanical Ventilator 75 06/18/21 22:09 118 30 06/18/21 19:36 37.7 129/62 (84) 75.00 Capillary Refill : Less Than 3 Seconds I&O Intake and Output 06/17/21 23:59 Intake Total 4100 ml Output Total 1425 ml Balance 2675 ml IV Total 1600 ml Tube Feeding 1200 ml Other 1300 ml Output Urine Total 1425 ml General: Other (Intubated and Sedated) Lungs: Other (Diminished breath sounds, diffuse crackles) Heart: Other (tachycardic rate, no murmur) Abdomen: Soft Extremities: Other (2+ pitting edema equal bilaterally) Results/Procedures Lab Laboratory Tests 06/18/21 04:15: White Blood Count 8.5, Red Blood Count 2.60L, Hemoglobin 8.1L, Hematocrit 27L, Mean Corpuscular Volume 105H, Mean Corpuscular Hemoglobin 31, Mean Corpuscular Hemoglobin Concent 30L, Red Cell Distribution Width 14.3, Platelet Count 190, Mean Platelet Volume 10.6, Immature Granulocyte % (Auto) 1, Neutrophils (%) (Auto) 86H, Lymphocytes (%) (Auto) 6L, Monocytes (%) (Auto) 6, Eosinophils (%) (Auto) 1, Basophils (%) (Auto) 0, Neutrophils # (Auto) 7.3, Lymphocytes # (Auto) 0.5L, Monocytes # (Auto) 0.6, Eosinophils # (Auto) 0.1, Basophils # (Auto) 0.0, Immature Granulocyte # (Auto) 0.1, Blood Gas Puncture Site LEFT RADIAL, Blood Gas Patient Temperature 37.4, Arterial Blood pH 7.19*L, Arterial Blood Partial Pressure CO2 75*H, Arterial Blood Partial Pressure O2 77L, Arterial Blood HCO3 28H, Arterial Blood Total CO2 29.9, Arterial Blood Oxygen Saturation 94, Arterial Blood Base Excess 0.3, Tom Test POSITIVE, Blood Gas Ventilator Setting YES, Blood Gas Inspired Oxygen 80, Sodium Level 140, Potassium Level 5.1H, Chloride Level 105, Carbon Dioxide Level 26, Anion Gap 9, Blood Urea Nitrogen 19H, Creatinine 0.58L, Estimat Glomerular Filtration Rate 108, BUN/Creatinine Ratio 33, Glucose Level 167H, Calcium Level 7.4L, Phosphorus Level 3.7, Magnesium Level 2.2 06/18/21 10:09: Glucometer 185H 06/18/21 12:32: Glucometer 222H 06/18/21 18:00: Glucometer 183H 06/18/21 23:26: Glucometer 146H Microbiology 06/09/21 Blood Culture - Final, Complete No growth Assessment/Plan Assessment/Plan (1) Pneumonia due to COVID-19 virus Status: Acute Assessment & Plan: Suspect pneumonia is COVID only, but has elevated procalcitonin and possible bacterial component, completed 5 days of cefepime, and 5 days vancomycin, blood cultures from 05/28 wtih staph epi sensitive to vanc, repeat culture from 06/02 no growth to date. On dexamethasone and baricitinib for COVID. 06/05 had episode of tachycardia and hypotension with proning today, eICU ordered beta monserrat and it has resolved, monitor closely. 06/15: No improvement over the weekend, son to discuss comfort care with sister, Intubated and sedated at this time, eICU managing vent setting, appreciate recommendations. 06/16: Unable to reach son today, Need to decide care plan, patient will need trach and peg if goal is to continue aggressive care at this time 06/17: Critically ill patient, unable to reach son 06/18: Patient very agitated with any cares and becomes hypoxic and tachycardic, unable to trach patient due to high PEEP (2) Acute respiratory failure due to COVID-19 Status: Acute Assessment & Plan: Requiring mechanical ventilation, appreciate eICU management. (3) COPD (chronic obstructive pulmonary disease) Status: Chronic Qualifiers: Qualified Codes: J44.9 - Chronic obstructive pulmonary disease, unspecified (4) Diabetes Status: Chronic Assessment & Plan: Sliding scale insulin 06/01- glucose 200 and above, will start low dose long-acting insulin 06/05 glucose 98-238 last 24 hours 06/15: Blood sugars moderately controlled with SSI Qualifiers: Qualified Codes: E11.65 - Type 2 diabetes mellitus with hyperglycemia; Z79.4 - nursing home (current) use of insulin (5) Cardiac arrest Status: Resolved Assessment & Plan: s/p cardiac arrest on 05/31 with 10 minutes CPR (6) Bipolar disorder Status: Chronic (7) DVT prophylaxis Status: Acute Assessment & Plan: On enoxaparin 75 mg BID. CTA without PE. (8) Goals of care, counseling/discussion Status: Acute Assessment & Plan: 06/01 Called family to update, but was unable to reach, will reach out again tomorrow. 06/02 spoke with son Faizan and updated on status. 06/04 called Faizan, left message. 06/15: Son to reach out to his sister regarding comfort care and DNR status 06/17: Called son several times and unable to reach 06/18: spoke with daughter Kezia for 45 mins, at this time she is understanding of critical care mother is requiring. She is wanting to speak with brother to get help with making decisions. Brother still has not returned phone calls. A yvonne is not wanting to change status at this time but states that if she is unable to reach brother in the next few days that she will likely transition patient to comfort care. SHEREE MURPHY MD Jun 18, 2021 23:41
[2021-06-19] VITALS (33 sets, daily range): BP systolic 87–183; BP diastolic 48–86
[2021-06-19] MEDS: fentaNYL DRIP PRE-MIX 250 ML IV SCH ×6 (01:30→22:02)
[2021-06-19] MEDS: NOREPINEPHRINE 8 MG/250 ML 250 ML IV SCH ×2 (02:08→19:41)
[2021-06-19] MEDS: RT-ALBUTEROL HFA 8.5 GM INHALER IH SCH ×6 (03:26→22:36)
[2021-06-19] MEDS: ENOXAPARIN 40 MG/0.4 ML (LOVENOX) SYR SC SCH ×2 (03:52→17:32)
[2021-06-19 04:09] LABS: ABG BASE EXCESS -0.1 MMOL/L (-2.5-2.5); ABG OXYGEN SATURATION 99 % (94-100); ABG PO2 123 MMHG (79-93); ABG TCO2 30.2 MMOL/L (21.0-31.0)
[2021-06-19 04:11] LABS: BASOPHILS % (AUTO) 0 % (0-10); EOSINOPHILS # (AUTO) 0.1 10^3/uL (0.0-0.3); EOSINOPHILS % (AUTO) 1 % (0-10); HEMATOCRIT 27 % (35-52); HEMOGLOBIN 7.7 g/dL (11.5-16.0); LYMPHOCYTES # (AUTO) 0.6 10^3/uL (1.0-4.0); LYMPHOCYTES % (AUTO) 7 % (12-44); MEAN CORPUSCULAR HEMOGLOBIN 31 pg (25-34); MEAN CORPUSCULAR HGB CONC 29 g/dL (32-36); MEAN CORPUSCULAR VOLUME 107 fL (80-99); MEAN PLATELET VOLUME 10.8 fL (9.0-12.2); MONOCYTES # (AUTO) 0.9 10^3/uL (0.0-1.0); MONOCYTES % (AUTO) 10 % (0-12); NEUTROPHILS # (AUTO) 7.1 10^3/uL (1.8-7.8); NEUTROPHILS % (AUTO) 82 % (42-75); PLATELET COUNT 199 10^3/uL (130-400); WHITE BLOOD COUNT 8.7 10^3/uL (4.3-11.0)
[2021-06-19 04:16] LABS: ABG PCO2 82 MMHG (35-45); ABG PH 7.16 (7.37-7.43)
[2021-06-19 04:19] LABS: ALLENS TEST YES-POS; INSPIRED O2 85%; PATIENT TEMP 37.3; VENTILATOR YES
[2021-06-19 04:27] LABS: POTASSIUM 4.1 MMOL/L (3.6-5.0)
[2021-06-19 04:28] LABS: CALCIUM 8.8 MG/DL (8.5-10.1)
[2021-06-19 04:32] LABS: CREATININE SERUM 0.65 MG/DL (0.60-1.30); PHOSPHORUS 3.1 MG/DL (2.3-4.7)
[2021-06-19 04:34] LABS: MAGNESIUM 2.4 MG/DL (1.6-2.4)
[2021-06-19] MEDS: PROPOFOL DRIP (ICU) 100 ML IV SCH ×8 (04:54→23:11)
[2021-06-19] MEDS: POTASSIUM CL 10MEQ/50ML IVPB 50 ML IV SCH (05:41)
[2021-06-19] MEDS: MAGNESIUM 1 GM/100 ML IVPB 100 ML IV SCH (05:41)
[2021-06-19] MEDS: KCL 20 MEQ TAB (K-DUR) PO SCH (05:41)
[2021-06-19] MEDS: inSUlin ASPART (NovoLOG) 1 UNIT/0.01 ML (CHARGE PER UNIT) SQ SCH ×4 (05:50→23:10)
[2021-06-19 05:58] LABS: ABG BASE EXCESS 0.2 MMOL/L (-2.5-2.5); ABG OXYGEN SATURATION 98 % (94-100); ABG PO2 111 MMHG (79-93); ABG TCO2 29.9 MMOL/L (21.0-31.0)
[2021-06-19 06:02] LABS: ABG PH 7.19 (7.37-7.43)
[2021-06-19 06:03] LABS: ABG PCO2 76 MMHG (35-45); ALLENS TEST YES-POS; INSPIRED O2 85%; PATIENT TEMP 37.3; VENTILATOR YES
[2021-06-19] MEDS: UMECLIDINIUM BROMIDE (INCRUSE ELLIPTA) 7'S IH SCH (07:34)
[2021-06-19] MEDS: PANTOPRAZOLE 40 MG (PROTONIX) VIAL IV SCH (10:23)
[2021-06-19] MEDS: GABAPENTIN 300 MG (NEURONTIN) CAP NG SCH ×2 (10:24→20:51)
[2021-06-19] MEDS: SENNA W/DOCUSATE (SENOKOT S) TABLET PO SCH ×2 (10:24→20:51)
[2021-06-19] MEDS: MICONAZOLE 2% POWDER (DESENEX AF) 90 GM TOP SCH ×2 (10:25→20:51)
[2021-06-19] MEDS: ACETAZOLAMIDE IV SCH ×2 (10:28→20:51)
--- NOTE | 2021-06-19 15:19 | Progress Note ---
Subjective Review of Systems Intubated and sedated, unable to get ROS Objective Exam Last Set of Vital Signs Vital Signs Date Time Temp Pulse Resp B/P (MAP) Pulse Ox O2 Delivery O2 Flow Rate FiO2 06/19/21 15:00 37.2 118 23 107/57 (74) 95 Mechanical Ventilator 85.00 06/19/21 14:21 100 Capillary Refill : Less Than 3 Seconds I&O Intake and Output 06/19/21 00:00 Intake Total 1500 ml Output Total 1450 ml Balance 50 ml Tube Feeding 1200 ml Other 300 ml Output Urine Total 1450 ml Results/Procedures Lab Laboratory Tests 06/18/21 18:00: Glucometer 183H 06/18/21 23:26: Glucometer 146H 06/19/21 03:55: Blood Gas Puncture Site LEFT RADIAL, Blood Gas Patient Temperature 37.3, Arterial Blood pH 7.16*L, Arterial Blood Partial Pressure CO2 82*H, Arterial Blood Partial Pressure O2 123H, Arterial Blood HCO3 28H, Arterial Blood Total CO2 30.2, Arterial Blood Oxygen Saturation 99, Arterial Blood Base Excess -0.1, Tom Test YES-POS, Blood Gas Ventilator Setting YES, Blood Gas Inspired Oxygen 85% 06/19/21 04:00: White Blood Count 8.7, Red Blood Count 2.49L, Hemoglobin 7.7L, Hematocrit 27L, Mean Corpuscular Volume 107H, Mean Corpuscular Hemoglobin 31, Mean Corpuscular Hemoglobin Concent 29L, Red Cell Distribution Width 14.5, Platelet Count 199, Mean Platelet Volume 10.8, Immature Granulocyte % (Auto) 1, Neutrophils (%) (Auto) 82H, Lymphocytes (%) (Auto) 7L, Monocytes (%) (Auto) 10, Eosinophils (%) (Auto) 1, Basophils (%) (Auto) 0, Neutrophils # (Auto) 7.1, Lymphocytes # (Auto) 0.6L, Monocytes # (Auto) 0.9, Eosinophils # (Auto) 0.1, Basophils # (Auto) 0.0, Immature Granulocyte # (Auto) 0.1, Sodium Level 139, Potassium Level 4.1, Chloride Level 105, Carbon Dioxide Level 26, Anion Gap 8, Blood Urea Nitrogen 21H, Creatinine 0.65, Estimat Glomerular Filtration Rate 94, BUN/Creatinine Ratio 32, Glucose Level 185H, Calcium Level 8.8, Phosphorus Level 3.1, Magnesium Level 2.4 06/19/21 05:45: Blood Gas Puncture Site LEFT RADIAL, Blood Gas Patient Temperature 37.3, Arterial Blood pH 7.19*L, Arterial Blood Partial Pressure CO2 76*H, Arterial Blood Partial Pressure O2 111H, Arterial Blood HCO3 28H, Arterial Blood Total CO2 29.9, Arterial Blood Oxygen Saturation 98, Arterial Blood Base Excess 0.2, Tom Test YES-POS, Blood Gas Ventilator Setting YES, Blood Gas Inspired Oxygen 85% 06/19/21 11:32: Glucometer 143H Microbiology 06/09/21 Blood Culture - Final, Complete No growth Assessment/Plan Assessment/Plan (1) Pneumonia due to COVID-19 virus Status: Acute Assessment & Plan: Suspect pneumonia is COVID only, but has elevated procalcitonin and possible bacterial component, completed 5 days of cefepime, and 5 days vancomycin, blood cultures from 05/28 wtih staph epi sensitive to vanc, repeat culture from 06/02 no growth to date. On dexamethasone and baricitinib for COVID. 06/05 had episode of tachycardia and hypotension with proning today, eICU ordered beta monserrat and it has resolved, monitor closely. 06/15: No improvement over the weekend, son to discuss comfort care with sister, Intubated and sedated at this time, eICU managing vent setting, appreciate recommendations. 06/16: Unable to reach son today, Need to decide care plan, patient will need trach and peg if goal is to continue aggressive care at this time 06/17: Critically ill patient, unable to reach son 06/18: Patient very agitated with any cares and becomes hypoxic and tachycardic, unable to trach patient due to high PEEP (2) Acute respiratory failure due to COVID-19 Status: Acute Assessment & Plan: Requiring mechanical ventilation, appreciate eICU management. (3) COPD (chronic obstructive pulmonary disease) Status: Chronic Qualifiers: Qualified Codes: J44.9 - Chronic obstructive pulmonary disease, unspecified (4) Diabetes Status: Chronic Assessment & Plan: Sliding scale insulin 06/01- glucose 200 and above, will start low dose long-acting insulin 06/05 glucose 98-238 last 24 hours 06/15: Blood sugars moderately controlled with SSI Qualifiers: Qualified Codes: E11.65 - Type 2 diabetes mellitus with hyperglycemia; Z79.4 - equipment operator [employer] (current) use of insulin (5) Cardiac arrest Status: Resolved Assessment & Plan: s/p cardiac arrest on 05/31 with 10 minutes CPR (6) Bipolar disorder Status: Chronic (7) DVT prophylaxis Status: Acute Assessment & Plan: On enoxaparin 75 mg BID. CTA without PE. (8) Goals of care, counseling/discussion Status: Acute Assessment & Plan: 06/01 Called family to update, but was unable to reach, will reach out again tomorrow. 06/02 spoke with son Faizan and updated on status. 06/04 called Faizan, left message. 06/15: Son to reach out to his sister regarding comfort care and DNR status 06/17: Called son several times and unable to reach 06/18: spoke with daughter Kezia for 45 mins, at this time she is understanding of critical care mother is requiring. She is wanting to speak with brother to get help with making decisions. Brother still has not returned phone calls. Kezia is not wanting to change status at this time but states that if she is unable to reach brother in the next few days that she will likely transition patient to comfort care. SHEREE MURPHY MD Jun 19, 2021 15:19
--- NOTE | 2021-06-19 18:00 | Tele-ICU Progress Note ---
Subjective Date Seen by a Provider: Jun 19, 2021 Time Seen by a Provider: 17:59 Sepsis Event Evaluation Height, Weight, BMI Height: 5'5.00" Weight: 236lbs. 0.0oz. 107.129822rp; 35.85 BMI Method:Stated Exam Exam Patient acknowledged, consented, and participated in this virtual visit which was conducted using real time audio/video Vital Signs Date Time Temp Pulse Resp B/P (MAP) Pulse Ox O2 Delivery O2 Flow Rate FiO2 06/19/21 17:00 37.1 117 28 110/57 (74) 95 Mechanical Ventilator 85.00 06/19/21 16:00 37.2 120 25 120/62 (81) 95 Mechanical Ventilator 85.00 06/19/21 16:00 Mechanical Ventilator 80 06/19/21 15:00 37.2 118 23 107/57 (74) 95 Mechanical Ventilator 85.00 06/19/21 14:21 116 28 90 100 06/19/21 14:00 37.2 116 33 113/58 (68) 91 Mechanical Ventilator 85.00 06/19/21 13:53 116 107/60 06/19/21 13:52 117 107/60 06/19/21 13:45 37.2 116 23 107/60 (77) 93 Mechanical Ventilator 85.00 06/19/21 13:30 37.2 117 22 108/59 (76) 92 Mechanical Ventilator 85.00 06/19/21 13:15 37.2 116 24 109/56 (74) 92 Mechanical Ventilator 85.00 06/19/21 13:00 37.2 117 23 113/56 (76) 92 Mechanical Ventilator 85.00 06/19/21 12:37 118 06/19/21 12:00 37.2 115 22 107/57 (74) 93 Mechanical Ventilator 85.00 06/19/21 12:00 Mechanical Ventilator 80 06/19/21 11:00 37.2 117 20 109/54 (72) 94 Mechanical Ventilator 85.00 06/19/21 10:47 115 32 96 90 06/19/21 10:00 37.4 114 26 109/59 (76) 94 Mechanical Ventilator 85.00 06/19/21 09:00 37.4 116 29 115/62 (79) 94 Mechanical Ventilator 85.00 06/19/21 08:58 116 113/60 9/3/21 08:58 114 113/60 06/19/21 08:00 37.4 115 29 106/56 (74) 94 Mechanical Ventilator 85.00 06/19/21 08:00 Mechanical Ventilator 80 06/19/21 07:25 116 32 94 90 06/19/21 07:00 37.4 115 25 104/61 (76) 95 Mechanical Ventilator 85.00 06/19/21 07:00 116 06/19/21 06:00 37.3 114 28 106/61 (76) 91 Mechanical Ventilator 85.00 06/19/21 05:00 37.3 116 28 107/58 (74) 94 Mechanical Ventilator 85.00 06/19/21 04:54 114 06/19/21 04:54 110/59 06/19/21 04:00 37.3 116 31 122/63 (82) 96 Mechanical Ventilator 85.00 06/19/21 03:36 Mechanical Ventilator 80 06/19/21 03:26 116 33 94 85 06/19/21 03:00 37.4 117 23 113/63 (80) 93 Mechanical Ventilator 85.00 06/19/21 02:12 Mechanical Ventilator 85.00 06/19/21 02:00 37.6 121 33 120/60 (80) 91 Mechanical Ventilator 70.00 06/19/21 01:38 Mechanical Ventilator 70.00 06/19/21 01:00 118 06/19/21 01:00 37.6 118 25 183/86 (118) 93 Mechanical Ventilator 80.00 06/19/21 00:00 37.8 120 32 117/61 (79) 93 Mechanical Ventilator 80.00 06/18/21 23:53 Mechanical Ventilator 80.00 06/18/21 23:47 120 06/18/21 23:46 120/62 06/18/21 23:34 93 Mechanical Ventilator 75 06/18/21 23:00 37.7 118 33 122/63 (82) 92 Mechanical Ventilator 75.00 06/18/21 22:09 118 30 90 75 06/18/21 22:00 37.8 118 25 122/64 (83) 92 Mechanical Ventilator 75.00 06/18/21 21:00 37.8 117 31 127/62 (83) 91 Mechanical Ventilator 75.00 06/18/21 20:00 37.8 117 33 131/63 (85) 93 Mechanical Ventilator 75.00 06/18/21 19:57 93 Mechanical Ventilator 75 06/18/21 19:36 37.7 114 28 129/62 (84) 91 Mechanical Ventilator 75.00 06/18/21 19:00 37.7 115 33 124/62 (82) 91 Mechanical Ventilator 75.00 06/18/21 19:00 115 06/18/21 18:49 117 124/62 06/18/21 18:49 117 124/62 06/18/21 18:39 117 36 92 75 06/18/21 18:00 37.6 116 23 128/69 (88) 89 Mechanical Ventilator 90.00 I & O 06/19/21 07:00 Intake Total 1500 ml Output Total 1375 ml Balance 125 ml Height & Weight Height: 5'5.00" Weight: 236lbs. 0.0oz. 107.762241qc; 35.85 BMI Method:Stated General Appearance: No Apparent Distress, WD/WN, Chronically ill, Other (Sedated and intubated) Respiratory: Decreased Breath Sounds Capillary Refill: Less Than 3 Seconds Gastrointestinal: normal bowel sounds, non tender, soft Extremity: Other (3+ edema of all extremities and the face, triple lumen in left PICC, site looks ok) Neurologic/Psychiatric: Alert, Oriented x3, Depressed Affect Results Lab Laboratory Tests 06/18/21 04:15 06/19/21 04:00 Assessment/Plan Assessment/Plan (Tele-ICU Physician , Progress Note ) Available chart/ vitals / labs / Images reviewed Video assessment done using teleICU camer Events overnight : FEBRILE I/O =even Drips: Pressors:levo OFF Sedation gtt: ( RASS ) propofol 50 fentanyl 400 versed 10 VENT SETTINGS. AC 22 420 +16 70 % PAP 41 ABG reviewed Not candidate for SBT today Contraindications: Cardiovascular Stability / Sedation Score / FI02/PEEP / ABG / CXR EXAM PER RN Consultants: Hospital course: (05/28) 55/F Admitted from ED w/ COVID PNA. CTA 05/28 - NO PE (05/30) Tx to ICU on BIPAP. (05/31) INTUBATED. Cardiac arrest (unclear if during or after intubation). CPR 10mins. Post code, sedation stopped and patient had purposeful movment so no TTM 06/09- +16 100%, attempt to diuresuis, bloody secretion ETT - lovenox on hold 06/11 AC 22 420 +16 70 % increasing PAP 41, resumed lovenox proph dose 06/13 AC 28 360 +14 65% PAP 37 9- 100% 06/19 - 85% A/P Acute resp failure- intubated 05/31 ( covid PNA , CTA 05/28 - NO PE - full vent support ,- AC 22 360 +14 65% PAP 37- HIGH PAP - WILL TOLERATE SONE DEGREE OF HYPERCAPNEA - not proning -( went to SVT with proning prior ) - secretions minimal , but thick CONT DIAMOX IV - bloody secretion in ETT 06/11 - IMPROVED WITH CHANGING LOVENOX TO PROPH DOSE Cardiac arrest (unclear if during or after intubation). CPR 10mins. - no TTM with follow commands as per report SEDATED NOW , NOT TOLERTED SEDATION VACATION- ? chronic pain COVID PNA - steroids IV- titrate - lovenox 75 bid ( CTA 05/28 - NO PE m ddimer 0.7 on 05/28 , BLOODY SECRETION IN ETT 06/09- - LOVENOX CHANGED TO PROPH DOSE = baricitinib 05/30 ->06/12 possible PNA - sputum cx 06/01- not reported cefepime/ vanco - stop 06/03 blood cx - staph epider 05/28 - ? contaminant -06/02 - fever - reculture blood - GPC from PICC , and sputum blood 06/09 - WORSENIG FIO2 - PCT UP - ZOSYN - till 06/14 -still febrile - ? nosocomial infection - will follow cx DM - hyperglycemia on steroids - increase ISS , on long acting insulin Abd distention - tolerates TF - KUB WNL 06/09 . + BM x1 06/10 - follow H/O Severe anxiety Bipolar disorder Lines : PICC 06/01 (Central Line Necessity Reviewed) Lyn: 05/30 OG: + Nutrition: started TF - 06/01 - 35 ml/h Analgesia: Anxiety/ delirium VTE Prophylaxis: lovenox proph dose Stress Ulcer Prophylaxis: PPI Plans in collaboration with bedside consultants and IM MDs. A total of 20 minutes of critical care time was devoted to this patient today, required to treat and/or prevent further deterioration of critical care condition ( as above) BEDSIDE RN IS NOT AVAILABLE TO DISCUSS PATIENT, A/P DONE BASED ON DATA ABAILABLE IN EMR AND VIDEO ASSESSMENT BY E-CAMERA. FINAL PLAN /DECISIONS ARE BY ROUNDING BEDSIDE PHYSICIANS PEBBLES SANTANA MD Jun 19, 2021 18:00
[2021-06-19] MEDS: MIRTAZAPINE 15 MG (REMERON) TAB PO SCH (20:51)
[2021-06-20] VITALS (25 sets, daily range): BP systolic 61–151; BP diastolic 31–101
[2021-06-20] MEDS: RT-ALBUTEROL HFA 8.5 GM INHALER IH SCH ×4 (02:57→15:26)
[2021-06-20 03:49] LABS: BASOPHILS % (AUTO) 0 % (0-10); EOSINOPHILS # (AUTO) 0.1 10^3/uL (0.0-0.3); EOSINOPHILS % (AUTO) 1 % (0-10); HEMATOCRIT 26 % (35-52); HEMOGLOBIN 7.2 g/dL (11.5-16.0); LYMPHOCYTES # (AUTO) 0.6 10^3/uL (1.0-4.0); LYMPHOCYTES % (AUTO) 8 % (12-44); MEAN CORPUSCULAR HEMOGLOBIN 31 pg (25-34); MEAN CORPUSCULAR HGB CONC 28 g/dL (32-36); MEAN CORPUSCULAR VOLUME 110 fL (80-99); MEAN PLATELET VOLUME 11.1 fL (9.0-12.2); MONOCYTES # (AUTO) 0.9 10^3/uL (0.0-1.0); MONOCYTES % (AUTO) 11 % (0-12); NEUTROPHILS # (AUTO) 6.6 10^3/uL (1.8-7.8); NEUTROPHILS % (AUTO) 79 % (42-75); PLATELET COUNT 220 10^3/uL (130-400); WHITE BLOOD COUNT 8.4 10^3/uL (4.3-11.0)
[2021-06-20 04:01] LABS: POTASSIUM 4.8 MMOL/L (3.6-5.0)
[2021-06-20 04:03] LABS: CALCIUM 8.8 MG/DL (8.5-10.1)
[2021-06-20 04:07] LABS: CREATININE SERUM 1.05 MG/DL (0.60-1.30); PHOSPHORUS 4.9 MG/DL (2.3-4.7)
[2021-06-20 04:09] LABS: MAGNESIUM 2.5 MG/DL (1.6-2.4)
[2021-06-20] MEDS: ENOXAPARIN 40 MG/0.4 ML (LOVENOX) SYR SC SCH (04:26)
[2021-06-20] MEDS: PROPOFOL DRIP (ICU) 100 ML IV SCH ×4 (04:55→15:54)
[2021-06-20] MEDS: POTASSIUM CL 10MEQ/50ML IVPB 50 ML IV SCH (04:56)
[2021-06-20] MEDS: fentaNYL DRIP PRE-MIX 250 ML IV SCH ×2 (04:56→13:29)
[2021-06-20] MEDS: MAGNESIUM 1 GM/100 ML IVPB 100 ML IV SCH (04:57)
[2021-06-20] MEDS: KCL 20 MEQ TAB (K-DUR) PO SCH (04:57)
[2021-06-20] MEDS: inSUlin ASPART (NovoLOG) 1 UNIT/0.01 ML (CHARGE PER UNIT) SQ SCH ×3 (04:57→17:36)
--- NOTE | 2021-06-20 07:43 | Progress Note - Hospitalist ---
Subjective HPI/CC On Admission Date Seen by Provider: Jun 20, 2021 CC: Covid-19 Hypoxia HPI: This is a 55yoWF who presented to the ER with SOB found to have Covid-19 and significant pneumonia on CXR. Xanax of 1mg PO Q4Hrs PRN will be initiated d ue to increased anxiety. Lyn catheter will be placed due to significant hypoxia upon movement. She is currently sleeping and has no complaints. Objective Exam Vital Signs Vital Signs Date Time Temp Pulse Resp B/P (MAP) Pulse Ox O2 Delivery O2 Flow Rate FiO2 06/20/21 18:00 37.3 80 25 100/58 (72) 89 Mechanical Ventilator 100.00 06/20/21 16:14 100 Capillary Refill : Less Than 3 Seconds Results/Procedures Lab Laboratory Tests 06/20/21 03:30 06/20/21 13:15 06/20/21 13:33 06/20/21 15:30 Patient resulted labs reviewed. Assessment/Plan Assessment and Plan Assess & Plan/Chief Complaint Assessment: COVID-19 pneumonia Severe anxiety Bipolar disorder Diabetes with [id number] sugars due to steroids Plan: Vapotherm BiPAP Steroids Insulin 05/30/2021: Initiate Olumiant due to no more supply of Actemra High risk of ventilator progression Xanax IV steroids 05/31/2021: Intubation Status post cardiac arrest after intubation with return of ROSC 06/08/2021: Ventilator management appreciated Dulcolax suppository Tube feedings Supportive care 06/09/2021: Supportive care Vent management Poor prognosis 06/10/2021: Maintain intubation Monitor closely 06/11/2021: Poor prognosis Needs DNR Needs terminal extubation 06/12/2021: Supportive care Poor prognosis 06/13/2021: Grave prognosis Son not willing to contemplate terminal extubation and comfort care protocol 06/14/2021: Poor prognosis Futile care Critical Care Ventilator Management SIM AVILA DO Jun 20, 2021 07:43
[2021-06-20] MEDS: NOREPINEPHRINE 8 MG/250 ML 250 ML IV SCH ×2 (08:39→15:59)
[2021-06-20] MEDS: SENNA W/DOCUSATE (SENOKOT S) TABLET PO SCH (08:44)
[2021-06-20] MEDS: GABAPENTIN 300 MG (NEURONTIN) CAP NG SCH (08:44)
[2021-06-20] MEDS: MICONAZOLE 2% POWDER (DESENEX AF) 90 GM TOP SCH (08:44)
[2021-06-20] MEDS: ACETAZOLAMIDE IV SCH (08:44)
[2021-06-20] MEDS: PANTOPRAZOLE 40 MG (PROTONIX) VIAL IV SCH (08:44)
[2021-06-20] MEDS: UMECLIDINIUM BROMIDE (INCRUSE ELLIPTA) 7'S IH SCH (09:52)
--- NOTE | 2021-06-20 10:05 | Tele-ICU Progress Note ---
Subjective Date Seen by a Provider: Jun 20, 2021 Time Seen by a Provider: 10:05 Sepsis Event Evaluation Height, Weight, BMI Height: 5'5.00" Weight: 236lbs. 0.0oz. 107.222977ai; 35.85 BMI Method:Stated Exam Exam Patient acknowledged, consented, and participated in this virtual visit which was conducted using real time audio/video Vital Signs Date Time Temp Pulse Resp B/P (MAP) Pulse Ox O2 Delivery O2 Flow Rate FiO2 06/20/21 09:47 123 32 95 100 06/20/21 09:23 Mechanical Ventilator 100.00 06/20/21 09:00 36.7 118 24 151/101 (118) 94 Mechanical Ventilator 80.00 06/20/21 08:39 115 86/53 06/20/21 08:15 93 Mechanical Ventilator 80 06/20/21 08:00 36.8 115 19 87/54 (65) 95 Mechanical Ventilator 80.00 06/20/21 07:00 115 06/20/21 07:00 36.8 115 19 89/57 (68) 96 Mechanical Ventilator 80.00 06/20/21 06:55 115 38 95 80 06/20/21 06:00 37.0 118 19 95/55 (68) 95 Mechanical Ventilator 80.00 06/20/21 05:00 37.2 118 21 93/54 (67) 94 Mechanical Ventilator 80.00 06/20/21 04:56 118 06/20/21 04:55 118 06/20/21 04:00 93 Mechanical Ventilator 80 06/20/21 04:00 37.3 118 25 96/56 (69) 94 Mechanical Ventilator 80.00 06/20/21 03:00 37.3 118 25 95/59 (71) 95 Mechanical Ventilator 80.00 06/20/21 03:00 37.3 Mechanical Ventilator 80.00 06/20/21 02:57 118 30 95 80 06/20/21 02:00 37.2 118 25 89/50 (63) 95 Mechanical Ventilator 80.00 06/20/21 01:00 120 06/20/21 01:00 37.2 118 23 91/52 (65) 95 Mechanical Ventilator 80.00 06/20/21 00:00 37.2 118 25 93/51 (65) 95 Mechanical Ventilator 80.00 06/19/21 23:37 94 Mechanical Ventilator 80 06/19/21 23:11 116 06/19/21 23:10 116 06/19/21 23:00 37.3 115 23 95/53 (67) 96 Mechanical Ventilator 80.00 06/19/21 23:00 37.2 80.00 06/19/21 22:36 117 23 96 90 06/19/21 22:00 37.3 116 23 87/50 (62) 97 Mechanical Ventilator 95.00 06/19/21 21:00 90.00 06/19/21 21:00 37.3 117 28 102/57 (72) 97 Mechanical Ventilator 95.00 06/19/21 20:00 37.2 115 25 102/54 (70) 97 Mechanical Ventilator 95.00 06/19/21 20:00 97 Mechanical Ventilator 95 06/19/21 19:18 116 22 97 95 06/19/21 19:00 37.1 116 22 101/61 (74) 97 Mechanical Ventilator 95.00 06/19/21 19:00 37.2 Mechanical Ventilator 95.00 06/19/21 19:00 117 06/19/21 18:42 116 104/58 06/19/21 18:41 116 104/58 06/19/21 18:00 37.1 116 25 100/58 (72) 96 Mechanical Ventilator 85.00 06/19/21 17:00 37.1 117 28 110/57 (74) 95 Mechanical Ventilator 85.00 06/19/21 16:00 37.2 120 25 120/62 (81) 95 Mechanical Ventilator 85.00 06/19/21 16:00 Mechanical Ventilator 80 06/19/21 15:00 37.2 118 23 107/57 (74) 95 Mechanical Ventilator 85.00 06/19/21 14:21 116 28 90 100 06/19/21 14:00 37.2 116 33 113/58 (68) 91 Mechanical Ventilator 85.00 06/19/21 13:53 116 107/60 06/19/21 13:52 117 107/60 06/19/21 13:45 37.2 116 23 107/60 (77) 93 Mechanical Ventilator 85.00 06/19/21 13:30 37.2 117 22 108/59 (76) 92 Mechanical Ventilator 85.00 06/19/21 13:15 37.2 116 24 109/56 (74) 92 Mechanical Ventilator 85.00 06/19/21 13:00 37.2 117 23 113/56 (76) 92 Mechanical Ventilator 85.00 06/19/21 12:37 118 06/19/21 12:00 37.2 115 22 107/57 (74) 93 Mechanical Ventilator 85.00 06/19/21 12:00 Mechanical Ventilator 80 06/19/21 11:00 37.2 117 20 109/54 (72) 94 Mechanical Ventilator 85.00 06/19/21 10:47 115 32 96 90 I & O 06/20/21 07:00 Intake Total 2650 ml Output Total 500 ml Balance 2150 ml Height & Weight Height: 5'5.00" Weight: 236lbs. 0.0oz. 107.362191zy; 35.85 BMI Method:Stated General Appearance: No Apparent Distress, WD/WN, Chronically ill, Other (Sedated and intubated) Respiratory: Decreased Breath Sounds Capillary Refill: Less Than 3 Seconds Gastrointestinal: normal bowel sounds, non tender, soft Extremity: Other (3+ edema of all extremities and the face, triple lumen in left PICC, site looks ok) Neurologic/Psychiatric: Alert, Oriented x3, Depressed Affect Results Lab Laboratory Tests 06/19/21 04:00 06/20/21 03:30 Assessment/Plan Assessment/Plan Discussed with RN Events overnight : RESUMED LEVO FEBRILE I/O =even Drips: resp Pressors: Sedation gtt: ( RASS ) propofol 50 fentanyl 400 versed 10 VENT SETTINGS. and ABG reviewed Not candidate for SBT today Contraindications: Cardiovascular Stability / Sedation Score / FI02/PEEP / ABG / CXR EXAM PER RN Consultants: Hospital course: (05/28) 55/F Admitted from ED w/ COVID PNA. CTA 05/28 - NO PE (05/30) Tx to ICU on BIPAP. (05/31) INTUBATED. Cardiac arrest (unclear if during or after intubation). CPR 10mins. Post code, patient had purposeful movment so no TTM 06/09- +16 100%, attempt to diuresuis, bloody secretion ETT - lovenox on hold 06/11 AC 22 420 +16 70 % increasing PAP 41, resumed lovenox proph dose 06/13 AC 28 360 +14 65% PAP 37 9- 100% 06/19 - 85% 06/20 - peep 10 , 100% PAP 50 , back to levo , oliguria A/P Acute resp failure- intubated 05/31 ( covid PNA , CTA 05/28 - NO PE - full vent support ,- AC 22 360 +14 65% PAP 37- HIGH PAP - WILL TOLERATE SONE DEGREE OF HYPERCAPNEA = PAP 50 - ? paralisis next - not proning -( went to SVT with proning prior ) STOP DIAMOX IV TODAY - bloody secretion in ETT 06/11 - IMPROVED WITH CHANGING LOVENOX TO PROPH DOSE SHOCK - ? due to acidossi - ? new infection , ABLA ? - wean lefo , recheck CBC Cardiac arrest (unclear if during or after intubation). CPR 10mins. - no TTM with follow commands as per report SEDATED NOW , NOT TOLERTED SEDATION VACATION- ? chronic pain COVID PNA - steroids IV- titrate - STOP 06/20 - lovenox 75 bid ( CTA 05/28 - NO PE m ddimer 0.7 on 05/28 , BLOODY SECRETION IN ETT 06/09- - LOVENOX CHANGED TO PROPH DOSE = baricitinib 05/30 ->06/12 possible PNA - sputum cx 06/01- not reported cefepime/ vanco - stop 06/03 blood cx - staph epider 05/28 - ? contaminant -06/02 - fever - reculture blood - GPC from PICC , and sputum blood 06/09 - WORSENIG FIO2 - PCT UP - ZOSYN - till 06/14 -still febrile - ? nosocomial infection - will follow cx DM - hyperglycemia on steroids - increase ISS , on long acting insulin Abd distention - tolerates TF - KUB WNL 06/09 . + BM x1 06/10 - follow Anemia - follow cbc H/O Severe anxiety Bipolar disorder Lines : PICC 06/01 (Central Line Necessity Reviewed) Lyn: 05/30 OG: + Nutrition: started TF - 06/01 - 35 ml/h Analgesia: Anxiety/ delirium VTE Prophylaxis: lovenox proph dose Stress Ulcer Prophylaxis: PPI Plans in collaboration with bedside consultants and IM MDs. Discussed with RN to reach out if any questions or concerns A total of 40 minutes of critical care time was devoted to this patient today, required to treat and/or prevent further deterioration of critical care condition ( as above) PEBBLES SANTANA MD Jun 20, 2021 10:05
[2021-06-20] MEDS ORDERED: FUROSEMIDE 40 MG/4 ML INJ (LASIX) IVP ONE ×2 (13:15→17:30)
[2021-06-20] MEDS ORDERED: SODIUM BICARB 8.4% 50 MEQ/50 ML (ABBOTT) SYR ONE ×2 (13:20→17:53)
--- NOTE | 2021-06-20 13:20 | Tele-ICU Progress Note ---
Progress Note Noted bleeding in mouth and in OG -100% fio2 , no UO - shock - on levo will check cbc ( +T&C ) bmp stat hold lovenox increased dose of levo , bicarb IV push for acidosis no proning for now RB to update family and PCP Focused Exam Height, Weight, BMI Height: 5'5.00" Weight: 236lbs. 0.0oz. 107.648569ga; 35.85 BMI Method:Stated PEBBLES SANTANA MD Jun 20, 2021 13:20
[2021-06-20] MEDS ORDERED: SODIUM BICARB 8.4% 50 MEQ/50 ML (ABBOTT) SYR IV ONE ×4 (13:30→19:00)
[2021-06-20 13:32] LABS: HEMATOCRIT 25 % (35-52); HEMOGLOBIN 7.6 g/dL (11.5-16.0); MEAN CORPUSCULAR HEMOGLOBIN 33 pg (25-34); MEAN CORPUSCULAR HGB CONC 30 g/dL (32-36); MEAN CORPUSCULAR VOLUME 111 fL (80-99); MEAN PLATELET VOLUME 11.4 fL (9.0-12.2); PLATELET COUNT 358 10^3/uL (130-400); WHITE BLOOD COUNT 14.5 10^3/uL (4.3-11.0)
[2021-06-20 14:11] LABS: POTASSIUM 5.1 MMOL/L (3.6-5.0)
[2021-06-20 14:12] LABS: CALCIUM 7.7 MG/DL (8.5-10.1)
[2021-06-20 14:17] LABS: CREATININE SERUM 1.15 MG/DL (0.60-1.30)
[2021-06-20] MEDS ORDERED: MEROPENEM 1,000 MG in WATER (STERILE) FOR INJECTION 20 ML IV SCH (15:15)
[2021-06-20] MEDS ORDERED: CALCIUM GLUCONATE 10% INJ 4.65 MEQ in NS (IVPB) 50 ML IV ONE (15:15)
[2021-06-20 15:58] LABS: POTASSIUM 5.1 MMOL/L (3.6-5.0)
[2021-06-20 15:59] LABS: CALCIUM 8.3 MG/DL (8.5-10.1)
[2021-06-20 16:03] LABS: CREATININE SERUM 1.37 MG/DL (0.60-1.30)
[2021-06-20] MEDS ORDERED: ALBUMIN 25% 25 GM/100 ML 50 ML IV ONE (17:30)
[2021-06-20] MEDS ORDERED: LORazepam INJ 2 MG/ML (ATIVAN) VIAL IVP PRN (19:00)
[2021-06-20] MEDS ORDERED: morphine INJ 4 MG/ML 1 ML (VIAL/SYRINGE) IVP PRN (19:00)
[2021-06-20] MEDS ORDERED: SCOPOLAMINE 1.5 MG (TRANSDERM-SCOP) PATCH TD ONE (19:15)
--- NOTE | 2021-06-20 21:17 | Discharge Summary ---
Discharge Summary Hospital Course Was the Problem List Reviewed?: Yes Problems/Dx: (1) Acute respiratory failure due to COVID-19 Status: Acute (2) Pneumonia due to COVID-19 virus Status: Acute (3) COPD (chronic obstructive pulmonary disease) Status: Chronic Qualifiers: Qualified Codes: J44.9 - Chronic obstructive pulmonary disease, unspecified (4) Bipolar disorder Status: Chronic (5) Diabetes Status: Chronic Qualifiers: Qualified Codes: E11.65 - Type 2 diabetes mellitus with hyperglycemia; Z79.4 - correction (current) use of insulin (6) Cardiac arrest Status: Resolved Hospital Course Date of Admission: May 28, 2021 at 20:15 Admission Diagnosis : Family Physician/Provider: Den Headley MD Date of Discharge: 06/20/21 Discharge Diagnosis: Acute hypoxic respiratory failure, COVID-19 pneumonia, status post cardiac arrest with intubation, acute kidney injury, sepsis, hypotension Hospital Course: Patient had a lengthy hospital course for 24 days of which 21 days included ventilator dependence. Patient was diagnosed with COVID-19 pneumonia and rapidly progressed to acute hypoxic respiratory failure failed Vapotherm and BiPAP and was intubated and had a cardiac arrest with CPR for 10 minutes. She is maintained on protocol completed antibiotics status post multiple attempts to wean multisystem organ failure ensued I had long conversation with son week before recommended comfort care due to futility of care and he was not in agreement with any of that and asked for copies of medical chart and for me to go through every page with every x-ray and every note and medication until him exactly what management she was receiving. Considering the COVID-19 pandemic restraints on time I was unable to provide that type of update. Multiple attempts to recommend comfort care were ultimately ignored by son and he ultimately stopped responding to phone calls. Daughter then became involved and family made her DNR she was extubated and time of was 2043. Labs and Pending Lab Test: Laboratory Tests 06/19/21 23:09: Glucometer 142H 06/20/21 03:30: White Blood Count 8.4, Red Blood Count 2.36L, Hemoglobin 7.2L, Hematocrit 26L, Mean Corpuscular Volume 110H, Mean Corpuscular Hemoglobin 31, Mean Corpuscular Hemoglobin Concent 28L, Red Cell Distribution Width 14.6H, Platelet Count 220, Mean Platelet Volume 11.1, Immature Granulocyte % (Auto) 1, Neutrophils (%) (Auto) 79H, Lymphocytes (%) (Auto) 8L, Monocytes (%) (Auto) 11, Eosinophils (%) (Auto) 1, Basophils (%) (Auto) 0, Neutrophils # (Auto) 6.6, Lymphocytes # (Auto) 0.6L, Monocytes # (Auto) 0.9, Eosinophils # (Auto) 0.1, Basophils # (Auto) 0.0, Immature Granulocyte # (Auto) 0.1, Sodium Level 137, Potassium Level 4.8, Chloride Level 104, Carbon Dioxide Level 22, Anion Gap 11, Blood Urea Nitrogen 32H, Creatinine 1.05, Estimat Glomerular Filtration Rate 54, BUN/Creatinine Ratio 30, Glucose Level 162H, Calcium Level 8.8, Phosphorus Level 4.9H, Magnesium Level 2.5H 06/20/21 11:38: Glucometer 177H 06/20/21 13:15: White Blood Count 14.5H, Red Blood Count 2.28L, Hemoglobin 7.6L, Hematocrit 25L, Mean Corpuscular Volume 111H, Mean Corpuscular Hemoglobin 33, Mean Corpuscular Hemoglobin Concent 30L, Red Cell Distribution Width 14.5, Platelet Count 358, Mean Platelet Volume 11.4 06/20/21 13:33: Sodium Level 131L, Potassium Level 5.1H, Chloride Level 99, Carbon Dioxide Level 17L, Anion Gap 15H, Blood Urea Nitrogen 37H, Creatinine 1.15, Estimat Glomerular Filtration Rate 49, BUN/Creatinine Ratio 32, Glucose Level 188H, Calcium Level 7.7L 06/20/21 15:30: Sodium Level 135, Potassium Level 5.1H, Chloride Level 104, Carbon Dioxide Level 18L, Anion Gap 13, Blood Urea Nitrogen 43H, Creatinine 1.37H, Estimat Glomerular Filtration Rate 40, BUN/Creatinine Ratio 31, Glucose Level 205H, Calcium Level 8.3L 06/20/21 17:36: Glucometer 182H Microbiology 06/09/21 Blood Culture - Final, Complete No growth Home Meds Active Cephalexin 500 Mg Tablet 500 Mg PO TID Hydrocodone-Acetamin 5-325 mg (Hydrocodone/Acetaminophen) 1 Each Tablet 1 Tab PO Q4H PRN Albendazole 200 Mg Tablet 400 Mg PO WEEK Take 400 mg on empty stomach and then repeat 14 days later. Reported Trelegy Ellipta 100-62.5-25 (Fluticasone/Umeclidin/Vilanter) 1 Each Blst.w.dev 1 Each IH DAILY Omeprazole 40 Mg Capsule.dr 40 Mg PO DAILY Mirtazapine 30 Mg Tablet 30 Mg PO HS Metoprolol Succinate 25 Mg Tab.er.24h 25 Mg PO DAILY Metformin HCl 500 Mg Tablet 500 Mg PO DAILY Latuda (Lurasidone HCl) 80 Mg Tablet 80 Mg PO HS Lantus Solostar (Insulin Glargine,Hum.rec.anlog) 100 Unit/1 Ml Insuln.pen 20 Unit SQ DAILY Hydroxyzine HCl 25 Mg Tablet 25 Mg PO BID Humalog Kwikpen (Insulin Lispro) 100 Unit/1 Ml Insuln.pen 10 Unit SQ TID Gabapentin 600 Mg Tablet 600 Mg PO UD Atorvastatin Calcium 40 Mg Tablet 40 Mg PO HS Aspirin 81 Mg Tab.chew 81 Mg PO DAILY Lisinopril 10 Mg Tablet 10 Mg PO DAILY Assessment/Pt Instructions Discharge Planning: <30 minutes discharge planning Discharge Physical Examination Vital Signs Vital Signs Date Time Temp Pulse Resp B/P (MAP) Pulse Ox O2 Delivery O2 Flow Rate FiO2 06/20/21 18:00 37.3 80 25 100/58 (72) 89 Mechanical Ventilator 100.00 06/20/21 16:14 100 Allergies: Coded Allergies: adhesive (Unverified Allergy, Unknown, 10/31/19) ibuprofen (Verified Allergy, Unknown, 10/31/19) Discharge Summary Date of Admission May 28, 2021 at 20:15 Date of Discharge Admission Diagnosis Assessment: COVID-19 pneumonia Severe anxiety Bipolar disorder Diabetes with vwa-go-titnetg sugars due to steroids Plan: Vapotherm BiPAP Steroids Insulin Comfort Measures/ Time spent on discussion (min): 0 Discharge Diagnosis Assessment: COVID-19 pneumonia Severe anxiety Bipolar disorder Diabetes with [id number] sugars due to steroids Plan: Vapotherm BiPAP Steroids Insulin 05/30/2021: Initiate Olumiant due to no more supply of Actemra High risk of ventilator progression Xanax IV steroids 05/31/2021: Intubation Status post cardiac arrest after intubation with return of ROSC 06/08/2021: Ventilator management appreciated Dulcolax suppository Tube feedings Supportive care 06/09/2021: Supportive care Vent management Poor prognosis 06/10/2021: Maintain intubation Monitor closely 06/11/2021: Poor prognosis Needs DNR Needs terminal extubation 06/12/2021: Supportive care Poor prognosis 06/13/2021: Grave prognosis Son not willing to contemplate terminal extubation and comfort care protocol 06/14/2021: Poor prognosis Futile care SIM AVILA DO Jun 20, 2021 21:17
[2021-06-20] MEDS ORDERED: ALBUMIN 25% 25 GM/100 ML 100 ML IV SCH (22:00)
== END 2021-06-20 20:44 | disposition expired | DRG 207 ==
LOC: EDUNIT# 17:11 → ER 17:16 → 4TH 20:15 → ICU 05-30 17:39
PROVIDERS: ADMIT Internal Medicine; ATTEND Internal Medicine
PROC: 5A09357 Assistance with Respiratory Ventilation, Less than 24 Consecutive Hours, Continuous Positive Airway Pressure (ICD-10-PCS; 2021-05-30)
PROC: 5A1955Z Respiratory Ventilation, Greater than 96 Consecutive Hours (ICD-10-PCS; principal; 2021-05-31)
PROC: 0BH17EZ Insertion of Endotracheal Airway into Trachea, Via Natural or Artificial Opening (ICD-10-PCS; 2021-05-31)
DX: U07.1 COVID-19 (principal); J12.82 Pneumonia due to coronavirus disease 2019; J80 Acute respiratory distress syndrome; J15.9 Unspecified bacterial pneumonia; A41.9 Sepsis, unspecified organism; N17.9 Acute kidney failure, unspecified; R57.9 Shock, unspecified; Z66 Do not resuscitate; Z51.5 Encounter for palliative care; Z68.42 Body mass index [BMI] 45.0-49.9, adult; I47.1 Supraventricular tachycardia; I46.9 Cardiac arrest, cause unspecified; J43.9 Emphysema, unspecified; E11.65 Type 2 diabetes mellitus with hyperglycemia; E87.5 Hyperkalemia; E66.01 Morbid (severe) obesity due to excess calories; R34 Anuria and oliguria; I10 Essential (primary) hypertension; F43.10 Post-traumatic stress disorder, unspecified; F41.9 Anxiety disorder, unspecified; F31.9 Bipolar disorder, unspecified; T38.0X5A Adverse effect of glucocorticoids and synthetic analogues, initial encounter; Z88.6 Allergy status to analgesic agent; Z79.4 Long term (current) use of insulin; Z79.82 Long term (current) use of aspirin; Z79.52 Long term (current) use of systemic steroids; Z83.3 Family history of diabetes mellitus; Z82.49 Family history of ischemic heart disease and other diseases of the circulatory system
CPT/HCPCS: 36410; 36415; 36569; 36600; 71045; 71275; 74018; 76937; 80048; 80053; 80202; 82805; 82947; 83036; 83605; 83735; 84100; 84132; 84145; 84478; 85007; 85025; 85027; 85379; 85610; 85730; 86850; 86900; 86901; 87040; 87077; 87186; 87636; 93005; 94002; 94003; 94640; 94660; 94760; 94799; 96374